=== PATIENT | female | born 1970 | race Caucasian/White ===

== ENCOUNTER 2016-08-21 16:32 | Emergency (ER) | payer OTHER ==
[2016-08-21 16:55] VITALS: BP 178/90; PULSE 95; RESP 18; TEMP 97.9
--- NOTE | 2016-08-21 18:00 | ED ---
General Adult HPI - General Chief complaint: Fall Stated complaint: Fall 2 wks ago, back pain Time Seen by Provider: 08/21/16 17:46 Source: patient, RN notes reviewed Mode of arrival: ambulatory - History of Present Illness Initial comments: this is a 46-year-old female who presents with lower back pain 2 weeks. Patient states she was sitting on a table and the table broke and one of the legs hit her in the tailbone area. Patient states it hurts to have a bowel movement but she is able to. Patient denies any change of bowel or bladder function such as incontinence of bowel or bladder or urinary retention. Patient denies any hematuria or hematochezia. Patient denies any loss of sensation to the saddle area. Patient denies any numbness/weakness/tingling to bilateral lower extremities. Patient is able to walk without difficulty. Patient states she has some mild shooting pain on the right side leg when she bends over. Patient did not hit her head or lose consciousness. Patient complains of some mild right-sided neck pain that started about a week and half ago. Patient denies any injury causing this neck pain. Patient states it hurts worse to move her head to the right. Patient denies any recent fever, chills, shortness breath, chest pain, abdominal pain, nausea/vomiting/diarrhea, hematuria, headache, or visual changes, or any other complaints. Patient is not on any anticoagulants. - Related Data Home Medications Medication Instructions Recorded Confirmed Multivitamins, Thera [Multivitamin] 1 tab PO DAILY 05/11/15 08/21/16 Ergocalciferol (Vitamin D2) 50,000 unit PO GUERRA 04/05/16 08/21/16 [Drisdol] buPROPion SR [Wellbutrin SR] 150 mg PO BID 04/05/16 08/21/16 Fenofibrate 160 mg PO DAILY 08/21/16 08/21/16 Hydrochlorothiazide 25 mg PO DAILY 08/21/16 08/21/16 Lisinopril [Prinivil] 5 mg PO DAILY 08/21/16 08/21/16 Propranolol [Inderal] 40 mg PO TID 08/21/16 08/21/16 Topiramate [Trokendi Xr] 50 mg PO DAILY 08/21/16 08/21/16 Previous Rx's Medication Instructions Recorded traMADol HCl [Ultram] 50 mg PO Q6H PRN #20 tab 12/06/15 Allergies Allergy/AdvReac Type Severity Reaction Status Date / Time Iodinated Contrast Media - Allergy Severe Rash/Hives Verified 08/21/16 17:24 Oral and [Iodinated Contrast Media - IV Dye] Penicillins Allergy Severe swelling,hi Verified 08/21/16 17:24 ves Sulfa (Sulfonamide Allergy Severe swelling,hi Verified 08/21/16 17:24 Antibiotics) ves adhesive Allergy Swelling Verified 08/21/16 17:24 ibuprofen [From Motrin] AdvReac Unknown Verified 08/21/16 17:24 Review of Systems ROS Statement: Those systems with pertinent positive or pertinent negative responses have been documented in the HPI. ROS Other: All systems not noted in ROS Statement are negative. Past Medical History Past Medical History: Hypertension, Neurologic Disorder, Sleep Apnea/CPAP/BIPAP Additional Past Medical History / Comment(s): morbid obesity, back pain, Hepatitis A, MIGRIANES, GALLBLADDER DISORDER, USES CPAP, BULGING DISCS IN BACK History of Any Multi-Drug Resistant Organisms: None Reported Past Surgical History: Breast Surgery, Section, Hernia Repair, Hysterectomy, Tubal Ligation, Uterine Ablation Additional Past Surgical History / Comment(s): EGD, 3 C sections, breast reduction, cyst removed from left hand, D & C, Bilateral groin hernia repair, LAPAROSCOPY Past Anesthesia/Blood Transfusion Reactions: No Reported Reaction Additional Past Anesthesia/Blood Transfusion Reaction / Comment(s): CLAUSTERPHOBIA Past Psychological History: Depression Additional Psychological History / Comment(s): PT STATED FEEL WELL MAINTANIED BY MEDS- HAS NO THOUGHTS OF HARMING SELF, NO HOPELESSNESS. 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 LIVES AT HOME WITH SPOUSE AND 2 KIDS. IS INDEPENDANT Smoking Status: Never smoker Past Alcohol Use History: None Reported Past Drug Use History: None Reported - Past Family History Mother Family Medical History: Coronary Artery Disease (CAD), Diabetes Mellitus, Renal Disease Additional Family Medical History / Comment(s): [employer] Father Family Medical History: Cancer, Diabetes Mellitus, Myocardial Infarction ([place]) Sister(s) Family Medical History: Cancer General Exam - General Exam Comments Initial Comments: General: The patient is awake and alert, in no distress, and does not appear acutely ill. Neck: Patient has tenderness in the right side paraspinal muscles of the cervical spine. The neck is supple, there is no JVD. Cardiovascular: There is a regular rate and rhythm. No murmur, rub or gallop is appreciated. Respiratory: Lungs are clear to auscultation, respirations are non-labored, breath sounds are equal. No wheezes, stridor, rales, or rhonchi. Musculoskeletal: Patient has tenderness to thoracic and lumbar spines. Patient has tenderness to the right side cervical paraspinal muscles. Patient has increased pain with rotating her head to the right but strength is 5/5 with head rotation. Full range of motion, strength 5/5 in Sensation intact. Radial pulses 2+ bilaterally. Neurological: A&O x 3. CN II-XII intact, There are no obvious motor or sensory deficits. Coordination appears grossly intact. Speech is normal. Skin: Skin is warm and dry and no rashes or lesions are noted. Psychiatric: Normal mood and affect. Course Vital Signs 08/21/16 16:52 Temperature 97.9 F Pulse Rate 95 Respiratory 18 Rate Blood Pressure 178/90 O2 Sat by Pulse 99 Oximetry Medical Decision Making - Medical Decision Making This is a 46-year-old female who presents with lower back pain 2 weeks from a fall. On physical exam patient is neurologically intact. Patient has tenderness to thoracic and lumbar spines. Patient has tenderness to the right side cervical paraspinal muscles. Patient has increased pain with rotating her head to the right but strength is 5/5 with head rotation. Full range of motion , strength 5/5 in Sensation intact. Radial pulses 2+ bilaterally. X-rays of the thoracic, lumbar and sacrum/coccyx areas were done and reviewed showing: X-ray thoracic spine: Multilevel hypertrophic spurring. No fracture seen. X-ray sacrum coccyx: Normal sacrum and coccyx exam. X-ray lumbar spine: Degenerative spurring. No fracture. No significant disc space narrowing. Report read by Dr. Broderick. Discussed results with patient. Discussed that she most likely bruised her tailbone. I discussed stool softeners. I discussed that patient should continue taking [id number] Tylenol and patient states she has tramadol at home that she uses. Discussed that patient' s neck pain is mostly caused by muscle spasm. I discussed warm heating pads to the neck. Patient states she has a follow-up appointment with her primary care physician on Sunday I discussed that she should keep this appointment or follow- up sooner if she is having any further problems. I discussed return parameters. Discussed that patient should return to the [facility] for any worsening symptoms or for any further concerns. At this time patient was receptive to this plan patient will be discharged home. Disposition Clinical Impression: Coccygeal contusion, Neck muscle spasm Disposition: HOME SELF-CARE Condition: Good Instructions: Spasmodic Torticollis (ED), Coccyx Injury (ED) Additional Instructions: Please continue Tylenol and tramadol that she had at home for pain. Please use heating pads to the area. No softeners if needed. Please continue your follow- up appointment with your primary care physician or return to the [facility] for any worsening symptoms or for any further concerns. Referrals: Brian Medina DO [Primary Care Provider] - 1-2 days Time of Disposition: 18:56
--- NOTE | 2016-08-21 18:27 | XR ---
EXAMINATION TYPE: XR sacrum coccyx DATE OF EXAM: 08/21/2016 6:19 PM COMPARISON: NONE HISTORY: Back pain TECHNIQUE: 3 views FINDINGS: Segments of normal alignment. I see no fracture. Sacroiliac joints appear normal. IMPRESSION: Normal sacrum and coccyx exam.
--- NOTE | 2016-08-21 18:28 | XR ---
EXAMINATION TYPE: XR lumbar spine 2 or 3V DATE OF EXAM: 08/21/2016 6:19 PM COMPARISON: NONE HISTORY: Low back pain TECHNIQUE: 3 views FINDINGS: Lumbar vertebra have normal alignment. Posterior elements are intact. There is no evidence of a fracture. There is anterior spurring at L3-4 L4-5. Sacroiliac joints are normal. IMPRESSION: Degenerative spurring. No fracture. No significant disc space narrowing.
--- NOTE | 2016-08-21 18:29 | XR ---
EXAMINATION TYPE: XR thoracic spine complete DATE OF EXAM: 08/21/2016 6:19 PM COMPARISON: NONE HISTORY: Back pain TECHNIQUE: 3 views FINDINGS: The thoracic vertebra have normal alignment. Disc spaces are fairly normal. There is hypert rophic spurring of the endplates throughout the mid and lower thoracic spine. There is no paraspinal mass. Posterior elements are intact. IMPRESSION: Multilevel hypertrophic spurring. No fracture seen.
== END 2016-08-21 18:59 | disposition home or self-care (01) ==
LOC: EC 16:32
DX: S30.0XXA Contusion of lower back and pelvis, initial encounter (principal); G24.3 Spasmodic torticollis; M62.838 Other muscle spasm; E66.01 Morbid (severe) obesity due to excess calories; I10 Essential (primary) hypertension; F32.9 Major depressive disorder, single episode, unspecified; Z79.899 Other long term (current) drug therapy; Z91.041 Radiographic dye allergy status; Z88.0 Allergy status to penicillin; Z88.2 Allergy status to sulfonamides; Z88.6 Allergy status to analgesic agent; Z91.09 Other allergy status, other than to drugs and biological substances; W08.XXXA Fall from other furniture, initial encounter; Y92.009 Unspecified place in unspecified non-institutional (private) residence as the place of occurrence of the external cause
CPT/HCPCS: 72072; 72100; 72220; 99283

== ENCOUNTER 2016-09-16 11:27 | Emergency (ER) | payer OTHER ==
[2016-09-16] MEDS ORDERED: ONDANSETRON 4 MG/2 ML VIAL IVP STA (12:15)
[2016-09-16] MEDS ORDERED: SODIUM CHLORIDE 0.9% 500 ML IV STA (12:15)
--- NOTE | 2016-09-16 12:19 | ED ---
Abdominal Pain HPI - General Chief Complaint: Abdominal Pain Stated Complaint: pain all over Time Seen by Provider: 09/16/16 12:04 Source: patient Mode of arrival: ambulatory Limitations: no limitations - History of Present Illness Initial Comments: 46-year-old female complains of abdominal pain. She states that she began 1 month ago with chest pain some neck pain has had some increased migraines. Intermittent nausea hurts about 10 minutes after she eats. She's had multiple surgery but no upper abdominal surgery still has her gallbladder. She states is sometimes hurts with a deep breath. Sharp and then becomes dull last most the day every day. No history of diabetes asthma seizures or stroke. Is treated for hypertension and she states her blood pressures have been running high. - Related Data Home Medications Medication Instructions Recorded Confirmed Multivitamins, Thera [Multivitamin] 1 tab PO DAILY 05/11/15 08/21/16 Ergocalciferol (Vitamin D2) 50,000 unit PO GUERRA 04/05/16 08/21/16 [Drisdol] buPROPion SR [Wellbutrin SR] 150 mg PO BID 04/05/16 08/21/16 Fenofibrate 160 mg PO DAILY 08/21/16 08/21/16 Hydrochlorothiazide 25 mg PO DAILY 08/21/16 08/21/16 Lisinopril [Prinivil] 5 mg PO DAILY 08/21/16 08/21/16 Propranolol [Inderal] 40 mg PO TID 08/21/16 08/21/16 Topiramate [Trokendi Xr] 50 mg PO DAILY 08/21/16 08/21/16 Previous Rx's Medication Instructions Recorded traMADol HCl [Ultram] 50 mg PO Q6H PRN #20 tab 12/06/15 Famotidine 40 mg PO DAILY #30 tab 09/16/16 Allergies Allergy/AdvReac Type Severity Reaction Status Date / Time Iodinated Contrast Media - Allergy Severe Rash/Hives Verified 09/16/16 11:49 Oral and [Iodinated Contrast Media - IV Dye] Penicillins Allergy Severe swelling,hi Verified 09/16/16 11:49 ves Sulfa (Sulfonamide Allergy Severe swelling,hi Verified 09/16/16 11:49 Antibiotics) ves adhesive Allergy Swelling Verified 09/16/16 11:49 ibuprofen [From Motrin] AdvReac Unknown Verified 03/11/17 11:49 Review of Systems ROS Statement: Those systems with pertinent positive or pertinent negative responses have been documented in the HPI. ROS Other: All systems not noted in ROS Statement are negative. Constitutional: Denies: fever Eyes: Denies: eye pain, eye discharge ENT: Denies: ear pain, throat pain Respiratory: Denies: cough Cardiovascular: Reports: chest pain Endocrine: Denies: fatigue Gastrointestinal: Reports: nausea, diarrhea (Occasional related to her milk intolerance). Denies: vomiting Genitourinary: Denies: urgency, dysuria, frequency Musculoskeletal: Denies: back pain Skin: Denies: rash Psychiatric: Denies: anxiety, depression Hematological/Lymphatic: Denies: easy bleeding, easy bruising Past Medical History Past Medical History: Hypertension, Neurologic Disorder, Sleep Apnea/CPAP/BIPAP Additional Past Medical History / Comment(s): morbid obesity, back pain, Hepatitis A, MIGRIANES, GALLBLADDER DISORDER, USES CPAP, BULGING DISCS IN BACK History of Any Multi-Drug Resistant Organisms: None Reported Past Surgical History: Breast Surgery, Section, Hernia Repair, Hysterectomy, Tubal Ligation, Uterine Ablation Additional Past Surgical History / Comment(s): EGD, 3 C sections, breast reduction, cyst removed from left hand, D & C, Bilateral groin hernia repair, LAPAROSCOPY Past Anesthesia/Blood Transfusion Reactions: No Reported Reaction Additional Past Anesthesia/Blood Transfusion Reaction / Comment(s): CLAUSTERPHOBIA Past Psychological History: Depression Additional Psychological History / Comment(s): PT STATED FEEL WELL MAINTANIED BY MEDS- HAS NO THOUGHTS OF HARMING SELF, NO HOPELESSNESS. 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 LIVES AT HOME WITH SPOUSE AND 2 KIDS. IS INDEPENDANT Smoking Status: Never smoker Past Alcohol Use History: None Reported Past Drug Use History: None Reported - Past Family History Mother Family Medical History: Coronary Artery Disease (CAD), Diabetes Mellitus, Renal Disease Additional Family Medical History / Comment(s): [employer] Father Family Medical History: Cancer, Diabetes Mellitus, Myocardial Infarction ([place]) Sister(s) Family Medical History: Cancer General Exam Limitations: no limitations General appearance: alert, in no apparent distress Head exam: Present: atraumatic Eye exam: Present: PERRL, EOMI ENT exam: Present: normal oropharynx, mucous membranes dry, mucous membranes moist, TM's normal bilaterally Neck exam: Present: normal inspection Respiratory exam: Present: normal lung sounds bilaterally Cardiovascular Exam: Present: regular rate, normal rhythm, normal heart sounds GI/Abdominal exam: Present: soft, tenderness (Tenderness epigastric and right upper quadrant with no rebound or guarding). Absent: guarding, rebound Extremities exam: Present: normal inspection Back exam: Present: normal inspection Neurological exam: Present: alert, CN II-XII intact Psychiatric exam: Present: normal affect, normal mood Skin exam: Present: warm, dry Course Vital Signs 09/16/16 11:47 Temperature 97.0 F L Pulse Rate 72 Respiratory 20 Rate Blood Pressure 127/60 O2 Sat by Pulse 98 Oximetry Medical Decision Making - Medical Decision Making Lab work is normal ultrasound the gallbladder normal EKG is normal as well as chest x-ray chest x-ray probably secondary to peptic ulcer disease gastritis or GERD, recommended speak to her doctor about a gastroscopy - Lab Data Result diagrams: 09/16/16 13:23 09/16/16 13:23 Lab Results 09/16/16 09/16/16 09/16/16 Range/Units 13:23 13:23 13:23 WBC 8.7 (3.8-10.6) k/uL RBC 4.46 (3.80-5.40) m/uL Hgb 13.9 (11.4-16.0) gm/dL Hct 41.2 (34.0-46.0) % MCV 92.3 (80.0-100.0) fL MCH 31.2 (25.0-35.0) pg MCHC 33.9 (31.0-37.0) g/dL RDW 12.8 (11.5-15.5) % Plt Count 354 (150-450) k/uL Neutrophils % 49 % Lymphocytes % 39 % Monocytes % 4 % Eosinophils % 3 % Basophils % 1 % Neutrophils # 4.3 (1.3-7.7) k/uL Lymphocytes # 3.4 (1.0-4.8) k/uL Monocytes # 0.3 (0-1.0) k/uL Eosinophils # 0.3 (0-0.7) k/uL Basophils # 0.1 (0-0.2) k/uL Sodium 143 (137-145) mmol/L Potassium 4.2 (3.5-5.1) mmol/L Chloride 107 (98-107) mmol/L Carbon Dioxide 23 (22-30) mmol/L Anion Gap 13 mmol/L BUN 22 H (7-17) mg/dL Creatinine 1.12 H (0.52-1.04) mg/dL Est GFR (MDRD) Af Amer >60 (>60 ml/min/1.73 sqM) Est GFR (MDRD) Non-Af 52 (>60 ml/min/1.73 sqM) Glucose 122 H (74-99) mg/dL Calcium 9.8 (8.4-10.2) mg/dL Total Bilirubin 0.8 (0.2-1.3) mg/dL AST 22 (14-36) U/L ALT 34 (9-52) U/L Alkaline Phosphatase 75 (38-126) U/L Total Creatine Kinase 50 (30-135) U/L CK-MB (CK-2) <0.2 (0.0-2.4) ng/mL CK-MB (CK-2) Rel Index Troponin I <0.012 (0.000-0.034) ng/mL Total Protein 7.5 (6.3-8.2) g/dL Albumin 4.1 (3.5-5.0) g/dL Amylase 34 (30-110) U/L Lipase 56 (23-300) U/L Urine Color Urine Appearance (Clear) Urine pH (5.0-8.0) Ur Specific Cameron (1.001-1.035) Urine Protein (Negative) Urine Glucose (UA) (Negative) Urine Ketones (Negative) Urine Blood (Negative) Urine Nitrate (Negative) Urine Bilirubin (Negative) Urine Urobilinogen (<2.0) mg/dL Ur Leukocyte Esterase (Negative) 09/16/16 Range/Units 13:23 WBC (3.8-10.6) k/uL RBC (3.80-5.40) m/uL Hgb (11.4-16.0) gm/dL Hct (34.0-46.0) % MCV (80.0-100.0) fL MCH (25.0-35.0) pg MCHC (31.0-37.0) g/dL RDW (11.5-15.5) % Plt Count (150-450) k/uL Neutrophils % % Lymphocytes % % Monocytes % % Eosinophils % % Basophils % % Neutrophils # (1.3-7.7) k/uL Lymphocytes # (1.0-4.8) k/uL Monocytes # (0-1.0) k/uL Eosinophils # (0-0.7) k/uL Basophils # (0-0.2) k/uL Sodium (137-145) mmol/L Potassium (3.5-5.1) mmol/L Chloride (98-107) mmol/L Carbon Dioxide (22-30) mmol/L Anion Gap mmol/L BUN (7-17) mg/dL Creatinine (0.52-1.04) mg/dL Est GFR (MDRD) Af Amer (>60 ml/min/1.73 sqM) Est GFR (MDRD) Non-Af (>60 ml/min/1.73 sqM) Glucose (74-99) mg/dL Calcium (8.4-10.2) mg/dL Total Bilirubin (0.2-1.3) mg/dL AST (14-36) U/L ALT (9-52) U/L Alkaline Phosphatase (38-126) U/L Total Creatine Kinase (30-135) U/L CK-MB (CK-2) (0.0-2.4) ng/mL CK-MB (CK-2) Rel Index Troponin I (0.000-0.034) ng/mL Total Protein (6.3-8.2) g/dL Albumin (3.5-5.0) g/dL Amylase (30-110) U/L Lipase (23-300) U/L Urine Color Yellow Urine Appearance Clear (Clear) Urine pH 7.5 (5.0-8.0) Ur Specific Cameron 1.015 (1.001-1.035) Urine Protein Negative (Negative) Urine Glucose (UA) Negative (Negative) Urine Ketones Negative (Negative) Urine Blood Negative (Negative) Urine Nitrate Negative (Negative) Urine Bilirubin Negative (Negative) Urine Urobilinogen <2.0 (<2.0) mg/dL Ur Leukocyte Esterase Negative (Negative) - EKG Data -: EKG Interpreted by Me 09/16/16 14:08 ECG 09/16/2016 1338 ventricular rate 64 bpm, TN interval 150 ms, QRS duration 94 ms, QT interval 418 ms normal sinus rhythm rightward axis borderline ECG Disposition Clinical Impression: GERD (gastroesophageal reflux disease) Disposition: HOME SELF-CARE Condition: Good Instructions: Gastritis (ED), Gastroesophageal Reflux Disease (ED) Prescriptions: Famotidine 40 mg PO DAILY #30 tab Time of Disposition: 15:25
[2016-09-16 13:37] LABS: Appearance,Urine Clear (Clear); Bilirubin,Urine Negative (Negative); Glucose,Urine (UA) Negative (Negative); Ketones,Urine Negative (Negative); Leukocyte Esterase,Urine Negative (Negative); Nitrite,Urine Negative (Negative); PH, Urine 7.5 (5.0-8.0); Protein,Urine Negative (Negative); Specific Gravity,Urine 1.015 (1.001-1.035); UA Billing (MACRO vs. MICRO) CHEM; Urobilinogen,Urine <2.0 mg/dL (<2.0)
[2016-09-16 13:40] LABS: Basophils # (A) 0.1 k/uL (0-0.2); Basophils % (A) 1 %; CH 32.6; CHCM 35.5; Eosinophils # (A) 0.3 k/uL (0-0.7); Eosinophils % (A) 3 %; HCT 41.2 % (34.0-46.0); HDW 2.94; HGB 13.9 gm/dL (11.4-16.0); Luc # (Auto) 0.34; Luc % (Auto) 4; Lymphocytes # (A) 3.4 k/uL (1.0-4.8); Lymphocytes % (A) 39 %; MCH 31.2 pg (25.0-35.0); MCHC 33.9 g/dL (31.0-37.0); MCV 92.3 fL (80.0-100.0); Mean Platelet Volume 6.6; Monocytes # (A) 0.3 k/uL (0-1.0); Monocytes % (A) 4 %; Neutrophils # (A) 4.3 k/uL (1.3-7.7); Neutrophils % (A) 49 %; RBC 4.46 m/uL (3.80-5.40); RDW 12.8 % (11.5-15.5); WBC 8.7 k/uL (3.8-10.6); WBC (Perox) 8.53
[2016-09-16 13:52] LABS: ALT 34 U/L (9-52); AST 22 U/L (14-36); Alkaline Phosphatase 75 U/L (38-126); Amylase 34 U/L (30-110); Anion Gap 13 mmol/L; Blood Urea Nitrogen 22 mg/dL (7-17); Calcium 9.8 mg/dL (8.4-10.2); Carbon Dioxide 23 mmol/L (22-30); Chloride 107 mmol/L (98-107); Glucose 122 mg/dL (74-99); Non-African American GFR(MDRD) 52 (>60 ml/min/1.73 sqM); Potassium 4.2 mmol/L (3.5-5.1); Sodium 143 mmol/L (137-145); Total Bilirubin 0.8 mg/dL (0.2-1.3); Total Protein 7.5 g/dL (6.3-8.2)
[2016-09-16 13:57] LABS: Creatine Kinase 50 U/L (30-135)
--- NOTE | 2016-09-16 14:01 | XR ---
EXAMINATION TYPE: XR chest 2V DATE OF EXAM: 09/16/2016 1:55 PM COMPARISON: 04/07/2016 HISTORY: Abdominal pain TECHNIQUE: Frontal and lateral views of the chest are obtained. FINDINGS: Heart and mediastinum are normal. Lungs are clear. Diaphragm is normal. Bony thorax is int act. IMPRESSION: Normal chest. No change.
[2016-09-16 14:09] LABS: Creatine Kinase MB <0.2 ng/mL (0.0-2.4); Troponin I <0.012 ng/mL (0.000-0.034)
--- NOTE | 2016-09-16 14:49 | US ---
EXAMINATION TYPE: US abdomen limited DATE OF EXAM: 09/16/2016 2:32 PM COMPARISON: US and CT in PACS CLINICAL HISTORY: Right upper quadrant. 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 IMPRESSION:
[2016-09-16] MEDS ORDERED: FAMOTIDINE 20 MG/2 ML VIAL IV STA (14:50)
[2016-09-16] MEDS ORDERED: HYDROmorphone 1 MG/ML 1 ML SYRINGE IVP STA (14:50)
[2016-09-16 15:52] VITALS: BP 136/63; PULSE 78; RESP 18; TEMP 98.1
== END 2016-09-16 15:52 | disposition home or self-care (01) ==
LOC: EC 11:27
DX: K21.9 Gastro-esophageal reflux disease without esophagitis (principal); I10 Essential (primary) hypertension; G43.909 Migraine, unspecified, not intractable, without status migrainosus; G47.30 Sleep apnea, unspecified; Z99.89 Dependence on other enabling machines and devices; E66.01 Morbid (severe) obesity due to excess calories; F32.9 Major depressive disorder, single episode, unspecified; Z79.899 Other long term (current) drug therapy; Z91.041 Radiographic dye allergy status; Z88.0 Allergy status to penicillin; Z88.2 Allergy status to sulfonamides
CPT/HCPCS: 36415; 93005; 80053; 82150; 82550; 82553; 83690; 84484; 85025; 81003; 71020; 76705; 99284; 96374; 96375 ×2; 96361 ×2; J2405; J1170

== ENCOUNTER 2016-11-28 16:53 | Emergency (ER) | payer OTHER ==
[2016-11-28] MEDS ORDERED: traMADol 50 MG TAB PO STA (17:53)
--- NOTE | 2016-11-28 18:29 | ED ---
General Adult HPI - General Chief complaint: Extremity Injury, Upper Stated complaint: Arm Pain Time Seen by Provider: 11/28/16 17:40 Source: patient, RN notes reviewed Mode of arrival: ambulatory Limitations: no limitations - History of Present Illness Initial comments: Patient is a 46-year-old female presents to the emergency room for evaluation of right forearm pain and lump. Patient states she had her blood drawn about a month ago. Patient states that she noticed a lump forming at the injection site afterwards. Patient states she's continued to still have the lump. Patient states she has been having increasing pain over the past few days. Patient denies following up with primary care provider. Patient denies numbness or tingling in her hand. Patient states she thought it should be evaluated. Patient states the pain is worse when she tries to move her wrist or elbow. Patient denies running her arm into anything or falling on her arm recently. Patient denies history of blood clots. Patient denies any redness or heat at the lump. Patient denies fevers or chills. - Related Data Home Medications Medication Instructions Recorded Confirmed Multivitamins, Thera [Multivitamin 1 tab PO DAILY 05/11/15 08/21/16 (formulary)] Ergocalciferol (Vitamin D2) 50,000 unit PO GUERRA 04/05/16 08/21/16 [Drisdol] buPROPion SR [Wellbutrin SR] 150 mg PO BID 04/05/16 08/21/16 Fenofibrate 160 mg PO DAILY 08/21/16 08/21/16 Hydrochlorothiazide 25 mg PO DAILY 08/21/16 08/21/16 Lisinopril [Prinivil] 5 mg PO DAILY 08/21/16 08/21/16 Propranolol [Inderal] 40 mg PO TID 08/21/16 08/21/16 Topiramate [Trokendi Xr] 50 mg PO DAILY 08/21/16 08/21/16 Previous Rx's Medication Instructions Recorded traMADol HCl [Ultram] 50 mg PO Q6H PRN #20 tab 12/06/15 Famotidine 40 mg PO DAILY #30 tab 09/16/16 predniSONE 50 mg PO DAILY #4 tab 11/28/16 Allergies Allergy/AdvReac Type Severity Reaction Status Date / Time Iodinated Contrast Media - Allergy Severe Rash/Hives Verified 11/28/16 17:10 Oral and [Iodinated Contrast Media - IV Dye] Penicillins Allergy Severe swelling,hi Verified 11/28/16 17:10 ves Sulfa (Sulfonamide Allergy Severe swelling,hi Verified 11/28/16 17:10 Antibiotics) ves adhesive Allergy Swelling Verified 11/28/16 17:10 ibuprofen [From Motrin] AdvReac Unknown Verified 11/28/16 17:10 Review of Systems ROS Statement: Those systems with pertinent positive or pertinent negative responses have been documented in the HPI. ROS Other: All systems not noted in ROS Statement are negative. Past Medical History Past Medical History: Hypertension, Neurologic Disorder, Sleep Apnea/CPAP/BIPAP Additional Past Medical History / Comment(s): morbid obesity, back pain, Hepatitis A, MIGRIANES, GALLBLADDER DISORDER, USES CPAP, BULGING DISCS IN BACK History of Any Multi-Drug Resistant Organisms: None Reported Past Surgical History: Breast Surgery, Section, Hernia Repair, Hysterectomy, Tubal Ligation, Uterine Ablation Additional Past Surgical History / Comment(s): EGD, 3 C sections, breast reduction, cyst removed from left hand, D & C, Bilateral groin hernia repair, LAPAROSCOPY Past Anesthesia/Blood Transfusion Reactions: No Reported Reaction Additional Past Anesthesia/Blood Transfusion Reaction / Comment(s): CLAUSTERPHOBIA Past Psychological History: Depression Additional Psychological History / Comment(s): PT STATED FEEL WELL MAINTANIED BY MEDS- HAS NO THOUGHTS OF HARMING SELF, NO HOPELESSNESS. PT WORKS A [employer]. LIVES AT HOME WITH SPOUSE AND 2 KIDS. IS INDEPENDANT Smoking Status: Never smoker Past Alcohol Use History: None Reported Past Drug Use History: None Reported - Past Family History Mother Family Medical History: Coronary Artery Disease (CAD), Diabetes Mellitus, Renal Disease Additional Family Medical History / Comment(s): [employer] Father Family Medical History: Cancer, Diabetes Mellitus, Myocardial Infarction ([place]) Sister(s) Family Medical History: Cancer General Exam - General Exam Comments Initial Comments: Sitting in exam room, no acute distress. Limitations: no limitations General appearance: alert, in no apparent distress Head exam: Present: atraumatic, normocephalic, normal inspection Eye exam: Present: normal appearance ENT exam: Present: normal exam Neck exam: Present: normal inspection Respiratory exam: Absent: respiratory distress Right Forearm Wrist exam: Present: full ROM, tenderness (Tenderness and small palpable lump over forearm. No fluctuance noted. No erythema or heat at the site.) Hand Wrist exam: Present: normal inspection Neuro motor exam: Present: wrist extension intact, thumb opposition intact, thumb IP flexion intact, thumb adduction intact, fingers 2-5 abduction intact Vascular: Present: normal capillary refill (Capillary refill less than 2 seconds ), radial pulse (2+), ulnar pulse (2+) Back exam: Present: normal inspection Neurological exam: Present: alert, oriented X3, CN II-XII intact, normal gait Psychiatric exam: Present: normal affect, normal mood Skin exam: Present: warm, dry, intact, normal color. Absent: rash Course Vital Signs 11/28/16 11/28/16 17:08 19:11 Temperature 98.4 F 96.2 F L Pulse Rate 107 H 83 Respiratory 20 18 Rate Blood Pressure 191/98 181/117 O2 Sat by Pulse 98 100 Oximetry Medical Decision Making - Medical Decision Making Patient is a 46-year-old female presents emergency room for evaluation of right forearm pain. Patient states she had her blood drawn at that site of pain about a month ago and has a small lump. Ultrasound ordered. Ultrasound: No evidence of deep venous thrombosis. No solid or cystic mass identified in the area of concern. Patient might have nerve pain from blood draw. Will place patient on prednisone and have her follow-up with her primary care provider. Patient states she understands everything that was discussed with her. Return parameters discussed. Case discussed with Dr. Cardoza - Radiology Data Radiology results: report reviewed, image reviewed Disposition Clinical Impression: Neuropathic pain of forearm Disposition: HOME SELF-CARE Condition: Good Instructions: Arm Pain (ED) Additional Instructions: Take prednisone as directed. Continue taking at home pain medications as needed. Please follow-up with primary care provider for reevaluation. If any new symptom arises or symptoms worsen, return to ER as soon as possible. Prescriptions: predniSONE 50 mg PO DAILY #4 tab Referrals: Brian Medina DO [Primary Care Provider] - 1-2 days Time of Disposition: 19:02
--- NOTE | 2016-11-28 18:55 | US ---
EXAMINATION TYPE: US venous doppler duplex UE RT DATE OF EXAM: 11/28/2016 6:44 PM COMPARISON: NONE CLINICAL HISTORY: Pain and palp lump right arm. SIDE PERFORMED: Right Right Arm: Negative for DVT No abnormality visualized at the area of the patient's palpable lump IMPRESSION: No evidence of deep venous thrombosis. No solid or cystic mass identified in the area of concern.
[2016-11-28] MEDS ORDERED: predniSONE 50 MG TAB PO STA (19:05)
[2016-11-28 19:13] VITALS: BP 181/117; PULSE 83; RESP 18; TEMP 96.2
== END 2016-11-28 19:13 | disposition home or self-care (01) ==
LOC: EC 16:53
DX: M79.631 Pain in right forearm (principal); I10 Essential (primary) hypertension; E66.01 Morbid (severe) obesity due to excess calories; Z68.42 Body mass index [BMI] 45.0-49.9, adult; F32.9 Major depressive disorder, single episode, unspecified; Z79.899 Other long term (current) drug therapy; Z91.041 Radiographic dye allergy status; Z88.0 Allergy status to penicillin; Z88.2 Allergy status to sulfonamides; Z88.8 Allergy status to other drugs, medicaments and biological substances; Z91.048 Other nonmedicinal substance allergy status
CPT/HCPCS: 93971; 99283; J7512

== ENCOUNTER 2016-12-01 09:02 | Day surgery (SDC) | payer OTHER ==
[2016-11-29 12:03] VITALS: BMI 47.1
[~2016-12-01 09:02] MED LIST: LACTATED RINGERS 1,000 ML IV SCH
[2016-12-01] MEDS ORDERED: LIDOCAINE 1% 20 ML VIAL (10MG/ML) FOR IV START SQ ONE (09:39)
[2016-12-01 09:52] VITALS: TEMP 97.4
[2016-12-01] MEDS ORDERED: PROPOFOL 10 MG/ML 20 ML VIAL IV ONE (10:15)
--- NOTE | 2016-12-01 10:28 | P.PCN ---
Date of Procedure: 12/01/16 Preoperative Diagnosis: Postoperative Diagnosis: Procedure(s) Performed: BRIEF HISTORY: Patient is a 46-year-old, pleasant, white female, scheduled for an upper endoscopy as a part of evaluation of atypical chest pain for the last 3 months duration. She was given a trial of Pepcid as well as Prilosec for 2 months with no help. She has symptoms almost on a daily basis. Does have occasional heartburn. Denies any dysphagia or odynophagia. Because of the persistent just she is scheduled for an upper endoscopy to evaluate further.. PROCEDURE PERFORMED: Esophagogastroduodenoscopy with biopsy. PREOPERATIVE DIAGNOSIS: atypical chest pain. IV sedation per anesthesia. PROCEDURE: After informed consent was obtained, the patient was brought into the endoscopy unit. IV sedation was administered by Anesthesia under continuous monitoring. Initially the Olympus GIF-140 video endoscope was inserted into the mouth. Esophagus intubated without any difficulty. It was gradually advanced into the stomach and duodenum and carefully examined. The bulb and the second part of the duodenum appeared normal. The scope at this time was withdrawn to the stomach, adequately insufflated with air, and upon careful examination, mucosa of the antrum, had mild gastritis and biopsies were done from this area. The body, cardia and the fundus appeared normal. The scope was then withdrawn into the esophagus. The GE junction was located at 42 cm from the incisors. Biopsies were done from the distal esophagus. The esophagus appeared normal. There were no erosions or ulcerations seen and the patient tolerated the procedure well. IMPRESSION: 1. Mild antral gastritis. 2. Evidence of esophagitis or esophageal stricture. RECOMMENDATIONS: The findings of this examination were discussed with the patient lesser family. She was advised to follow with the biopsy results. Since she remains symptomatic despite aggressive acid suppressive therapy IV given a trial of Carafate 1 g twice daily and she'll be seen in office in 3-4 weeks.. Implants: Indications for Procedure: Operative Findings: Description of Procedure:
[2016-12-01 10:32] VITALS: RESP 16
[2016-12-01 10:45] VITALS: BP 155/93; PULSE 77
== END 2016-12-01 11:46 | disposition home or self-care (01) ==
LOC: ORWHC2ENDO 09:02
PROVIDERS: ATTEND Internal Medicine Gastroenterology
DX: K29.50 Unspecified chronic gastritis without bleeding (principal); K21.0 Gastro-esophageal reflux disease with esophagitis; I10 Essential (primary) hypertension; E78.5 Hyperlipidemia, unspecified; G43.909 Migraine, unspecified, not intractable, without status migrainosus; F39 Unspecified mood [affective] disorder; Z79.899 Other long term (current) drug therapy; Z88.0 Allergy status to penicillin; Z88.2 Allergy status to sulfonamides; Z88.8 Allergy status to other drugs, medicaments and biological substances; Z91.041 Radiographic dye allergy status
CPT/HCPCS: 88305; 88342; 43239; J2704

== ENCOUNTER 2017-09-11 04:57 | Inpatient (IN) | payer OTHER ==
--- NOTE | 2017-09-11 05:21 | ED ---
Chest Pain HPI - General Chief Complaint: Chest Pain Stated Complaint: CHEST PAIN Time Seen by Provider: 09/11/17 05:19 Source: patient Mode of arrival: wheelchair Limitations: no limitations - History of Present Illness Initial Comments: This patient is a 47-year-old woman who complains of substernal chest pain that radiates to her back. She states it feels like something heavy is on her chest. She states the pain started yesterday in the morning when she brought her son here to have a surgery. She states that however the pain did intensify little after midnight. On arrival she rated it severe, 10 out of 10. She did not note any worsening or relieving factors. She has not had similar pain previously. MD Complaint: chest pain Onset/Timin -: days(s) Onset: other Pain Location: substernal Pain Radiation: back Severity: severe Severity scale (1-10): 10 Quality: heaviness Consistency: constant Improves With: nothing Worsens With: nothing Anginal Symptoms: dyspnea Treatments Prior to Arrival: none - Related Data Home Medications Medication Instructions Recorded Confirmed Acetaminophen Tab [Tylenol Tab] 650 mg PO Q6H PRN 09/11/17 09/11/17 Multivit with Calcium,Iron,Min 1 tab PO DAILY 09/11/17 09/11/17 [Women's Multivitamin] Allergies Allergy/AdvReac Type Severity Reaction Status Date / Time Iodinated Contrast- Oral and Allergy Severe Rash/Hives Verified 09/11/17 06:55 IV Dye [Iodinated Contrast Media - IV Dye] Penicillins Allergy Severe swelling,hi Verified 09/11/17 06:55 ves Sulfa (Sulfonamide Allergy Severe swelling,hi Verified 09/11/17 06:55 Antibiotics) ves adhesive Allergy Swelling Verified 09/11/17 06:55 ibuprofen [From Motrin] AdvReac "PROBLEM Verified 09/11/17 06:55 WITH KIDNEYS" Review of Systems ROS Statement: Those systems with pertinent positive or pertinent negative responses have been documented in the HPI. ROS Other: All systems not noted in ROS Statement are negative. Constitutional: Denies: fever, chills Respiratory: Reports: dyspnea. Denies: cough, hemoptysis Cardiovascular: Reports: chest pain. Denies: palpitations, orthopnea, edema, syncope Gastrointestinal: Denies: abdominal pain, nausea, vomiting Genitourinary: Denies: dysuria, hematuria Musculoskeletal: Denies: back pain Skin: Denies: rash Neurological: Denies: headache, weakness, numbness EKG Findings - EKG Results: EKG: interpreted by ERMD, sinus rhythm (Rate 104 bpm) EKG shows: tachycardia - Blocks, Whitney, Hypertrophy, ST Abn: AV and intraventricular conduction: intraventricular conduction delay (There is an RS pattern in V1 however no notched are in V6. This finding is new versus the comparison EKG from September 2016) Past Medical History Past Medical History: Hypertension, Neurologic Disorder, Sleep Apnea/CPAP/BIPAP Additional Past Medical History / Comment(s): morbid obesity, back pain, Hepatitis A, MIGRIANES, GALLBLADDER DISORDER, USES CPAP, BULGING DISCS IN BACK History of Any Multi-Drug Resistant Organisms: None Reported Past Surgical History: Breast Surgery, Section, Hernia Repair, Hysterectomy, Tubal Ligation, Uterine Ablation Additional Past Surgical History / Comment(s): EGD, 3 C sections, breast reduction, cyst removed from left hand, D & C, Bilateral groin hernia repair, LAPAROSCOPY Past Anesthesia/Blood Transfusion Reactions: No Reported Reaction Additional Past Anesthesia/Blood Transfusion Reaction / Comment(s): CLAUSTERPHOBIA Past Psychological History: Depression Smoking Status: Never smoker Past Alcohol Use History: None Reported Past Drug Use History: None Reported - Past Family History Mother Family Medical History: Coronary Artery Disease (CAD), Diabetes Mellitus, Renal Disease Additional Family Medical History / Comment(s): [employer] Father Family Medical History: Cancer, Diabetes Mellitus, Myocardial Infarction ([place]) Sister(s) Family Medical History: Cancer General Exam Limitations: no limitations General appearance: alert, obese Head exam: Present: atraumatic, normocephalic Eye exam: Present: normal appearance. Absent: scleral icterus, conjunctival injection Neck exam: Present: normal inspection, full ROM Respiratory exam: Present: normal lung sounds bilaterally. Absent: respiratory distress, wheezes, rales, rhonchi, stridor Cardiovascular Exam: Present: regular rate, normal rhythm, normal heart sounds. Absent: systolic murmur, diastolic murmur, rubs, gallop GI/Abdominal exam: Present: soft. Absent: distended, tenderness, guarding, rebound, mass, pulsatile mass, hernia Extremities exam: Present: normal inspection, normal capillary refill. Absent: pedal edema, calf tenderness Back exam: Present: normal inspection Neurological exam: Present: alert Skin exam: Present: warm, dry, intact, normal color. Absent: rash Course Vital Signs 09/11/17 09/11/17 09/11/17 05:00 05:43 05:48 Temperature 97.3 F L Pulse Rate 102 H 90 89 Respiratory 18 1 L 16 Rate Blood Pressure 190/112 164/86 145/79 O2 Sat by Pulse 97 94 L 94 L Oximetry 09/11/17 09/11/17 09/11/17 05:53 05:57 06:40 Temperature Pulse Rate 95 89 80 Respiratory 16 16 16 Rate Blood Pressure 139/75 151/77 159/98 O2 Sat by Pulse 95 95 95 Oximetry Chest Pain MDM - MDM Patient does continue to have just the most minimal pain following medications ( 07/18). Given the patient does have new intraventricular conduction delay, her case discussed with the ethylbenzene converter helper, and given that she continues to have pain they will take her for cath this a.m., the Sanitation Tank Washer was activated. Disposition Clinical Impression: Chest pain, Intraventricular conduction defect Disposition: ADMITTED IP TO THIS HOSP Condition: Serious
[2017-09-11] MEDS ORDERED: NITROGLYCERIN SL TABS 0.4 MG TAB SUBLINGUAL STA (05:42)
[2017-09-11] MEDS ORDERED: ASPIRIN 81 MG PO STA (05:42)
[2017-09-11] MEDS ORDERED: HEPARIN SODIUM,PORCINE 5,000 UNIT/ML 1 ML VIAL IV PRN (05:43)
[2017-09-11] MEDS ORDERED: HEPARIN SODIUM,PORCINE 5,000 UNIT/ML 1 ML VIAL IV ONE (05:43)
[2017-09-11] MEDS ORDERED: MORPHINE SULFATE 4 MG/ML SYRINGE IV STA (05:44)
[2017-09-11] MEDS ORDERED: METOPROLOL TARTRATE 5 MG/5 ML VIAL IVP STA (05:45)
[2017-09-11] MEDS ORDERED: HEPARIN SOD,PORK IN 0.45% NACL 25,000 UNIT in 0.45% NACL 1 500ML.BAG IV SCH (05:45)
[2017-09-11 05:47] LABS: ALT 28 U/L (9-52); AST 30 U/L (14-36); Albumin 4.2 g/dL (3.5-5.0); Alkaline Phosphatase 96 U/L (38-126); Amylase 35 U/L (30-110); Anion Gap 10 mmol/L; Blood Urea Nitrogen 14 mg/dL (7-17); Calcium 9.6 mg/dL (8.4-10.2); Carbon Dioxide 25 mmol/L (22-30); Chloride 107 mmol/L (98-107); Glucose 126 mg/dL (74-99); Lipase 69 U/L (23-300); Sodium 142 mmol/L (137-145); Total Protein 7.5 g/dL (6.3-8.2)
--- NOTE | 2017-09-11 05:48 | XR ---
EXAM: XR Chest, 1 View CLINICAL HISTORY: ITS.REASON XR Reason: chest pain TECHNIQUE: Frontal view of the chest. COMPARISON: Chest x-ray dated 09/16/2016. FINDINGS: Lungs: Unremarkable. The lungs are clear. Pleural space: Unremarkable. No pneumothorax. Heart: Mild cardiomegaly. Mediastinum: Unremarkable. Bones/joints: Unremarkable. IMPRESSION: No acute findings.
[2017-09-11 05:49] LABS: Potassium 4.7 mmol/L (3.5-5.1)
[2017-09-11] MEDS: NITROGLYCERIN SL TABS 0.4 MG TAB SUBLINGUAL PRN ×2 (05:49→05:53)
[2017-09-11 06:02] LABS: Creatine Kinase 47 U/L (30-135)
[2017-09-11 06:15] LABS: Creatine Kinase MB 0.4 ng/mL (0.0-2.4); Troponin I <0.012 ng/mL (0.000-0.034)
[2017-09-11 06:31] LABS: Basophils # (A) 0.1 k/uL (0-0.2); Basophils % (A) 1 %; Eosinophils # (A) 0.3 k/uL (0-0.7); Eosinophils % (A) 4 %; HGB 12.8 gm/dL (11.4-16.0); Lymphocytes # (A) 3.1 k/uL (1.0-4.8); Lymphocytes % (A) 39 %; MCH 31.7 pg (25.0-35.0); MCHC 35.6 g/dL (31.0-37.0); MCV 89.1 fL (80.0-100.0); Monocytes # (A) 0.3 k/uL (0-1.0); Monocytes % (A) 4 %; Neutrophils % (A) 51 %; Platelet Count 318 k/uL (150-450); RBC 4.04 m/uL (3.80-5.40); RDW 13.2 % (11.5-15.5); WBC 7.9 k/uL (3.8-10.6)
[2017-09-11] MEDS ORDERED: NITROGLYCERIN SL TABS 0.4 MG TAB SUBLINGUAL PRN (06:43)
[2017-09-11 06:45] LABS: D-Dimer 0.9 mg/L FEU (<0.60); INR 1.2 (<1.2); Prothrombin Time 11.4 sec (9.0-12.0)
[2017-09-11 06:51] LABS: Partial Thromboplastin Time 63.9 sec (22.0-30.0)
[2017-09-11] MEDS ORDERED: LIDOCAINE 2% INJ 20 MG/ML (20 ML MDV) ONE ×3 (07:03→07:26)
[2017-09-11] MEDS ORDERED: LIDOCAINE 2% INJ 20 MG/ML SQ ONE (07:08)
[2017-09-11] MEDS ORDERED: MIDAZOLAM 2 MG/2 ML VIAL ONE (07:10)
[2017-09-11] MEDS ORDERED: diphenhydrAMINE 50 MG/ML 1 ML VIAL ONE (07:11)
[2017-09-11] MEDS: MIDAZOLAM 2 MG/2 ML VIAL IV ONE ×2 (07:11→07:16)
[2017-09-11] MEDS ORDERED: methylPREDNISolone SOD SUCCI 125 MG/2 ML VIAL ONE (07:11)
[2017-09-11] MEDS ORDERED: methylPREDNISolone SOD SUCCI 125 MG/2 ML VIAL IV ONE (07:12)
[2017-09-11] MEDS ORDERED: diphenhydrAMINE 50 MG/ML 1 ML VIAL IVP ONE (07:12)
[2017-09-11] MEDS ORDERED: IV FLUID CONTINUATION 500 ML IV ONE (07:12)
[2017-09-11] MEDS ORDERED: HEPARIN SODIUM 1,000 UN/ML (10ML VL) ONE (07:26)
[2017-09-11] MEDS ORDERED: VERAPAMIL 2.5 MG/ML 2 ML AMP ONE (07:26)
[2017-09-11] MEDS: VERAPAMIL SYRINGE (5 MG/10 ML) INTRAARTER ONE ×2 (07:37→07:49)
[2017-09-11] MEDS ORDERED: NITROGLYCERIN SL TABS 0.4 MG TAB SUBLINGUAL ONE (07:46)
[2017-09-11] MEDS ORDERED: IOHEXOL 350 MG/ML 125ML BOTTLE INJ ONE (07:49)
[2017-09-11] MEDS ORDERED: RX INFO: IV CONTRAST WAS GIVEN 1 EACH MISC MISCELLANE PRN ×2 (07:59→16:33)
[2017-09-11] MEDS ORDERED: SODIUM CHLORIDE 0.9% 1,000 ML IV SCH (08:00)
[2017-09-11] MEDS: CARVEDILOL 6.25 MG TAB PO SCH ×2 (08:23→16:57)
[2017-09-11] MEDS: LISINOPRIL 5 MG TAB PO SCH ×2 (08:23→21:17)
--- NOTE | 2017-09-11 08:51 | CONS ---
CONSULTATION CHIEF COMPLAINT: Chest pain. A 47-year-old lady with history of hypertension, presented to our emergency room complaining of chest pressure. She describes it as a 10/10 chest pain that started about 2 hours prior to arrival. The pain radiated to her back and left arm. EKG showed a new onset left bundle branch block. Even after we slowed down her heart rate with beta rubia, she continued to have chest pain and a left bundle branch block. Due to which she was advised to undergo emergent cardiac catheterization. She had been explained of risks, benefits and alternatives, understood and accepted. PAST MEDICAL HISTORY: Significant for hypertension. MEDICATIONS: Are as charted. FAMILY HISTORY: Negative for premature coronary artery disease. SOCIAL HISTORY: Negative for smoking, EtOH abuse, or drug abuse. REVIEW OF SYSTEMS: HEENT is unremarkable. CARDIAC: As described above. RESPIRATORY: Negative. GI: Negative. GENITOURINARY: Negative. ALLERGY: Negative. SKIN: Negative. MUSCULOSKELETAL: Negative. ENDOCRINE: Negative. CONSTITUTIONAL: Negative. ONCOLOGICAL: Negative. Rest of the system review is not relevant. PHYSICAL EXAM: Patient is comfortable at rest. Vital signs are stable. Chest exam reveals good air entry bilaterally. Heart exam reveals first and second heart sounds. No gallop. Abdomen is soft. Exam of extremities did not reveal any edema. Peripheral pulses are felt. ASSESSMENT: Acute coronary syndrome, possible acute myocardial infarction. PLAN: Patient will undergo emergent cardiac catheterization. At the time of my evaluation, patient is chest pain-free. Will decide on further course of action based on the cath findings. MMODL / IJN: [id number] /
--- NOTE | 2017-09-11 09:06 | CC ---
CARDIAC CATHETERIZATION REPORT Mrs. Arshad is a 47-year-old female with known history of hypertension, history of obesity, who presented to the emergency room with symptoms of persistent chest discomfort and a left bundle branch block of unknown duration. She was evaluated with Dr. Tejeda and recommendation made regarding cardiac catheterization. PROCEDURE: Patient was brought to the [facility] in a fasting semi-sedated state after receiving Versed and Benadryl and achieving moderate conscious sedated state. Attempt by Dr. Tejeda to cannulate the right and the left femoral artery were unsuccessful. At that time, he asked me to proceed to perform cardiac catheterization using the radial approach. Using Xylocaine anesthesia and Seldinger technique, a 6-Finnish sheath was introduced in the right radial artery. Selective right and left coronary angiography performed using 5-Finnish 3.5 bend right and left Adriana catheter, multiple views of the coronary artery including hemiaxial views were obtained. Following that 5-Finnish tight pigtail catheter with introduced into the left ventricular and 30 degree SOLIS view of the left ventricle was obtained. Following that, the catheter and sheaths were removed. Hemostasis was obtained with deployment of a TR band. There was no immediate complication. Patient is returned to her room in stable condition. Of note, patient received 3000 units of intravenous heparin as well as intra-arterial verapamil. FINDINGS: 1. LEFT MAIN: This is a large-sized vessel, bifurcating into left circumflex, left anterior descending artery, left main coronary artery without any obstructive coronary artery disease. 2. LEFT ANTERIOR DESCENDING ARTERY: This is a large-sized vessel reaching toward the apex with a wraparound apex segment giving rise to two diagonal branches. The first one is large in caliber. The left anterior descending artery as well as branches have no evidence of obstructive coronary disease. 3. LEFT CIRCUMFLEX: This is a nondominant vessel giving rise to two obtuse marginal branches. The first one is very proximal. The left circumflex as well as branches have no evidence of obstructive disease. 4. RIGHT CORONARY ARTERY: This is a large dominant vessel, bifurcating PDA and posterolateral branches. The right coronary artery as well as its branches have no evidence of obstructive coronary artery disease. 5. LEFT VENTRICULOGRAM: Left ventricular was performed in 30-degree SOLIS view and revealed global hypokinesis with an ejection fraction of 35% to 40% with mitral regurgitation. 6. HEMODYNAMICS: There was no gradient across the aortic valve. The left ventricle end-diastolic pressure nunes 30 mmHg/. CONCLUSION: 1. Normal coronary arteries. 2. Moderate severe nonischemic cardiomyopathy. RECOMMENDATION: Patient will be continued on aggressive treatment for her cardiomyopathy. Those findings and recommendation were discussed with the patient and her family who are in full understanding and agreement. DURATION OF THE PROCEDURE: 19 minutes. MMKENYA / MARYAMN: [id number] /
--- NOTE | 2017-09-11 09:09 | LTR ---
DATE OF SERVICE 09/11/2016 RE: Pavithra Jazmine. Dear Dr. Tuttle; I had the pleasure to perform cardiac catheterization on Mrs. Arshad at [facility] on September 11 and a full copy of the procedure note will be forwarded to you. In brief, she was found to have no evidence of obstructive coronary artery disease with moderate to severe global hypokinesis consistent with nonischemic cardiomyopathy. At this time, I would recommend to continue aggressive medical treatment and depending on the progress of her left ventricular systolic function, further recommendation will be made. Thank you again for allowing me to participate in this patient's care. Please feel free to call for any questions. Sincerely yours, MD YVON Najera / ARABELLA: [id number] /
[2017-09-11] MEDS ORDERED: ACETAMINOPHEN TAB 325 MG TAB ONE (09:48)
[2017-09-11] MEDS: FUROSEMIDE 20 MG TAB PO SCH ×2 (10:10→21:16)
--- NOTE | 2017-09-11 11:48 | ECHOF ---
Referral Reason:chest pain, CM MEASUREMENTS -------- HEIGHT: 160.0 cm WEIGHT: 114.3 kg BP: 171/96 RVIDd: 2.8 cm (< 3.3) IVSd: 1.2 cm (0.6 - 1.1) LVIDd: 5.6 cm (3.9 - 5.3) LVPWd: 1.2 cm (0.6 - 1.1) IVSs: 1.5 cm LVIDs: 4.7 cm LVPWs: 1.3 cm LA Diam: 3.0 cm (2.7 - 3.8) Ao Diam: 2.0 cm (2.0 - 3.7) LA Diam: 3.4 cm (2.7 - 3.8) EPSS: 1.2 cm MV E Blaine: 0.70 m/s MV DecT: 136 ms MV A Blaine: 0.61 m/s MV E/A Ratio: 1.13 MV EF SLOPE: 72.75 mm/s (70 - 150) MV EXCURSION: 0.81 cm (> 18.000) FINDINGS -------- Sinus rhythm. Morbid Obesity The left ventricular size is normal. There is mild concentric left ventricular hypertrophy. Overa ll left ventricular systolic function is moderately impaired with, an EF between 35 - 40 %.This is a suboptimal studyand difficult to assess for any focal wall motion abnormalities. The right ventricle is normal in size. The left atrial size is normal. The right atrial size is normal. 1.5mg of Definity was utilized for enhancement of images The aortic valve was not well visualized. Mild mitral regurgitation is present. Mild tricuspid regurgitation present. There is no evidence of pulmonary hypertension. The right v entricular systolic pressure, as measured by Doppler, is {RVSP}. The pulmonic valve was not well visualized. There is no pericardial effusion. CONCLUSIONS -------- 1. Sinus rhythm. 2. Morbid Obesity 3. The left ventricular size is normal. 4. There is mild concentric left ventricular hypertrophy. 5. Overall left ventricular systolic function is moderately impaired with, an EF between 35 - 40 %. 6. 1.5mg of Definity was utilized for enhancement of images 7. The aortic valve was not well visualized. 8. Mild mitral regurgitation is present. 9. Mild tricuspid regurgitation present. 10. There is no evidence of pulmonary hypertension. 11. The right ventricular systolic pressure, as measured by Doppler, is {RVSP}. 12. The pulmonic valve was not well visualized. 13. There is no pericardial effusion. ONLINE ACTIVIST: Katie Stewart RDCS
[2017-09-11 12:03] LABS: Creatine Kinase 46 U/L (30-135)
[2017-09-11 12:17] LABS: Creatine Kinase MB 0.4 ng/mL (0.0-2.4); Troponin I <0.012 ng/mL (0.000-0.034)
[2017-09-11] MEDS ORDERED: ACETAMINOPHEN TAB 325 MG TAB PO PRN (14:43)
[2017-09-11 15:17] VITALS: BMI 44.5
--- NOTE | 2017-09-11 15:30 | NM ---
EXAMINATION TYPE: NM pul vent and perfuse DATE OF EXAM: 09/11/2017 COMPARISON: Prior chest x-ray 09/11/2017 HISTORY: Chest pain TECHNIQUE: Utilizing inhalation of 68.9 mCi Tc 99m DTPA aerosol and intravenous injection of 4.69 mC i of Tc 99m MAA, ventilation and perfusion images are acquired post injection in multiple projections . FINDINGS: Normal radiotracer distribution is noted in the lungs. There is no evidence of mismatched defects. IMPRESSION: Normal ventilation/perfusion scan
[2017-09-11] MEDS ORDERED: KETOROLAC 30 MG/ML 1 ML VIAL IVP STA (16:35)
[2017-09-11] MEDS: MULTIVITAMINS, THERA 1 EACH TAB PO SCH (16:47)
--- NOTE | 2017-09-11 17:26 | P.HPIM ---
History of Present Illness H&P Date: 09/11/17 Chief Complaint: Chest pain Patient is a 47-year-old female with a known history of hypertension, obstructive sleep apnea and morbid obesity came to ER with complaints of substernal chest pain started around midnight yesterday and patient stayed at home for about 2 hours without relief of symptoms and came to ER. Chest pain is mainly substernal radiating to the back and also left arm. Patient felt like heaviness and somebody sitting on her chest. On arrival she rated it severe, 10 out of 10. She did not note any worsening or relieving factors. EKG showed normal sinus rhythm and new left bundle branch block. Patient was taken to cardiac catheterization and was found have normal coronaries and ischemic cardiomyopathy. No history of [place] in the past. Patient was found to have elevated d-dimer and CT chest could not be done due to contrast exposure this morning. VQ scan showed normal perfusion. CT chest for tomorrow as ordered to rule out dissection.. Chest x-ray showed no acute cardio pulmonary process Troponin negative. BNP 1690 D-dimer 0.85 Review of Systems Constitutional: Patient denies any fever or chills . No generalized weakness or weight loss. Abdomen: Patient denied nausea vomiting and diarrhea and abdominal pain. Cardiovascular: Agent does have chest pain. No short of breath no palpitations. Respiratory: patient denied any cough is from production. No shortness of breath Neurologic: Patient denied any numbness or tingling headache. Musculoskeletal: Patient denies any complaints of joint swelling or deformity. Skin: Negative Psychiatric: Negative Endocrine: No heat or cold intolerance. No recent weight gain. Genitourinary: No dysuria or hematuria. All other 14 point ROS negative except the above Past Medical History Past Medical History: Hypertension, Neurologic Disorder, Sleep Apnea/CPAP/BIPAP Additional Past Medical History / Comment(s): morbid obesity, back pain, Hepatitis A, MIGRIANES, GALLBLADDER DISORDER, USES CPAP, BULGING DISCS IN BACK History of Any Multi-Drug Resistant Organisms: None Reported Past Surgical History: Breast Surgery, Section, Hernia Repair, Hysterectomy, Tubal Ligation, Uterine Ablation Additional Past Surgical History / Comment(s): EGD, 3 C sections, breast reduction, cyst removed from left hand, D & C, Bilateral groin hernia repair, LAPAROSCOPY Past Anesthesia/Blood Transfusion Reactions: No Reported Reaction Additional Past Anesthesia/Blood Transfusion Reaction / Comment(s): CLAUSTERPHOBIA Past Psychological History: Depression Smoking Status: Never smoker Past Alcohol Use History: None Reported Past Drug Use History: None Reported - Past Family History Mother Family Medical History: Coronary Artery Disease (CAD), Diabetes Mellitus, Renal Disease Additional Family Medical History / Comment(s): [employer] Father Family Medical History: Cancer, Diabetes Mellitus, Myocardial Infarction ([place]) Sister(s) Family Medical History: Cancer Medications and Allergies Home Medications Medication Instructions Recorded Confirmed Type Acetaminophen Tab [Tylenol Tab] 650 mg PO Q6H PRN 09/11/17 09/11/17 History Multivit with Calcium,Iron,Min 1 tab PO DAILY 09/11/17 09/11/17 History [Women's Multivitamin] Allergies Allergy/AdvReac Type Severity Reaction Status Date / Time Iodinated Contrast- Oral and Allergy Severe Rash/Hives Verified 09/11/17 06:55 IV Dye [Iodinated Contrast Media - IV Dye] Penicillins Allergy Severe swelling,hi Verified 09/11/17 06:55 ves Sulfa (Sulfonamide Allergy Severe swelling,hi Verified 09/11/17 06:55 Antibiotics) ves adhesive Allergy Swelling Verified 09/11/17 06:55 ibuprofen [From Motrin] AdvReac "PROBLEM Verified 09/11/17 06:55 WITH KIDNEYS" Physical Exam Vitals: Vital Signs Temp Pulse Pulse Resp BP BP Pulse Ox 09/11/17 09:55 76 18 151/83 09/11/17 09:24 86 18 158/87 96 09/11/17 08:53 90 16 160/87 96 09/11/17 08:43 92 16 165/96 96 09/11/17 08:25 95 16 171/96 97 09/11/17 08:10 93 16 172/98 94 L 09/11/17 06:40 80 16 159/98 95 09/11/17 05:57 89 16 151/77 95 09/11/17 05:53 95 16 139/75 95 09/11/17 05:48 89 16 145/79 94 L 09/11/17 05:43 90 1 L 164/86 94 L 09/11/17 05:00 97.3 F L 102 H 18 190/112 97 Intake and Output 09/10/17 09/11/17 09/11/17 22:59 06:59 14:59 Other: # Voids 1 Weight 114.305 kg PHYSICAL EXAMINATION: Patient is lying in the bed comfortably, no acute distress, awake alert and oriented. Morbidly obese. HEENT: Normocephalic. Neck is supple. Pupils reactive. Nostrils clear. Oral cavity is moist. Ears reveal no drainage. Neck reveals no JVD, carotid bruits, or thyromegaly. CHEST EXAMINATION: Trachea is central. Symmetrical expansion. Lung ku clear to auscultation and percussion. CARDIAC: Normal S1, S2 with no gallops. No murmurs ABDOMEN: Soft. Bowel sounds normal. No organomegaly. No abdominal bruits. Extremities: reveal no edema. No clubbing or cyanosis Neurologically awake, alert, oriented x3 with well-coordinated movements. No focal deficits noted Skin: No rash or skin lesions. Psychiatric: Coperative. Nonsuicidal Musculoskeletal: No joint swelling or deformity. Normal range of motion. Results CBC & Chem 7: 09/11/17 06:21 09/11/17 05:19 Labs: Abnormal Lab Results - Last 24 Hours (Table) 09/11/17 09/11/17 09/11/17 Range/Units 05:19 06:21 06:21 INR 1.2 H (<1.2) APTT 63.9 H (22.0-30.0) sec D-Dimer 0.90 H 0.85 H (<0.60) mg/L FEU Glucose 126 H (74-99) mg/dL Thrombosis Risk Factor Assmnt - DVT/VTE Prophylaxis DVT/VTE Prophylaxis: Pharmacologic Prophylaxis ordered Assessment and Plan Assessment: Chest pain/angina. Ruled out acute urinary syndrome. Cardiac catheterization showed normal coronaries. VQ scan showed normal perfusion. CT chest ordered to rule out dissection. New diagnosis of non- ischemic cardiomyopathy Abnormal EKG with left bundle branch block Elevated d-dimer. VQ scan negative Hypertension Morbid obesity BMI 44.5 Obstructive sleep apnea DVT prophylaxis Plan: Patient be continued on aspirin. Lipid profile was ordered. Started on metoprolol and lisinopril. Continue with telemetry monitoring. Pain management for chest pain. Further recommendations based on the clinical course. Discussed with the patient and family in detail at bedside Time with Patient: Greater than 30
[2017-09-11 18:12] LABS: Creatine Kinase MB 0.5 ng/mL (0.0-2.4); Troponin I 0.024 ng/mL (0.000-0.034)
[2017-09-11] MEDS: FAMOTIDINE 20 MG TAB PO SCH (20:05)
[2017-09-11] MEDS: HEPARIN SODIUM,PORCINE 5,000 UNIT/ML 1 ML VIAL SQ SCH (21:16)
[2017-09-12 06:36] LABS: Calcium 9.3 mg/dL (8.4-10.2); Potassium 4.3 mmol/L (3.5-5.1)
[2017-09-12] MEDS: LISINOPRIL 5 MG TAB PO SCH ×2 (07:47→20:40)
[2017-09-12] MEDS: CARVEDILOL 6.25 MG TAB PO SCH ×2 (07:47→17:27)
[2017-09-12] MEDS: FUROSEMIDE 20 MG TAB PO SCH (07:47)
[2017-09-12] MEDS: MULTIVITAMINS, THERA 1 EACH TAB PO SCH (07:47)
[2017-09-12] MEDS: FAMOTIDINE 20 MG TAB PO SCH ×2 (07:48→20:40)
[2017-09-12] MEDS: HEPARIN SODIUM,PORCINE 5,000 UNIT/ML 1 ML VIAL SQ SCH ×3 (07:48→20:40)
[2017-09-12] MEDS ORDERED: ALPRAZolam 0.25 MG TAB PO STA (07:53)
[2017-09-12] MEDS ORDERED: methylPREDNISolone SOD SUCCI 125 MG/2 ML VIAL IV STA (08:52)
[2017-09-12] MEDS ORDERED: diphenhydrAMINE 50 MG/ML 1 ML VIAL IVP STA (08:52)
[2017-09-12] MEDS ORDERED: ASPIRIN 325 MG TAB PO SCH (09:00)
--- NOTE | 2017-09-12 10:41 | CT ---
EXAMINATION TYPE: CT angio thoracic/abd aorta DATE OF EXAM: 09/12/2017 COMPARISON: VQ scan 09/11/2017, CT abdomen and pelvis 12/06/2015, and chest x-ray 09/11/2017 HISTORY: 47-year-old female Acute Coronary Syndrome, rule out PE or dissection, pain. TECHNIQUE: Contiguous axial scanning of the chest, abdomen, and pelvis performed with IV Contrast, pa tient injected with 125 mL of Omnipaque 350. Initial noncontrast scanning through the aortic arch. Ad ditional initial scanning through the chest optimized for pulmonary arterial opacification. Subsequen t scanning optimized for aortic opacification. Coronal/sagittal MIP reconstructions performed. 3-D re constructions generated on a dedicated independent workstation. The patient was premedicated due to iodinated contrast allergy (hives and rash). CT DLP: 2379 mGycm Automated exposure control for dose reduction was used. FINDINGS: Chest: Heart is borderline enlarged without pericardial effusion. Initial noncontrast images through the aorta show no evidence for acute intramural hematoma. There ar e motion artifacts along the ascending aorta without evidence for dissection. Conventional arch vesse l branching anatomy and normal caliber to the thoracic aorta. Respiratory motion artifacts limit assessment for pulmonary embolus. The subsegmental branches are no t well evaluated. No large central, lobar, or definite segmental pulmonary embolus. No thoracic lymphadenopathy by CT size criteria. There are small bilateral pleural effusions with some mild patchy left basilar atelectasis. ABDOMEN: There is prominent reflux of contrast into the hepatic veins which should be correlated clinically fo r elevated right heart pressures. Liver is enlarged measuring 22.1 cm craniocaudal. Adrenal glands, gallbladder, kidneys, and pancreas show no gross abnormality. Small 1.2 cm hypodense lesion posterior spleen was present in 2016 suggestive of a cyst. The celiac axis, SMA, scott renal arteries, and JUVENTINO are patent. No evidence for abdominal aortic aneurysm. Iliac arteries are patent. No dilated small bowel, free fluid, or free air. Mild stool burden. No pericolonic inflammatory ivory e. PELVIS: Bladder partially urine distended. Uterus surgically absent. Neither ovary is clearly seen and could also be surgically absent. No abnormal fluid collection the pelvis or pelvic lymphadenopathy. BONES: Degenerative changes at the hips and SI joints. Additional degenerative changes throughout the spine. IMPRESSION: 1. SOME RESPIRATORY MOTION ARTIFACTS. NO EVIDENCE FOR PULMONARY EMBOLUS TO THE SEGMENTAL LEVEL. 2. NO EVIDENCE FOR ACUTE AORTIC INTRAMURAL HEMATOMA, AORTIC ANEURYSM, OR AORTIC DISSECTION. 3. SMALL PLEURAL EFFUSIONS. ALSO, PROMINENT REFLUX OF CONTRAST INTO THE HEPATIC VEINS. CORRELATE FOR MILD OR EARLY CARDIAC DECOMPENSATION. 4. HEPATOMEGALY (22.1 CM).
--- NOTE | 2017-09-12 11:14 | P.PN ---
Progress Note - Text Impression Nonischemic cardio myopathy LV systolic dysfunction ejection fraction 35-40% Underlying left bundle branch block pattern Normal coronary arteries No evidence for thoracic aneurysm or pulmonary in his him Hepatomegaly noted Suggest Maximize medications for heart failure and cardiomyopathy Evaluate for hepatomegaly No need for aspirin Add spironolactone and statins for management of nonischemic cardio myopathy and reduction in risk of sudden cardiac The see full dictation by nurse practitioner
--- NOTE | 2017-09-12 12:04 | P.PN ---
Subjective Progress Note Date: 09/12/17 Principal diagnosis: Chest discomfort This is a 47-year-old female with history of hypertension who presented to the hospital with symptoms of chest pressure. Her EKG showed and no new onset of a left bundle-branch block. Cardiac catheterization revealed normal coronary arteries with moderate severe nonischemic cardiomyopathy. Echocardiogram with Doppler study was performed which revealed an ejection fraction of 35-40%. D- dimer 0.85. CAT scan of the chest and aorta was performed which revealed some respiratory motion artifacts, no evidence for pulmonary embolism, no evidence for acute aortic intramural hematoma, aortic aneurysm, or aortic dissection. Small pleural effusions noted, hepatomegaly. Blood pressure 140/80 heart rate in the 80s. 96% on room air. Sodium 144, potassium 4.3, BUN 21, creatinine 0.9. We will change Lasix to 40 mg by mouth daily, add Aldactone to the medication regime, check TSH level. Objective - Vital Signs Vital signs: Vital Signs Temp 97 F L 09/12/17 07:47 Pulse 82 09/12/17 07:47 Resp 18 09/12/17 07:47 BP 141/87 09/12/17 07:47 Pulse Ox 96 09/12/17 07:47 Intake & Output 09/11/17 09/12/17 09/12/17 18:59 06:59 18:59 Intake Total 240 240 Output Total 750 1650 Balance -510 -1650 240 Weight 114 kg 118.3 kg Intake: Oral 240 240 Output: Urine 750 1650 Other: # Voids 1 2 - Exam PHYSICAL EXAMINATION: HEENT: Head is atraumatic, normocephalic. Pupils equal, round. Neck is supple. There is no elevated jugular venous pressure. HEART EXAMINATION: Heart S1, S2 normal. No murmur or gallop heard. CHEST EXAMINATION: Lungs are clear to auscultation and precussion. No chest wall tenderness is noted on palpation or with deep breathing. ABDOMEN: Soft, nontender. Bowel sounds are heard. No organomegaly noted. EXTREMITIES: 2+ peripheral pulses with no evidence of peripheral edema and no calf tenderness noted. Right groin soft, no hematoma, right radial site clean and dry, good distal pulse. NEUROLOGIC patient is awake, alert and oriented -3. . - Labs CBC & Chem 7: 09/11/17 06:21 09/12/17 05:55 Labs: Abnormal Lab Results - Last 24 Hours (Table) 09/12/17 Range/Units 05:55 Chloride 109 H (98-107) mmol/L BUN 21 H (7-17) mg/dL Glucose 125 H (74-99) mg/dL Triglycerides 334 H (<150) mg/dL HDL Cholesterol 28 L (40-60) mg/dL Assessment and Plan Plan: Assessment and plan #1 nonischemic cardiomyopathy #2 chest discomfort, status post cardiac catheterization which did not reveal any obstructive coronary artery disease #3 morbid obesity #4 hypertension Number 5 obstructive sleep apnea #6 CT of the chest negative for pulmonary embolism, no aortic dissection Plan We will change the patient's Lasix to 40 mg daily, add Aldactone to the medication regime, we will also check a TSH level. Increase activity as tolerated. DNP note has been reviewed, I agree with a documented findings and plan of care. Patient was seen and examined.
[2017-09-12] MEDS: traMADol 50 MG TAB PO PRN (12:07)
[2017-09-12] MEDS: PRAVASTATIN SODIUM 20 MG TAB PO SCH (12:07)
[2017-09-12 21:49] VITALS: RESP 16
[2017-09-13] MEDS: traMADol 50 MG TAB PO PRN (05:54)
[2017-09-13] MEDS: CARVEDILOL 6.25 MG TAB PO SCH (05:54)
[2017-09-13 05:59] VITALS: PULSE 92
[2017-09-13 06:51] LABS: Basophils % (A) 0 %; Eosinophils % (A) 0 %; HCT 35.3 % (34.0-46.0); HGB 12.2 gm/dL (11.4-16.0); Lymphocytes % (A) 29 %; MCH 31.4 pg (25.0-35.0); MCHC 34.5 g/dL (31.0-37.0); MCV 91.1 fL (80.0-100.0); Monocytes # (A) 0.4 k/uL (0-1.0); Monocytes % (A) 4 %; Neutrophils # (A) 6.9 k/uL (1.3-7.7); Neutrophils % (A) 67 %; Platelet Count 306 k/uL (150-450); RBC 3.88 m/uL (3.80-5.40); RDW 13.5 % (11.5-15.5); WBC 10.4 k/uL (3.8-10.6)
[2017-09-13 07:15] LABS: Calcium 9.3 mg/dL (8.4-10.2); Potassium 4.5 mmol/L (3.5-5.1)
[2017-09-13] MEDS: LISINOPRIL 5 MG TAB PO SCH (08:45)
[2017-09-13] MEDS: FAMOTIDINE 20 MG TAB PO SCH (08:45)
[2017-09-13] MEDS: PRAVASTATIN SODIUM 20 MG TAB PO SCH (08:45)
[2017-09-13] MEDS: HEPARIN SODIUM,PORCINE 5,000 UNIT/ML 1 ML VIAL SQ SCH (08:46)
[2017-09-13] MEDS: MULTIVITAMINS, THERA 1 EACH TAB PO SCH (08:46)
[2017-09-13 08:52] VITALS: TEMP 97.7
[2017-09-13] MEDS ORDERED: SPIRONOLACTONE 25 MG TAB PO SCH (09:00)
[2017-09-13] MEDS ORDERED: FUROSEMIDE 40 MG TAB PO SCH (09:00)
--- NOTE | 2017-09-13 10:47 | P.PN ---
Subjective Patient continues to have chest discomfort. Coronary arteries are normal. She was noted to have LV dysfunction with ejection fraction 35-40%. There was no evidence for pulmonary embolism or aortic aneurysm On examination she is afebrile 97.7F, respirations normal, blood pressure 127/ 78 mmHg Heart sounds are normal no murmurs or gallops Breath sounds are clear no rhonchi no crackles abdomen is soft Impression Nonischemic cardiomyopathy Normal coronary arteries Left bundle branch block pattern on twelve-lead ECG Left radical ejection fraction 35-40% Suggest continue carvedilol 6.25 g twice daily, Lasix 40 mg by mouth daily lisinopril 5 g twice daily and Pravachol as well as spironolactone From a cardiac standpoint patient may go home and follow-up with her primary cardiac catheterization technologist Dr. Hernandez Objective - Vital Signs Vital signs: Vital Signs Temp 97.7 F 09/13/17 08:48 Pulse 92 09/13/17 08:48 Resp 16 09/13/17 08:48 BP 127/78 09/13/17 08:48 Pulse Ox 94 L 09/13/17 08:48 Intake & Output 09/12/17 09/13/17 09/13/17 18:59 06:59 18:59 Intake Total 720 20 180 Balance 720 20 180 Weight 118.2 kg Intake: IV 20 0.9 20 Oral 720 180 Other: # Voids 2 1 - Labs CBC & Chem 7: 09/13/17 06:15 09/13/17 06:15 Labs: Abnormal Lab Results - Last 24 Hours (Table) 09/13/17 Range/Units 06:15 Sodium 146 H (137-145) mmol/L Chloride 108 H (98-107) mmol/L BUN 24 H (7-17) mg/dL Glucose 101 H (74-99) mg/dL
[2017-09-13 12:18] VITALS: BP 149/80
== END 2017-09-13 16:14 | disposition home or self-care (01) | DRG 287 ==
LOC: EC 04:57 → 6SEL 06:33
PROVIDERS: ADMIT Hospitalist; ATTEND Hospitalist
PROC: B2111ZZ Fluoroscopy of Multiple Coronary Arteries using Low Osmolar Contrast (ICD-10-PCS; 2017-09-11)
PROC: 4A023N7 Measurement of Cardiac Sampling and Pressure, Left Heart, Percutaneous Approach (ICD-10-PCS; principal; 2017-09-11 06:55)
DX: I25.5 Ischemic cardiomyopathy (principal); I11.0 Hypertensive heart disease with heart failure; E66.01 Morbid (severe) obesity due to excess calories; I50.9 Heart failure, unspecified; R16.0 Hepatomegaly, not elsewhere classified; Z68.42 Body mass index [BMI] 45.0-49.9, adult; I24.9 Acute ischemic heart disease, unspecified; G47.33 Obstructive sleep apnea (adult) (pediatric); I44.7 Left bundle-branch block, unspecified; I34.0 Nonrheumatic mitral (valve) insufficiency; R79.1 Abnormal coagulation profile; Z87.19 Personal history of other diseases of the digestive system; Z90.710 Acquired absence of both cervix and uterus; Z98.51 Tubal ligation status; Z83.3 Family history of diabetes mellitus; Z82.49 Family history of ischemic heart disease and other diseases of the circulatory system; Z88.0 Allergy status to penicillin; Z88.2 Allergy status to sulfonamides; Z88.8 Allergy status to other drugs, medicaments and biological substances; Z91.041 Radiographic dye allergy status; Z86.59 Personal history of other mental and behavioral disorders; Z79.899 Other long term (current) drug therapy
CPT/HCPCS: 36415; 71045; 71275; 75635; 78582; 80048; 80053; 80061; 82150; 82550; 82553; 83690; 83735; 83880; 84443; 84484; 85025; 85379; 85610; 85730; 93005; 93306; 93458; 96365; 96375; 96376; 99285

== ENCOUNTER → 2019-02-18 | Outpatient (CLI) | payer OTHER ==
[2019-02-18 12:29] VITALS: BP 153/93; PULSE 81; RESP 16; TEMP 98.2; BMI 46.8
--- NOTE | 2019-02-18 13:26 | P.HPBAR ---
Bariatric H&P - History & Physicial H&P Date: 02/18/19 History & Physicial: Visit/CC: Initial Visit w/Dr. Tobias Patient initial contact: Initial weight: 118.297 kg Initial weight in pounds: 260.80 Height: 5 ft 3 in Initial BMI: 46.2 Last weight: Current weight: 120.004 kg Current weight in pounds: 264.56 Current BMI: 46.8 [place] body weight (based on NIH guidelines): 52.163 kg Excess body weight loss: The patient is a 48 year-old F who presents for Bariatric Assessment. The patie nt is a new bariatric evaluation. She was previously seen Dr. Craig and was being worked up for sleeve gastrectomy 2-3 years ago. She states that she lost her insurance and Dr. Craig left town. She is now becoming interested again in surgical weight loss. She is not interested in gastric bypass. She remains interested in sleeve gastrectomy. She was at a seminar that I performed within the last few months. Patient suffers from hypertension, sleep apnea, hypercholesterolemia, low vitamin D. Denies history of DVT or dysphagia. BMI 46.8. Review of Systems The patient denies any acute changes in vision or hearing, no dysphagia or odynophagia, no chest pain or shortness of breath, no dysuria or hematuria, no headache, no runny nose, no rectal bleeding or melena, no unexplained weight loss Past Medical History Past Medical History: Hypertension, Neurologic Disorder, Sleep Apnea/CPAP/BIPAP Additional Past Medical History / Comment(s): morbid obesity, back pain, Hepatitis A, MIGRIANES, GALLBLADDER DISORDER, USES CPAP, BULGING DISCS IN BACK History of Any Multi-Drug Resistant Organisms: None Reported Past Surgical History: Breast Surgery, Section, Hernia Repair, Hysterectomy, Tubal Ligation, Uterine Ablation Additional Past Surgical History / Comment(s): EGD, 3 C sections, breast reduction, cyst removed from left hand, D & C, Bilateral groin hernia repair, LAPAROSCOPY Past Anesthesia/Blood Transfusion Reactions: No Reported Reaction Additional Past Anesthesia/Blood Transfusion Reaction / Comm: CLAUSTERPHOBIA Past Psychological History: Depression Additional Psychological History / Comment(s): PT STATED FEEL WELL MAINTANIED BY MEDS- HAS NO THOUGHTS OF HARMING SELF, NO HOPELESSNESS. 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 LIVES AT HOME WITH SPOUSE AND 2 KIDS. IS INDEPENDANT Smoking Status: Never smoker Past Alcohol Use History: None Reported Past Drug Use History: None Reported - Past Family History Mother Family Medical History: Coronary Artery Disease (CAD), Diabetes Mellitus, Renal Disease Additional Family Medical History / Comment(s): [employer] Father Family Medical History: Cancer, Diabetes Mellitus, Myocardial Infarction ([place]) Sister(s) Family Medical History: Cancer Surgical - Exam Vital Signs Temp Pulse Resp BP 98.2 F 81 16 153/93 02/18/19 12:26 02/18/19 12:26 02/18/19 12:26 02/18/19 12:26 Physical exam: General: Well-developed, well-nourished HEENT: Normocephalic, sclerae nonicteric Abdomen: Nontender, nondistended Extremities: No edema Neuro: Alert and oriented Bariatric Assessment & Plan (1) Morbid obesity with BMI of 45.0-49.9, adult Narrative/Plan: 48-year-old female with morbid obesity and associated coronary disease. Patient interested in sleeve gastrectomy. Surgical and nonsurgical options reviewed in detail. Will begin 6 month supervised weight loss. We'll plan preoperative EGD. Check baseline labs at this time. Patient will follow up with us again in the bariatric clinic prior to surgical scheduling. Status: Acute Bariatric Checklist Checklist: Plan: Checklist: EGD: 1. Hiatal hernia: 2. H. Pylori: HgbA1c: Vitamin D: Smoking: Never smoker Primary care physician referral: Dr. Medina Psychiatry clearance: Cardiology clearance: Sleep study: Diet journal: VTE risk score: VTE risk level: Rehab needs at discharge:
== END | disposition home or self-care (01) ==
LOC: BARWHC3 12:12
PROVIDERS: ATTEND Surgery
DX: E66.01 Morbid (severe) obesity due to excess calories (principal); I25.10 Atherosclerotic heart disease of native coronary artery without angina pectoris; Z68.42 Body mass index [BMI] 45.0-49.9, adult
CPT/HCPCS: 99211

== ENCOUNTER 2019-04-15 05:30 | Emergency (ER) | payer OTHER ==
[2019-04-15 05:42] VITALS: BP 141/82; PULSE 75; RESP 20; TEMP 97.9
--- NOTE | 2019-04-15 06:29 | XR ---
EXAMINATION TYPE: XR foot complete LT DATE OF EXAM: 04/15/2019 COMPARISON: NONE HISTORY: Pain and swelling TECHNIQUE: 3 views FINDINGS: There are plantar and Achilles calcaneal spurs. Metatarsals are intact. I see no fracture n or dislocation. Joint spaces are fairly normal. There are no erosions. IMPRESSION: Moderate calcaneal spurring. No fracture seen. Mild osteoarthritis at the first MP joint. No sign of inflammatory arthritis.
--- NOTE | 2019-04-15 06:34 | ED ---
General Adult HPI - General Chief complaint: Skin/Abscess/Foreign Body Stated complaint: Lft Foot Pain Time Seen by Provider: 04/15/19 06:05 Source: patient, RN notes reviewed Limitations: no limitations - History of Present Illness Initial comments: 48-year-old female presents for left heel pain times one week. Patient states it hurts on the back of her left heel. Denies any injuries. States she feels a lump in this area. States she has not seen primary care or anyone else for this. She has been taking Tylenol and keeping it elevated.Patient has no other complaints at this time including shortness of breath, chest pain, abdominal pain, nausea or vomiting, headache, or visual changes. - Related Data Home Medications Medication Instructions Recorded Confirmed No Known Home Medications 02/19/19 02/19/19 Allergies Allergy/AdvReac Type Severity Reaction Status Date / Time Iodinated Contrast Media Allergy Severe Rash/Hives Verified 04/15/19 05:42 [Iodinated Contrast Media - IV Dye] Penicillins Allergy Severe swelling,hi Verified 04/15/19 05:42 ves Sulfa (Sulfonamide Allergy Severe swelling,hi Verified 04/15/19 05:42 Antibiotics) ves adhesive Allergy Swelling Verified 04/15/19 05:42 ibuprofen [From Motrin] AdvReac "PROBLEM Verified 04/15/19 05:42 WITH KIDNEYS" Review of Systems ROS Statement: Those systems with pertinent positive or pertinent negative responses have been documented in the HPI. ROS Other: All systems not noted in ROS Statement are negative. Past Medical History Past Medical History: Hypertension, Neurologic Disorder, Sleep Apnea/CPAP/BIPAP Additional Past Medical History / Comment(s): morbid obesity, back pain, Hepatitis A, MIGRIANES, GALLBLADDER DISORDER, USES CPAP, BULGING DISCS IN BACK History of Any Multi-Drug Resistant Organisms: None Reported Past Surgical History: Breast Surgery, Section, Hernia Repair, Hysterectomy, Tubal Ligation, Uterine Ablation Additional Past Surgical History / Comment(s): EGD, 3 C sections, breast reduction, cyst removed from left hand, D & C, Bilateral groin hernia repair, LAPAROSCOPY Past Anesthesia/Blood Transfusion Reactions: No Reported Reaction Additional Past Anesthesia/Blood Transfusion Reaction / Comment(s): CLAUSTERPHOBIA Past Psychological History: Depression Smoking Status: Never smoker Past Alcohol Use History: None Reported Past Drug Use History: None Reported - Past Family History Mother Family Medical History: Coronary Artery Disease (CAD), Diabetes Mellitus, Renal Disease Additional Family Medical History / Comment(s): [employer] Father Family Medical History: Cancer, Diabetes Mellitus, Myocardial Infarction ([place]) Sister(s) Family Medical History: Cancer General Exam Limitations: no limitations General appearance: alert, in no apparent distress Head exam: Present: atraumatic, normocephalic, normal inspection Eye exam: Present: normal appearance ENT exam: Present: normal exam, mucous membranes moist Neck exam: Present: normal inspection. Absent: tenderness, meningismus, lymphadenopathy Respiratory exam: Present: normal lung sounds bilaterally. Absent: respiratory distress, wheezes, rales, rhonchi, stridor Cardiovascular Exam: Present: regular rate, normal rhythm, normal heart sounds. Absent: systolic murmur, diastolic murmur, rubs, gallop, clicks Extremities exam: Present: full ROM (Full range of motion of the left lower extremity.), tenderness (Tenderness noted to the posterior aspect of the left heel), normal capillary refill (Capillary refill less than, DP pulse 2+ in the left lower extremity.), other (Patient has indurated area noted in the posterior left heel with tenderness. However no erythema or edema.). Absent: pedal edema, joint swelling Course Vital Signs 04/15/19 05:40 Temperature 97.9 F Pulse Rate 75 Respiratory 20 Rate Blood Pressure 141/82 O2 Sat by Pulse 98 Oximetry Medical Decision Making - Medical Decision Making HPI and physical exam as documented. X-ray of the left foot shows moderate calcaneal spurring without fracture seen. This is consistent with patient's physical exam and history. She will follow up with primary care and continue to take Tylenol for this. She'll return if she has any worsening symptoms. Disposition Clinical Impression: Calcaneal spur of left foot Disposition: HOME SELF-CARE Condition: Good Instructions (If sedation given, give patient instructions): Calcaneal Fracture (ED) Additional Instructions: Please take Tylenol for pain. Please follow-up with primary care in one to 2 days. Return to the emergency department if you have any worsening symptoms. Is patient prescribed a controlled substance at d/c from ED?: No Referrals: Apoorva Tuttle MD [Primary Care Provider] - 1-2 days Time of Disposition: 06:34
== END 2019-04-15 06:49 | disposition home or self-care (01) ==
LOC: EC 05:30
DX: M77.32 Calcaneal spur, left foot (principal); E66.01 Morbid (severe) obesity due to excess calories; G47.30 Sleep apnea, unspecified; Z91.041 Radiographic dye allergy status; Z88.0 Allergy status to penicillin; Z88.2 Allergy status to sulfonamides; Z88.6 Allergy status to analgesic agent; Z91.048 Other nonmedicinal substance allergy status; Z68.42 Body mass index [BMI] 45.0-49.9, adult; Z99.89 Dependence on other enabling machines and devices
CPT/HCPCS: 99283

== ENCOUNTER 2019-09-08 17:39 | Emergency (ER) | payer OTHER ==
[2019-09-08] MEDS ORDERED: ACETAMINOPHEN TAB 325 MG TAB PO STA ×2 (18:41→20:55)
[2019-09-08] MEDS ORDERED: IBUPROFEN 600 MG TAB PO STA (18:41)
[2019-09-08] MEDS ORDERED: ONDANSETRON ODT 4 MG TAB PO STA (18:43)
[2019-09-08] MEDS ORDERED: SODIUM CHLORIDE 0.9% 1,000 ML IV ONE (18:51)
[2019-09-08] MEDS ORDERED: IBUPROFEN 400 MG TAB PO STA (19:13)
--- NOTE | 2019-09-08 19:36 | XR ---
EXAMINATION TYPE: XR chest 2V DATE OF EXAM: 09/08/2019 COMPARISON: 09/11/2017 HISTORY: Cough and fever TECHNIQUE: 2 views FINDINGS: Heart and mediastinum are normal. Lungs are clear. Diaphragm is normal. Bony thorax appears intact. Pulmonary vascularity is normal. IMPRESSION: Normal chest. No adverse change.
[2019-09-08 19:37] LABS: Basophils # (A) 0.1 k/uL (0-0.2); Basophils % (A) 1 %; Eosinophils # (A) 0.1 k/uL (0-0.7); Eosinophils % (A) 2 %; HCT 37.3 % (34.0-46.0); HGB 12.8 gm/dL (11.4-16.0); Lymphocytes % (A) 13 %; MCH 31.5 pg (25.0-35.0); MCHC 34.4 g/dL (31.0-37.0); MCV 91.7 fL (80.0-100.0); Monocytes # (A) 0.3 k/uL (0-1.0); Monocytes % (A) 3 %; Neutrophils # (A) 6.4 k/uL (1.3-7.7); Neutrophils % (A) 81 %; Platelet Count 241 k/uL (150-450); RBC 4.07 m/uL (3.80-5.40); RDW 12.4 % (11.5-15.5); WBC 7.9 k/uL (3.8-10.6)
[2019-09-08 19:44] LABS: Albumin 4.4 g/dL (3.5-5.0); Calcium 9.2 mg/dL (8.4-10.2); Potassium 4.1 mmol/L (3.5-5.1); Total Bilirubin 0.9 mg/dL (0.2-1.3); Total Protein 7.8 g/dL (6.3-8.2)
[2019-09-08 20:14] LABS: Amorphous Sediment,Urine Rare /hpf; Appearance,Urine Cloudy (Clear); Bacteria,Urine Rare /hpf; Bilirubin,Urine Negative (Negative); Blood,Urine Negative (Negative); Color,Urine Yellow; Glucose,Urine (UA) Negative (Negative); Hyaline Casts,Urine 1 /lpf (0-2); Ketones,Urine Negative (Negative); Leukocyte Esterase,Urine Negative (Negative); Mucus,Urine Rare /hpf; Nitrite,Urine Negative (Negative); PH, Urine 5.5 (5.0-8.0); Protein,Urine Trace (Negative); RBC,Urine 1 /hpf (0-5); Specific Gravity,Urine 1.025 (1.001-1.035); Squamous Epithelial Cell,Urine 4 /hpf (0-4); Urobilinogen,Urine <2.0 mg/dL (<2.0); WBC,Urine 1 /hpf (0-5)
[2019-09-08 20:19] VITALS: RESP 16
[2019-09-08 21:54] VITALS: BP 123/89; PULSE 108; TEMP 99
--- NOTE | 2019-09-08 22:09 | ED ---
General Adult HPI - General Chief complaint: Fever Stated complaint: fever/cough/sob Time Seen by Provider: 09/08/19 18:35 Source: patient, RN notes reviewed, old records reviewed Mode of arrival: wheelchair Limitations: no limitations - History of Present Illness Initial comments: 49-year-old female patient been seen for chief complaint of cough fever last 48 hours. Patient also reports nausea and vomiting. Reports waxing and waning headaches. Denies a chance being . Denies any other complaints. Denies any chest pain or shortness of breath. Systemic: Pt denies fatigue, rash. Pt denies weakness, night sweats, weight loss. Neuro: Pt denies headache, visual disturbances, syncope or pre-syncope. HEENT: Pt denies ocular discharge or irritation, otalgia, rhinorrhea, pharyngitis or notable lymphadenopathy. Cardiopulmonary: Pt denies chest pain, SOB, heart palpitations, dyspnea on exertion. Abdominal/GI: Pt denies abdominal pain, n/v/d. : Pt denies dysuria, burning w/ urination, frequency/urgency. Denies new onset urinary or bowel incontinence. MSK: Pt denies myalgia, loss of strength or function in extremities. Neuro: Pt denies new onset weakness, paresthesias. - Related Data Home Medications Medication Instructions Recorded Confirmed No Known Home Medications 02/19/19 02/19/19 Allergies Allergy/AdvReac Type Severity Reaction Status Date / Time Iodinated Contrast Media Allergy Severe Rash/Hives Verified 09/08/19 17:55 [Iodinated Contrast Media - IV Dye] Penicillins Allergy Severe swelling,hi Verified 09/08/19 17:55 ves Sulfa (Sulfonamide Allergy Severe swelling,hi Verified 09/08/19 17:55 Antibiotics) ves adhesive Allergy Swelling Verified 09/08/19 17:55 ibuprofen [From Motrin] AdvReac "PROBLEM Verified 09/08/19 17:55 WITH KIDNEYS" Review of Systems ROS Statement: Those systems with pertinent positive or pertinent negative responses have been documented in the HPI. ROS Other: All systems not noted in ROS Statement are negative. Past Medical History Past Medical History: Hypertension, Neurologic Disorder, Sleep Apnea/CPAP/BIPAP Additional Past Medical History / Comment(s): morbid obesity, back pain, Hepatitis A, MIGRIANES, GALLBLADDER DISORDER, USES CPAP, BULGING DISCS IN BACK History of Any Multi-Drug Resistant Organisms: None Reported Past Surgical History: Breast Surgery, Section, Hernia Repair, Hysterectomy, Orthopedic Surgery, Tubal Ligation, Uterine Ablation Additional Past Surgical History / Comment(s): EGD, 3 C sections, breast reduction, cyst removed from left hand, D & C, Bilateral groin hernia repair, LAPAROSCOPY Past Anesthesia/Blood Transfusion Reactions: No Reported Reaction Additional Past Anesthesia/Blood Transfusion Reaction / Comment(s): CLAUSTERPHOBIA Past Psychological History: Depression Smoking Status: Never smoker Past Alcohol Use History: None Reported Past Drug Use History: None Reported - Past Family History Mother Family Medical History: Coronary Artery Disease (CAD), Diabetes Mellitus, Renal Disease Additional Family Medical History / Comment(s): [employer] Father Family Medical History: Cancer, Diabetes Mellitus, Myocardial Infarction ([place]) Sister(s) Family Medical History: Cancer General Exam - General Exam Comments Initial Comments: Constitutional: NAD, AOX3, Pt has pleasant affect. HEENT: NC/AT, trachea midline, neck supple, no lymphadenopathy. Posterior pharynx non erythematous, without exudates. External ears appear normal, without discharge. Mucous membranes moist. Eyes PERRLA, EOM intact. There is no scleral icterus. No pallor noted. Cardiopulmonary: RRR, no murmurs, rubs or gallops, no JVD noted. Lungs CTAB in anterior and posterior ku. No peripheral edema. Abdominal exam: Abdomen soft and non-distended. Abdomen non-tender to palpation in all 4 quadrants. Bowel sounds active in LLQ. No hepatosplenomegaly. No ecchymosis Neuro: CN II-XII intact. No nuchal rigidity. No raccon eyes, no anaya sign, no hemotympanum. No cervical spinal tenderness. MSK: No posterior calf tenderness bilaterally, homans sign negative bilaterally. Posterior tibialis and radial pulse +2 bilaterally. Sensation intact in upper an d lower extremities. Full active ROM in upper and lower extremities, 5/5 stregnth. Limitations: no limitations Course Vital Signs 09/08/19 09/08/19 09/08/19 17:52 18:51 20:14 Temperature 102.9 F H 102.7 F H Pulse Rate 122 H 121 H Respiratory 20 18 16 Rate Blood Pressure 166/112 O2 Sat by Pulse 97 93 L Oximetry 09/08/19 09/08/19 20:49 21:53 Temperature 99.7 F H 99 F Pulse Rate 116 H 108 H Respiratory 16 Rate Blood Pressure 123/89 O2 Sat by Pulse 93 L Oximetry Medical Decision Making - Medical Decision Making 49-year-old female patient been seen for chief complaint of cough fever last 48 hours. Patient also reports nausea and vomiting. Reports waxing and waning headaches. Denies a chance being . Denies any other complaints. Denies any chest pain or shortness of breath. Patient also has a fever tachycardia. Patient is referred for detail manager. Physical exam is acute pathology. Laboratory investigations are obtained are non-impressive. Influenza is negative. Chest x-ray didn't display acute pathology. Patient feeling much improved. Declines any intracranial investigations. Will be discharged for follow-up with primary care provider will return to ER if condition worsens. Case discussed with Dr. Davidson. - Lab Data Result diagrams: 09/08/19 19:25 09/08/19 19:25 Lab Results 09/08/19 09/08/19 09/08/19 Range/Units 18:00 19:25 19:25 WBC 7.9 (3.8-10.6) k/uL RBC 4.07 (3.80-5.40) m/uL Hgb 12.8 (11.4-16.0) gm/dL Hct 37.3 (34.0-46.0) % MCV 91.7 (80.0-100.0) fL MCH 31.5 (25.0-35.0) pg MCHC 34.4 (31.0-37.0) g/dL RDW 12.4 (11.5-15.5) % Plt Count 241 (150-450) k/uL Neutrophils % 81 % Lymphocytes % 13 % Monocytes % 3 % Eosinophils % 2 % Basophils % 1 % Neutrophils # 6.4 (1.3-7.7) k/uL Lymphocytes # 1.0 (1.0-4.8) k/uL Monocytes # 0.3 (0-1.0) k/uL Eosinophils # 0.1 (0-0.7) k/uL Basophils # 0.1 (0-0.2) k/uL Sodium 137 (137-145) mmol/L Potassium 4.1 (3.5-5.1) mmol/L Chloride 104 (98-107) mmol/L Carbon Dioxide 24 (22-30) mmol/L Anion Gap 9 mmol/L BUN 13 (7-17) mg/dL Creatinine 0.95 (0.52-1.04) mg/dL Est GFR (CKD-EPI)AfAm 82 (>60 ml/min/1.73 sqM) Est GFR (CKD-EPI)NonAf 71 (>60 ml/min/1.73 sqM) Glucose 127 H (74-99) mg/dL Calcium 9.2 (8.4-10.2) mg/dL Total Bilirubin 0.9 (0.2-1.3) mg/dL AST 25 (14-36) U/L ALT 20 (4-34) U/L Alkaline Phosphatase 113 (38-126) U/L Total Protein 7.8 (6.3-8.2) g/dL Albumin 4.4 (3.5-5.0) g/dL Urine Color Urine Appearance (Clear) Urine pH (5.0-8.0) Ur Specific [place] (1.001-1.035) Urine Protein (Negative) Urine Glucose (UA) (Negative) Urine Ketones (Negative) Urine Blood (Negative) Urine Nitrite (Negative) Urine Bilirubin (Negative) Urine Urobilinogen (<2.0) mg/dL Ur Leukocyte Esterase (Negative) Urine RBC (0-5) /hpf Urine WBC (0-5) /hpf Ur Squamous Epith Cells (0-4) /hpf Amorphous Sediment (None) /hpf Urine Bacteria (None) /hpf Hyaline Casts (0-2) /lpf Urine Mucus (None) /hpf Influenza Type A RNA Not Detected (Not Detectd) Influenza Type B (PCR) Not Detected (Not Detectd) 09/08/19 Range/Units 19:58 WBC (3.8-10.6) k/uL RBC (3.80-5.40) m/uL Hgb (11.4-16.0) gm/dL Hct (34.0-46.0) % MCV (80.0-100.0) fL MCH (25.0-35.0) pg MCHC (31.0-37.0) g/dL RDW (11.5-15.5) % Plt Count (150-450) k/uL Neutrophils % % Lymphocytes % % Monocytes % % Eosinophils % % Basophils % % Neutrophils # (1.3-7.7) k/uL Lymphocytes # (1.0-4.8) k/uL Monocytes # (0-1.0) k/uL Eosinophils # (0-0.7) k/uL Basophils # (0-0.2) k/uL Sodium (137-145) mmol/L Potassium (3.5-5.1) mmol/L Chloride (98-107) mmol/L Carbon Dioxide (22-30) mmol/L Anion Gap mmol/L BUN (7-17) mg/dL Creatinine (0.52-1.04) mg/dL Est GFR (CKD-EPI)AfAm (>60 ml/min/1.73 sqM) Est GFR (CKD-EPI)NonAf (>60 ml/min/1.73 sqM) Glucose (74-99) mg/dL Calcium (8.4-10.2) mg/dL Total Bilirubin (0.2-1.3) mg/dL AST (14-36) U/L ALT (4-34) U/L Alkaline Phosphatase (38-126) U/L Total Protein (6.3-8.2) g/dL Albumin (3.5-5.0) g/dL Urine Color Yellow Urine Appearance Cloudy H (Clear) Urine pH 5.5 (5.0-8.0) Ur Specific [place] 1.025 (1.001-1.035) Urine Protein Trace H (Negative) Urine Glucose (UA) Negative (Negative) Urine Ketones Negative (Negative) Urine Blood Negative (Negative) Urine Nitrite Negative (Negative) Urine Bilirubin Negative (Negative) Urine Urobilinogen <2.0 (<2.0) mg/dL Ur Leukocyte Esterase Negative (Negative) Urine RBC 1 (0-5) /hpf Urine WBC 1 (0-5) /hpf Ur Squamous Epith Cells 4 (0-4) /hpf Amorphous Sediment Rare H (None) /hpf Urine Bacteria Rare H (None) /hpf Hyaline Casts 1 (0-2) /lpf Urine Mucus Rare H (None) /hpf Influenza Type A RNA (Not Detectd) Influenza Type B (PCR) (Not Detectd) Disposition Clinical Impression: Fever, Cough, Nausea and vomiting Disposition: HOME SELF-CARE Condition: Stable Instructions (If sedation given, give patient instructions): Fever in Adults (ED) Additional Instructions: Follow-up with primary care provider. Continue to drink lots of fluids. Use Tylenol or Motrin as needed for fever. Return to ER if condition worsens. Is patient prescribed a controlled substance at d/c from ED?: No Referrals: Apoorva Tuttle MD [Primary Care Provider] - 1-2 days
== END 2019-09-08 22:34 | disposition home or self-care (01) ==
LOC: EC 17:39
DX: R50.9 Fever, unspecified (principal); R05 Cough; R11.2 Nausea with vomiting, unspecified; R00.0 Tachycardia, unspecified; R51 Headache; G47.30 Sleep apnea, unspecified; Z88.0 Allergy status to penicillin; Z88.2 Allergy status to sulfonamides; Z88.6 Allergy status to analgesic agent; Z91.041 Radiographic dye allergy status; Z91.048 Other nonmedicinal substance allergy status; Z86.69 Personal history of other diseases of the nervous system and sense organs; Z99.89 Dependence on other enabling machines and devices; Z82.49 Family history of ischemic heart disease and other diseases of the circulatory system
CPT/HCPCS: 36415; 71046; 80053; 81001; 85025; 87502; 96360; 96361; 99284

== ENCOUNTER 2019-12-20 07:40 | Inpatient (IN) | payer OTHER ==
[2019-12-20] MEDS ORDERED: IPRATROPIUM 0.5 MG/2.5 ML NEBU INHALATION STA (08:09)
[2019-12-20] MEDS ORDERED: methylPREDNISolone SOD SUCCI 125 MG/2 ML VIAL IV STA (08:09)
[2019-12-20] MEDS ORDERED: ALBUTEROL NEBULIZED 2.5 MG/3 ML INHALATION STA (08:09)
[2019-12-20] MEDS ORDERED: SODIUM CHLORIDE 0.9% 500 ML 500 ML IV STA (08:09)
--- NOTE | 2019-12-20 08:15 | ED ---
Chest Pain HPI - General Chief Complaint: Chest Pain Stated Complaint: Chest pain, Cough Time Seen by Provider: 12/20/19 07:47 Source: patient, RN notes reviewed, old records reviewed Mode of arrival: ambulatory Limitations: no limitations - History of Present Illness Initial Comments: 49-year-old female with hypertension, hypercholesterolemia, nonischemic cardiomyopathy and asthma presenting with cough, left-sided chest pain. Pain is worse with cough and deep inspiration. She has been dealing with a respiratory infection for the past 3 months. She was seen in the emergency department in September, and has been seen by her primary care physician on several occasions since then. She was recently prescribed Levaquin several days ago and this has not improved her symptoms. She reports a nonproductive cough. No fever. No abdominal pain nausea vomiting. No lower extremity pain or swelling. No history of DVT or PE. - Related Data Home Medications Medication Instructions Recorded Confirmed No Known Home Medications 02/19/19 09/08/19 Allergies Allergy/AdvReac Type Severity Reaction Status Date / Time Iodinated Contrast Media Allergy Severe Rash/Hives Verified 09/08/19 22:09 [Iodinated Contrast Media - IV Dye] Penicillins Allergy Severe swelling,hi Verified 09/08/19 22:09 ves Sulfa (Sulfonamide Allergy Severe swelling,hi Verified 09/08/19 22:09 Antibiotics) ves adhesive Allergy Swelling Verified 09/08/19 22:09 ibuprofen [From Motrin] AdvReac "PROBLEM Verified 09/08/19 22:09 WITH KIDNEYS" Review of Systems ROS Statement: Those systems with pertinent positive or pertinent negative responses have been documented in the HPI. ROS Other: All systems not noted in ROS Statement are negative. EKG Findings - EKG Comments: EKG Findings:: EKG: Sinus tachycardia, right axis, nonspecific intraventricular block, no ST segment elevation, rate of 110, WV interval 138, QRS duration is widened at 140, QTC 508, similar compared to previous EKG. Past Medical History Past Medical History: Hypertension, Liver Disease, Neurologic Disorder, Sleep Apnea/CPAP/BIPAP Additional Past Medical History / Comment(s): back pain, Chronic Hepatitis , MIGRIANES, USES CPAP, BULGING DISCS IN BACK History of Any Multi-Drug Resistant Organisms: None Reported Past Surgical History: Breast Surgery, Section, Heart Catheterization, Hernia Repair, Hysterectomy, Orthopedic Surgery, Tubal Ligation, Uterine Ablation Additional Past Surgical History / Comment(s): EGD, 3 C sections, breast reduction, cyst removed from left hand, D & C, Bilateral groin hernia repair, LAPAROSCOPY Past Anesthesia/Blood Transfusion Reactions: No Reported Reaction Additional Past Anesthesia/Blood Transfusion Reaction / Comment(s): CLAUSTERPHOBIA Past Psychological History: Depression Smoking Status: Never smoker Past Alcohol Use History: None Reported Past Drug Use History: None Reported - Past Family History Mother Family Medical History: Coronary Artery Disease (CAD), Diabetes Mellitus, Renal Disease Additional Family Medical History / Comment(s): [employer] Father Family Medical History: Cancer, Diabetes Mellitus, Myocardial Infarction ([place]) Sister(s) Family Medical History: Cancer General Exam Limitations: no limitations General appearance: alert, in no apparent distress Head exam: Present: atraumatic, normocephalic Eye exam: Present: normal appearance, PERRL ENT exam: Present: normal exam Neck exam: Present: normal inspection. Absent: tenderness, meningismus Respiratory exam: Present: other (Good air entry, bronchospastic cough). Absent: respiratory distress, wheezes Cardiovascular Exam: Present: normal rhythm, tachycardia GI/Abdominal exam: Present: soft. Absent: distended, tenderness, guarding, rebound Extremities exam: Present: normal inspection, normal capillary refill. Absent: pedal edema Neurological exam: Present: alert, oriented X3, CN II-XII intact. Absent: motor sensory deficit Psychiatric exam: Present: normal affect, normal mood Skin exam: Present: warm, dry, intact. Absent: cyanosis, diaphoretic Course Vital Signs 12/20/19 12/20/19 12/20/19 07:41 08:00 08:27 Temperature 98.4 F Pulse Rate 105 H 101 H 108 H Respiratory 18 15 Rate Blood Pressure 151/99 149/98 O2 Sat by Pulse 97 100 Oximetry 12/20/19 12/20/19 12/20/19 08:30 08:44 08:45 Temperature Pulse Rate 112 H 107 H Respiratory 16 16 Rate Blood Pressure 161/102 O2 Sat by Pulse 100 Oximetry Chest Pain MDM - MDM 49-year-old female with history of cardiomyopathy, hypertension, hypercholesterolemia presenting with chest pain, cough, previous diagnosis of pneumonia. Patient has good air entry with bronchospastic cough. History of asthma. EKG sinus, unchanged from prior. She has normal white blood cell count, stable hemoglobin, she has an elevated d-dimer, elevated BNP. Chest x- ray shows cardiomegaly, bilateral pleural effusions, opacity in the left lung base. Patient has CT while in the emergency department which shows bilateral opacities, moderate pericardial effusion, pleural effusions. Her call the test is pending. She receives IV antibiotics, IV steroids, diuretics in the emergency department. She will be admitted with cardiology on consult as well as pulmonology. Echo will be obtained to evaluate effusion seen on CT. Case is discussed with Dr. Giles who will admit. Critical Care Time Critical Care Time: Yes Total Critical Care Time: 35 Disposition Clinical Impression: Chest pain, CHF (congestive heart failure), Atypical pneumonia, Pericardial effusion Disposition: ADMITTED IP TO THIS [facility] Condition: Stable Is patient prescribed a controlled substance at d/c from ED?: No Referrals: Apoorva Tuttle MD [Primary Care Provider] - 1-2 days Decision to Admit Reason: Admit from EC Decision Date: 12/20/19 Decision Time: 10:40
[2019-12-20 08:29] LABS: Basophils # (A) 0.1 k/uL (0-0.2); Basophils % (A) 1 %; Eosinophils # (A) 0.3 k/uL (0-0.7); Eosinophils % (A) 4 %; HCT 37.8 % (34.0-46.0); HGB 12.8 gm/dL (11.4-16.0); Lymphocytes # (A) 2.6 k/uL (1.0-4.8); Lymphocytes % (A) 35 %; MCH 33.2 pg (25.0-35.0); MCHC 33.8 g/dL (31.0-37.0); MCV 98.1 fL (80.0-100.0); Macrocytosis Slight; Mean Platelet Volume 7.3; Monocytes # (A) 0.2 k/uL (0-1.0); Monocytes % (A) 3 %; Neutrophils # (A) 4.3 k/uL (1.3-7.7); Neutrophils % (A) 56 %; Platelet Count 294 k/uL (150-450); RBC 3.85 m/uL (3.80-5.40); RDW 15.4 % (11.5-15.5); WBC 7.6 k/uL (3.8-10.6)
[2019-12-20 08:45] LABS: Calcium 8.9 mg/dL (8.4-10.2); Magnesium 1.8 mg/dL (1.6-2.3); Potassium 4.1 mmol/L (3.5-5.1); Total Bilirubin 1.3 mg/dL (0.2-1.3); Total Protein 7.1 g/dL (6.3-8.2)
[2019-12-20 09:06] LABS: INR 1.1 (<1.2); Partial Thromboplastin Time 22.2 sec (22.0-30.0); Prothrombin Time 11.2 sec (9.0-12.0)
[2019-12-20 09:08] LABS: D-Dimer 1.54 mg/L FEU (<0.60)
--- NOTE | 2019-12-20 09:17 | XR ---
EXAMINATION TYPE: XR chest 2V DATE OF EXAM: 12/20/2019 HISTORY: difficulty breathing. REFERENCE: Previous study dated 09/08/2019. FINDINGS: The heart is enlarged. There is worsening left basilar airspace disease. There is blunting of both CP angles and I could not could not exclude small effusions. IMPRESSION: 1. CARDIOMEGALY. 2. WORSENING LEFT BASILAR AIRSPACE DISEASE. 3. I COULD NOT EXCLUDE SMALL, BILATERAL EFFUSIONS.
[2019-12-20] MEDS ORDERED: FAMOTIDINE 20 MG/2 ML VIAL IV STA (09:20)
[2019-12-20] MEDS ORDERED: diphenhydrAMINE 50 MG/ML 1 ML VIAL IVP STA (09:20)
--- NOTE | 2019-12-20 10:19 | CT ---
EXAMINATION TYPE: CT angio chest DATE OF EXAM: 12/20/2019 9:59 AM COMPARISON: Previous study dated 09/12/2017. HISTORY: cough, chest pain, elevated d dimer CT DLP: 625.3 mGycm Automated exposure control for dose reduction was used. CONTRAST: CTA scan of the thorax is performed with IV Contrast, patient injected with 100 mL of Isovue 370, pul monary embolism protocol. . FINDINGS: There is diffuse is slightly patchy groundglass opacity throughout both lungs. This may be due to alveolitis, pneumonitis or atypical pneumonia such as UIP or even Covid 19. No definite parenc hymal nodules are seen. No definite axillary, mediastinal or hilar adenopathy is seen. There is a small right-sided pleural e ffusion and a smaller left effusion. The heart is enlarged. There is a 2 cm pericardial effusion. There is no evidence of pulmonary embolus. The aorta is normal in caliber. There is hypertrophic spondylosis within the spine. IMPRESSION: 1. THIS EXAMINATION IS NEGATIVE FOR PULMONARY EMBOLUS. 2. DIFFUSE GROUNDGLASS OPACITY THROUGHOUT BOTH LUNGS WHICH IS SLIGHTLY PATCHY IN NATURE. A DIFFERENTI AL DIAGNOSIS GIVEN ABOVE. 3. MODERATE-SIZED PERICARDIAL EFFUSION. 4. CARDIOMEGALY. 5. SMALL RIGHT-SIDED EFFUSION AND A SMALLER LEFT-SIDED EFFUSION. 6. DEGENERATIVE CHANGES WITHIN THE SPINE.
[2019-12-20] MEDS ORDERED: LEVOFLOXACIN 500MG-D5W PMX 500 MG in DEXTROSE/WATER 1 100ML.BAG IVPB STA (10:22)
[2019-12-20] MEDS ORDERED: FUROSEMIDE 10 MG/ML 4 ML VIAL IV STA (10:22)
[2019-12-20] MEDS ORDERED: IPRATROPIUM-ALBUTEROL 3 ML NEB INHALATION PRN (10:29)
[2019-12-20] MEDS: IPRATROPIUM-ALBUTEROL 3 ML NEB INHALATION SCH ×3 (11:09→21:34)
[2019-12-20] MEDS ORDERED: MORPHINE SULFATE 4 MG/ML SYRINGE IVP STA (11:14)
[2019-12-20] MEDS ORDERED: methylPREDNISolone SOD SUCCI 125 MG/2 ML VIAL IV SCH (12:00)
--- NOTE | 2019-12-20 12:20 | P.CNPUL ---
History of Present Illness Consult date: 12/20/19 Reason for consult: dyspnea, cough, chest pain Chief complaint: Chest pain and cough and shortness of breath History of present illness: This is a 49-year-old female with history of nonischemic cardiomyopathy, LV dysfunction with ejection fraction of 35-40% based on previous echocardiogram in 2018. Patient underwent cardiac catheterization back then, and she had normal coronary findings. Patient had no further follow up with any acquisition marketing coordinator. And she has been following up with her primary care physician Dr. Tuttel. Patient is also known to have history of hypertension, hypercholesterolemia, patient presented to the ER yesterday with mostly symptoms of cough, left-sided chest pain, pleuritic pain was described upon coughing. Chest x-ray questioned congestive heart failure and underlying pneumonia. CT of the chest showed diffuse groundglass opacities bilaterally were in the differential diagnoses clearly included as expected covid 19, congestive heart failure, and atypical pneumonia. Patient had no history to suggest any exposure to any patients with rotavirus infection. And she had no travel history. Her CT of the chest also showed 2 cm pericardial effusion and bilateral pleural effusions. Since admission the patient received Lasix. Considering the findings, I was asked to see the patient on consultation. Patient describes the cough as productive with whitish phlegm, she denies any fever, no chills, no hemoptysis. Her CBC showed no evidence of leukocytosis. Her d-dimer was elevated but she had negative CT angiogram of the chest. BNP level was elevated at 4870. Troponin was also a bit elevated at 0.031. Review of Systems Constitutional: Denies any fever chills weight loss. HEENT: Negative. Cardiac: As noted in HPI. Pulmonary: As noted in HPI. GI: Denies any nausea vomiting abdominal pain melena or hematemesis. Genitourinary: Denies any dysuria frequency urgency or hematuria. Neurologic: Denies any headache blurred vision or dizziness. Psychiatric: Denies any symptoms of depression or anxiety. Skin: Denies any rashes. Endocrine: Denies any heat or cold intolerance. Musculoskeletal: Denies any weakness or deformities. Lymphatics: Denies any lymphadenopathy. Hematologic: Denies any clotting bleeding or bruising. Past Medical History Past Medical History: Hypertension, Liver Disease, Neurologic Disorder, Sleep Apnea/CPAP/BIPAP Additional Past Medical History / Comment(s): back pain, Chronic Hepatitis , MIGRIANES, USES CPAP, BULGING DISCS IN BACK History of Any Multi-Drug Resistant Organisms: None Reported Past Surgical History: Breast Surgery, Section, Heart Catheterization, Hernia Repair, Hysterectomy, Orthopedic Surgery, Tubal Ligation, Uterine Ablation Additional Past Surgical History / Comment(s): EGD, 3 C sections, breast reduction, cyst removed from left hand, D & C, Bilateral groin hernia repair, LAPAROSCOPY Past Anesthesia/Blood Transfusion Reactions: No Reported Reaction Additional Past Anesthesia/Blood Transfusion Reaction / Comment(s): CLAUSTERPHOBIA Past Psychological History: Depression Smoking Status: Never smoker Past Alcohol Use History: None Reported Past Drug Use History: None Reported - Past Family History Mother Family Medical History: Coronary Artery Disease (CAD), Diabetes Mellitus, Renal Disease Additional Family Medical History / Comment(s): [employer] Father Family Medical History: Cancer, Diabetes Mellitus, Myocardial Infarction ([place]) Sister(s) Family Medical History: Cancer Medications and Allergies Home Medications Medication Instructions Recorded Confirmed Type No Known Home Medications 02/19/19 09/08/19 History Allergies Allergy/AdvReac Type Severity Reaction Status Date / Time Iodinated Contrast Media Allergy Severe Rash/Hives Verified 09/08/19 22:09 [Iodinated Contrast Media - IV Dye] Penicillins Allergy Severe swelling,hi Verified 09/08/19 22:09 ves Sulfa (Sulfonamide Allergy Severe swelling,hi Verified 09/08/19 22:09 Antibiotics) ves adhesive Allergy Swelling Verified 09/08/19 22:09 ibuprofen [From Motrin] AdvReac "PROBLEM Verified 09/08/19 22:09 WITH KIDNEYS" Physical Exam Vitals: Vital Signs Temp Pulse Resp BP Pulse Ox 12/20/19 11:19 109 H 12/20/19 11:10 111 H 12/20/19 11:00 122 H 16 165/113 97 12/20/19 08:45 107 H 12/20/19 08:44 16 12/20/19 08:30 112 H 16 161/102 100 12/20/19 08:27 108 H 12/20/19 08:00 101 H 15 149/98 100 12/20/19 07:41 98.4 F 105 H 18 151/99 97 Intake and Output 12/19/19 12/20/19 12/20/19 22:59 06:59 14:59 Other: Weight 114.759 kg Physical Exam: Revealed 49-year-old female, obese, in no distress. On 2 L nasal cannula. Head: Atraumatic, normocephalic. HEENT:[Neck is supple.] [No neck masses.] [No thyromegaly.] [No JVD.] Mallampati class III. Moist mucous membranes. PERRLA, EOMI, no icterus. Chest: [Symmetrical chest expansion, crackles at the bases, no rhonchi and no wheezes..] Cardiac Exam: Distant S1 and S2, no S3 gallop, no murmur. Abdomen: [Obese, Soft, nontender, no megaly, no rebound, no guarding, normal bowel sounds.] Extremities: [No clubbing, trace of bipedal edema, no cyanosis.] Neurological Exam: [No focal neurologic deficit.] Alert and oriented 3. No focal deficit. Psychiatric: Normal mood, affect and normal mental status examination. Skin: No rashes. Lymphatics: No cervical lymphadenopathy. Results - Laboratory Findings CBC and BMP: 12/20/19 08:04 12/20/19 08:04 PT/INR, D-dimer PT 11.2 sec (9.0-12.0) 12/20/19 08:04 INR 1.1 (<1.2) 12/20/19 08:04 D-Dimer 1.54 mg/L FEU (<0.60) H 12/20/19 08:04 Abnormal lab findings: Abnormal Labs 12/20/19 12/20/19 08:04 08:04 D-Dimer 1.54 H Chloride 111 H Glucose 111 H - Diagnostic Findings Chest x-ray: image reviewed (As noted in HPI.) Assessment and Plan Assessment: Impression: Acute systolic congestive heart failure. Diffuse interstitial edema, doubt pneumonia, however the possibility of covid 19 pneumonitis is not entirely ruled out. History of LV dysfunction based on previous echocardiogram. Pericardial effusion, needs to be further evaluated by echocardiogram. History of hypertension. History of obstructive sleep apnea syndrome, on CPAP at home. History of migraine cephalgia. And chronic back pain. Recommendation: Patient will be given diuretics in the form of Lasix 40 mg IV push every 8 hours and have repeat chest x-ray in a.m. Continue oxygen and titrate accordingly. Empiric antibiotics for the next 24 hours until chest x-ray is reevaluated after a good course of diuretics. Pro calcitonin level. Repeat echocardiogram. And consider cardiac consultation since the patient has pericardial effusion. Clinically there is no evidence of temporal not. Resume home meds. covid 19 PCR is pending. In the meantime continue droplet isolation. We'll continue to follow. Time with Patient: Greater than 30
--- NOTE | 2019-12-20 14:16 | CONS ---
CONSULTATION ATTENDING: Dr. Tuttle. HISTORY OF PRESENT ILLNESS: Mrs. Arshad is a 49-year-old female who presented to the emergency room with symptoms of progressive dyspnea. The patient was admitted to the hospital in September of 2017 with symptoms of congestive heart failure. T that time,was found to have cardiomyopathy and no evidence of obstructive coronary disease by cardiac catheterization. The patient has not followed by Dr. Tejeda and has not been taking any medication. She claims that no medication were given to her. She has a history of hypertension, but she is taking no medication. She has been complaining of progressive dyspnea over the last few weeks, much worse now with peripheral edema. She has some chest discomfort when she coughs or she walks. She has been having a cough since September. She denies any syncope, but she has some palpitation. She is a non smoker. She denies any clear PND. Her coronary risk factors are remarkable for the history of hypertension. She is nonsmoker, nondiabetic. Her only medications include Ventolin and Breo Ellipta. REVIEW OF SYSTEMS: Respiratory system is positive for the symptoms of dyspnea. She has a history of asthma. GI system: No recent GI bleeding. No peptic ulcer disease. system: No dysuria or hematuria. PHYSICAL EXAMINATION: A 49-year-old female, obese, alert, oriented, in no apparent distress. Blood pressure 158/104 with a heart rate in the 100s. HEAD: Normocephalic. EYES sclerae anicteric. NECK: Good upstroke. No bruit. No jugular venous distention. LUNGS with rales at the bases. HEART: Regular rate and rhythm S1, S2. No S3. No rub. ABDOMEN: Soft, obese, nontender. Positive bowel sounds. No organomegaly. EXTREMITIES +1 edema to 2 bilaterally. LAB DATA: Revealed an NT proBNP of 4870. Troponin 0.031. BUN and creatinine 11 and 0.93. Hemoglobin of 12.8. Chest x-ray revealed evidence of congestion and pleural effusion. EKG revealed sinus mechanism, rate of 110 with left bundle branch block that was noted in the past. Chest CT angiogram revealed no evidence of pulmonary embolism with diffuse ground-glass opacity in both lungs with moderately size pericardial effusion and evidence of cardiomegaly. IMPRESSION: 1. Symptoms of congestive heart failure in patient with known history of nonischemic cardiomyopathy, not on treatment. 2. Left bundle branch block, chronic. 3. Abnormal chest x-ray. 4. Pericardial effusion with no evidence of tamponade. 5. History of obstructive sleep apnea. 6. History of hypertension, not treated. RECOMMENDATIONS: I will agree with discontinuing the diuretics. I will add to her regimen a beta rubia, ESTRELLA inhibitor and Aldactone. I will review the results of her echocardiogram. The patient renal function will be followed closely. Down the road, she will need to be evaluated for an ICD Bi V implantation. Depending on her progress, further recommendations will be made. Thank you for this consult. We will follow with you. MMODL / IJN: [id number] /
[2019-12-20] MEDS: CARVEDILOL 6.25 MG TAB PO SCH (17:15)
[2019-12-20] MEDS: LISINOPRIL 5 MG TAB PO SCH ×2 (17:15→20:45)
[2019-12-20] MEDS: methylPREDNISolone SOD SUCCI 40 MG/ML 1 ML VIAL IV SCH ×2 (17:16→23:42)
[2019-12-20] MEDS: FUROSEMIDE 10 MG/ML 4 ML VIAL IV SCH ×2 (17:16→23:42)
[2019-12-20] MEDS: SPIRONOLACTONE 25 MG TAB PO SCH (17:18)
--- NOTE | 2019-12-20 18:26 | ECHOF ---
Referral Reason:Dyspnea, effusion MEASUREMENTS -------- HEIGHT: 160.0 cm WEIGHT: 114.8 kg BP: 165/113 IVSd: 1.3 cm (0.6 - 1.1) LVIDd: 4.9 cm (3.9 - 5.3) LVPWd: 1.1 cm (0.6 - 1.1) IVSs: 1.4 cm LVIDs: 4.4 cm LVPWs: 1.3 cm Ao Diam: 2.8 cm (2.0 - 3.7) AV Cusp: 1.5 cm (1.5 - 2.6) FINDINGS -------- Sinus rhythm. This was a technically difficult study with suboptimal views. Morbid Obesity The left ventricular size is normal. Left ventricular wall thickness is normal. There is severe g lobal hypokinesis of LV . Overall left ventricular systolic function is severely impaired with, an EF between 20 - 25 %. The RV was not well visualized. The left atrial size is normal. The right atrium was not well visualized. 5.0mg of Lumason was utilized for enhancement of images The aortic valve was not well visualized. There is no evidence of aortic regurgitation. There is no evidence of aortic stenosis. The mitral valve was not well visualized. No mitral regurgitation. The tricuspid valve was not well visualized. Unable to estimate RVSP due to inadequate TR jet spect ral doppler profile. The pulmonic valve was not well visualized. There is no pulmonic regurgitation present. The aortic root, ascending aorta and aortic arch are normal. IVC Not well visulized. There is a moderate pericardial effusion located near the left ventricle. CONCLUSIONS -------- 1. This was a technically difficult study with suboptimal views. 2. Morbid Obesity 3. There is severe global hypokinesis of LV . 4. Overall left ventricular systolic function is severely impaired with, an EF between 20 - 25 %. 5. The RV was not well visualized. 6. The left atrial size is normal. 7. 5.0mg of Lumason was utilized for enhancement of images 8. The aortic valve was not well visualized. 9. The mitral valve was not well visualized. 10. No mitral regurgitation. 11. The tricuspid valve was not well visualized. 12. There is a moderate pericardial effusion located near the left ventricle. MOPHEAD SEWER: Zoya Sorto [facility]
[2019-12-20] MEDS ORDERED: FUROSEMIDE 10 MG/ML 4 ML VIAL IV SCH (21:00)
--- NOTE | 2019-12-21 01:04 | P.HPIM ---
History of Present Illness H&P Date: 12/20/19 Chief Complaint: CATALINO Patient is a 49-year-old female with a known history of hypertension, nonischemic cardiomyopathy with ejection fraction 35 to 40%, hypertension, hyperlipidemia and obstructive sleep apnea on CPAP at home, chronic back pain and migraine headaches as well as depression came to ER with the complaints of cough and shortness of breath. Patient was also having chest pain mainly left- sided pleuritic and worsens with coughing. Denied any complaints of fever or chills. No sputum production. Patient states she has been having cough for the past 1 month but got worse during the last 1 to 2 days. Denies any complaints of nausea vomiting or abdominal pain or diarrhea. No recent illnesses otherwise. denied leg swelling. Chest x-ray showed cardiomegaly. Worsening left basilar airspace disease. Could not exclude small bilateral effusions. Patient does not have any fever or leukocytosis. D-dimer performed evaluated at 1.54. Patient had CT angiogram of the chest was done which showed negative for pulmonary embolism. Diffuse groundglass opacity throughout both lungs which is slightly patchy in nature. May be due to alveolitis, pneumonitis or atypical pneumonia such as UIP or even COVID-19. Moderate-sized pericardial effusion. Cardiomegaly. Small right-sided effusion and a small left-sided effusion. Degenerative changes in the spine. Laboratory data showed WBC 7.6, hemoglobin 12.8, platelets 294 Absolute lymphocyte count 2.6 D-dimer 1.54 Chloride 111 Sodium 142 BUN 11 and creatinine 0.93 Troponin 0 0.031, proBNP 4870 Procalcitonin not elevated 0.07 Review of Systems Constitutional: Patient denies any fever or chills . No generalized weakness or weight loss. Abdomen: Patient denied nausea vomiting and diarrhea and abdominal pain. Cardiovascular: Patient denies any chest pain or short of breath no palpitations. Respiratory: patient does have cough and shortness of breath Neurologic: Patient denied any numbness or tingling headache. Musculoskeletal: Patient denies any complaints of joint swelling or deformity. Skin: Negative Psychiatric: Negative Endocrine: No heat or cold intolerance. No recent weight gain. Genitourinary: No dysuria or hematuria. All other 14 point ROS negative except the above Past Medical History Past Medical History: Hypertension, Liver Disease, Neurologic Disorder, Sleep Ap irais/CPAP/BIPAP Additional Past Medical History / Comment(s): back pain, Chronic Hepatitis , MIGRIANES, USES CPAP, BULGING DISCS IN BACK History of Any Multi-Drug Resistant Organisms: None Reported Past Surgical History: Breast Surgery, Section, Heart Catheterization, Hernia Repair, Hysterectomy, Orthopedic Surgery, Tubal Ligation, Uterine Ablation Additional Past Surgical History / Comment(s): EGD, 3 C sections, breast reduction, cyst removed from left hand, D & C, Bilateral groin hernia repair, LAPAROSCOPY Past Anesthesia/Blood Transfusion Reactions: No Reported Reaction Additional Past Anesthesia/Blood Transfusion Reaction / Comment(s): CLAUSTERPHOBIA Past Psychological History: Depression Smoking Status: Never smoker Past Alcohol Use History: None Reported Past Drug Use History: None Reported - Past Family History Mother Family Medical History: Coronary Artery Disease (CAD), Diabetes Mellitus, Renal Disease Additional Family Medical History / Comment(s): [employer] Father Family Medical History: Cancer, Diabetes Mellitus, Myocardial Infarction ([place]) Sister(s) Family Medical History: Cancer Medications and Allergies Home Medications Medication Instructions Recorded Confirmed Type Albuterol Sulfate [Ventolin HFA] 2 puff PO Q6H PRN 12/20/19 12/20/19 History Fluticasone/Vilanterol [Breo 1 puff PO DAILY 12/20/19 12/20/19 History Ellipta 100-25 Mcg Inhaler] Levofloxacin [Levaquin] 500 mg PO DAILY 12/20/19 12/20/19 History Allergies Allergy/AdvReac Type Severity Reaction Status Date / Time Iodinated Contrast Media Allergy Severe Rash/Hives Verified 12/20/19 13:20 [Iodinated Contrast Media - IV Dye] Penicillins Allergy Severe swelling,hi Verified 12/20/19 13:20 ves Sulfa (Sulfonamide Allergy Severe swelling,hi Verified 12/20/19 13:20 Antibiotics) ves adhesive Allergy Swelling Verified 12/20/19 13:20 ibuprofen [From Motrin] AdvReac "PROBLEM Verified 12/20/19 13:20 WITH KIDNEYS" Physical Exam Vitals: Vital Signs Temp Pulse Pulse Resp BP BP Pulse Ox 12/20/19 12:27 88 L 12/20/19 12:15 98.6 F 120 H 20 158/104 93 L 12/20/19 11:19 109 H 12/20/19 11:10 111 H 12/20/19 11:00 122 H 16 165/113 97 12/20/19 08:45 107 H 12/20/19 08:44 16 12/20/19 08:30 112 H 16 161/102 100 12/20/19 08:27 108 H 12/20/19 08:00 101 H 15 149/98 100 12/20/19 07:41 98.4 F 105 H 18 151/99 97 Intake and Output 12/19/19 12/20/19 12/20/19 22:59 06:59 14:59 Intake Total 100 Output Total 400 Balance -300 Intake: Intake, IV Titration 100 Amount Levofloxacin 500Mg-D5w 100 Pmx 500 mg In Dextrose/ Water 1 100ml.bag @ 100 mls/hr IVPB Q24H [facility] Rx#: [id number] Output: Urine 400 Other: # Voids 1 Weight 114.759 kg PHYSICAL EXAMINATION: Patient is lying in the bed comfortably, no acute distress, awake alert and oriented.. HEENT: Normocephalic. Neck is supple. Pupils reactive. Nostrils clear. Oral cavity is moist. Ears reveal no drainage. Neck reveals no JVD, carotid bruits, or thyromegaly. CHEST EXAMINATION: Trachea is central. Symmetrical expansion. bibasilar crack les, no wheezing, Lung ku clear to auscultation and percussion. CARDIAC: Normal S1, S2 with no gallops. No murmurs ABDOMEN: Soft. Bowel sounds normal. No organomegaly. No abdominal bruits. Extremities: trace edema. No clubbing or cyanosis Neurologically awake, alert, oriented x3 with well-coordinated movements. No focal deficits noted Skin: No rash or skin lesions. Psychiatric: Coperative. Nonsuicidal Musculoskeletal: No joint swelling or deformity. Normal range of motion. Results CBC & Chem 7: 12/20/19 08:04 12/20/19 08:04 Labs: Abnormal Lab Results - Last 24 Hours (Table) 12/20/19 12/20/19 Range/Units 08:04 08:04 D-Dimer 1.54 H (<0.60) mg/L FEU Chloride 111 H (98-107) mmol/L Glucose 111 H (74-99) mg/dL Thrombosis Risk Factor Assmnt - DVT/VTE Prophylaxis DVT/VTE Prophylaxis: Pharmacologic Prophylaxis ordered - Choose All That Apply Any of the Below Risk Factors Present?: Yes Each Factor Represents 1 point: Age 41-60 years, Obesity (BMI >25), Swollen legs (current) Other Risk Factors: No Other congenital or acquired thrombophilia - If yes, enter type in comment: No Thrombosis Risk Factor Assessment Total Risk Factor Score: 3 Thrombosis Risk Factor Assessment Level: Moderate Risk Assessment and Plan Assessment: Shortness of breath and cough secondary to acute on chronic CHF with systolic dysfunction. previous Echo showed LVEF 35-40% bilateral small pleural effusions Interstitial edema with possible interstitial pneumonitis vs atypical pneumonia. Moderate pericardial effusion as per CTA chest. Obstructive sleep apnea on CPAP at home Migraine headaches Chronic back pain Depression DVT prophylaxis with heparin subcu Plan: Patient will be continued on Lasix 40 mg every 8 hourly. Patient is being continued duo nebs and IV steroids and antibiotics in the form of Levaquin. Continue with aspirin, Coreg and statins. Pulmonary and cardiology is on board. Further recommendations based on clinical course. Prognosis guarded. Time with Patient: Greater than 30
[2019-12-21] MEDS: CARVEDILOL 6.25 MG TAB PO SCH (06:42)
--- NOTE | 2019-12-21 06:52 | XR ---
EXAMINATION TYPE: XR chest 1V portable DATE OF EXAM: 12/21/2019 HISTORY: chf/pneumonia. REFERENCE: Previous study dated 12/20/2019. FINDINGS: The heart remains enlarged. There is improved aeration of both lungs. There is blunting of both CP angles. IMPRESSION: IMPROVED AERATION OF BOTH LUNGS.
[2019-12-21 06:58] LABS: Basophils % (A) 0 %; Eosinophils % (A) 0 %; HCT 36.8 % (34.0-46.0); HGB 11.7 gm/dL (11.4-16.0); Lymphocytes % (A) 15 %; MCH 31.7 pg (25.0-35.0); MCHC 31.9 g/dL (31.0-37.0); MCV 99.3 fL (80.0-100.0); Macrocytosis Slight; Mean Platelet Volume 7.5; Monocytes # (A) 0.1 k/uL (0-1.0); Monocytes % (A) 2 %; Neutrophils # (A) 5.5 k/uL (1.3-7.7); Neutrophils % (A) 83 %; Platelet Count 268 k/uL (150-450); RDW 15.3 % (11.5-15.5); WBC 6.6 k/uL (3.8-10.6)
[2019-12-21 07:20] LABS: African American GFR (CKD) >90 (>60 ml/min/1.73 sqM); Anion Gap 8 mmol/L; Blood Urea Nitrogen 16 mg/dL (7-17); Calcium 9.2 mg/dL (8.4-10.2); Carbon Dioxide 28 mmol/L (22-30); Chloride 105 mmol/L (98-107); Glucose 162 mg/dL (74-99); Non-African American GFR(CKD) 81 (>60 ml/min/1.73 sqM); Potassium 4.3 mmol/L (3.5-5.1); Sodium 141 mmol/L (137-145)
[2019-12-21] MEDS: IPRATROPIUM-ALBUTEROL 3 ML NEB INHALATION SCH (07:52)
[2019-12-21] MEDS: LISINOPRIL 5 MG TAB PO SCH ×2 (08:59→20:19)
[2019-12-21] MEDS: ASPIRIN 81 MG PO SCH (08:59)
[2019-12-21] MEDS: FAMOTIDINE 20 MG TAB PO SCH ×2 (09:00→20:18)
[2019-12-21] MEDS: SPIRONOLACTONE 25 MG TAB PO SCH (09:00)
[2019-12-21] MEDS: methylPREDNISolone SOD SUCCI 40 MG/ML 1 ML VIAL IV SCH (09:00)
[2019-12-21] MEDS: FUROSEMIDE 10 MG/ML 4 ML VIAL IV SCH ×2 (09:01→20:20)
[2019-12-21] MEDS: HEPARIN SODIUM,PORCINE 5,000 UNIT/ML 1 ML VIAL SQ SCH ×3 (09:04→23:58)
[2019-12-21] MEDS ORDERED: LEVOFLOXACIN 500MG-D5W PMX 500 MG in DEXTROSE/WATER 1 100ML.BAG IVPB SCH (12:00)
--- NOTE | 2019-12-21 12:48 | P.PN ---
Subjective Progress Note Date: 12/21/19 Principal diagnosis: Acute systolic congestive heart failure This is a 49-year-old female with history of nonischemic cardiomyopathy, LV dysfunction with ejection fraction of 35-40% based on previous echocardiogram in 2018. Patient underwent cardiac catheterization back then, and she had normal coronary findings. Patient had no further follow up with any ux designer. And she has been following up with her primary care physician Dr. Tuttle. Patient is also known to have history of hypertension, hypercholesterolemia, patient presented to the ER yesterday with mostly symptoms of cough, left-sided chest pain, pleuritic pain was described upon coughing. Chest x-ray questioned congestive heart failure and underlying pneumonia. CT of the chest showed diffuse groundglass opacities bilaterally were in the differential diagnoses clearly included as expected covid 19, congestive heart failure, and atypical pneumonia. Patient had no history to suggest any exposure to any patients with rotavirus infection. And she had no travel history. Her CT of the chest also showed 2 cm pericardial effusion and bilateral pleural effusions. Since admission the patient received Lasix. Considering the findings, I was asked to see the patient on consultation. Patient describes the cough as productive with whitish phlegm, she denies any fever, no chills, no hemoptysis. Her CBC showed no evidence of leukocytosis. Her d-dimer was elevated but she had negative CT angiogram of the chest. BNP level was elevated at 4870. Troponin was also a bit elevated at 0.031. The patient is seen today 12/21/2019 in follow-up on the selective care unit. She is awake and alert in no acute distress. Breathing quite a bit better today compared to yesterday. She's up ambulating in her room without any acute distress. She is maintaining good O2 saturations in the mid 90s on room air. She's afebrile. Hemodynamically stable. White count 6.6. Hemoglobin 11.7. Sodium 141. Potassium 4.3. Bicarb 28. Creatinine 0.85. Covid 19 screening still pending. Chest x-ray shows improved aeration bilaterally. Echocardiogram reveals severely impaired left ventricular systolic function with ejection fraction 20-25%. She's currently on Lasix 40 mg every 8 hours. Aldactone. Bronchodilators. Heparin for DVT prophylaxis. Objective - Vital Signs Vital signs: Vital Signs Temp 97.9 F 12/21/19 11:53 Pulse 76 12/21/19 11:53 Resp 18 12/21/19 11:53 BP 136/78 12/21/19 11:53 Pulse Ox 96 12/21/19 11:53 Intake & Output 12/20/19 12/21/19 12/21/19 18:59 06:59 18:59 Intake Total 700 Output Total 1500 2600 300 Balance -800 -2600 -300 Weight 114.759 kg 117.5 kg 114.4 kg Intake: Intake, IV Titration 100 Amount Levofloxacin 500Mg-D5w 100 Pmx 500 mg In Dextrose/ Water 1 100ml.bag @ 100 mls/hr IVPB Q24H [facility] Rx#: [id number] Oral 600 Output: Urine 1500 2600 300 Other: Voiding Method Toilet Toilet # Voids 4 1 - Exam GENERAL EXAM: Alert, active, obese 49-year-old female patient, on room air comfortable in no apparent distress. HEAD: Normocephalic. EYES: Normal reaction of pupils, equal size. NOSE: Clear with pink turbinates. THROAT: No erythema or exudates. NECK: No masses, no JVD. CHEST: No chest wall deformity. LUNGS: Equal air entry with crackles in the bilateral posterior bases CVS: S1 and S2 normal with no audible murmur, regular rhythm. ABDOMEN: No hepatosplenomegaly, normal bowel sounds, no guarding or rigidity. SPINE: No scoliosis or deformity SKIN: No rashes CENTRAL NERVOUS SYSTEM: No focal deficits, tone is normal in all 4 extremities. EXTREMITIES: There is trace peripheral edema. No clubbing, no cyanosis. Peripheral pulses are intact. - Labs CBC & Chem 7: 12/21/19 06:14 12/21/19 06:14 Labs: Abnormal Lab Results - Last 24 Hours (Table) 12/21/19 12/21/19 Range/Units 06:14 06:14 RBC 3.70 L (3.80-5.40) m/uL Glucose 162 H (74-99) mg/dL Assessment and Plan Assessment: Acute exacerbation of chronic systolic congestive heart failure, ejection fraction 20-25%. Diffuse interstitial edema, doubt pneumonia, however the possibility of covid 19 pneumonitis is not entirely ruled out, results pending. X-ray showing improvement post diuresis. History of LV dysfunction based on previous echocardiogram with ejection fraction 35-40% in 2018, with worsening this admission at 20-25%. Pericardial effusion, needs to be further evaluated by echocardiogram. History of hypertension. History of obstructive sleep apnea syndrome, on CPAP at home. History of migraine cephalgia. And chronic back pain. Plan The patient was seen and evaluated by Dr. George Chest x-ray, echocardiogram and labs reviewed Discontinue bronchodilators Decrease Lasix to 40 mg IV every 12 hours Cardiology considering BiV ICD Repeat chest x-ray in a.m. We'll continue to follow I, the cosigning physician, performed a history & physical examination of the patient. Lungs sounds with crackles in the bilateral posterior bases. Maintaining good O2 saturations in the 90s on room air. I discussed the assessment and plan of care with my nurse practitioner, Kaylyn Tavarez. I attest to the above note as dictated by her.
--- NOTE | 2019-12-21 13:09 | PN ---
PROGRESS NOTE Mrs. Arshad is a 49-year-old female with known history of severe nonischemic cardiomyopathy who presented with symptoms of worsening congestive heart failure, has not been taking any medication. She is feeling better today. She had a run of nonsustained ventricular tachycardia earlier, asymptomatic. She denies any dizziness or palpitation. She denies any nausea. She had an echocardiogram that showed a severely impaired systolic function with global hypokinesis. She continues to be on aspirin once a day, Coreg 6.25 mg twice a day, furosemide 40 mg IV q.12 hours, Zestril 5 mg twice a day, spironolactone 25 mg daily. PHYSICAL EXAMINATION: Blood pressure 129/60 with a heart rate in the 90s. LUNGS: With few crackles at the bases. HEART: Regular rate and rhythm S1, S2. No S3 with systolic murmur. No diastolic murmur. ABDOMEN: Soft, nontender, obese. EXTREMITIES: Trace edema. LAB DATA: Hemoglobin. Potassium 4.3, BUN and creatinine 16 and 0.85, hemoglobin of 11.7. IMPRESSION: 1. Severe nonischemic cardiomyopathy with symptoms of congestive heart failure. 2. History of hypertension. 3. Episode of nonsustained ventricular tachycardia, asymptomatic. RECOMMENDATION: I will increase the dose of her beta rubia. We will continue on the present dose of diuresis. Follow her renal function. Increase her level of activity. I discussed with the patient these findings. Patient most likely will require an ICD Bi V implantation down the road. MMODL / IJN: [id number] /
[2019-12-21] MEDS: CARVEDILOL 12.5 MG TAB PO SCH (16:54)
[2019-12-21] MEDS: ATORVASTATIN 20 MG TAB PO SCH (20:19)
--- NOTE | 2019-12-22 00:12 | P.PN ---
Subjective Progress Note Date: 12/21/19 Principal diagnosis: Acute on chronic CHF with systolic dysfunction Nonischemic cardiomyopathy Patient is a 49-year-old female with a known history of hypertension, nonischemic cardiomyopathy with ejection fraction 35 to 40%, hypertension, hyperlipidemia and obstructive sleep apnea on CPAP at home, chronic back pain and migraine headaches as well as depression came to ER with the complaints of cough and shortness of breath. Patient was also having chest pain mainly left-sided pleuritic and worsens with coughing. Denied any complaints of fever or chills. No sputum production. Patient states she has been having cough for the past 1 month but got worse during the last 1 to 2 days. Denies any complaints of nausea vomiting or abdominal pain or diarrhea. No recent illnesses otherwise. denied leg swelling. Chest x-ray showed cardiomegaly. Worsening left basilar airspace disease. Could not exclude small bilateral effusions. Patient does not have any fever or leukocytosis. D-dimer performed evaluated at 1.54. Patient had CT angiogram of the chest was done which showed negative for pulmonary embolism. Diffuse groundglass opacity throughout both lungs which is slightly patchy in nature. May be due to alveolitis, pneumonitis or atypical pneumonia such as UIP or even COVID-19. Moderate-sized pericardial effusion. Cardiomegaly. Small right-sided effusion and a small left-sided effusion. Degenerative changes in the spine. Laboratory data showed WBC 7.6, hemoglobin 12.8, platelets 294 Absolute lymphocyte count 2.6 D-dimer 1.54 Chloride 111 Sodium 142 BUN 11 and creatinine 0.93 Troponin 0 0.031, proBNP 4870 Procalcitonin not elevated 0.07 12/21/2019 Patient is currently sitting on the side of bed. Breathing status is much improved. Denied any complaints of chest pain. No complaints of nausea vomiting or abdominal pain or diarrhea. Patient is diuresing well with IV Lasix. 2D echocardiogram showed ejection fraction 20 to 25%. Aldactone was added by cardiology. Otherwise renal function is stable. Chest x-ray showed improved aeration of both lungs. Current medications reviewed. Objective - Vital Signs Vital signs: Vital Signs Temp 97.9 F 12/21/19 15:48 Pulse 83 12/21/19 15:48 Resp 18 12/21/19 15:48 BP 120/67 12/21/19 15:48 Pulse Ox 95 12/21/19 15:48 Intake & Output 12/21/19 12/21/19 12/22/19 06:59 18:59 06:59 Intake Total 300 Output Total 2600 300 500 Balance -2600 -300 -200 Weight 117.5 kg 114.4 kg Intake: Oral 300 Output: Urine 2600 300 500 Other: Voiding Method Toilet # Voids 2 - Exam PHYSICAL EXAMINATION: Patient is lying in the bed comfortably, no acute distress, awake alert and oriented.. HEENT: Normocephalic. Neck is supple. Pupils reactive. Nostrils clear. Oral cavity is moist. Ears reveal no drainage. Neck reveals no JVD, carotid bruits, or thyromegaly. CHEST EXAMINATION: Trachea is central. Symmetrical expansion. minimal bibasilar crackles, no wheezing, Lung ku clear to auscultation and percussion. CARDIAC: Normal S1, S2 with no gallops. No murmurs ABDOMEN: Soft. Bowel sounds normal. No organomegaly. No abdominal bruits. Extremities: trace edema. No clubbing or cyanosis Neurologically awake, alert, oriented x3 with well-coordinated movements. No focal deficits noted Skin: No rash or skin lesions. Psychiatric: Coperative. Nonsuicidal Musculoskeletal: No joint swelling or deformity. Normal range of motion. - Labs CBC & Chem 7: 12/21/19 06:14 12/21/19 06:14 Labs: Abnormal Lab Results - Last 24 Hours (Table) 12/21/19 12/21/19 Range/Units 06:14 06:14 RBC 3.70 L (3.80-5.40) m/uL Glucose 162 H (74-99) mg/dL Microbiology - Last 24 Hours (Table) 12/20/19 11:20 Blood Culture - Preliminary Blood No Growth after 24 hours Assessment and Plan Assessment: Shortness of breath and cough secondary to acute on chronic CHF with systolic dysfunction. previous Echo showed LVEF 35-40%. Repeat echocardiogram showed ejection fraction 25% bilateral small pleural effusions Interstitial edema with possible interstitial pneumonitis vs atypical pneumonia. Reactive Bronchospasm Moderate pericardial effusion as per CTA chest. Obstructive sleep apnea on CPAP at home Migraine headaches Chronic back pain Depression DVT prophylaxis with heparin subcu Plan: Patient will be continued on Lasix 40 mg every 8 hourly. added Spironolactone. Patient is being continued duo nebs and IV steroids and antibiotics in the form of Levaquin. Continue with aspirin, Coreg and statins. Pulmonary and cardiology is on board. Further recommendations based on clinical course. Prognosis guarded. Time with Patient: Greater than 30
[2019-12-22] MEDS: ACETAMINOPHEN TAB 325 MG TAB PO PRN ×4 (00:15→22:08)
[2019-12-22] MEDS: CARVEDILOL 12.5 MG TAB PO SCH ×2 (06:33→18:24)
[2019-12-22 07:41] LABS: African American GFR (CKD) >90 (>60 ml/min/1.73 sqM); Anion Gap 7 mmol/L; Blood Urea Nitrogen 23 mg/dL (7-17); Calcium 9.5 mg/dL (8.4-10.2); Carbon Dioxide 29 mmol/L (22-30); Chloride 104 mmol/L (98-107); Glucose 115 mg/dL (74-99); Non-African American GFR(CKD) 80 (>60 ml/min/1.73 sqM); Potassium 4.6 mmol/L (3.5-5.1); Sodium 140 mmol/L (137-145)
--- NOTE | 2019-12-22 07:43 | XR ---
EXAMINATION TYPE: XR chest 1V portable DATE OF EXAM: 12/22/2019 CLINICAL HISTORY: Difficulty breathing and CHF progress study. TECHNIQUE: Single AP portable upright view of the chest is obtained. COMPARISON: Chest x-ray from one day earlier. CTA chest 2 days earlier. FINDINGS: Stable cardiomegaly with some central vascular congestion. No new focal airspace opacity o r pneumothorax seen bilaterally. Osseous structures are intact. IMPRESSION: Cardiomegaly with central vascular congestion. No new focal infiltrate. Correlate for CHF exacerbation. No significant change from 1 day earlier.
[2019-12-22] MEDS: LOSARTAN 50 MG TAB PO SCH (09:12)
[2019-12-22] MEDS: SPIRONOLACTONE 25 MG TAB PO SCH (09:12)
[2019-12-22] MEDS: ASPIRIN 81 MG PO SCH (09:12)
[2019-12-22] MEDS: FUROSEMIDE 10 MG/ML 4 ML VIAL IV SCH ×2 (09:13→22:08)
[2019-12-22] MEDS: FAMOTIDINE 20 MG TAB PO SCH ×2 (09:13→22:08)
[2019-12-22] MEDS: HEPARIN SODIUM,PORCINE 5,000 UNIT/ML 1 ML VIAL SQ SCH ×2 (09:26→18:18)
--- NOTE | 2019-12-22 10:47 | P.PN ---
Subjective Progress Note Date: 12/22/19 Principal diagnosis: Acute systolic congestive heart failure This is a 49-year-old female with history of nonischemic cardiomyopathy, LV dysfunction with ejection fraction of 35-40% based on previous echocardiogram in 2018. Patient underwent cardiac catheterization back then, and she had normal coronary findings. 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 And she has been following up with her primary care physician Dr. Tuttle. Patient is also known to have history of hypertension, hypercholesterolemia, patient presented to the ER yesterday with mostly symptoms of cough, left-sided chest pain, pleuritic pain was described upon coughing. Chest x-ray questioned congestive heart failure and underlying pneumonia. CT of the chest showed diffuse groundglass opacities bilaterally were in the differential diagnoses clearly included as expected covid 19, congestive heart failure, and atypical pneumonia. Patient had no history to suggest any exposure to any patients with rotavirus infection. And she had no travel history. Her CT of the chest also showed 2 cm pericardial effusion and bilateral pleural effusions. Since admission the patient received Lasix. Considering the findings, I was asked to see the patient on consultation. Patient describes the cough as productive with whitish phlegm, she denies any fever, no chills, no hemoptysis. Her CBC showed no evidence of leukocytosis. Her d-dimer was elevated but she had negative CT angiogram of the chest. BNP level was elevated at 4870. Troponin was also a bit elevated at 0.031. The patient is seen today 12/21/2019 in follow-up on the selective care unit. She is awake and alert in no acute distress. Breathing quite a bit better today compared to yesterday. She's up ambulating in her room without any acute distress. She is maintaining good O2 saturations in the mid 90s on room air. She's afebrile. Hemodynamically stable. White count 6.6. Hemoglobin 11.7. Sodium 141. Potassium 4.3. Bicarb 28. Creatinine 0.85. Covid 19 screening still pending. Chest x-ray shows improved aeration bilaterally. Echocardiogram reveals severely impaired left ventricular systolic function with ejection fraction 20-25%. She's currently on Lasix 40 mg every 8 hours. Aldactone. Bronchodilators. Heparin for DVT prophylaxis. On 12/22/2019 patient seen in follow-up on selective care unit, she sits up in bed, in no acute distress, she states she did have an episode of midsternal chest discomfort this morning, and cardiology is following and is aware. Currently in no acute distress, denies any breathing difficulty, vital signs have been stable, patient is on room air, with pulse ox of 94-97%, today's chest x-ray shows central vascular congestion, no new focal infiltrates. She is in - 2.5 L over the last 24 hours. Remains on IV Lasix at 40 mg every 12 hours. She is on Cozaar and Aldactone, beta blockers in the form of Coreg, and aspirin and Lipitor. Cardiology is following. Echocardiogram showed EF between 20 and 25%. There is moderate pericardial effusion located near the left ventricle, no evidence of valve dysfunction. Today's labs have been reviewed showing elect rolytes within normal limits, BUN of 23 and creatinine of 0.86 Objective - Vital Signs Vital signs: Vital Signs Temp 97.7 F 12/22/19 04:42 Pulse 88 12/22/19 04:42 Resp 18 12/22/19 04:42 BP 112/89 12/22/19 04:42 Pulse Ox 94 L 12/22/19 04:42 Intake & Output 12/21/19 12/22/19 12/22/19 18:59 06:59 18:59 Intake Total 300 Output Total 300 2500 Balance -300 -2200 Weight 114.4 kg 114.1 kg Intake: Oral 300 Output: Urine 300 2500 Other: Voiding Method Toilet Toilet # Voids 2 3 - Exam GENERAL EXAM: Alert, very pleasant, 49-year-old white female, on room air pulse ox of 94% comfortable in no apparent distress. HEAD: Normocephalic/atraumatic. EYES: Normal reaction of pupils, equal size. Conjunctiva pink, sclera white. NOSE: Clear with pink turbinates. THROAT: No erythema or exudates. NECK: No masses, no JVD, no thyroid enlargement, no adenopathy. CHEST: No chest wall deformity. Symmetrical expansion. LUNGS: Equal air entry with no crackles, wheeze, rhonchi or dullness. CVS: Regular rate and rhythm, normal S1 and S2, no gallops, no murmurs, no rubs ABDOMEN: Soft, nontender. No hepatosplenomegaly, normal bowel sounds, no guarding or rigidity. EXTREMITIES: No clubbing, no edema, no cyanosis, 2+ pulses and upper and lower extremities. MUSCULOSKELETAL: Muscle strength and tone normal. SPINE: No scoliosis or deformity SKIN: No rashes CENTRAL NERVOUS SYSTEM: Alert and oriented -3. No focal deficits, tone is n ormal in all 4 extremities. PSYCHIATRIC: Alert and oriented -3. Appropriate affect. Intact judgment and insight. - Labs CBC & Chem 7: 12/21/19 06:14 12/22/19 06:33 Labs: Abnormal Lab Results - Last 24 Hours (Table) 12/22/19 Range/Units 06:33 BUN 23 H (7-17) mg/dL Glucose 115 H (74-99) mg/dL Microbiology - Last 24 Hours (Table) 12/20/19 11:20 Blood Culture - Preliminary Blood No Growth after 24 hours Assessment and Plan Plan: Assessment: Acute exacerbation of chronic systolic congestive heart failure, ejection fraction 20-25%. Diffuse interstitial edema, doubt pneumonia, however the possibility of covid 19 pneumonitis is not entirely ruled out, results pending. X-ray showing improvement post diuresis. History of LV dysfunction based on previous echocardiogram with ejection fraction 35-40% in 2018, with worsening this admission at 20-25%. Pericardial effusion, needs to be further evaluated by echocardiogram. History of hypertension. History of obstructive sleep apnea syndrome, on CPAP at home. History of migraine cephalgia. And chronic back pain. Plan: Today's chest x-ray still shows central vascular congestion, continue with IV Lasix, patient is in negative fluid balance, she is on room air, breathing comfortably, no acute distress. Echocardiogram results have been noted. Patient has questions regarding her diet, fluid intake and salt intake, we'll consult registered dietitian for education, patient also states that she has been trying to lose weight however she is unable to tolerate exercise, will consult cardiac rehab. We'll continue to follow closely continue with accurate intake and output, monitor electrolytes and renal profile I performed a history & physical examination of the patient and discussed their management with my nurse practitioner, Shira Duckworth. I reviewed the nurse practitioner's note and agree with the documented findings and plan of care. Lung sounds are positive for clear breath sounds. The findings and the impression was discussed with the patient. I attest to the documentation by the nurse practitioner. Time with Patient: Less than 30
--- NOTE | 2019-12-22 11:41 | PN ---
PROGRESS NOTE Mrs. Arshad is a 49-year-old female with known history of severe nonischemic cardiomyopathy who presented with symptoms of congestive heart failure. She is feeling better today, breathing-nunes. Her breathing is much better. She is able to ambulate. She has a cough. She is complaining of epigastric discomfort. She denies any dizziness, palpitation, she denies any nausea. She continues to be at this time on aspirin once a day, Lipitor 20 mg daily, Coreg 12.5 mg twice a day, Lasix 40 mg IV q.12 hours, Zestril 5 mg twice a day and Aldactone 5 mg daily. PHYSICAL EXAMINATION: Blood pressure 112/80 with a heart rate in the 80s. LUNGS: Clear. HEART: Regular rate and rhythm, S1, S2. No S3 with no rub. ABDOMEN: Soft, with epigastric tenderness. EXTREMITIES: No edema. LAB DATA: Revealed BUN and creatinine 23 and 0.86, potassium 4.6. Her I and O, she is -2500 mL. She is down 3 pounds. IMPRESSION: 1. Severe nonischemic cardiomyopathy with symptoms of congestive heart failure, improving. 2. Epigastric discomfort, atypical for ischemic heart disease. 3. Obesity. RECOMMENDATION: I will switch her Zestril to losartan because of the cough. Continue intravenous diuretic for another 24 hours. Follow her renal function. If she is stable, I am hoping she should be able to be discharged home in the next 24 to 48 hours. MMODL / MARYAMN: [id number] /
[2019-12-22 14:57] VITALS: BMI 44.5
[2019-12-22] MEDS: ATORVASTATIN 20 MG TAB PO SCH (22:08)
--- NOTE | 2019-12-23 00:40 | P.PN ---
Subjective Progress Note Date: 12/22/19 Principal diagnosis: Acute on chronic CHF with systolic dysfunction Nonischemic cardiomyopathy Patient is a 49-year-old female with a known history of hypertension, nonischemic cardiomyopathy with ejection fraction 35 to 40%, hypertension, hyperlipidemia and obstructive sleep apnea on CPAP at home, chronic back pain and migraine headaches as well as depression came to ER with the complaints of cough and shortness of breath. Patient was also having chest pain mainly left-sided pleuritic and worsens with coughing. Denied any complaints of fever or chills. No sputum production. Patient states she has been having cough for the past 1 month but got worse during the last 1 to 2 days. Denies any complaints of nausea vomiting or abdominal pain or diarrhea. No recent illnesses otherwise. denied leg swelling. Chest x-ray showed cardiomegaly. Worsening left basilar airspace disease. Could not exclude small bilateral effusions. Patient does not have any fever or leukocytosis. D-dimer performed evaluated at 1.54. Patient had CT angiogram of the chest was done which showed negative for pulmonary embolism. Diffuse groundglass opacity throughout both lungs which is slightly patchy in nature. May be due to alveolitis, pneumonitis or atypical pneumonia such as UIP or even COVID-19. Moderate-sized pericardial effusion. Cardiomegaly. Small right-sided effusion and a small left-sided effusion. Degenerative changes in the spine. Laboratory data showed WBC 7.6, hemoglobin 12.8, platelets 294 Absolute lymphocyte count 2.6 D-dimer 1.54 Chloride 111 Sodium 142 BUN 11 and creatinine 0.93 Troponin 0 0.031, proBNP 4870 Procalcitonin not elevated 0.07 12/21/2019 Patient is currently sitting on the side of bed. Breathing status is much improved. Denied any complaints of chest pain. No complaints of nausea vomiting or abdominal pain or diarrhea. Patient is diuresing well with IV Lasix. 2D echocardiogram showed ejection fraction 20 to 25%. Aldactone was added by cardiology. Otherwise renal function is stable. Chest x-ray showed improved aeration of both lungs. 12/22/2019 Patient is currently sitting on the side of the bed comfortably. Breathing status is improving. Still having midsternal chest discomfort but improving as per patient. Denied any complaints of worsening shortness of breath. Patient has been afebrile. No cough or sputum production. Currently saturating well on room air. Chest x-ray showed central vascular congestion. No new focal infiltrates. Patient is being continued on IV Lasix 40 mg every 12. Renal function is stable. BUN 23 and creatinine 0.86. No nausea vomiting or abdominal pain or diarrhea. Current medications reviewed. Objective - Vital Signs Vital signs: Vital Signs Temp 98 F 12/22/19 08:00 Pulse 82 12/22/19 16:00 Resp 18 12/22/19 16:00 BP 120/85 12/22/19 16:00 Pulse Ox 96 12/22/19 16:00 Intake & Output 12/22/19 12/22/19 12/23/19 06:59 18:59 06:59 Intake Total 300 698 Output Total 2500 1400 Balance -2200 -702 Weight 114.1 kg 114.1 kg Intake: Oral 300 698 Output: Urine 2500 1400 Other: Voiding Method Toilet Toilet # Voids 3 - Exam PHYSICAL EXAMINATION: Patient is lying in the bed comfortably, no acute distress, awake alert and oriented.. HEENT: Normocephalic. Neck is supple. Pupils reactive. Nostrils clear. Oral cavity is moist. Ears reveal no drainage. Neck reveals no JVD, carotid bruits, or thyromegaly. CHEST EXAMINATION: Trachea is central. Symmetrical expansion. minimal bibasilar crackles, no wheezing, Lung ku clear to auscultation and percussion. CARDIAC: Normal S1, S2 with no gallops. No murmurs ABDOMEN: Soft. Bowel sounds normal. No organomegaly. No abdominal bruits. Extremities: trace edema. No clubbing or cyanosis Neurologically awake, alert, oriented x3 with well-coordinated movements. No focal deficits noted Skin: No rash or skin lesions. Psychiatric: Coperative. Nonsuicidal Musculoskeletal: No joint swelling or deformity. Normal range of motion. - Labs CBC & Chem 7: 12/21/19 06:14 12/22/19 06:33 Labs: Abnormal Lab Results - Last 24 Hours (Table) 12/22/19 Range/Units 06:33 BUN 23 H (7-17) mg/dL Glucose 115 H (74-99) mg/dL Microbiology - Last 24 Hours (Table) 12/20/19 11:20 Blood Culture - Preliminary Blood No Growth after 48 hours Assessment and Plan Assessment: Shortness of breath and cough secondary to acute on chronic CHF with systolic dysfunction. previous Echo showed LVEF 35-40%. Repeat echocardiogram showed ejection fraction 25% bilateral small pleural effusions Interstitial edema with possible interstitial pneumonitis vs atypical pneumonia. Intermittent chest pains Reactive Bronchospasm Moderate pericardial effusion as per CTA chest. Obstructive sleep apnea on CPAP at home Migraine headaches Chronic back pain Depression DVT prophylaxis with heparin subcu Plan: Patient will be continued on Lasix 40 mg every 8 hourly. added Spironolactone. Patient is being was on IV steroids and antibiotics in the form of Levaquin. Procalcitonin not elevated. Antibiotics have been discontinued. Continue with aspirin, Coreg and statins. Pulmonary and cardiology is on board. Further recommendations based on clinical course. Prognosis guarded. Time with Patient: Greater than 30
[2019-12-23] MEDS: HEPARIN SODIUM,PORCINE 5,000 UNIT/ML 1 ML VIAL SQ SCH ×4 (01:52→23:10)
[2019-12-23] MEDS: CARVEDILOL 12.5 MG TAB PO SCH ×2 (06:40→19:01)
[2019-12-23 07:04] LABS: Calcium 8.9 mg/dL (8.4-10.2); Potassium 4.3 mmol/L (3.5-5.1)
[2019-12-23] MEDS: FUROSEMIDE 10 MG/ML 4 ML VIAL IV SCH (09:00)
[2019-12-23] MEDS: SPIRONOLACTONE 25 MG TAB PO SCH (09:39)
[2019-12-23] MEDS: ASPIRIN 81 MG PO SCH (09:39)
[2019-12-23] MEDS: LOSARTAN 50 MG TAB PO SCH (09:39)
[2019-12-23] MEDS: FAMOTIDINE 20 MG TAB PO SCH ×2 (09:39→20:16)
[2019-12-23] MEDS: ACETAMINOPHEN TAB 325 MG TAB PO PRN ×2 (09:48→17:18)
--- NOTE | 2019-12-23 11:43 | P.PN ---
Subjective Progress Note Date: 12/23/19 Principal diagnosis: Acute systolic congestive heart failure This is a 49-year-old female with history of nonischemic cardiomyopathy, LV dysfunction with ejection fraction of 35-40% based on previous echocardiogram in 2018. Patient underwent cardiac catheterization back then, and she had normal coronary findings. Patient had no further follow up with any national business director. And she has been following up with her primary care physician Dr. Tuttle. Patient is also known to have history of hypertension, hypercholesterolemia, patient presented to the ER yesterday with mostly symptoms of cough, left-sided chest pain, pleuritic pain was described upon coughing. Chest x-ray questioned congestive heart failure and underlying pneumonia. CT of the chest showed diffuse groundglass opacities bilaterally were in the differential diagnoses clearly included as expected covid 19, congestive heart failure, and atypical pneumonia. Patient had no history to suggest any exposure to any patients with rotavirus infection. And she had no travel history. Her CT of the chest also showed 2 cm pericardial effusion and bilateral pleural effusions. Since admission the patient received Lasix. Considering the findings, I was asked to see the patient on consultation. Patient describes the cough as productive with whitish phlegm, she denies any fever, no chills, no hemoptysis. Her CBC showed no evidence of leukocytosis. Her d-dimer was elevated but she had negative CT angiogram of the chest. BNP level was elevated at 4870. Troponin was also a bit elevated at 0.031. The patient is seen today 12/21/2019 in follow-up on the selective care unit. She is awake and alert in no acute distress. Breathing quite a bit better today compared to yesterday. She's up ambulating in her room without any acute distress. She is maintaining good O2 saturations in the mid 90s on room air. She's afebrile. Hemodynamically stable. White count 6.6. Hemoglobin 11.7. Sodium 141. Potassium 4.3. Bicarb 28. Creatinine 0.85. Covid 19 screening still pending. Chest x-ray shows improved aeration bilaterally. Echocardiogram reveals severely impaired left ventricular systolic function with ejection fraction 20-25%. She's currently on Lasix 40 mg every 8 hours. Aldactone. Bronchodilators. Heparin for DVT prophylaxis. On 12/22/2019 patient seen in follow-up on selective care unit, she sits up in bed, in no acute distress, she states she did have an episode of midsternal chest discomfort this morning, and cardiology is following and is aware. Currently in no acute distress, denies any breathing difficulty, vital signs have been stable, patient is on room air, with pulse ox of 94-97%, today's chest x-ray shows central vascular congestion, no new focal infiltrates. She is in - 2.5 L over the last 24 hours. Remains on IV Lasix at 40 mg every 12 hours. She is on Cozaar and Aldactone, beta blockers in the form of Coreg, and aspirin and Lipitor. Cardiology is following. Echocardiogram showed EF between 20 and 25%. There is moderate pericardial effusion located near the left ventricle, no evidence of valve dysfunction. Today's labs have been reviewed showing elect rolytes within normal limits, BUN of 23 and creatinine of 0.86 On 12/23/2019 patient seen in follow-up on selective care unit, she is awake and alert, in no acute distress, she is sitting up in the chair, calm and comfortable, denies any shortness of breath, room air pulse ox is 92-98%, hemodynamically stable, she still complains of chest pain at times, could be epigastric discomfort, cardiology is following, no diaphoresis, no nausea. Vital signs are stable. She has been diuresed, her Lasix has been transitioned to oral Lasix at 20 mg twice daily. She is maintaining negative fluid balance, she is -3.4 L over the last 24 hours, mild left pedal edema, overall stable, dietary and cardiac rehab were consulted regarding education on heart failure diet and exercise. Patient received written materials, she was given a scale Objective - Vital Signs Vital signs: Vital Signs Temp 98.0 F 12/23/19 08:00 Pulse 82 12/23/19 08:00 Resp 18 12/23/19 08:00 BP 114/74 12/23/19 08:00 Pulse Ox 92 L 12/23/19 08:00 Intake & Output 12/22/19 12/23/19 12/23/19 18:59 06:59 18:59 Intake Total 698 Output Total 1400 2700 Balance -702 -2700 Weight 114.1 kg 117.5 kg Intake: Oral 698 Output: Urine 1400 2700 Other: Voiding Method Toilet Toilet # Voids 3 - Exam GENERAL EXAM: Alert, very pleasant, 49-year-old white female, on room air pulse ox of 94% comfortable in no apparent distress. HEAD: Normocephalic/atraumatic. EYES: Normal reaction of pupils, equal size. Conjunctiva pink, sclera white. NOSE: Clear with pink turbinates. THROAT: No erythema or exudates. NECK: No masses, no JVD, no thyroid enlargement, no adenopathy. CHEST: No chest wall deformity. Symmetrical expansion. LUNGS: Equal air entry with no crackles, wheeze, rhonchi or dullness. CVS: Regular rate and rhythm, normal S1 and S2, no gallops, no murmurs, no rubs ABDOMEN: Soft, nontender. No hepatosplenomegaly, normal bowel sounds, no guarding or rigidity. EXTREMITIES: No clubbing, no edema, no cyanosis, 2+ pulses and upper and lower extremities. MUSCULOSKELETAL: Muscle strength and tone normal. SPINE: No scoliosis or deformity SKIN: No rashes CENTRAL NERVOUS SYSTEM: Alert and oriented -3. No focal deficits, tone is normal in all 4 extremities. PSYCHIATRIC: Alert and oriented -3. Appropriate affect. Intact judgment and insight. - Labs CBC & Chem 7: 12/21/19 06:14 12/23/19 06:03 Labs: Abnormal Lab Results - Last 24 Hours (Table) 12/23/19 Range/Units 06:03 Carbon Dioxide 35 H (22-30) mmol/L BUN 28 H (7-17) mg/dL Microbiology - Last 24 Hours (Table) 12/20/19 11:20 Blood Culture - Preliminary Blood No Growth after 48 hours Assessment and Plan Plan: Assessment: Acute exacerbation of chronic systolic congestive heart failure, ejection fraction 20-25%. Diffuse interstitial edema, doubt pneumonia, however the possibility of covid 19 pneumonitis is not entirely ruled out, results pending. X-ray showing improvement post diuresis. History of LV dysfunction based on previous echocardiogram with ejection fraction 35-40% in 2018, with worsening this admission at 20-25%. Pericardial effusion, needs to be further evaluated by echocardiogram. History of hypertension. History of obstructive sleep apnea syndrome, on CPAP at home. History of migraine cephalgia. And chronic back pain. Plan: Patient is maintaining negative fluid balance, she has been diuresed, she is transitioned to oral diuretics, cardiology is following, vital signs are stable, patient is on room air, she has received education from registered dietitian regarding cardiac diet, she was given a scale to take home. Cardiac rehab has been consulted. No acute events overnight. No fever or chills, no nausea vomiting or diarrhea. From pulmonary perspective patient is stable for disch arge home once cleared by cardiology I performed a history & physical examination of the patient and discussed their management with my nurse practitioner, Shira Duckworth. I reviewed the nurse practitioner's note and agree with the documented findings and plan of care. Lung sounds are positive for clear breath sounds. The findings and the impression was discussed with the patient. I attest to the documentation by the nurse practitioner. Time with Patient: Less than 30
--- NOTE | 2019-12-23 11:55 | PN ---
PROGRESS NOTE Mrs. Arshad is a 49-year-old female with history of severe nonischemic cardiomyopathy who presented with symptoms of progressive dyspnea. She is complaining of respirophasic chest discomfort, but her breathing stable, she is denying any dizziness or palpitation. She denies any nausea. She has been ambulating without much difficulty. She continues to be at this time on aspirin once a day, Lipitor 20 mg daily, Coreg 12- 1/2 cm twice a day, Lasix 40 mg IV q.12 hours, losartan 50 mg daily, spironolactone 25 mg daily. PHYSICAL EXAMINATION: Blood pressure 135/80 with a heart rate in the 80s. LUNGS: Clear. HEART: Regular rate and rhythm, S1, S2. No S3 with musculoskeletal discomfort in the chest, producible by palpation. ABDOMEN: Soft, obese, nontender. EXTREMITIES: No edema. LAB DATA: Revealed BUN and creatinine 28 and 1.03, potassium 4.3. IMPRESSION: 1. Congestive heart failure with severe nonischemic cardiomyopathy. 2. Musculoskeletal chest discomfort, noncardiac. 3. Obesity. RECOMMENDATION: I will switch her to oral diuretic, increase her activity if she remains stable. I would expect she should be able to be discharged home tomorrow. She will be need to be evaluated as an outpatient. I have discussed with her the importance of close followup with Dr. Tejeda. Of note, the patient in the past has not been compliant with her medication and follow up and she will be evaluated for possible ICD Bi V pacing. Those findings were discussed with the patient at length. YVON / ARABELLA: [id number] /
[2019-12-23] MEDS: FUROSEMIDE 20 MG TAB PO SCH (20:16)
[2019-12-23] MEDS: ATORVASTATIN 20 MG TAB PO SCH (20:16)
[2019-12-24] MEDS: ACETAMINOPHEN TAB 325 MG TAB PO PRN ×2 (04:27→13:03)
[2019-12-24] MEDS: CARVEDILOL 12.5 MG TAB PO SCH (06:38)
[2019-12-24 07:13] LABS: African American GFR (CKD) >90 (>60 ml/min/1.73 sqM); Anion Gap 6 mmol/L; Blood Urea Nitrogen 25 mg/dL (7-17); Calcium 8.7 mg/dL (8.4-10.2); Carbon Dioxide 32 mmol/L (22-30); Chloride 101 mmol/L (98-107); Glucose 110 mg/dL (74-99); Non-African American GFR(CKD) 79 (>60 ml/min/1.73 sqM); Potassium 4.5 mmol/L (3.5-5.1); Sodium 139 mmol/L (137-145)
[2019-12-24] MEDS: FAMOTIDINE 20 MG TAB PO SCH (09:56)
[2019-12-24] MEDS: ASPIRIN 81 MG PO SCH (09:56)
[2019-12-24] MEDS: SPIRONOLACTONE 25 MG TAB PO SCH (09:56)
[2019-12-24] MEDS: FUROSEMIDE 20 MG TAB PO SCH (09:56)
[2019-12-24] MEDS: LOSARTAN 50 MG TAB PO SCH (09:56)
[2019-12-24] MEDS: HEPARIN SODIUM,PORCINE 5,000 UNIT/ML 1 ML VIAL SQ SCH ×2 (10:00→16:12)
--- NOTE | 2019-12-24 10:22 | PN ---
PROGRESS NOTE Mrs. Arshad is a 49-year-old female with severe nonischemic cardiomyopathy who presented with worsening dyspnea. Her breathing is better. She continues to have chest discomfort respirophasic in pattern. She denies any chest pain. No dizziness. No palpitation. She denies any nausea. She has been ambulating and feeling better overall. She continues to be at this time on aspirin 81 mg daily, Lipitor 20 mg daily, Coreg 25 mg twice a day, Lasix 20 mg twice a day, losartan 50 mg daily and Aldactone 25 mg daily. PHYSICAL EXAMINATION: Blood pressure 129/80 with a heart rate in the 80s. LUNGS: Clear. HEART: Regular rate and rhythm, S1, S2. No S3. No rub. ABDOMEN: Soft, obese, nontender. EXTREMITIES: Trace edema. LAB DATA: Revealed BUN and creatinine 25 and 0.87, potassium 4.5. IMPRESSION: 1. Congestive heart failure with severe nonischemic cardiomyopathy. 2. Respiratory phasic chest pain and musculoskeletal in etiology, not cardiac. 3. Obesity. RECOMMENDATION: From the cardiac standpoint, the patient should be able to be discharged home today and follow up with Dr. Tejeda. I have discussed with her at length the importance of compliance and followup. Patient in the past has not been compliant with her medication and followup. If she continues to have severe impaired systolic function without improvement after the treatment, then she will be candidate for ICD implantation. YVON / ARABELLA: [id number] /
--- NOTE | 2019-12-24 10:35 | P.PN ---
Subjective Progress Note Date: 12/24/19 Principal diagnosis: Acute systolic congestive heart failure This is a 49-year-old female with history of nonischemic cardiomyopathy, LV dysfunction with ejection fraction of 35-40% based on previous echocardiogram in 2018. Patient underwent cardiac catheterization back then, and she had normal coronary findings. Patient had no further follow up with any ice cream machine operator. And she has been following up with her primary care physician Dr. Tuttle. Patient is also known to have history of hypertension, hypercholesterolemia, patient presented to the ER yesterday with mostly symptoms of cough, left-sided chest pain, pleuritic pain was described upon coughing. Chest x-ray questioned congestive heart failure and underlying pneumonia. CT of the chest showed diffuse groundglass opacities bilaterally were in the differential diagnoses clearly included as expected covid 19, congestive heart failure, and atypical pneumonia. Patient had no history to suggest any exposure to any patients with rotavirus infection. And she had no travel history. Her CT of the chest also showed 2 cm pericardial effusion and bilateral pleural effusions. Since admission the patient received Lasix. Considering the findings, I was asked to see the patient on consultation. Patient describes the cough as productive with whitish phlegm, she denies any fever, no chills, no hemoptysis. Her CBC showed no evidence of leukocytosis. Her d-dimer was elevated but she had negative CT angiogram of the chest. BNP level was elevated at 4870. Troponin was also a bit elevated at 0.031. The patient is seen today 12/21/2019 in follow-up on the selective care unit. She is awake and alert in no acute distress. Breathing quite a bit better today compared to yesterday. She's up ambulating in her room without any acute distress. She is maintaining good O2 saturations in the mid 90s on room air. She's afebrile. Hemodynamically stable. White count 6.6. Hemoglobin 11.7. Sodium 141. Potassium 4.3. Bicarb 28. Creatinine 0.85. Covid 19 screening still pending. Chest x-ray shows improved aeration bilaterally. Echocardiogram reveals severely impaired left ventricular systolic function with ejection fraction 20-25%. She's currently on Lasix 40 mg every 8 hours. Aldactone. Bronchodilators. Heparin for DVT prophylaxis. On 12/22/2019 patient seen in follow-up on selective care unit, she sits up in bed, in no acute distress, she states she did have an episode of midsternal chest discomfort this morning, and cardiology is following and is aware. Currently in no acute distress, denies any breathing difficulty, vital signs have been stable, patient is on room air, with pulse ox of 94-97%, today's chest x-ray shows central vascular congestion, no new focal infiltrates. She is in - 2.5 L over the last 24 hours. Remains on IV Lasix at 40 mg every 12 hours. She is on Cozaar and Aldactone, beta blockers in the form of Coreg, and aspirin and Lipitor. Cardiology is following. Echocardiogram showed EF between 20 and 25%. There is moderate pericardial effusion located near the left ventricle, no evidence of valve dysfunction. Today's labs have been reviewed showing elect rolytes within normal limits, BUN of 23 and creatinine of 0.86 On 12/23/2019 patient seen in follow-up on selective care unit, she is awake and alert, in no acute distress, she is sitting up in the chair, calm and comfortable, denies any shortness of breath, room air pulse ox is 92-98%, hemodynamically stable, she still complains of chest pain at times, could be epigastric discomfort, cardiology is following, no diaphoresis, no nausea. Vital signs are stable. She has been diuresed, her Lasix has been transitioned to oral Lasix at 20 mg twice daily. She is maintaining negative fluid balance, she is -3.4 L over the last 24 hours, mild left pedal edema, overall stable, dietary and cardiac rehab were consulted regarding education on heart failure diet and exercise. Patient received written materials, she was given a scale On 12/24/2019 patient seen in follow-up on selective care unit. She is calm and comfortable, seems to be in no acute distress, denies any loss of breath, lung sounds are clear to auscultation, no crackles, no wheezing, no cough or congestion, room air pulse ox is 96%, hemodynamically patient is stable, she still complains of some chest discomfort, cardiology is aware. No palpitations, no diaphoresis, no nausea, patient remains on maintenance dose of Lasix twice daily at 20 mg. She is maintaining negative fluid balance, her weight is down by 3.9 kilos. Lower extremity edema is improving. Possible discharge home today with outpatient follow-up with her ice cream machine operator, and patient will likely be evaluated for possible ICD BI-V pacemaker placement Objective - Vital Signs Vital signs: Vital Signs Temp 98.3 F 12/24/19 04:00 Pulse 82 12/24/19 04:00 Resp 20 12/24/19 04:00 BP 129/83 12/24/19 04:00 Pulse Ox 96 12/24/19 04:00 Intake & Output 12/23/19 12/24/19 12/24/19 18:59 06:59 18:59 Intake Total 720 180 Output Total 1500 Balance 720 -1500 180 Weight 114.4 kg Intake: Oral 720 180 Output: Urine 1500 Other: Voiding Method Toilet # Voids 0 # Bowel Movements 0 - Exam GENERAL EXAM: Alert, very pleasant, 49-year-old white female, on room air pulse ox of 96% comfortable in no apparent distress. HEAD: Normocephalic/atraumatic. EYES: Normal reaction of pupils, equal size. Conjunctiva pink, sclera white. NOSE: Clear with pink turbinates. THROAT: No erythema or exudates. NECK: No masses, no JVD, no thyroid enlargement, no adenopathy. CHEST: No chest wall deformity. Symmetrical expansion. LUNGS: Equal air entry with no crackles, wheeze, rhonchi or dullness. CVS: Regular rate and rhythm, normal S1 and S2, no gallops, no murmurs, no rubs ABDOMEN: Soft, nontender. No hepatosplenomegaly, normal bowel sounds, no guarding or rigidity. EXTREMITIES: No clubbing, no edema, no cyanosis, 2+ pulses and upper and lower extremities. MUSCULOSKELETAL: Muscle strength and tone normal. SPINE: No scoliosis or deformity SKIN: No rashes CENTRAL NERVOUS SYSTEM: Alert and oriented -3. No focal deficits, tone is normal in all 4 extremities. PSYCHIATRIC: Alert and oriented -3. Appropriate affect. Intact judgment and insight. - Labs CBC & Chem 7: 12/21/19 06:14 12/24/19 06:24 Labs: Abnormal Lab Results - Last 24 Hours (Table) 12/24/19 Range/Units 06:24 Carbon Dioxide 32 H (22-30) mmol/L BUN 25 H (7-17) mg/dL Glucose 110 H (74-99) mg/dL Microbiology - Last 24 Hours (Table) 12/20/19 11:20 Blood Culture - Preliminary Blood No Growth after 72 hours Assessment and Plan Plan: Assessment: Acute exacerbation of chronic systolic congestive heart failure, ejection fraction 20-25%. Diffuse interstitial edema, doubt pneumonia, however the possibility of covid 19 pneumonitis is not entirely ruled out, results pending. X-ray showing improvement post diuresis. History of LV dysfunction based on previous echocardiogram with ejection fraction 35-40% in 2018, with worsening this admission at 20-25%. Pericardial effusion, needs to be further evaluated by echocardiogram. History of hypertension. History of obstructive sleep apnea syndrome, on CPAP at home. History of migraine cephalgia. And chronic back pain. Plan: Patient remains stable from pulmonary perspective, no complaints of dyspnea, vital signs are stable, she is on room air, she is maintaining negative fluid balance, her lower extremity edema has improved, she continues on maintenance dose of oral Lasix, she is being managed medically by cardiology for severe nonischemic cardiomyopathy. She has received education on diet. Pulmonary service will sign off and follow on as-needed basis. I performed a history & physical examination of the patient and discussed their management with my nurse practitioner, Shira Duckworth. I reviewed the nurse practitioner's note and agree with the documented findings and plan of care. Lung sounds are positive for clear breath sounds. The findings and the impression was discussed with the patient. I attest to the documentation by the nurse practitioner. Time with Patient: Less than 30
[2019-12-24 11:53] VITALS: RESP 18; TEMP 98.5
[2019-12-24 15:05] VITALS: BP 129/71; PULSE 74
--- NOTE | 2019-12-25 13:44 | CDI ---
Documentation Clarification Form Date: 12/25/2019 01:38:32 PM From: Nasreen Ivy RN, CCDS Admit Date: 12/20/2019 10:29:00 AM Patient Name: Jazmine Arshad Visit Number: [id number] Discharge Date: 12/24/2019 04:06:00 PM ATTENTION: The Clinical Documentation Specialists (CDI) and [facility] Coding Staff appreciate your assistance in clarifying documentation. Please respond to the clarification below the line at the bottom and electronically sign. The CDI & [facility] Coding staff will review the response and follow-up if needed. Please note: Queries are made part of the Legal Health Record. If you have any questions, please contact the author of this message via ITS. Dr. Joseluis Giles Covid must be ruled out or ruled in at time of D/C. Please review and provide further specificity. Patient history/risk factors: Pt presented to with Chest pain and Cough Hx PHONG, chronic hepatitis Clinical Indicators 12/19 Pulmonary consult -12/22 Pulmonary Progress Note: "Diffuse interstitial edema, doubt pneumonia, however the possibility of Covid 19 pneumonitis is not entirely ruled out, results pending. X-ray showing improvement post diuresis." 12/19 H&P-12/21 Attending Progress note: "May be due to alveolitis, pneumonitis or atypical pneumonia such as UIP or even COVID-19." 12/21 CXR:"Cardiomegaly with central vascular congestion. No new focal infiltrate. Correlate for CHF exacerbation. No significant change from 1 day earlier." 12/21 CORONAVIRUS PCR: negative Admission Labs: WNL 12/19 0741 Admission Vital Signs: Temp 98.4, HR 105, RR 18, B/P 151/99, spo2 97% ra Treatment: Levaquin 500 mg IVPB Q 24 hrs IV Solumedrol tapering dose 12/19 500 cc 0.9% NS IVF Bolus In order to capture the severity of condition, please clarify if the above treatment/clinical indicators signify: COVID-19 ruled out COVID-19 False negative testing as clinically evidenced by (please specify) COVID-19 confirmed Other, please specify (Last Form Revision: September 2019) COVID-19 ruled out MTDD
== END 2019-12-24 16:06 | disposition home or self-care (01) | DRG 292 ==
LOC: EC 07:40 → 3SCARD 10:29
PROVIDERS: ADMIT Internal Medicine; ATTEND Internal Medicine
DX: I50.23 Acute on chronic systolic (congestive) heart failure (principal); I47.2 Ventricular tachycardia; I31.3 Pericardial effusion (noninflammatory); I42.8 Other cardiomyopathies; Z68.41 Body mass index [BMI] 40.0-44.9, adult; Z20.828 Contact with and (suspected) exposure to other viral communicable diseases; I11.0 Hypertensive heart disease with heart failure; K73.9 Chronic hepatitis, unspecified; J45.909 Unspecified asthma, uncomplicated; E66.9 Obesity, unspecified; G43.909 Migraine, unspecified, not intractable, without status migrainosus; G47.33 Obstructive sleep apnea (adult) (pediatric); F32.9 Major depressive disorder, single episode, unspecified; G89.29 Other chronic pain; E78.5 Hyperlipidemia, unspecified; M54.9 Dorsalgia, unspecified; I44.7 Left bundle-branch block, unspecified; R07.89 Other chest pain; Z91.048 Other nonmedicinal substance allergy status; Z71.3 Dietary counseling and surveillance; Z79.899 Other long term (current) drug therapy; Z90.710 Acquired absence of both cervix and uterus; Z98.890 Other specified postprocedural states; Z91.041 Radiographic dye allergy status; Z88.0 Allergy status to penicillin; Z88.2 Allergy status to sulfonamides; Z83.3 Family history of diabetes mellitus; Z82.49 Family history of ischemic heart disease and other diseases of the circulatory system; Z84.1 Family history of disorders of kidney and ureter; Z80.9 Family history of malignant neoplasm, unspecified
CPT/HCPCS: 36415; 71045; 71046; 71275; 80048; 80053; 83605; 83735; 83880; 84145; 84484; 85025; 85379; 85610; 85730; 87040; 93005; 93306; 94640; 96365; 96375; 99291

== ENCOUNTER 2020-05-01 18:19 | Inpatient (IN) | payer OTHER ==
[2020-05-01] MEDS ORDERED: HYDROmorphone 0.5 MG/0.5 ML SYRINGE IVP STA ×2 (18:42→20:40)
[2020-05-01] MEDS ORDERED: SODIUM CHLORIDE 0.9% 1,000 ML IV STA (18:42)
[2020-05-01] MEDS ORDERED: ONDANSETRON 4 MG/2 ML VIAL IVP STA (18:42)
[2020-05-01] MEDS ORDERED: ACETAMINOPHEN TAB 500 MG TAB PO STA (18:49)
[2020-05-01] MEDS ORDERED: diphenhydrAMINE 50 MG/ML 1 ML VIAL IVP STA (19:23)
[2020-05-01] MEDS ORDERED: METOCLOPRAMIDE 5 MG/ML 2 ML VIAL IVP STA (19:23)
[2020-05-01 19:33] LABS: Appearance,Urine Clear (Clear); Bacteria,Urine Rare /hpf; Bilirubin,Urine Negative (Negative); Blood,Urine Negative (Negative); Color,Urine Yellow; Glucose,Urine (UA) Negative (Negative); Hyaline Casts,Urine 1 /lpf (0-2); Ketones,Urine Negative (Negative); Leukocyte Esterase,Urine Trace (Negative); Mucus,Urine Rare /hpf; Nitrite,Urine Negative (Negative); Protein,Urine Negative (Negative); RBC,Urine 1 /hpf (0-5); Specific Gravity,Urine 1.021 (1.001-1.035); Squamous Epithelial Cell,Urine 5 /hpf (0-4); Urobilinogen,Urine <2.0 mg/dL (<2.0); WBC,Urine 2 /hpf (0-5)
--- NOTE | 2020-05-01 19:39 | ED ---
General Adult HPI - General Chief complaint: Abdominal Pain Stated complaint: Abd Pain Time Seen by Provider: 05/01/20 18:26 Source: patient, RN notes reviewed Mode of arrival: ambulatory Limitations: no limitations - History of Present Illness Initial comments: 49-year-old female with a past medical history of hypertension, chronic hepatitis, , back pain, migraines presents to the emergency room for a chief complaint of right upper quadrant pain. Patient states she has had this pain for about 2 weeks. States that it has been constant however she does admit eating makes the pain significantly worse. Patient has not noticed a fever however was noted to have a temperature of 100.4 on arrival. She denies any lower abdominal pain. Patient denies any history of abdominal surgeries. Patient does admit to nausea vomiting on and off. Denies diarrhea. States bowel movements have been normal.Patient has no other complaints at this time including shortness of breath, chest pain, headache, or visual changes. - Related Data Home Medications Medication Instructions Recorded Confirmed Fluticasone/Vilanterol [Breo 1 puff INHALATION RT-DAILY PRN 12/20/19 05/01/20 Ellipta 100-25 Mcg Inhaler] Acetaminophen/Diphenhydramine 1 tab PO HS 05/01/20 05/01/20 [Tylenol PM 500-25mg] HYDROcodone/APAP 10-325MG [[place] 0.5 tab PO BID 05/01/20 05/01/20 10-325] Levofloxacin [Levaquin] 500 mg PO DAILY 05/01/20 05/01/20 Montelukast [Singulair] 10 mg PO DAILY 05/01/20 05/01/20 Ondansetron Odt [Zofran ODT] 4 mg PO BID PRN 05/01/20 05/01/20 Topiramate [Topamax] 25 mg PO BID 05/01/20 05/01/20 carvediloL [Coreg*] 25 mg PO AC-BID 05/01/20 05/01/20 Previous Rx's Medication Instructions Recorded Atorvastatin [Lipitor] 20 mg PO HS #90 tab 12/24/19 Furosemide [Lasix] 20 mg PO BID #180 tab 12/24/19 Losartan [Cozaar] 50 mg PO DAILY #90 tab 12/24/19 Spironolactone [Aldactone] 25 mg PO DAILY #90 tab 12/24/19 Allergies Allergy/AdvReac Type Severity Reaction Status Date / Time Iodinated Contrast Media Allergy Severe Rash/Hives Verified 05/01/20 20:38 [Iodinated Contrast Media - IV Dye] Penicillins Allergy Severe swelling,hi Verified 05/01/20 20:38 ves Sulfa (Sulfonamide Allergy Severe swelling,hi Verified 05/01/20 20:38 Antibiotics) ves adhesive Allergy Swelling Verified 05/01/20 20:38 ibuprofen [From Motrin] AdvReac "PROBLEM Verified 05/01/20 20:38 WITH KIDNEYS" Review of Systems ROS Statement: Those systems with pertinent positive or pertinent negative responses have been documented in the HPI. ROS Other: All systems not noted in ROS Statement are negative. Past Medical History Past Medical History: Hypertension, Liver Disease, Neurologic Disorder, Sleep Ap irais/CPAP/BIPAP Additional Past Medical History / Comment(s): back pain, Chronic Hepatitis , MIGRIANES, USES CPAP, BULGING DISCS IN BACK History of Any Multi-Drug Resistant Organisms: None Reported Past Surgical History: Breast Surgery, Section, Heart Catheterization, Hernia Repair, Hysterectomy, Orthopedic Surgery, Tubal Ligation, Uterine Ablation Additional Past Surgical History / Comment(s): EGD, 3 C sections, breast reduction, cyst removed from left hand, D & C, Bilateral groin hernia repair, LAPAROSCOPY Past Anesthesia/Blood Transfusion Reactions: No Reported Reaction Additional Past Anesthesia/Blood Transfusion Reaction / Comment(s): CLAUSTERPHOBIA Past Psychological History: Depression Smoking Status: Never smoker Past Alcohol Use History: None Reported Past Drug Use History: None Reported - Past Family History Mother Family Medical History: Coronary Artery Disease (CAD), Diabetes Mellitus, Renal Disease Additional Family Medical History / Comment(s): [employer] Father Family Medical History: Cancer, Diabetes Mellitus, Myocardial Infarction ([place]) Sister(s) Family Medical History: Cancer General Exam Limitations: no limitations General appearance: alert, in no apparent distress Head exam: Present: atraumatic, normocephalic, normal inspection Eye exam: Present: normal appearance, PERRL, EOMI. Absent: scleral icterus, conjunctival injection, periorbital swelling ENT exam: Present: normal exam, mucous membranes moist Neck exam: Present: normal inspection, full ROM. Absent: tenderness, meningismus, lymphadenopathy Respiratory exam: Present: normal lung sounds bilaterally. Absent: respiratory distress, wheezes, rales, rhonchi, stridor Cardiovascular Exam: Present: regular rate, normal rhythm, normal heart sounds. Absent: systolic murmur, diastolic murmur, rubs, gallop, clicks GI/Abdominal exam: Present: soft, tenderness (RUQ tenderness without guarding or rebound, pos silverman sign. no lower abdominal tenderness), normal bowel sounds. Absent: distended, guarding, rebound, rigid Back exam: Absent: CVA tenderness (R), CVA tenderness (L) Neurological exam: Present: alert Course Vital Signs 05/01/20 05/01/20 05/01/20 18:20 18:40 20:00 Temperature 100.4 F H 99.2 F Pulse Rate 111 H 97 Respiratory 20 15 Rate Blood Pressure 170/75 152/96 O2 Sat by Pulse 98 98 Oximetry Medical Decision Making - Medical Decision Making Vitals on presentation do show of fever of 100.4 with reflexive tachycardia of 111. However on repeat this was normal at 99.2. CBC is unremarkable. CMP does show mild hypokalemia of 3.1 treated orally. Patient does have mild acute on chronic renal injury. Lipase elevated at 512 ultrasound very limited given patient's body habitus and overlying bowel gas however no gallstones or dilated ducts seen. CBD 0.[address] abdomen and pelvis was obtained which was normal. Patient reevaluated after several doses of pain medication and continues to have pain. Given fever upon arrival with elevated lipase and associated a I patient will be admitted for fluids. Surgery will be consulted. Patient reports she does not currently have a surgeon. - Lab Data Result diagrams: 05/01/20 19:10 05/01/20 19:10 Lab Results 05/01/20 05/01/20 05/01/20 Range/Units 19:10 19:10 19:10 WBC 9.3 (3.8-10.6) k/uL RBC 4.45 (3.80-5.40) m/uL Hgb 14.5 (11.4-16.0) gm/dL Hct 41.9 (34.0-46.0) % MCV 94.0 (80.0-100.0) fL MCH 32.5 (25.0-35.0) pg MCHC 34.5 (31.0-37.0) g/dL RDW 12.4 (11.5-15.5) % Plt Count 328 (150-450) k/uL Neutrophils % 55 % Lymphocytes % 34 % Monocytes % 5 % Eosinophils % 2 % Basophils % 2 % Neutrophils # 5.1 (1.3-7.7) k/uL Lymphocytes # 3.2 (1.0-4.8) k/uL Monocytes # 0.5 (0-1.0) k/uL Eosinophils # 0.2 (0-0.7) k/uL Basophils # 0.1 (0-0.2) k/uL Sodium 139 (137-145) mmol/L Potassium 3.1 L (3.5-5.1) mmol/L Chloride 98 (98-107) mmol/L Carbon Dioxide 30 (22-30) mmol/L Anion Gap 11 mmol/L BUN 36 H (7-17) mg/dL Creatinine 1.76 H (0.52-1.04) mg/dL Est GFR (CKD-EPI)AfAm 39 (>60 ml/min/1.73 sqM) Est GFR (CKD-EPI)NonAf 34 (>60 ml/min/1.73 sqM) Glucose 167 H (74-99) mg/dL Plasma Lactic Acid [place] 1.7 (0.7-2.0) mmol/L Calcium 9.6 (8.4-10.2) mg/dL Total Bilirubin 0.5 (0.2-1.3) mg/dL AST 25 (14-36) U/L ALT 20 (4-34) U/L Alkaline Phosphatase 122 (38-126) U/L Total Protein 8.4 H (6.3-8.2) g/dL Albumin 4.7 (3.5-5.0) g/dL Amylase 71 (30-110) U/L Lipase 512 H (23-300) U/L Urine Color Urine Appearance (Clear) Urine pH (5.0-8.0) Ur Specific [place] (1.001-1.035) Urine Protein (Negative) Urine Glucose (UA) (Negative) Urine Ketones (Negative) Urine Blood (Negative) Urine Nitrite (Negative) Urine Bilirubin (Negative) Urine Urobilinogen (<2.0) mg/dL Ur Leukocyte Esterase (Negative) Urine RBC (0-5) /hpf Urine WBC (0-5) /hpf Ur Squamous Epith Cells (0-4) /hpf Urine Bacteria (None) /hpf Hyaline Casts (0-2) /lpf Urine Mucus (None) /hpf 05/01/20 Range/Units 19:15 WBC (3.8-10.6) k/uL RBC (3.80-5.40) m/uL Hgb (11.4-16.0) gm/dL Hct (34.0-46.0) % MCV (80.0-100.0) fL MCH (25.0-35.0) pg MCHC (31.0-37.0) g/dL RDW (11.5-15.5) % Plt Count (150-450) k/uL Neutrophils % % Lymphocytes % % Monocytes % % Eosinophils % % Basophils % % Neutrophils # (1.3-7.7) k/uL Lymphocytes # (1.0-4.8) k/uL Monocytes # (0-1.0) k/uL Eosinophils # (0-0.7) k/uL Basophils # (0-0.2) k/uL Sodium (137-145) mmol/L Potassium (3.5-5.1) mmol/L Chloride (98-107) mmol/L Carbon Dioxide (22-30) mmol/L Anion Gap mmol/L BUN (7-17) mg/dL Creatinine (0.52-1.04) mg/dL Est GFR (CKD-EPI)AfAm (>60 ml/min/1.73 sqM) Est GFR (CKD-EPI)NonAf (>60 ml/min/1.73 sqM) Glucose (74-99) mg/dL Plasma Lactic Acid [place] (0.7-2.0) mmol/L Calcium (8.4-10.2) mg/dL Total Bilirubin (0.2-1.3) mg/dL AST (14-36) U/L ALT (4-34) U/L Alkaline Phosphatase (38-126) U/L Total Protein (6.3-8.2) g/dL Albumin (3.5-5.0) g/dL Amylase (30-110) U/L Lipase (23-300) U/L Urine Color Yellow Urine Appearance Clear (Clear) Urine pH 6.0 (5.0-8.0) Ur Specific [place] 1.021 (1.001-1.035) Urine Protein Negative (Negative) Urine Glucose (UA) Negative (Negative) Urine Ketones Negative (Negative) Urine Blood Negative (Negative) Urine Nitrite Negative (Negative) Urine Bilirubin Negative (Negative) Urine Urobilinogen <2.0 (<2.0) mg/dL Ur Leukocyte Esterase Trace H (Negative) Urine RBC 1 (0-5) /hpf Urine WBC 2 (0-5) /hpf Ur Squamous Epith Cells 5 H (0-4) /hpf Urine Bacteria Rare H (None) /hpf Hyaline Casts 1 (0-2) /lpf Urine Mucus Rare H (None) /hpf Disposition Clinical Impression: Abdominal pain, Elevated lipase, Fever, MITA (acute kidney injury) Disposition: ADMITTED IP TO THIS HOSP Is patient prescribed a controlled substance at d/c from ED?: No Referrals: Apoorva Tuttle MD [Primary Care Provider] - 1-2 days Time of Disposition: 21:54
[2020-05-01 19:41] LABS: Albumin 4.7 g/dL (3.5-5.0); Calcium 9.6 mg/dL (8.4-10.2); Potassium 3.1 mmol/L (3.5-5.1); Total Bilirubin 0.5 mg/dL (0.2-1.3); Total Protein 8.4 g/dL (6.3-8.2)
[2020-05-01 19:58] LABS: Basophils # (A) 0.1 k/uL (0-0.2); Basophils % (A) 2 %; Eosinophils # (A) 0.2 k/uL (0-0.7); Eosinophils % (A) 2 %; HCT 41.9 % (34.0-46.0); HGB 14.5 gm/dL (11.4-16.0); Lymphocytes # (A) 3.2 k/uL (1.0-4.8); Lymphocytes % (A) 34 %; MCH 32.5 pg (25.0-35.0); MCHC 34.5 g/dL (31.0-37.0); Mean Platelet Volume 6.7; Monocytes # (A) 0.5 k/uL (0-1.0); Monocytes % (A) 5 %; Neutrophils # (A) 5.1 k/uL (1.3-7.7); Neutrophils % (A) 55 %; Platelet Count 328 k/uL (150-450); RBC 4.45 m/uL (3.80-5.40); RDW 12.4 % (11.5-15.5); WBC 9.3 k/uL (3.8-10.6)
--- NOTE | 2020-05-01 20:11 | US ---
EXAMINATION TYPE: US abdomen limited DATE OF EXAM: 05/01/2020 COMPARISON: NONE CLINICAL HISTORY: ruq. Abd pain. Extremely limited and difficult exam due to patient body habitus and overlying bowel gas. Elevated lipase EXAM MEASUREMENTS: Liver Length: 15.4 cm Gallbladder Wall: 0.2 cm CBD: 0.4 cm Right Kidney: 9.1 x 3.9 x 4.4 cm Pancreas: Visualized portions appear hyperechoic Liver: Coarse, heterogeneous. Limited visualization due to overlying bowel gas Gallbladder: No stones visualized Evidence for sonographic Valdez's sign: No CBD: wnl as visualized Right Kidney: No hydronephrosis or masses seen IMPRESSION: No gallstones or dilated ducts.
--- NOTE | 2020-05-01 21:26 | CT ---
EXAMINATION TYPE: CT abdomen pelvis wo con DATE OF EXAM: 05/01/2020 COMPARISON: 12/06/2015 HISTORY: Abdominal pain x2 weeks. CT DLP: 1608.1 mGycm Automated exposure control for dose reduction was used. Lung bases are clear. There is no pleural effusion. Heart size is normal. There is no pericardial eff usion. Liver spleen stomach pancreas gallbladder appear normal. Bile ducts are not dilated. There is no adre nal mass. Kidneys have normal size and contour. There is no evidence of renal mass. There is no sign of a renal calculus. There is no hydronephrosis. There is no retroperitoneal adenopathy. Ureters are not dilated. Bladder distends smoothly. There is no inguinal hernia. There is no free fluid in the pe lvis. Appendix is lateral and appears normal along side the liver and gallbladder. There is no evidence of pelvic mass. There is no mesenteric edema. There is no ascites or free air. T here is no bowel obstruction. There is multilevel spondylotic changes in the lumbar spine. There is n o compression fracture. Bony pelvis is intact. Hip joints are intact. There is acetabular bilateral s purring. IMPRESSION: Negative CT scan abdomen and pelvis. Normal appendix.
[2020-05-01] MEDS ORDERED: POTASSIUM CHLORIDE ER 20 MEQ TAB.ER PO STA (21:46)
[2020-05-01] MEDS ORDERED: NALOXONE 0.4 MG/ML 1 ML VIAL IV PRN (21:50)
[2020-05-01] MEDS ORDERED: diphenhydrAMINE 50 MG/ML 1 ML VIAL IVP PRN (21:52)
[2020-05-01] MEDS ORDERED: METOCLOPRAMIDE 5 MG/ML 2 ML VIAL IVP PRN (21:52)
[2020-05-01] MEDS: SODIUM CHLORIDE 0.9% 1,000 ML IV SCH (22:42)
[2020-05-01] MEDS ORDERED: ACETAMINOPHEN TAB 325 MG TAB PO PRN (23:41)
[2020-05-01] MEDS ORDERED: ONDANSETRON 4 MG/2 ML VIAL IVP PRN (23:41)
[2020-05-01] MEDS: ATORVASTATIN 20 MG TAB PO SCH (23:53)
[2020-05-01] MEDS: TOPIRAMATE 25 MG TAB PO SCH (23:53)
[2020-05-01] MEDS: carvediloL 12.5 MG TAB PO SCH (23:53)
[2020-05-02] MEDS: HYDROmorphone 0.5 MG/0.5 ML SYRINGE IVP PRN ×3 (05:24→14:04)
[2020-05-02 07:32] LABS: Basophils # (A) 0.1 k/uL (0-0.2); Basophils % (A) 1 %; Eosinophils # (A) 0.2 k/uL (0-0.7); Eosinophils % (A) 4 %; HCT 35.1 % (34.0-46.0); HGB 11.9 gm/dL (11.4-16.0); Lymphocytes # (A) 2.4 k/uL (1.0-4.8); Lymphocytes % (A) 43 %; MCH 32.7 pg (25.0-35.0); MCHC 34.1 g/dL (31.0-37.0); MCV 95.9 fL (80.0-100.0); Mean Platelet Volume 6.8; Monocytes # (A) 0.4 k/uL (0-1.0); Monocytes % (A) 7 %; Neutrophils # (A) 2.4 k/uL (1.3-7.7); Neutrophils % (A) 43 %; Platelet Count 248 k/uL (150-450); RBC 3.66 m/uL (3.80-5.40); RDW 12.4 % (11.5-15.5); WBC 5.6 k/uL (3.8-10.6)
[2020-05-02 07:51] LABS: Calcium 8.9 mg/dL (8.4-10.2); Potassium 3.5 mmol/L (3.5-5.1)
[2020-05-02] MEDS: TOPIRAMATE 25 MG TAB PO SCH ×2 (08:26→21:17)
[2020-05-02] MEDS: carvediloL 12.5 MG TAB PO SCH ×2 (08:26→16:44)
[2020-05-02] MEDS: SODIUM CHLORIDE 0.9% 1,000 ML IV SCH ×2 (08:29→16:46)
--- NOTE | 2020-05-02 12:14 | P.GSCN ---
History of Present Illness Consult date: 05/02/20 History of present illness: CHIEF COMPLAINT: Abdominal pain HISTORY OF PRESENT ILLNESS: The patient is a 49 year old female presents with severe right upper qaudrant abdominal pain including intractable nausea and vomiting ongoing for 2+ weeks but worse in the last 2 days. She reports having similar episodes in the last 3+ years. She has been trying to lose weight. She lost 10 pounds and regained her weight in the last 3 to 6 months. She reports persistent right shoulder and right upper back pain as well. She has a strong family history of gallbladder disease in both her parents, sister, brother. Her last attempted meal was chicken makenzie that made her nauseous with her abdominal pain. She reports previous work-up of her gallbladder 3 years ago and recalls that is was fine then. General surgery is consulted for her abdominal pain. PAST MEDICAL HISTORY: See list and reviewed PAST SURGICAL HISTORY: See list and reviewed MEDICATIONS: See list and reviewed ALLERGIES: See list and reviewed SOCIAL HISTORY: See list and reviewed FAMILY HISTORY: See list and reviewed REVIEW OF ORGAN SYSTEMS: CONSTITUTIONAL: No fevers or chills. She is over 100+ pounds overweight. EYES: Denies any trouble with vision. No glasses. HEENT: No difficulties with hearing. No nosebleeds. No difficulty swallowing. RESPIRATORY: Has sleep apnea. CARDIOVASCULAR: Denies any chest pain, palpitations, or recent heart attacks. Has hypertension. Past heart catheterization. Has congestive heart failure. GASTROINTESTINAL: History of diverticulitis. Has fatty liver disease. Has hepatitis. GENITOURINARY: Denies any blood in urine or increased urinary frequency. History of uterine ablation. NEUROLOGICAL: Denies any numbness or tingling along the distal extremities. Has migraines. MUSCULOSKELETAL: Has back pain, stiffness or joint arthritis. SKIN: No current skin cancer. No rash. PSYCHIATRIC: Denies suicidal thoughts. Has claustrophobia. Has ADD ADHD including depression. Has anxiety. ENDOCRINE: Denies current thyroid disorders. Denies any blood sugar glucose intolerance. HEME/LYMPHATIC: Denies any lumps and bumps around the neck. No recent deep venous thrombosis. History of anemia. ALLERGY/IMMUNOLOGY: No immunoglobulin therapy. No immune deficiencies. BREAST: Denies current breast lumps, pain or nipple discharge. PHYSICAL EXAM: VITALS: Reviewed CONSTITUTIONAL: Well developed and in no acute distress. EYES: Conjuctivae without sclera icterus. Pupils are equally round and reactive to light. Extraocular movements grossly intact. HEAD, EARS, NOSE, THROAT: Moist buccal mucosa. Head is atraumatic, normocephalic. Hears conversational speech. No nasal drainage. NECK: Supple. No JV distention. No thyroidomegaly. RESPIRATORY: Non-labored respirations and equal bilateral excursions. No gross wheezes. CARDIOVASCULAR: Regular rate and rhythm. Extremities without moderate edema. Palpable 2+ radial pulses. ABDOMEN: Soft. Protuberant. LYMPH: No neck lymphadenopathy. MUSCULOSKELETAL: Nail and fingers with good capillary refill. No clubbing cyanosis. SKIN: Warm and well perfused with good skin turgor. NEUROLOGIC: Cranial nerves II through XII grossly intact. Sensation upper and extremities intact. No focal or lateralizing signs. PSYCH: Appropriate affect. Alert and oriented to person, place and time. Displays appropriate insight. CLINCAL LABS: Reviewed. WBC on admission normal 9.3 now 5.6. Hemoglobin down 14.5-11.9. Creatinine elevated 1.71 on admission IMAGING: Independently reviewed of the CT of the abdomen and pelvis without free air or inflammatory changes within the colon. Umbilical fat-containing hernia identified 1 cm. No evidence of colitis. Ultrasound of gallbladder independently reviewed without findings of large gallstones. RADIOLOGY: Report reviewed. CT of the abdomen and pelvis with unremarkable appendix. Ultrasound report of the gallbladder demonstrates the large gallstones. RECORDS: previous old records reviewed from 2013 2015 for a previous bariatric workup. REPORT: ECHO report from Aug 2019 with EF less than 30% ASSESSMENT: 1. Right upper quadrant abdominal pain 2. Clinical cholecystitis 3. Morbid obesity due to excess calories, BMI 48.2 4. Congestive heart failure with ischemic cardiomyopathy PLAN: 1. Her clinical presentation is consistent with cholecystitis. Robotic cholecystectomy described. 2. She has pre-existing cardiomyopathy with past ECHO showing ejection fraction less than 30% for which she is high risk for surgical complications including in the presence of her morbid obesity. 3. Will need cardiac risk assessment with pre-operative cardiac work-up prior to surgery. Thank you for this kind consultation. 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 History of Any Multi-Drug Resistant Organisms: None Reported Past Surgical History: Breast Surgery, Section, Heart Catheterization, Hernia Repair, Hysterectomy, Orthopedic Surgery, Tubal Ligation, Uterine Ablation Additional Past Surgical History / Comment(s): EGD, 3 C sections, breast r eduction, cyst removed from left hand, D & C, Bilateral groin hernia repair, LAPAROSCOPY Past Anesthesia/Blood Transfusion Reactions: No Reported Reaction Additional Past Anesthesia/Blood Transfusion Reaction / Comm: CLAUSTERPHOBIA Past Psychological History: ADD/ADHD, Anxiety, Depression Additional Psychological History / Comment(s): CLAUSTERPHOBIA Smoking Status: Never smoker Past Alcohol Use History: None Reported Past Drug Use History: None Reported - Past Family History Mother Family Medical History: Coronary Artery Disease (CAD), Diabetes Mellitus, Renal Disease Additional Family Medical History / Comment(s): QU[employer] Father Family Medical History: Cancer, Diabetes Mellitus, Myocardial Infarction ([place]) Sister(s) Family Medical History: Cancer Medications and Allergies Home Medications Medication Instructions Recorded Confirmed Type Fluticasone/Vilanterol [Breo 1 puff INHALATION RT-DAILY PRN 12/20/19 05/01/20 H istory Ellipta 100-25 Mcg Inhaler] Atorvastatin [Lipitor] 20 mg PO HS #90 tab 12/24/19 05/01/20 Rx Furosemide [Lasix] 20 mg PO BID #180 tab 12/24/19 05/01/20 Rx Losartan [Cozaar] 50 mg PO DAILY #90 tab 12/24/19 05/01/20 Rx Spironolactone [Aldactone] 25 mg PO DAILY #90 tab 12/24/19 05/01/20 Rx Acetaminophen/Diphenhydramine 1 tab PO HS 05/01/20 05/01/20 History [Tylenol PM 500-25mg] HYDROcodone/APAP 10-325MG [[place] 0.5 tab PO BID 05/01/20 05/01/20 History 10-325] Levofloxacin [Levaquin] 500 mg PO DAILY 05/01/20 05/01/20 History Montelukast [Singulair] 10 mg PO DAILY 05/01/20 05/01/20 History Ondansetron Odt [Zofran ODT] 4 mg PO BID PRN 05/01/20 05/01/20 History Topiramate [Topamax] 25 mg PO BID 05/01/20 05/01/20 History carvediloL [Coreg*] 25 mg PO AC-BID 05/01/20 05/01/20 History Aspirin 81 mg PO DAILY 05/02/20 05/02/20 History Allergies Allergy/AdvReac Type Severity Reaction Status Date / Time Iodinated Contrast Media Allergy Severe Rash/Hives Verified 05/01/20 20:38 [Iodinated Contrast Media - IV Dye] Penicillins Allergy Severe swelling,hi Verified 05/01/20 20:38 ves Sulfa (Sulfonamide Allergy Severe swelling,hi Verified 05/01/20 20:38 Antibiotics) ves adhesive Allergy Swelling Verified 05/01/20 20:38 ibuprofen [From Motrin] AdvReac "PROBLEM Verified 05/01/20 20:38 WITH KIDNEYS" Surgical - Exam Vital Signs Temp Pulse Resp BP Pulse Ox 100.4 F H 111 H 20 170/75 98 05/01/20 18:20 05/01/20 18:20 05/01/20 18:20 05/01/20 18:20 05/01/20 18:20 Results - Labs 05/02/20 07:17 05/02/20 07:17 Abnormal Lab Results - Last 24 Hours (Table) 05/01/20 05/01/20 05/02/20 Range/Units 19:10 19:15 07:17 RBC (3.80-5.40) m/uL Potassium 3.1 L (3.5-5.1) mmol/L Carbon Dioxide 33 H (22-30) mmol/L BUN 36 H 34 H (7-17) mg/dL Creatinine 1.76 H 1.41 H (0.52-1.04) mg/dL Glucose 167 H 127 H (74-99) mg/dL Total Protein 8.4 H (6.3-8.2) g/dL Lipase 512 H (23-300) U/L Ur Leukocyte Esterase Trace H (Negative) Ur Squamous Epith Cells 5 H (0-4) /hpf Urine Bacteria Rare H (None) /hpf Urine Mucus Rare H (None) /hpf 05/02/20 Range/Units 07:17 RBC 3.66 L (3.80-5.40) m/uL Potassium (3.5-5.1) mmol/L Carbon Dioxide (22-30) mmol/L BUN (7-17) mg/dL Creatinine (0.52-1.04) mg/dL Glucose (74-99) mg/dL Total Protein (6.3-8.2) g/dL Lipase (23-300) U/L Ur Leukocyte Esterase (Negative) Ur Squamous Epith Cells (0-4) /hpf Urine Bacteria (None) /hpf Urine Mucus (None) /hpf Diabetes panel 05/01/20 05/02/20 Range/Units 19:10 07:17 Sodium 139 140 (137-145) mmol/L Potassium 3.1 L 3.5 (3.5-5.1) mmol/L Chloride 98 103 (98-107) mmol/L Carbon Dioxide 30 33 H (22-30) mmol/L BUN 36 H 34 H (7-17) mg/dL Creatinine 1.76 H 1.41 H (0.52-1.04) mg/dL Glucose 167 H 127 H (74-99) mg/dL Calcium 9.6 8.9 (8.4-10.2) mg/dL AST 25 (14-36) U/L ALT 20 (4-34) U/L Alkaline Phosphatase 122 (38-126) U/L Total Protein 8.4 H (6.3-8.2) g/dL Albumin 4.7 (3.5-5.0) g/dL Calcium panel 05/01/20 05/02/20 Range/Units 19:10 07:17 Calcium 9.6 8.9 (8.4-10.2) mg/dL Albumin 4.7 (3.5-5.0) g/dL Pituitary panel 05/01/20 05/02/20 Range/Units 19:10 07:17 Sodium 139 140 (137-145) mmol/L Potassium 3.1 L 3.5 (3.5-5.1) mmol/L Chloride 98 103 (98-107) mmol/L Carbon Dioxide 30 33 H (22-30) mmol/L BUN 36 H 34 H (7-17) mg/dL Creatinine 1.76 H 1.41 H (0.52-1.04) mg/dL Glucose 167 H 127 H (74-99) mg/dL Calcium 9.6 8.9 (8.4-10.2) mg/dL Adrenal panel 05/01/20 05/02/20 Range/Units 19:10 07:17 Sodium 139 140 (137-145) mmol/L Potassium 3.1 L 3.5 (3.5-5.1) mmol/L Chloride 98 103 (98-107) mmol/L Carbon Dioxide 30 33 H (22-30) mmol/L BUN 36 H 34 H (7-17) mg/dL Creatinine 1.76 H 1.41 H (0.52-1.04) mg/dL Glucose 167 H 127 H (74-99) mg/dL Calcium 9.6 8.9 (8.4-10.2) mg/dL Total Bilirubin 0.5 (0.2-1.3) mg/dL AST 25 (14-36) U/L ALT 20 (4-34) U/L Alkaline Phosphatase 122 (38-126) U/L Total Protein 8.4 H (6.3-8.2) g/dL Albumin 4.7 (3.5-5.0) g/dL Assessment and Plan (1) Right upper quadrant abdominal pain Current Visit: Yes Status: Acute Code(s): R10.11 - RIGHT UPPER QUADRANT PAIN SNOMED Code(s): 816413756 (2) Cholecystitis Current Visit: Yes Status: Acute Code(s): K81.9 - CHOLECYSTITIS, UNSPECIFIED SNOMED Code(s): 54605535 (3) Ischemic cardiomyopathy Current Visit: Yes Status: Acute Code(s): I25.5 - ISCHEMIC CARDIOMYOPATHY SNOMED Code(s): 968562664 (4) Family history of gallbladder disease Current Visit: Yes Status: Acute Code(s): Z83.79 - FAMILY HISTORY OF OTHER DISEASES OF THE DIGESTIVE SYSTEM SNOMED Code(s): 550799194 (5) CHF (congestive heart failure) Current Visit: No Status: Acute Code(s): I50.9 - HEART FAILURE, UNSPECIFIED SNOMED Code(s): 46553064 (6) Hypertension Current Visit: No Status: Acute Code(s): I10 - ESSENTIAL (PRIMARY) HYPERTENSION SNOMED Code(s): 59133909 (7) Morbid obesity with BMI of 45.0-49.9, adult Current Visit: No Status: Acute Code(s): E66.01 - MORBID (SEVERE) OBESITY DUE TO EXCESS CALORIES; Z68.42 - BODY MASS INDEX [BMI] 45.0-49.9, ADULT SNOMED Code(s): 111920659 (8) Sleep apnea Current Visit: No Status: Acute Code(s): G47.30 - SLEEP APNEA, UNSPECIFIED SNOMED Code(s): 50520030
[2020-05-02] MEDS ORDERED: ALPRAZolam 0.25 MG TAB PO PRN (14:01)
[2020-05-02] MEDS ORDERED: TEMAZEPAM 15 MG CAP PO PRN (14:01)
[2020-05-02] MEDS: LOSARTAN 50 MG TAB PO SCH (14:04)
[2020-05-02] MEDS: HEPARIN SODIUM,PORCINE 5,000 UNIT/ML 1 ML VIAL SQ SCH ×2 (14:07→21:17)
--- NOTE | 2020-05-02 14:47 | HP ---
HISTORY AND PHYSICAL DATE OF SERVICE: 05/02/2020 CHIEF COMPLAINT: Abdominal pain. HISTORY OF PRESENT ILLNESS: This 49-year-old woman with a past medical history of multiple medical problems including hypertension, history of liver disease, sleep apnea, history of migraines, history of breast surgery, history of cardiac catheterization, being followed by Dr. Tuttle in the outpatient setting. The patient is complaining of abdominal pain which is seated in the right upper quadrant. The pain was present off and on for the last 2 weeks but it has become more pronounced and constant. The patient also had some fever and the patient came to [facility] and was admitted for further evaluation and treatment. The patient has some point tenderness in the right upper quadrant. The CT scan of the abdomen and pelvis showed no abnormal findings. Abdominal ultrasound was also reported as showing no gallstones or dilated ducts. The white count is normal at this time. The creatinine is elevated up to 1.41. There is no history of fever, rigors, chills. No headache, loss of consciousness, seizures at this time. PAST MEDICAL HISTORY: History hypertension, liver disease, neurologic disorder, sleep apnea, back pain, migraine, breast surgery. MEDICATIONS PRIOR TO ADMISSION: Home medications, aspirin, Coreg, Topamax, Aldactone, Singulair, Cozaar, Levaquin, [place], Lasix, Breo Ellipta, Lipitor, Tylenol, Zofran. ALLERGIES: IODINATED CONTRAST, PENICILLIN, SULFA, MOTRIN. FAMILY HISTORY: History of CAD, diabetes, renal disease, and bypass in the family. SOCIAL HISTORY: No history of smoking. No history of alcohol intake. REVIEW OF SYSTEMS: ENT: No diminished vision or hearing. CARDIOVASCULAR: No angina or palpitations. RESPIRATORY: No cough or hemoptysis. GI: As mentioned earlier. : No dysuria. NERVOUS SYSTEM: No numbness or weakness. ALLERGY/IMMUNOLOGY: No asthma or hayfever. MUSCULOSKELETAL: As mentioned earlier. HEMATOLOGY/ONCOLOGY: No history of anemia. ENDOCRINE: No history of diabetes or hypothyroidism. CONSTITUTIONAL: As mentioned earlier. DERMATOLOGY: Negative. RHEUMATOLOGY: Negative. PSYCHIATRY: As mentioned earlier. PHYSICAL EXAMINATION: GENERAL: Patient is alert and oriented times three. VITAL SIGNS: Pulse 84, blood pressure 143/72, respirations 14, temperature 98, pulse ox 100% on room air. HEENT: Conjunctivae normal. Oral mucosa is moist. NECK: No jugular venous distention. No carotid bruits. No lymph node enlargement. RESPIRATORY: Breath sounds diminished at the bases. No rhonchi, no crackles. HEART: S1 and S2, muffled. No S3 or S3. ABDOMEN: Soft, obese. Diffuse tenderness in the right upper quadrant present. There is some point tenderness also present. No guarding, rigidity or masses palpable. EXTREMITIES: No edema, no swelling. NERVOUS: Higher functions as mentioned earlier. Moves all four limbs. No focal motor or sensory deficits. LYMPHATICS: No lymph nodes in the neck or axillae. SKIN: No rashes. JOINTS: No active deforming arthropathy. LABS: WBC 5.6, hemoglobin 11.2, sodium 140, potassium 3.5, creatinine 1.41. ASSESSMENT: 1. Right upper quadrant abdominal pain, rule out acute cholecystitis. 2. Renal failure, possibly acute renal failure with acute tubular necrosis. 3. Hypokalemia. 4. History of hypertension. 5. History of liver disease. 6. History of sleep apnea. 7. History of back pain. 8. History of chronic hepatitis. 9. History of migraine. 10.History of degenerative joint disease. 11.History of breast surgery. 12.History of cardiac catheterization. 13.History of claustrophobia. 14.History of attention deficit hyperactivity disorder. 15.History of anxiety, depression, claustrophobia. 16.Obesity with body mass index 48.2. 17.FULL CODE. RECOMMENDATIONS AND DISCUSSION: In this 49-year-old woman who presented with multiple complex medical issues, will monitor the patient closely. Continue the current medications, continue symptomatic treatment. Otherwise, obtain a surgical evaluation. The CT scan and ultrasound did not show any gallbladder findings but clinically the patient had some signs suggestive of acute cholecystitis with McBurney point tenderness. We will continue to monitor. DVT prophylaxis. Proton pump inhibitors. Symptomatic treatment. The patient might also need endoscopy down the line. Otherwise prognosis guarded because of multiple medical problems. Further recommendations to follow. Will hold Aldactone and we will continue to monitor and as well as Lasix. Continue to monitor. Further recommendations to follow. MMODL / IJN: [id number] /
--- NOTE | 2020-05-02 16:08 | CONS ---
CONSULTATION This is a 49-year-old morbidly obese lady with a history of nonischemic cardiomyopathy and EKG which is abnormal as of December with IVCD. She came into the hospital with complaints of right upper quadrant pain, was evaluated by Dr. Padilla. Advised a cholecystectomy and I was asked to see her from a preop evaluation. I have reviewed the chart and noted that this patient has a diagnosis of nonischemic cardiomyopathy with unremarkable coronaries on a cardiac cath from 2018. Last echo from December revealed ejection fraction of about 30% or so. Apparently, she is being considered for what seems to be an elective surgery. The white count is not elevated. She has a right upper quadrant pain, but there is no evidence of any gallstones or dilatation of the bile ducts. However, if surgery is indicated and absolutely necessary, she can have it done with the understanding the risk is higher given her multiple comorbid conditions including morbid obesity, decreased ejection fraction and abnormal EKG. There is no absolute contraindication but the risk is high and I would recommend cautious fluid administration and optimal BP control perioperatively and resumption of medications promptly thereafter. She should have DVT prophylaxis as well. PAST MEDICAL HISTORY: Medical history is remarkable for hypertension, nonischemic cardiomyopathy, sleep apnea. Apparently she does use a BiPAP or CPAP. She has chronic hepatitis, migraine headaches. Back discomfort. She is status post hysterectomy, orthopedic surgery and uterine ablation. MEDICATIONS: At home include Singulair 10 mg daily, carvedilol 25 mg b.i.d., atorvastatin 20 mg daily, Lasix 20 mg b.i.d., Cozaar 50 mg daily, Aldactone 25 mg daily. ALLERGIES: ALLERGIC TO IODINE DYE, PENICILLIN, SULFA AND IBUPROFEN. PHYSICAL EXAMINATION: On examination, blood pressure is 118/70, pulse rate is about 78 per minute and regular. HEENT unremarkable. Fundus was not examined by me. Neck is supple. No JVD. I cannot appreciate it. Neck is short and thick. Heart exam reveals S1, S2 heard normally. Heart sounds are distantly. No significant murmur. Lungs are clear. Abdomen is distended. Right upper quadrant tenderness is noted. Bowel sounds are diminished. Lower extremities reveal diminished pulses. Central nervous system is normal. EKG is still pending. Last EKG from December revealed a sinus mechanism with IVCD type picture. IMPRESSION: 1. Right upper quadrant pain being considered for elective gallbladder surgery. Patient has a normal white count. No gallstones and no dilatation of bile duct. 2. Nonischemic cardiomyopathy. 3. Abnormal EKG with IVCD. 4. Obesity. 5. History of sleep apnea syndrome. RECOMMENDATION: This patient is a moderate to high risk given her multiple comorbid conditions including nonischemic cardiomyopathy, ejection fraction of less than 35% based on echo from December, morbid obesity, sleep apnea syndrome and abnormal EKG. I would recommend cautious fluid administration and optimal BP control perioperatively. I am recommending DVT prophylaxis as well. Surgery should be performed only if it is absolutely necessary. Risk remains high, but there is no absolute contraindication. I am looking for a repeat EKG. Repeat EKG was just performed and revealed normal sinus rhythm. The QRS appears to be less than 100 milliseconds. There is a precordial ST and T-wave abnormality of a nonspecific type. I will also recommend that we do an echocardiogram tomorrow morning and reassess the LV function. In view of the fact EKG has normalized, I am curious to see if the nonischemic cardiomyopathy has improved or not. This will be performed first thing tomorrow. Thank you very much for the consult. MMODL / IJN: [id number] /
[2020-05-02] MEDS: PANTOPRAZOLE 40 MG TABLET PO SCH (16:44)
[2020-05-02] MEDS: HYDROcodone/APAP 10-325MG 1 EACH TAB PO SCH ×2 (20:57→23:31)
[2020-05-02] MEDS: ACETAMINOPHEN TAB 500 MG TAB PO SCH (20:57)
[2020-05-02] MEDS ORDERED: NON FORMULARY DRUG (Acetaminophen/Diphenhydramine [Tylenol Pm 500-25mg] 1 EACH Tablet) PO SCH (21:00)
[2020-05-02] MEDS: ATORVASTATIN 20 MG TAB PO SCH (21:17)
[2020-05-02] MEDS: diphenhydrAMINE 25 MG CAP PO SCH (21:17)
[2020-05-02] MEDS: SYMBICORT 80-4.5 MCG INHALER INHALATION SCH (21:46)
[2020-05-03] MEDS: SODIUM CHLORIDE 0.9% 1,000 ML IV SCH ×2 (06:50→20:34)
[2020-05-03] MEDS: SYMBICORT 80-4.5 MCG INHALER INHALATION SCH ×2 (07:40→18:38)
--- NOTE | 2020-05-03 07:40 | P.PN ---
Subjective This is a pleasant 49 years old female with multiple medical problems including hypertension, liver disease, sleep apnea, migraine, history of breast surgery, history of cardiac catheterization. She is patient of Dr. Guidry. Patient presents because of right upper quadrant abdominal pain, surgery team evaluated the patient and recommended to about cholecystectomy for high clinical suspicion for cholecystitis although the workup was unremarkable. This morning she still have significant pain associated at 70/10 in severity. [employer] has been consulted for preop evaluation and he recommended echocardiogram and EKG. Her creatinine was elevated upon admission but improving down to 1.4, she is on normal saline at 100 mL/h, we will order that to 50 mL per hour and review of her cardiomyopathy with ejection fraction of 30-35% Objective - Vital Signs Vital signs: Vital Signs Temp 97.8 F 05/03/20 03:52 Pulse 84 05/03/20 03:52 Resp 17 05/03/20 03:52 BP 116/66 05/03/20 03:52 Pulse Ox 99 05/03/20 03:52 Intake & Output 05/02/20 05/03/20 05/03/20 18:59 06:59 18:59 Other: Voiding Method Toilet # Voids 1 1 - Exam -GENERAL: The patient is alert and oriented x3, not in any acute distress. Obe se HEENT: Pupils are round and equally reacting to light. EOMI. No scleral icterus. No conjunctival pallor. Normocephalic, atraumatic. No pharyngeal erythema. No thyromegaly. CARDIOVASCULAR: S1 and S2 present. No murmurs, rubs, or gallops. PULMONARY: Chest is clear to auscultation, no wheezing or crackles. -ABDOMEN: Soft, RUQ ced tenderness, no rebound tenderness, nondistended, normoactive bowel sounds. No palpable organomegaly. MUSCULOSKELETAL: No joint swelling or deformity. EXTREMITIES: No cyanosis, clubbing, or pedal edema. NEUROLOGICAL: Gross neurological examination did not reveal any focal deficits. SKIN: No rashes. no petechiae. - Labs CBC & Chem 7: 05/02/20 07:17 05/02/20 07:17 Labs: Abnormal Lab Results - Last 24 Hours (Table) 05/02/20 05/02/20 Range/Units 07:17 07:17 ESR 26 H (0-20) mm/hr Carbon Dioxide 33 H (22-30) mmol/L BUN 34 H (7-17) mg/dL Creatinine 1.41 H (0.52-1.04) mg/dL Glucose 127 H (74-99) mg/dL Microbiology - Last 24 Hours (Table) 05/01/20 19:10 Blood Culture - Preliminary Blood No Growth after 24 hours Assessment and Plan Assessment: -RUQ tenderness suspicious for acute cholecystitis with surgery on the case planning for robotic cholecystectomy. Cardiology for preop evaluation and recommended echocardiogram and EKG. -Acute kidney injury, improvement with IV fluids, decrease the rate of normal saline to 50 mL per hour on follow-up creatinine hypertension history of liver disease chronic hepatitis migraine degeneratvie joint disease DVT prophylaxis: Subcutaneous heparin GI prophylaxis Protonix Prognosis is guarded Switch the patient on patient as she will need more than 2 nights of length of stay
[2020-05-03] MEDS: HYDROcodone/APAP 10-325MG 1 EACH TAB PO SCH ×2 (07:54→20:33)
[2020-05-03] MEDS: HEPARIN SODIUM,PORCINE 5,000 UNIT/ML 1 ML VIAL SQ SCH ×3 (07:54→20:51)
[2020-05-03] MEDS: PANTOPRAZOLE 40 MG TABLET PO SCH ×2 (07:55→16:44)
[2020-05-03] MEDS: MONTELUKAST 10 MG TAB PO SCH (07:55)
[2020-05-03] MEDS: TOPIRAMATE 25 MG TAB PO SCH ×2 (07:55→20:48)
[2020-05-03] MEDS: carvediloL 12.5 MG TAB PO SCH ×2 (07:55→16:44)
[2020-05-03] MEDS: LOSARTAN 50 MG TAB PO SCH (07:55)
[2020-05-03 08:08] LABS: Basophils # (A) 0.1 k/uL (0-0.2); Basophils % (A) 1 %; Eosinophils # (A) 0.3 k/uL (0-0.7); Eosinophils % (A) 5 %; HCT 33.9 % (34.0-46.0); HGB 11.3 gm/dL (11.4-16.0); Lymphocytes # (A) 2.5 k/uL (1.0-4.8); Lymphocytes % (A) 43 %; MCH 31.8 pg (25.0-35.0); MCHC 33.2 g/dL (31.0-37.0); MCV 95.7 fL (80.0-100.0); Mean Platelet Volume 6.7; Monocytes # (A) 0.3 k/uL (0-1.0); Monocytes % (A) 5 %; Neutrophils # (A) 2.6 k/uL (1.3-7.7); Neutrophils % (A) 44 %; Platelet Count 247 k/uL (150-450); RBC 3.54 m/uL (3.80-5.40); RDW 12.8 % (11.5-15.5); WBC 5.8 k/uL (3.8-10.6)
[2020-05-03 08:26] LABS: Albumin 3.3 g/dL (3.5-5.0); Calcium 8.8 mg/dL (8.4-10.2); Potassium 3.5 mmol/L (3.5-5.1); Total Bilirubin 0.8 mg/dL (0.2-1.3)
--- NOTE | 2020-05-03 10:45 | ECHOF ---
Referral Reason:Pericardial effusion, congestive heart failure MEASUREMENTS -------- HEIGHT: 160.0 cm WEIGHT: 123.4 kg BP: 116/66 RVIDd: 2.8 cm (< 3.3) IVSd: 1.4 cm (0.6 - 1.1) LVIDd: 5.4 cm (3.9 - 5.3) LVPWd: 1.3 cm (0.6 - 1.1) IVSs: 1.6 cm LVIDs: 3.5 cm LVPWs: 1.7 cm LA Diam: 3.4 cm (2.7 - 3.8) Ao Diam: 2.9 cm (2.0 - 3.7) AV Cusp: 2.0 cm (1.5 - 2.6) MV EXCURSION: 12.495 mm (> 18.000) MV EF SLOPE: 42 mm/s (70 - 150) EPSS: 1.2 cm MV E Blaine: 0.82 m/s MV DecT: 219 ms MV A Blaine: 0.88 m/s MV E/A Ratio: 0.94 RAP: 5.00 mmHg RVSP: 25.57 mmHg FINDINGS -------- Sinus rhythm. This was a technically difficult study with suboptimal views. The left ventricle is mildly dilated. There is moderate concentric left ventricular hypertrophy. Overall left ventricular systolic function is normal with, an EF between 55 - 60 %. The right ventricle is normal in size. Normal LA size by volume 22+/-6 ml/m2. The right atrium is normal in size. 3 ml of Lumason was utilized for enhancement of images. The aortic valve was not well visualized. Mild mitral regurgitation is present. Mild tricuspid regurgitation present. Right ventricular systolic pressure is normal at < 35 mmHg. Trace/mild (physiologic) pulmonic regurgitation. The aortic root size is normal. IVC Not well visulized. There is no pericardial effusion. CONCLUSIONS -------- 1. This was a technically difficult study with suboptimal views. 2. The left ventricle is mildly dilated. 3. There is moderate concentric left ventricular hypertrophy. 4. Overall left ventricular systolic function is normal with, an EF between 55 - 60 %. 5. 3 ml of Lumason was utilized for enhancement of images. 6. Mild mitral regurgitation is present. 7. Mild tricuspid regurgitation present. 8. Trace/mild (physiologic) pulmonic regurgitation. 9. There is no pericardial effusion. UTILIZATION REVIEWER: Liberty Renee RDCS
--- NOTE | 2020-05-03 10:48 | P.PN ---
Subjective Progress Note Date: 05/03/20 CHIEF COMPLAINT: Cardiac clearance HISTORY OF PRESENT ILLNESS: Patient examined this morning at the bedside. She denies chest pain or pressure. Denies shortness of breath. She is scheduled for cholecystectomy today with Dr. Padilla. PHYSICAL EXAM: VITAL SIGNS: Reviewed. GENERAL: Well-developed in no acute distress. NECK: Supple. No JVD or thyromegaly LUNGS: Respirations even and unlabored. Lungs essentially clear to auscultation bilaterally. HEART: Regular rate and rhythm. S1 and S2 heard. EXTREMITIES: Normal range of motion. No clubbing or cyanosis. Peripheral pulses intact. No lower extremity edema ASSESSMENT: Right upper quadrant abdominal pain, scheduled for cholecystectomy Nonischemic cardiomyopathy, previous EF 35% Obesity History of sleep apnea History of abnormal EKG with IVCD in December History of cardiac cath with unremarkable coronaries, 2017 PLAN: Dr. Tracey reviewed echocardiogram this morning Patient has no absolute contraindications to undergo surgical intervention from a cardiac standpoint Recommend optimal blood pressure control and cautious fluid administration perioperatively Nurse practitioner note has been reviewed by physician. Signing provider agrees with the documented findings, assessment, and plan of care. Objective - Vital Signs Vital signs: Vital Signs Temp 98.5 F 05/03/20 07:52 Pulse 84 05/03/20 07:52 Resp 17 05/03/20 07:52 BP 111/63 05/03/20 07:52 Pulse Ox 96 05/03/20 07:52 Intake & Output 05/02/20 05/03/20 05/03/20 18:59 06:59 18:59 Other: Voiding Method Toilet Toilet # Voids 1 1 1 - Labs CBC & Chem 7: 05/03/20 07:17 05/03/20 07:17 Labs: Abnormal Lab Results - Last 24 Hours (Table) 05/02/20 05/03/20 05/03/20 Range/Units 07:17 07:17 07:17 RBC 3.54 L (3.80-5.40) m/uL Hgb 11.3 L (11.4-16.0) gm/dL Hct 33.9 L (34.0-46.0) % ESR 26 H (0-20) mm/hr Chloride 108 H (98-107) mmol/L BUN 23 H (7-17) mg/dL Creatinine 1.13 H (0.52-1.04) mg/dL Glucose 106 H (74-99) mg/dL Total Protein 6.0 L (6.3-8.2) g/dL Albumin 3.3 L (3.5-5.0) g/dL Microbiology - Last 24 Hours (Table) 05/01/20 19:10 Blood Culture - Preliminary Blood No Growth after 24 hours
--- NOTE | 2020-05-03 10:52 | P.PN ---
Subjective Progress Note Date: 05/03/20 CHIEF COMPLAINT: Cholecystitis HISTORY OF PRESENT ILLNESS: The patient is a 49 year old female presents with severe right upper quadrant pain at least 7 out of 10-10 out of 10. Clinical history including terminal history consistent with gallbladder disorder. Patient presents with clinical cholecystitis. Patient is pre-existing history of cardiomyopathy for which cardiology consultation was obtained. Patient still reports significant right upper quadrant abdominal pain. She has completed her echo from this morning. REVIEW OF ORGAN SYSTEMS: CONSTITUTIONAL: No fevers or chills. She is over 100+ pounds overweight. RESPIRATORY: Has sleep apnea. Denies dyspnea CARDIOVASCULAR: Denies any current chest pain, palpitations. Has hypertension. Past heart catheterization. Has congestive heart failure. GASTROINTESTINAL: Has fatty liver disease. Lipase on admission was elevated. PHYSICAL EXAM: VITALS: Reviewed CONSTITUTIONAL: Well developed and in no acute distress. EYES: Conjuctivae without sclera icterus. Pupils are equally round and reactive to light. Extraocular movements grossly intact. HEAD, EARS, NOSE, THROAT: Moist buccal mucosa. Head is atraumatic, normocephalic. Hears conversational speech. No nasal drainage. RESPIRATORY: Non-labored respirations and equal bilateral excursions. No gross wheezes. CARDIOVASCULAR: Regular rate and rhythm. Extremities without moderate edema. Palpable 2+ radial pulses. ABDOMEN: Soft. Protuberant. MUSCULOSKELETAL: Nail and fingers with good capillary refill. No clubbing cyanosis. SKIN: Warm and well perfused with good skin turgor. NEUROLOGIC: Cranial nerves II through XII grossly intact. Sensation upper and extremities intact. No focal or lateralizing signs. PSYCH: Appropriate affect. Alert and oriented to person, place and time. Displays appropriate insight. CLINCAL LABS: Reviewed. WBC 5.8. Hemoglobin down 14.5-11.9, now 11.3. Creatinine elevated 1.71 on admission now 1.13 ECHO: Report pending ASSESSMENT: 1. Right upper quadrant abdominal pain 2. Clinical cholecystitis 3. Morbid obesity due to excess calories, BMI 48.2 4. Congestive heart failure with ischemic cardiomyopathy PLAN: 1. Upon discussion with cardiology team, patient is now cleared to proceed with surgery. She presents with elevated risks due to ischemic cardiomyopathy including morbid obesity and sleep apnea. 2. Will proceed with robotic cholecystectomy. 3. Postoperative monitoring advised Objective - Vital Signs Vital signs: Vital Signs Temp 98.5 F 05/03/20 07:52 Pulse 84 05/03/20 07:52 Resp 17 05/03/20 07:52 BP 111/63 05/03/20 07:52 Pulse Ox 96 05/03/20 07:52 Intake & Output 05/02/20 05/03/20 05/03/20 18:59 06:59 18:59 Other: Voiding Method Toilet Toilet # Voids 1 1 1 - Labs CBC & Chem 7: 05/03/20 07:17 05/03/20 07:17 Labs: Abnormal Lab Results - Last 24 Hours (Table) 05/02/20 05/03/20 05/03/20 Range/Units 07:17 07:17 07:17 RBC 3.54 L (3.80-5.40) m/uL Hgb 11.3 L (11.4-16.0) gm/dL Hct 33.9 L (34.0-46.0) % ESR 26 H (0-20) mm/hr Chloride 108 H (98-107) mmol/L BUN 23 H (7-17) mg/dL Creatinine 1.13 H (0.52-1.04) mg/dL Glucose 106 H (74-99) mg/dL Total Protein 6.0 L (6.3-8.2) g/dL Albumin 3.3 L (3.5-5.0) g/dL Microbiology - Last 24 Hours (Table) 05/01/20 19:10 Blood Culture - Preliminary Blood No Growth after 24 hours Assessment and Plan (1) Right upper quadrant abdominal pain Current Visit: Yes Status: Acute Code(s): R10.11 - RIGHT UPPER QUADRANT PAIN SNOMED Code(s): 518286468 (2) Cholecystitis Current Visit: Yes Status: Acute Code(s): K81.9 - CHOLECYSTITIS, UNSPECIFIED SNOMED Code(s): 67668694 (3) Ischemic cardiomyopathy Current Visit: Yes Status: Acute Code(s): I25.5 - ISCHEMIC CARDIOMYOPATHY SNOMED Code(s): 609563089 (4) Family history of gallbladder disease Current Visit: Yes Status: Acute Code(s): Z83.79 - FAMILY HISTORY OF OTHER DISEASES OF THE DIGESTIVE SYSTEM SNOMED Code(s): 312988164 (5) CHF (congestive heart failure) Current Visit: No Status: Acute Code(s): I50.9 - HEART FAILURE, UNSPECIFIED SNOMED Code(s): 40020251 (6) Hypertension Current Visit: No Status: Acute Code(s): I10 - ESSENTIAL (PRIMARY) HYPERTENSION SNOMED Code(s): 94720001 (7) Morbid obesity with BMI of 45.0-49.9, adult Current Visit: No Status: Acute Code(s): E66.01 - MORBID (SEVERE) OBESITY DUE TO EXCESS CALORIES; Z68.42 - BODY MASS INDEX [BMI] 45.0-49.9, ADULT SNOMED Code(s): 048178916 (8) Sleep apnea Current Visit: No Status: Acute Code(s): G47.30 - SLEEP APNEA, UNSPECIFIED SNOMED Code(s): 57068884
[2020-05-03] MEDS ORDERED: DEXAMETHASONE SOD PHOSPHATE 10 MG/ML 1 ML VIAL IV STA (10:54)
[2020-05-03] MEDS ORDERED: diphenhydrAMINE 50 MG/ML 1 ML VIAL IVP STA (10:54)
[2020-05-03] MEDS ORDERED: CLINDAMYCIN 900 MG in DEXTROSE 5% IN WATER 50 ML IVPB STA ×2 (10:55)
[2020-05-03] MEDS ORDERED: INDOCYANINE GREEN 25 MG VIAL IV STA (10:58)
[2020-05-03] MEDS ORDERED: IV FLUID CONTINUATION 1,000 ML IV ONE (11:08)
[2020-05-03] MEDS ORDERED: LIDOCAINE 1%-EPI 1:100,000 20 ML VIAL SQ ONE (11:21)
[2020-05-03] MEDS ORDERED: fentaNYL (PF) 50 MCG/ML 2 ML AMP ONE (11:23)
[2020-05-03] MEDS ORDERED: ETOMIDATE 2 MG/ML 10 ML VIAL ONE (11:23)
[2020-05-03] MEDS ORDERED: SUCCINYLCHOLINE CHLORIDE 100 MG/5 ML SYR IV ONE (11:23)
[2020-05-03] MEDS ORDERED: INDOCYANINE GREEN 25 MG VIAL IV ONE (11:23)
[2020-05-03] MEDS ORDERED: MIDAZOLAM 2 MG/2 ML VIAL ONE (11:23)
[2020-05-03] MEDS ORDERED: ePHEDrine SULFATE/0.9% NACL/PF 50 MG/5 ML SYRINGE IV ONE (11:23)
[2020-05-03] MEDS ORDERED: ROCURONIUM 10 MG/ML (10 ML VIAL) IV ONE (11:23)
[2020-05-03] MEDS ORDERED: LACTATED RINGERS 1,000 ML IV ONE (11:38)
--- NOTE | 2020-05-03 13:06 | P.OP ---
Date of Procedure: 05/03/20 Description of Procedure: SURGEON: VENU GUTIERREZ MD PREOPERATIVE DIAGNOSES: 1. Right upper quadrant abdominal pain with localized peritonitis 2. Chronic cholecystitis 3. Fatty liver disease with hepatomegaly 4. Morbid obesity due to excess calories, BMI 48.2 5. Obstructive sleep apnea 6. Congestive heart failure with ischemic cardiomyopathy 7. Family history gallbladder disease 8. Chronic pain syndrome 9. Chronic obstructive pulmonary disease POSTOPERATIVE DIAGNOSES: 1. Right upper quadrant abdominal pain with localized peritonitis 2. Chronic cholecystitis 3. Fatty liver disease with severe hepatomegaly 4. Morbid obesity due to excess calories, BMI 48.2 5. Obstructive sleep apnea 6. Congestive heart failure with ischemic cardiomyopathy 7. Family history gallbladder disease 8. Chronic pain syndrome 9. Chronic obstructive pulmonary disease OPERATION: Robotic-assisted da Hector Xi laparoscopic cholecystectomy, multiport with FIREFLY ESTIMATED BLOOD LOSS: 5 mL. SPECIMENS REMOVED: Gallbladder. COMPLICATIONS: None. OPERATIVE FINDINGS: 1. Scarring along gallbladder infundibulum including cystic structures consistent with cholecystitis, chronic 2. Severe hepatomegaly with fatty liver disease adding complexity to the case INDICATIONS: The patient is a 49-year-old female who presents with right upper quadrant peritonitis and clinical cholecystitis. Robotic assisted laparoscopic approach was described. Benefits and risks of the procedure including but not limited to bleeding, infection, injury to the biliary tree was described. Informed consent was obtained. DESCRIPTION OF PROCEDURE: Patient was brought to the operating room, placed in supine position. After general induction, the abdomen had been prepped and draped in standard sterile fashion. The robotic da Hector XI system was primed. After a timeout protocol was performed, the patient had been prepped and draped in standard sterile fashion. The patient was injected with indocyanine green. A 5 mm 0 degrees laparoscopic trocar entry was performed along the left upper qu adrant. The abdomen insufflated to 15 mmHg pressure which was tolerated well. Diagnostic laparoscopy demonstrated no injury to bowel viscera or mesentery. The liver surface was unremarkable. Next, two 8 mm robotic ports were placed along the right upper abdomen. The camera 8-mm port was maintained along the epigastrium. Another 8 mm port was placed along the left upper abdominal wall after exchanging the 5 mm port. Please note that the ports were placed at least 10 to 15 cm away from the target anatomy of the gallbladder. The robot was docked along the left lateral abdomen. The patient was repositioned in reverse Trendelenburg position. Using a grasper for arm 3, a grasper for arm 4, including hook cautery for arm 1, the robotic system was docked and primed as described. Instruments were interchanged by the corporate law assistant including hook cautery, Bovie cautery and clip appliers. I had sat at the console. The gallbladder was scarred with peritoneal adhesions. Additionally, severe hepatomegaly disease and fatty liver disease added complexity to the case. A dome down technique from the gallbladder fundus to the infundibulum was performed to release the gallbladder from the hepatic fossa. Lysis of adhesions was performed to free the gallbladder from the surrounding tissues. Next attention was brought to the infundibulum and cystic structures. The infundibulum and cystic duct were dissected free from surrounding tissues. The cystic duct was isolated. FIREFLY was used to identify the cystic artery and cystic structures. A critical view of safety was obtained. Large PLASTIC clips were used throughout the entire case. Using a clip lithographic artist, 2 clips were placed at the junction of the infundibulum and cystic duct. The cystic duct was divided between clips. Next, the cystic artery was similarly clipped and cauterized. A total of 5 clips for use. Electro-Bovie cautery was used to remove the gallbladder from the hepatic fossa. Hemostasis was checked and found to be adequate. The robot was undocked. I re-scrubbed into the case. Using a 10 mm Endo Catch bag via the left upper quadrant incision, the specimen was removed from the abdominal cavity. All pneumoperitoneum instruments were evacuated from the abdominal cavity. The incisions were reapproximated using 4-0 Monocryl in an interrupted subcuticular fashion. Fascial defects were less than 8 mm in size. Please note along the trocar sites, local anesthetic was placed as a field block prior to insertion of all instruments. No gallbladder decompression occurred within the abdomen. Liquid glue was applied to the skin. At the end of the procedure needle, sponge, and instrument count had been verified correct by the ophthalmic surgical assistant. The patient was transferred to postanesthesia care unit in stable condition.
[2020-05-03] MEDS: ACETAMINOPHEN IV (For NPO) 1,000 MG in EMPTY BAG 1 BAG IVPB ONE ×2 (13:10→13:25)
[2020-05-03] MEDS: HYDROmorphone 0.5 MG/0.5 ML SYRINGE IVP PRN (16:45)
[2020-05-03] MEDS: diphenhydrAMINE 25 MG CAP PO SCH (20:33)
[2020-05-03] MEDS: ACETAMINOPHEN TAB 500 MG TAB PO SCH (20:33)
[2020-05-03] MEDS: ATORVASTATIN 20 MG TAB PO SCH (20:33)
[2020-05-04] MEDS: SYMBICORT 80-4.5 MCG INHALER INHALATION SCH (07:36)
[2020-05-04] MEDS: HYDROcodone/APAP 10-325MG 1 EACH TAB PO SCH (08:19)
[2020-05-04] MEDS: LOSARTAN 50 MG TAB PO SCH (08:20)
[2020-05-04] MEDS: PANTOPRAZOLE 40 MG TABLET PO SCH (08:20)
[2020-05-04] MEDS: HEPARIN SODIUM,PORCINE 5,000 UNIT/ML 1 ML VIAL SQ SCH (08:20)
[2020-05-04] MEDS: MONTELUKAST 10 MG TAB PO SCH (08:20)
[2020-05-04] MEDS: carvediloL 12.5 MG TAB PO SCH (08:20)
[2020-05-04] MEDS: TOPIRAMATE 25 MG TAB PO SCH (08:21)
[2020-05-04] MEDS ORDERED: PANTOPRAZOLE 40 MG/10 ML VIAL IV SCH (09:00)
[2020-05-04 09:13] LABS: African American GFR (CKD) 76.6 (60.0-200.0); Albumin 3.7 g/dL (3.80-4.90); Albumin/Globulin Ratio 1.68 (1.60-3.17); Anion Gap 8.4 mmol/L (4.00-12.00); Calcium 8.8 mg/dL (8.7-10.3); Carbon Dioxide 19.6 mmol/L (21.6-31.8); Globulin 2.2 g/dL (1.6-3.3); Magnesium 2.2 mg/dL (1.5-2.4); Non-African American GFR(CKD) 66.1 (60.0-200.0); Phosphorus 2.7 mg/dL (2.4-5.1); Total Bilirubin 0.4 mg/dL (0.3-1.2); Total Protein 5.9 g/dL (6.2-8.2)
--- NOTE | 2020-05-04 09:14 | P.PN ---
<Abbey Tam - Last Filed: 05/04/20 09:09> Subjective Progress Note Date: 05/04/20 CHIEF COMPLAINT: Chronic cholecystitis HISTORY OF PRESENT ILLNESS: Patient is status post Robotic-assisted da Hector Xi laparoscopic cholecystectomy. She does report some abdominal pain but it is controlled. Her nausea has completely resolved. She is tolerating diet. She's been up and ambulating. She is afebrile. WBC 5.8 PHYSICAL EXAM: VITAL SIGNS: Reviewed GENERAL: Well-developed in no acute distress. HEENT: No sclera icterus. Extraocular movements grossly intact. Moist buccal mucosa. Head is atraumatic, normocephalic. Hears conversational speech. No nasal drainage. NECK: Supple without lymphadenopathy. CHEST: Non-labored respirations and equal bilateral excursions. CARDIOVASCULAR: Palpable 2+ radial pulses. ABDOMEN: Soft. Nondistended. MUSCULOSKELETAL: No clubbing or cyanosis. NEUROLOGIC: No focal or lateralizing signs. Cranial nerves II through XII grossly intact. PSYCH: Appropriate affect. Alert and oriented to person, place and time. SKIN: Well perfused. Good skin turgor. ASSESSMENT: 1. Right upper quadrant abdominal pain with localized peritonitis Status post Robotic-assisted da Hector Xi laparoscopic cholecystectomy 2. Chronic cholecystitis 3. Fatty liver disease with severe hepatomegaly 4. Morbid obesity due to excess calories, BMI 48.2 5. Obstructive sleep apnea 6. Congestive heart failure with ischemic cardiomyopathy 7. Family history gallbladder disease 8. Chronic pain syndrome 9. Chronic obstructive pulmonary disease PLAN: -Recommend low fat and low carbohydrate diet for discharge -Patient to follow-up with Dr[facility] Padilla [facility] On 05[facility]2020 -Patient can be discharged home from surgical standpoint Physician Hospice Liaison note has been reviewed by physician. Signing provider agrees with the documented findings, assessment, and plan of care. Objective - Vital Signs Vital signs: Vital Signs Temp 98.2 F 05/04/20 08:46 Pulse 87 05/04/20 08:46 Resp 21 05/04/20 08:46 BP 110/71 05/04/20 08:46 Pulse Ox 97 05/04/20 05:27 Intake & Output 05/03/20 05/04/20 05/04/20 18:59 06:59 18:59 Intake Total 1406 1920 Output Total 505 Balance 901 1920 Weight 123.377 kg Intake: IV 1406 Intake, IV Titration 600 Amount Sodium Chloride 0.9% 1, 600 000 ml @ 50 mls/hr IV . Q20H MICHELLE Rx#:[id number] Oral 1320 Output: Urine 500 Estimated Blood Loss 5 Other: Voiding Method Toilet Toilet Toilet # Voids 2 1 - Labs CBC & Chem 7: 05/03/20 07:17 05/03/20 07:17 Labs: Microbiology - Last 24 Hours (Table) 05/01/20 19:10 Blood Culture - Preliminary Blood No Growth after 48 hours <Krystal Padilla N - Last Filed: 05/04/20 11:08> Subjective Patient seen and evaluated with above. She reports resolution of her intractable nausea and vomiting. Her initial right upper quadrant abdominal pain is now resolved. She notes appropriate incisional pain. She is tolerating diet. Patient wishes to review options for weight loss. She is also seeking bariatric program. Patient advised to follow-up with the bariatric center to address postoperative follow-up including weight loss. Objective - Vital Signs Vital signs: Vital Signs Temp 98.2 F 05/04/20 08:46 Pulse 87 05/04/20 08:46 Resp 21 05/04/20 08:46 BP 110/71 05/04/20 08:46 Pulse Ox 97 05/04/20 05:27 Intake & Output 05/03/20 05/04/20 05/04/20 18:59 06:59 18:59 Intake Total 1406 1920 Output Total 505 Balance 901 1920 Weight 123.377 kg Intake: IV 1406 Intake, IV Titration 600 Amount Sodium Chloride 0.9% 1, 600 000 ml @ 50 mls/hr IV . Q20H MICHELLE Rx#:[id number] Oral 1320 Output: Urine 500 Estimated Blood Loss 5 Other: Voiding Method Toilet Toilet Toilet # Voids 2 1 - Labs CBC & Chem 7: 05/03/20 07:17 05/04/20 04:47 Labs: Abnormal Lab Results - Last 24 Hours (Table) 05/04/20 Range/Units 04:47 Chloride 111 H (96-109) mmol/L Carbon Dioxide 19.6 L (21.6-31.8) mmol/L Glucose 186 H (70-110) mg/dL Total Protein 5.9 L (6.2-8.2) g/dL Albumin 3.70 L (3.80-4.90) g/dL Microbiology - Last 24 Hours (Table) 05/01/20 19:10 Blood Culture - Preliminary Blood No Growth after 48 hours Assessment and Plan (1) Right upper quadrant abdominal pain Current Visit: Yes Status: Acute Code(s): R10.11 - RIGHT UPPER QUADRANT PAIN SNOMED Code(s): 859545866 (2) Cholecystitis Current Visit: Yes Status: Acute Code(s): K81.9 - CHOLECYSTITIS, UNSPECIFIED SNOMED Code(s): 52853095 (3) Ischemic cardiomyopathy Current Visit: Yes Status: Acute Code(s): I25.5 - ISCHEMIC CARDIOMYOPATHY SNOMED Code(s): 259125955 (4) Family history of gallbladder disease Current Visit: Yes Status: Acute Code(s): Z83.79 - FAMILY HISTORY OF OTHER DISEASES OF THE DIGESTIVE SYSTEM SNOMED Code(s): 534918288 (5) CHF (congestive heart failure) Current Visit: No Status: Acute Code(s): I50.9 - HEART FAILURE, UNSPECIFIED SNOMED Code(s): 43206072 (6) Hypertension Current Visit: No Status: Acute Code(s): I10 - ESSENTIAL (PRIMARY) HYPERTENSION SNOMED Code(s): 63992497 (7) Morbid obesity with BMI of 45.0-49.9, adult Current Visit: No Status: Acute Code(s): E66.01 - MORBID (SEVERE) OBESITY DUE TO EXCESS CALORIES; Z68.42 - BODY MASS INDEX [BMI] 45.0-49.9, ADULT SNOMED Code(s): 308105659 (8) Sleep apnea Current Visit: No Status: Acute Code(s): G47.30 - SLEEP APNEA, UNSPECIFIED SNOMED Code(s): 40629821
[2020-05-04 11:37] VITALS: BP 117/71; PULSE 85; RESP 17; TEMP 97.8
--- NOTE | 2020-05-04 12:17 | P.PN ---
Subjective Progress Note Date: 05/04/20 CHIEF COMPLAINT: Cardiac clearance HISTORY OF PRESENT ILLNESS: Patient is status post cholecystectomy with Dr. Padilla. Postop day #1. Patient examined this morning at the bedside. She denies chest pain or pressure. Denies shortness of breath. Vital signs stable. PHYSICAL EXAM: VITAL SIGNS: Reviewed. GENERAL: Well-developed in no acute distress. NECK: Supple. No JVD or thyromegaly LUNGS: Respirations even and unlabored. Lungs essentially clear to auscultation bilaterally. HEART: Regular rate and rhythm. S1 and S2 heard. EXTREMITIES: Normal range of motion. No clubbing or cyanosis. Peripheral pulses intact. No lower extremity edema ASSESSMENT: Right upper quadrant abdominal pain Cholecystitis, status post cholecystectomy Nonischemic cardiomyopathy, previous EF 35%, repeat echo shows EF 55-60% Obesity History of sleep apnea History of abnormal EKG with IVCD in December History of cardiac cath with unremarkable coronaries, 2018 PLAN: Patient is stable for discharge from a cardiac perspective. She is to follow up outpatient with Dr. Tejeda Nurse practitioner note has been reviewed by physician. Signing provider agrees with the documented findings, assessment, and plan of care. Objective - Vital Signs Vital signs: Vital Signs Temp 98.2 F 05/04/20 08:46 Pulse 87 05/04/20 10:40 Resp 21 05/04/20 10:40 BP 110/71 05/04/20 08:46 Pulse Ox 97 05/04/20 05:27 Intake & Output 05/03/20 05/04/20 05/04/20 18:59 06:59 18:59 Intake Total 1406 1920 Output Total 505 Balance 901 1920 Weight 123.377 kg Intake: IV 1406 Intake, IV Titration 600 Amount Sodium Chloride 0.9% 1, 600 000 ml @ 50 mls/hr IV . Q20H MICHELLE Rx#:[id number] Oral 1320 Output: Urine 500 Estimated Blood Loss 5 Other: Voiding Method Toilet Toilet Toilet # Voids 2 1 - Labs CBC & Chem 7: 05/03/20 07:17 05/04/20 04:47 Labs: Abnormal Lab Results - Last 24 Hours (Table) 05/04/20 Range/Units 04:47 Chloride 111 H (96-109) mmol/L Carbon Dioxide 19.6 L (21.6-31.8) mmol/L Glucose 186 H (70-110) mg/dL Total Protein 5.9 L (6.2-8.2) g/dL Albumin 3.70 L (3.80-4.90) g/dL Microbiology - Last 24 Hours (Table) 05/01/20 19:10 Blood Culture - Preliminary Blood No Growth after 48 hours
[2020-05-04] MEDS: HYDROmorphone 0.5 MG/0.5 ML SYRINGE IVP PRN (13:02)
--- NOTE | 2020-05-04 22:28 | P.DS ---
Providers Date of admission: 05/01/20 21:37 Attending physician: Clarisa Gomez Consults: 05/01/20 21:51 Consult Physician Routine Consulting Provider: Krystal Padilla Consult Reason/Comments: intractable abdominal pain Do you want consulting provider notified?: Yes Primary care [facility] Course: Diagnoses -RUQ tenderness , acute cholecystitis status post robotic laparoscopic cholecystectomy on 05/03. -Nonischemic cardiomyopathy, previous EF 35%. Rate echocardiogram on 05/03 showing ejection fraction 55-60% with moderate LVH -Acute kidney injury, improved with IV fluids hypertension history of liver disease chronic hepatitis migraine degeneratvie joint disease Morbid obesity with BMI of 48.2 History of present illness This is a pleasant 49 years old female with multiple medical problems including hypertension, liver disease, sleep apnea, migraine, history of breast surgery, history of cardiac catheterization. She is patient of Dr. Tuttle. Patient presents because of right upper quadrant abdominal pain, surgery team evaluated the patient and patient underwent robotic laparoscopic cholecystectomy on 05/03. Today is postoperative day #1. Today feels much better as she describes she still have some expected RUQ pain and tenderness. She is tolerating diet well and has regular bowel movements. Preoperative cardiology evaluation was obtained, repeat echocardiogram showing an improved ejection fraction up to 55-60% with moderate LVH. There is any chest pain or dyspnea or coughing. No breathing difficulty. No other new complaints Diet is advanced and tolerated well by the patient remained patient appreciates him go home today Patient was cleared for discharge by surgery and cartilage team Problems and management plan were discussed with the patient and he verbalized understanding and acceptance Patient was found stable and can be discharged home however he needs follow-up as an outpatient. Patient was instructed to follow up with PCP Dr. Tuttle within one week and patient agrees. Also patient was instructed to follow up with Dr. Blair in 1-2 weeks and she. Patient agrees with the appointments made for her With Dr. Tuttle on 05/07, with Dr. Cummins at bariatric center on 05/[address] Tejeda on 05/11 Gen: patient is a AAOx3, no distress. Morbid obesity CVS: S1-S2, RRR, no murmur Lungs: B/L CTA, no wheezing -Abdomen: soft, no distention, no tenderness, positive bowel sounds. Small surgical wounds from her laparoscopic cholecystectomy look dry and healing Extremity: no leg edema or induration Time spent more than 35 minutes Plan - Discharge Summary New Discharge Prescriptions: New Pantoprazole [Protonix] 40 mg PO AC-BID #21 tablet. Ondansetron HCl [Zofran] 4 mg PO Q8H PRN 2 Days #6 tab PRN Reason: Nausea And Vomiting Continue Fluticasone/Vilanterol [Breo Ellipta 100-25 Mcg Inhaler] 1 puff INHALATION RT-DAILY PRN PRN Reason: Shortness Of Breath Losartan [Cozaar] 50 mg PO DAILY #90 tab Furosemide [Lasix] 20 mg PO BID #180 tab Atorvastatin [Lipitor] 20 mg PO HS #90 tab carvediloL [Coreg*] 25 mg PO AC-BID Ondansetron Odt [Zofran ODT] 4 mg PO BID PRN PRN Reason: Nausea And Vomiting Montelukast [Singulair] 10 mg PO DAILY HYDROcodone/APAP 10-325MG [Showell 10-325] 0.5 tab PO BID Topiramate [Topamax] 25 mg PO BID Aspirin 81 mg PO DAILY Discontinued Spironolactone [Aldactone] 25 mg PO DAILY #90 tab Levofloxacin [Levaquin] 500 mg PO DAILY Acetaminophen/Diphenhydramine [Tylenol PM 500-25mg] 1 tab PO HS Discharge Medication List Fluticasone/Vilanterol [Breo Ellipta 100-25 Mcg Inhaler] 1 puff INHALATION RT- DAILY PRN 12/20/19 [History] Atorvastatin [Lipitor] 20 mg PO HS #90 tab 12/24/19 [Rx] Furosemide [Lasix] 20 mg PO BID #180 tab 12/24/19 [Rx] Losartan [Cozaar] 50 mg PO DAILY #90 tab 12/24/19 [Rx] HYDROcodone/APAP 10-325MG [Showell 10-325] 0.5 tab PO BID 05/01/20 [History] Montelukast [Singulair] 10 mg PO DAILY 05/01/20 [History] Ondansetron Odt [Zofran ODT] 4 mg PO BID PRN 05/01/20 [History] Topiramate [Topamax] 25 mg PO BID 05/01/20 [History] carvediloL [Coreg*] 25 mg PO AC-BID 05/01/20 [History] Aspirin 81 mg PO DAILY 05/02/20 [History] Ondansetron HCl [Zofran] 4 mg PO Q8H PRN 2 Days #6 tab 05/04/20 [Rx] Pantoprazole [Protonix] 40 mg PO AC-BID #21 tablet. 05/04/20 [Rx] Follow up Appointment(s)/Referral(s): Apoorva Tuttle MD [Primary Care Provider] - 05/07/20 10:00 am Bariat[facility] [place], [place] [NON-STAFF] - 05/12/20 (follow-up with Dr. Padilla at [facility] On 05/12/2020 Please call when discharged to set up a time for this day) Barrie Tejeda MD [STAFF PHYSICIAN] - 05/11/20 3:30 pm Patient Instructions/Handouts: Acute Abdominal Pain (DC), Laparoscopic Cholecystectomy (DC) Activity/Diet/Wound Care/Special Instructions: No lifting over 4 pounds in 4 weeks until Jun 01. May shower. No bath tub soaks for two weeks until May 18 Avoid steak, tough meats and seeds such as raspberry seeds. Use ice along incisions for the today to prevent swelling. Diet low fat, low carbohydrate diet activity is restricted till you see your doctor may return to work on Thursday 05/10 , and preferably after your talk to your primary care doctor Discharge/Stand Alone Forms: Work/School Release / Restrict Discharge Disposition: HOME SELF-CARE
--- NOTE | 2020-05-06 13:14 | CDI ---
Documentation Clarification Form Date: 05/06/20 From: Mey Arroyo CCS Phone: If you have a question about this query, please contact Anna Peña, Medical Claims Manager at [phone] between 8am and 5pm. Admit Date: 05/01/20 Discharge Date:05/04/20 Patient Name: Jazmine Arshad Visit Number: [id number] ATTENTION: The Clinical Documentation Specialists (CDI) and [facility] Coding Staff appreciate your assistance in clarifying documentation. Please respond to the clarification below the line at the bottom and electronically sign. The CDI & [facility] Coding staff will review the response and follow-up if needed. Please note: Queries are made part of the Legal Health Record. If you have any questions, please contact the author of this message via ITS. Dear Dr. Kramer, CHF is documented in the Consult, PNs. History/Risk Factors: HTN, Obesity BMI 48, COPD, Hepatitis Clinical Indicators: CHF VS/Pulse OX: BP 170/75, NC 111, RR 20, O2 Sat 98 BNP: None Echocardiogram Results: The left ventricle is mildly dilated.There is moderate concentric left ventricular hypertrophy.Overall left ventricular systolic function is normal with, an EF between 55 - 60 %. Treatment: Coreg 25 mg PO AC-BID, Cozaar 50 mg PO Daily, Lasix 20 mg PO BID home dose In your professional opinion, can you please clarify the acuity and type of CHF if known? Systolic Heart Failure: Acute Chronic Acute on Chronic Diastolic Heart Failure: Acute Chronic Acute on Chronic Systolic & Diastolic Heart Failure: Acute Chronic Acute on Chronic Heart Failure Unable to Determine Other, please specify Unable to Determine MTDD
--- NOTE | 2020-05-06 13:21 | CDI ---
Documentation Clarification Form Date: 05/06/20 From: Mey Arroyo CCS Phone: If you have a question about this query, please contact Anna Peña, Pin Or Clip Fastener at [phone] between 8am and 5pm. Admit Date: 05/01/20 Discharge Date:05/04/20 Patient Name: Jazmine Arshad Visit Number: [id number] ATTENTION: The Clinical Documentation Specialists (CDI) and [facility] Coding Staff appreciate your assistance in clarifying documentation. Please respond to the clarification below the line at the bottom and electronically sign. The CDI & [facility] Coding staff will review the response and follow-up if needed. Please note: Queries are made part of the Legal Health Record. If you have any questions, please contact the author of this message via ITS. Dear Dr. Kramer, Acute on chronic renal failure is documented in the ED notes. History/Risk Factors: HTN, CHF, PHONG, Hepatitis, Obesity BMI 48 Clinical Indicators: Acute on chronic renal injury Current BUN: 36, 34, 23 CR: 1.76, 1.41, 1.13 GFR: 34,44, 57 Treatment: Monitor labs In order to capture the severity of condition, please clarify the stage of the CKD, if known: CKD Stage 1 (GFR > 90) CKD Stage 2 (GFR 60-89) CKD Stage 3A Moderate (GFR 45-59) CKD Stage 3B Moderate (GFR 30-44) CKD Stage 4 (GFR 15-29) CKD Stage 5 (GFR <15) ESRD Other, please specify Unable to determine please refer to my note , there efficient diagnosis for his kidney disease MTDD
== END 2020-05-04 15:55 | disposition home or self-care (01) | DRG 417 ==
LOC: EC 18:19 → OBSVTOIN 21:37 → 1SOBS 21:37 → 6NMEDSUR 05-03 15:50
PROVIDERS: ADMIT Hospitalist; ATTEND Hospitalist
PROC: 8E0W4CZ Robotic Assisted Procedure of Trunk Region, Percutaneous Endoscopic Approach (ICD-10-PCS; 2020-05-03)
PROC: 0FT44ZZ Resection of Gallbladder, Percutaneous Endoscopic Approach (ICD-10-PCS; principal; 2020-05-03 07:30)
DX: K81.0 Acute cholecystitis (principal); K65.8 Other peritonitis; N17.9 Acute kidney failure, unspecified; I13.0 Hypertensive heart and chronic kidney disease with heart failure and stage 1 through stage 4 chronic kidney disease, or unspecified chronic kidney disease; I42.8 Other cardiomyopathies; Z68.42 Body mass index [BMI] 45.0-49.9, adult; K76.0 Fatty (change of) liver, not elsewhere classified; I50.9 Heart failure, unspecified; K73.9 Chronic hepatitis, unspecified; E66.01 Morbid (severe) obesity due to excess calories; J44.9 Chronic obstructive pulmonary disease, unspecified; G47.33 Obstructive sleep apnea (adult) (pediatric); G89.4 Chronic pain syndrome; G43.909 Migraine, unspecified, not intractable, without status migrainosus; M51.26 Other intervertebral disc displacement, lumbar region; F32.9 Major depressive disorder, single episode, unspecified; E87.6 Hypokalemia; N18.9 Chronic kidney disease, unspecified; M19.90 Unspecified osteoarthritis, unspecified site; F40.240 Claustrophobia; F90.9 Attention-deficit hyperactivity disorder, unspecified type; F41.9 Anxiety disorder, unspecified; I45.9 Conduction disorder, unspecified; Z79.82 Long term (current) use of aspirin; Z79.899 Other long term (current) drug therapy; Z91.048 Other nonmedicinal substance allergy status; Z90.710 Acquired absence of both cervix and uterus; Z98.890 Other specified postprocedural states; Z88.6 Allergy status to analgesic agent; Z91.041 Radiographic dye allergy status; Z88.0 Allergy status to penicillin; Z88.2 Allergy status to sulfonamides; Z82.49 Family history of ischemic heart disease and other diseases of the circulatory system; Z83.79 Family history of other diseases of the digestive system; Z83.3 Family history of diabetes mellitus; Z80.9 Family history of malignant neoplasm, unspecified
CPT/HCPCS: 36415; 74176; 76705; 80048; 80053; 81001; 82150; 83605; 83690; 83735; 84100; 85025; 85652; 86140; 87040; 88304; 93306; 96361; 96374; 96375; 96376; 99285

== ENCOUNTER → 2020-05-12 | Outpatient (CLI) | payer OTHER ==
[2020-05-12 16:28] VITALS: BP 161/77; PULSE 117; TEMP 98.3; BMI 46.7
--- NOTE | 2020-05-12 16:30 | P.HPBAR ---
Bariatric H&P - History & Physicial H&P Date: 05/12/20 History & Physicial: Visit/CC: Patient initial contact: Initial weight: 118.297 kg Initial weight in pounds: Height: 5 ft 3 in Initial BMI: Last weight: Current weight: 119.658 kg Current weight in pounds: Current BMI: [place] body weight (based on NIH guidelines): Excess body weight loss: The patient is a 49 year-old F who presents for Bariatric Assessment. DATE OF SERVICE: 05/12/2020 REASON FOR CONSULTATION: Initial bariatric evaluation. HISTORY OF PRESENT ILLNESS: Jazmine Arshad is a 49-year-old female who comes with lifelong morbid obesity. She is looking into weight loss surgery. She is looking into the sleeve gastrectomy. She comes in with multiple medical problems including hypertensive heart disease with heart failure, obstructive sleep apnea including osteoarthritis. She has tried caloric restriction with minimal weight loss. She has family history of morbid obesity. She presents today in consultation for weight loss. At height of 5 feet 3 inches, her ideal body weight is 140 pounds. She comes in 263 pounds. Her body mass index is 46.7. She is 123 pounds overweight. PAST MEDICAL HISTORY: 1. Morbid obesity due to excess calories 2. Body mass index of 46.7, initial 3. Chronic obstructive pulmonary disease 4. Hypertensive heart disease 5. Congestive heart failure 6. Gastroesophaegeal reflux disease 7. Hyperlipidemia 8. Obstructive sleep apnea 9. Hepatitis 10. Migraines 11. Anxiety disorder 12. Depressive disorder 13. ADD/ADHD PAST SURGICAL HISTORY: 1. Breast surgery 2. section 3. Heart catheterization 4. Hysterectomy 5. Uterine ablation 6. Tubal ligation 7. Breast reduction 8. Inguinal hernia repair HOME MEDICATIONS: Home Medications Medication Instructions Recorded Confirmed Fluticasone/Vilanterol [Breo 1 puff INHALATION RT-DAILY PRN 12/20/19 06/23/20 Ellipta 100-25 Mcg Inhaler] Montelukast [Singulair] 10 mg PO DAILY 05/01/20 06/23/20 Topiramate [Topamax] 25 mg PO BID 05/01/20 06/23/20 carvediloL [Coreg*] 25 mg PO AC-BID 05/01/20 06/23/20 Aspirin 81 mg PO DAILY 05/02/20 06/23/20 Ergocalciferol [Vitamin D2] 50,000 unit PO Q7D 06/23/20 06/23/20 Previous Rx's Medication Instructions Recorded Atorvastatin [Lipitor] 20 mg PO HS #90 tab 12/24/19 Furosemide [Lasix] 20 mg PO BID #180 tab 12/24/19 Losartan [Cozaar] 50 mg PO DAILY #90 tab 12/24/19 Pantoprazole [Protonix] 40 mg PO AC-BID #21 tablet. 05/04/20 Omeprazole [PriLOSEC] 40 mg PO DAILY #14 cap 06/23/20 ALLERGIES: Allergies Allergy/AdvReac Type Severity Reaction Status Date / Time Iodinated Contrast Media Allergy Severe Rash/Hives Verified 06/23/20 15:13 [Iodinated Contrast Media - IV Dye] Penicillins Allergy Severe swelling,hi Verified 06/23/20 15:13 ves Sulfa (Sulfonamide Allergy Severe swelling,hi Verified 06/23/20 15:13 Antibiotics) ves adhesive Allergy Swelling Verified 06/23/20 15:13 ibuprofen [From Motrin] AdvReac "PROBLEM Verified 06/23/20 15:13 WITH KIDNEYS" SOCIAL HISTORY: No past tobacco use. FAMILY HISTORY: No family history of ulcerative colitis disease or Crohn's disease. Family history of morbid obesity. No lupus in the family. No reports of stomach or esophageal cancer. REVIEW OF ORGAN SYSTEMS: CONSTITUTIONAL: At height of 5 feet 3 inches, her ideal body weight is 140 pounds. She comes in 263 pounds. Her body mass index is 46.7. She is 123 pounds overweight. HEENT: Denies any active troubles with vision or hearing. ENDOCRINE: Denies diabetes. No hypothyroidism. CARDIOVASCULAR: Past reports of palpitations or heart attacks or chest pain. Has congestive heart failure. RESPIRATORY: Has daytime somnolence. Has COPD. Has sleep apnea. GASTROINTESTINAL: Denies any bright red blood per rectum. No diarrhea. No constipation. MUSCULOSKELETAL: Has lower back pain and joint pain. Has osteoarthritis of the knees. NEURO: No headaches. No seizure disorders. PSYCH: Has depression. No suicidal ideation. Has anxiety. RHEUMATOLOGIC: No lupus. No rheumatoid arthritis. HEMATOLOGIC: Denies any abnormal bleeding or bruising. No personal history of DVTs. SKIN: No rash. No skin cancer. PHYSICAL EXAM: VITAL SIGNS: Height 5 foot 3 inches, weight 263 pounds. BMI 46.7 Vital Signs Temp 98.3 F 05/12/20 16:02 Pulse 117 H 05/12/20 16:02 Resp BP 161/77 05/12/20 16:02 Pulse Ox GENERAL: Well-developed in no acute distress. HEENT: No scleral icterus. Extraocular movements grossly intact. Hears conversational speech. No nasal drainage. NECK: Supple without lymphadenopathy. CHEST: Nonlabored respirations with equal bilateral excursions. CARDIOVASCULAR: Tachycardia. Distal 2+ pulses. ABDOMEN: Obese, soft, nontender, nondistended. MUSCULOSKELETAL: No clubbing, cyanosis. NEURO: No focal or lateralizing signs. Cranial nerves 2 through 12 grossly within normal limits. PSYCH: Appropriate affect. Alert and oriented to person, place and time. SKIN: Good skin turgor. Well perfused. ASSESSMENT: 1. Morbid obesity due to excess calories 2. Body mass index of 46.7, initial 3. Chronic obstructive pulmonary disease 4. Hypertensive heart disease 5. Congestive heart failure 6. Gastroesophaegeal reflux disease 7. Hyperlipidemia 8. Obstructive sleep apnea 9. Hepatitis 10. Migraines 11. Anxiety disorder 12. Depressive disorder 13. ADD/ADHD PLAN: 1. Surgical options including a band, gastric bypass, sleeve gastrectomy were described in detail. Alternatives such as gastric balloon including duodenal switch were described. She is looking into the sleeve gastrectomy. 2. The [place] bariatric surgical collaborative data and outcomes calculator were described with surgical options. 3. Recommend a bariatric metabolic panel to evaluate for micro- including macronutrient deficiencies. 4. For history of daytime somnolence, recommend evaluation and treatment for sleep apnea. 5. Dietary surveillance and counseling was reviewed. Increased protein intake over 65 grams daily advised. 6. Will need cardiac risk assessment. 7. Recommend medical risk assessment. 8. Psych assessment per insurance guidelines. 9. Recommend upper endoscopy. 10. Recommend 12-lead EKG. 11. She is elevated risk for any complications due to pre-existing congestive heart failure. Thank you for this consultation. 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 History of Any Multi-Drug Resistant Organisms: None Reported Past Surgical History: Breast Surgery, Section, Heart Catheterization, Hernia Repair, Hysterectomy, Orthopedic Surgery, Tubal Ligation, Uterine Ablation Additional Past Surgical History / Comment(s): EGD, 3 C sections, breast reduction, cyst removed from left hand, D & C, Bilateral groin hernia repair, LAPAROSCOPY Past Anesthesia/Blood Transfusion Reactions: No Reported Reaction Additional Past Anesthesia/Blood Transfusion Reaction / Comm: CLAUSTERPHOBIA Past Psychological History: ADD/ADHD, Anxiety, Depression Additional Psychological History / Comment(s): CLAUSTERPHOBIA Smoking Status: Never smoker Past Alcohol Use History: None Reported Past Drug Use History: None Reported - Past Family History Mother Family Medical History: Coronary Artery Disease (CAD), Diabetes Mellitus, Renal Disease Additional Family Medical History / Comment(s): [employer] Father Family Medical History: Cancer, Diabetes Mellitus, Myocardial Infarction ([place]) Sister(s) Family Medical History: Cancer Bariatric Checklist Checklist: Plan: Checklist: EGD: 1. Hiatal hernia: 2. H. Pylori: HgbA1c: Vitamin D: Smoking: Never smoker Primary care physician referral: Dr. Medina Psychiatry clearance: Cardiology clearance: Sleep study: Diet journal: VTE risk score: VTE risk level: Rehab needs at discharge:
== END | disposition home or self-care (01) ==
LOC: BARWHC3 15:09
PROVIDERS: ATTEND Surgery Plastic and Reconstructive Surgery
DX: E66.01 Morbid (severe) obesity due to excess calories (principal); J44.9 Chronic obstructive pulmonary disease, unspecified; I11.0 Hypertensive heart disease with heart failure; I50.9 Heart failure, unspecified; K21.9 Gastro-esophageal reflux disease without esophagitis; E78.5 Hyperlipidemia, unspecified; G47.33 Obstructive sleep apnea (adult) (pediatric); F41.9 Anxiety disorder, unspecified; F32.9 Major depressive disorder, single episode, unspecified; K75.9 Inflammatory liver disease, unspecified; F90.9 Attention-deficit hyperactivity disorder, unspecified type; Z68.42 Body mass index [BMI] 45.0-49.9, adult; Z90.710 Acquired absence of both cervix and uterus; Z98.890 Other specified postprocedural states; Z79.82 Long term (current) use of aspirin; Z79.891 Long term (current) use of opiate analgesic; Z79.899 Other long term (current) drug therapy; Z88.0 Allergy status to penicillin; Z88.2 Allergy status to sulfonamides; Z91.041 Radiographic dye allergy status; Z88.5 Allergy status to narcotic agent
CPT/HCPCS: 99211

== ENCOUNTER → 2020-05-24 | Outpatient (CLI) | payer OTHER ==
[2020-05-24 10:45] LABS: HCT 36.3 % (34.0-46.0); HGB 12.7 gm/dL (11.4-16.0); MCH 32.9 pg (25.0-35.0); MCV 93.8 fL (80.0-100.0); Mean Platelet Volume 6.5; Platelet Count 286 k/uL (150-450); RBC 3.87 m/uL (3.80-5.40); RDW 12.3 % (11.5-15.5); WBC 6.7 k/uL (3.8-10.6)
[2020-05-24 15:35] LABS: % Iron Saturation 27.74 (12.00-45.00); African American GFR (CKD) 55.8 (60.0-200.0); Albumin 4.6 g/dL (3.80-4.90); Anion Gap 8.6 mmol/L (4.00-12.00); BUN/Creat Ratio 26.92 Ratio (12.00-20.00); Calcium 9.9 mg/dL (8.7-10.3); Carbon Dioxide 28.4 mmol/L (21.6-31.8); Chol/HDL Ratio 4.27; Globulin 2.3 g/dL (1.6-3.3); LDL Cholesterol,Calculated 41.8 mg/dL (0.0-131.0); Magnesium 2.3 mg/dL (1.5-2.4); Non-African American GFR(CKD) 48.1 (60.0-200.0); Phosphorus 3.7 mg/dL (2.4-5.1); Potassium 4.2 mmol/L (3.5-5.5); Total Bilirubin 0.5 mg/dL (0.3-1.2); Total Protein 6.9 g/dL (6.2-8.2); VLDL Calculation 66.2 mg/dL (5.00-40.00)
[2020-05-24 15:44] LABS: Ferritin 218.5 ng/mL (10.0-291.0)
[2020-05-24 16:00] LABS: Folate, Serum 19.4 ng/mL
[2020-05-24 17:12] LABS: Hemoglobin A1C 5.8 % (4.0-6.0)
[2020-05-24 18:41] LABS: INR 0.97 (0.90-1.11); Prothrombin Time 10.5 sec (9.9-11.9)
[2020-05-25 13:01] LABS: Zinc, Serum 69 ug/dL (60-130)
[2020-05-26 06:46] LABS: Vitamin A 83 ug/dL (38-106)
== END | disposition home or self-care (01) ==
LOC: LABWHC1 08:58
PROVIDERS: ATTEND Surgery Plastic and Reconstructive Surgery
DX: D50.8 Other iron deficiency anemias (principal); E55.9 Vitamin D deficiency, unspecified; E66.01 Morbid (severe) obesity due to excess calories; E89.1 Postprocedural hypoinsulinemia; K74.1 Hepatic sclerosis; K90.89 Other intestinal malabsorption; K50.90 Crohn's disease, unspecified, without complications; N19 Unspecified kidney failure
CPT/HCPCS: 36415; 80053; 80061; 82306; 82525; 82607; 82728; 82746; 83036; 83540; 83550; 83735; 83970; 84100; 84134; 84255; 84425; 84443; 84590; 84630; 85027; 85610; 85730

== ENCOUNTER 2020-06-10 08:34 | Day surgery (SDC) | payer OTHER ==
[2020-06-04 15:59] VITALS: BMI 46.2
--- NOTE | 2020-06-10 06:32 | P.GSHP ---
History of Present Illness H&P Date: 06/10/20 CHIEF COMPLAINT: GERD HISTORY OF PRESENT ILLNESS: The patient is a 49-year-old female who presents reports gastroesophageal reflux disease. Upper endoscopy was offered for further evaluation and management. PAST MEDICAL HISTORY: Please see list. PAST SURGICAL HISTORY: Please see list. MEDICATIONS: Please see list. ALLERGIES: Please see list. SOCIAL HISTORY: No illicit drug use FAMILY HISTORY: No reports of Crohn disease or ulcerative colitis. REVIEW OF ORGAN SYSTEMS: CONSTITUTIONAL: No reports of fevers or chills. GI: Denies any blood in stools or constipation. PHYSICAL EXAM: VITAL SIGNS: Stable GENERAL: Well-developed and pleasant in no acute distress. HEENT: No scleral icterus. Extraocular movements grossly intact. Moist buccal mucosa. NECK: Supple without lymphadenopathy. CHEST: Unlabored respirations. Equal bilateral excursions. CARDIOVASCULAR: Regular rate and rhythm. Distal 2+ pulses. ABDOMEN: Soft, nondistended. MUSCULOSKELETAL: No clubbing, cyanosis, or edema. ASSESSMENT: 1. Gastroesophageal reflux disease PLAN: 1. Recommend proceeding with an upper endoscopy Past Medical History Past Medical History: GERD/Reflux, Hypertension, Liver Disease, Neurologic Disorder, Sleep Apnea/CPAP/BIPAP Additional Past Medical History / Comment(s): back pain, Chronic Hepatitis , MIGRAINES, CPAP - has not been using for some time, BULGING DISCS IN BACK, had mono as a young child turning into chronic hepatitis, neuro disorder in terms of "blackouts" last episode 2008. History of Any Multi-Drug Resistant Organisms: None Reported Past Surgical History: Breast Surgery, Section, Heart Catheterization, Hernia Repair, Hysterectomy, Orthopedic Surgery, Tubal Ligation, Uterine Ablation Additional Past Surgical History / Comment(s): EGD, 3 C sections, breast reduction, cyst removed from left hand, D & C, Bilateral groin hernia repair, LAPAROSCOPY Past Anesthesia/Blood Transfusion Reactions: No Reported Reaction Additional Past Anesthesia/Blood Transfusion Reaction / Comment(s): CLAUSTROPHOBIA Smoking Status: Never smoker - Past Family History Mother Family Medical History: Coronary Artery Disease (CAD), Diabetes Mellitus, Renal Disease Additional Family Medical History / Comment(s): [employer] Father Family Medical History: Cancer, Diabetes Mellitus, Myocardial Infarction ([place]) Sister(s) Family Medical History: Cancer Medications and Allergies Home Medications Medication Instructions Recorded Confirmed Type Fluticasone/Vilanterol [Breo 1 puff INHALATION RT-DAILY PRN 12/20/19 06/04/20 History Ellipta 100-25 Mcg Inhaler] Atorvastatin [Lipitor] 20 mg PO HS #90 tab 12/24/19 06/04/20 Rx Furosemide [Lasix] 20 mg PO BID #180 tab 12/24/19 06/04/20 Rx Losartan [Cozaar] 50 mg PO DAILY #90 tab 12/24/19 06/04/20 Rx Montelukast [Singulair] 10 mg PO DAILY 05/01/20 06/04/20 History Topiramate [Topamax] 25 mg PO BID 05/01/20 06/04/20 History carvediloL [Coreg*] 25 mg PO AC-BID 05/01/20 06/04/20 History Aspirin 81 mg PO DAILY 05/02/20 06/04/20 History Pantoprazole [Protonix] 40 mg PO AC-BID #21 tablet. 05/04/20 06/04/20 Rx Allergies Allergy/AdvReac Type Severity Reaction Status Date / Time Iodinated Contrast Media Allergy Severe Rash/Hives Verified 06/04/20 15:43 [Iodinated Contrast Media - IV Dye] Penicillins Allergy Severe swelling,hi Verified 06/04/20 15:43 ves Sulfa (Sulfonamide Allergy Severe swelling,hi Verified 06/04/20 15:43 Antibiotics) ves adhesive Allergy Swelling Verified 06/04/20 15:43 ibuprofen [From Motrin] AdvReac "PROBLEM Verified 06/04/20 15:43 WITH KIDNEYS"
[2020-06-10 08:54] VITALS: TEMP 97.6
[2020-06-10] MEDS ORDERED: PROPOFOL 10 MG/ML 20 ML VIAL IV ONE (09:15)
[2020-06-10] MEDS ORDERED: ONDANSETRON 4 MG/2 ML VIAL ONE (09:15)
[2020-06-10] MEDS ORDERED: LIDOCAINE 1% INJ 10MG/ML (20 ML MDV) ONE (09:15)
[2020-06-10] MEDS ORDERED: IV FLUID CONTINUATION 800 ML IV ONE (09:32)
--- NOTE | 2020-06-10 09:32 | P.PCN ---
Date of Procedure: 06/10/20 Description of Procedure: PREOPERATIVE DIAGNOSIS: Gastroesophageal reflux disease. Morbid obesity. POSTOPERATIVE DIAGNOSIS: Morbid obesity. Gastritis. Gastroesophageal reflux disease. OPERATION: Esophagogastroduodenoscopy with biopsies along antrum. SURGEON: Krystal Padilla MD ANESTHESIA: MAC. INDICATIONS: The patient is a 49-year-old female who presents with a history of reflux disease. Benefits and risks of the procedure were described. Informed consent was obtained. DESCRIPTION: The patient was brought into the endoscopy suite and laid in the left lateral decubitus position. An Olympus gastroscope was passed along the posterior oropharynx down to the distal esophagus where the squamocolumnar junction was encountered at 40 cm from the incisors. The stomach was entered and no bile reflux was found. Additional findings are listed below. Biopsies with cold forceps were obtained of the antrum. The first through third portion of the duodenum was examined and unremarkable. Retroflexion of the scope confirmed Hill grade 2 lower esophageal valve. The squamocolumnar junction demonstrated LA grade A erosive esophagitis. The stomach was desufflated. The patient tolerated the procedure well. FINDINGS: Squamocolumnar junction 40 cm from the incisors. Diaphragmatic hiatus at 40 cm. Hill grade 4 lower esophageal valve. LA grade A erosive esophagitis. No active duodenitis. Chronic gastritis with recent bleed RECOMMENDATIONS: Upper endoscopy as needed. Plan - Discharge Summary Discharge Rx Participant: No New Discharge Prescriptions: Continue Fluticasone/Vilanterol [Breo Ellipta 100-25 Mcg Inhaler] 1 puff INHALATION RT-DAILY PRN PRN Reason: Shortness Of Breath Losartan [Cozaar] 50 mg PO DAILY #90 tab Furosemide [Lasix] 20 mg PO BID #180 tab Atorvastatin [Lipitor] 20 mg PO HS #90 tab carvediloL [Coreg*] 25 mg PO AC-BID Montelukast [Singulair] 10 mg PO DAILY Topiramate [Topamax] 25 mg PO BID Aspirin 81 mg PO DAILY Pantoprazole [Protonix] 40 mg PO AC-BID #21 tablet.dr Discharge Medication List Fluticasone/Vilanterol [Breo Ellipta 100-25 Mcg Inhaler] 1 puff INHALATION RT- DAILY PRN 12/20/19 [History] Atorvastatin [Lipitor] 20 mg PO HS #90 tab 06/17/20 [Rx] Furosemide [Lasix] 20 mg PO BID #180 tab 12/24/19 [Rx] Losartan [Cozaar] 50 mg PO DAILY #90 tab 12/24/19 [Rx] Montelukast [Singulair] 10 mg PO DAILY 05/01/20 [History] Topiramate [Topamax] 25 mg PO BID 05/01/20 [History] carvediloL [Coreg*] 25 mg PO AC-BID 05/01/20 [History] Aspirin 81 mg PO DAILY 05/02/20 [History] Pantoprazole [Protonix] 40 mg PO AC-BID #21 tablet. 05/04/20 [Rx] [facility]ment[facility] [place] [facility] [place] [facility] Patient Instructions/Handouts: *[facility] - (Anesthesia) Endoscopy Discharge Instructions Discharge Disposition: HOME SELF-CARE
[2020-06-10 09:52] VITALS: BP 108/52; PULSE 101; RESP 18
== END 2020-06-10 10:32 | disposition home or self-care (01) ==
LOC: ORWHC2ENDO 08:34
PROVIDERS: ATTEND Surgery Plastic and Reconstructive Surgery
DX: K21.01 Gastro-esophageal reflux disease with esophagitis, with bleeding (principal); K29.51 Unspecified chronic gastritis with bleeding; E66.01 Morbid (severe) obesity due to excess calories; K73.9 Chronic hepatitis, unspecified; G43.909 Migraine, unspecified, not intractable, without status migrainosus; G47.30 Sleep apnea, unspecified; M51.9 Unspecified thoracic, thoracolumbar and lumbosacral intervertebral disc disorder; F40.240 Claustrophobia; I11.0 Hypertensive heart disease with heart failure; I50.9 Heart failure, unspecified; E78.5 Hyperlipidemia, unspecified; J45.909 Unspecified asthma, uncomplicated; Z68.42 Body mass index [BMI] 45.0-49.9, adult; Z86.19 Personal history of other infectious and parasitic diseases; Z86.69 Personal history of other diseases of the nervous system and sense organs; Z98.890 Other specified postprocedural states; Z87.19 Personal history of other diseases of the digestive system; Z90.710 Acquired absence of both cervix and uterus; Z98.51 Tubal ligation status; Z87.2 Personal history of diseases of the skin and subcutaneous tissue; Z79.51 Long term (current) use of inhaled steroids; Z79.899 Other long term (current) drug therapy; Z79.82 Long term (current) use of aspirin; Z91.041 Radiographic dye allergy status; Z88.0 Allergy status to penicillin; Z88.2 Allergy status to sulfonamides; Z91.09 Other allergy status, other than to drugs and biological substances; Z88.6 Allergy status to analgesic agent; Z97.2 Presence of dental prosthetic device (complete) (partial); Z82.49 Family history of ischemic heart disease and other diseases of the circulatory system; Z83.3 Family history of diabetes mellitus; Z84.1 Family history of disorders of kidney and ureter; Z80.9 Family history of malignant neoplasm, unspecified
CPT/HCPCS: 88305; 43239; J2405; J2001; J2704

== ENCOUNTER → 2020-06-23 | Outpatient (CLI) | payer OTHER ==
[2020-06-23 13:30] VITALS: BP 119/73; PULSE 91; RESP 18; TEMP 98.1; BMI 46.7
--- NOTE | 2020-06-23 13:54 | P.PN ---
Subjective Progress Note Date: 06/23/20 DATE OF SERVICE: 06/23/2020 CHIEF COMPLAINT: Morbid obesity HISTORY OF PRESENT ILLNESS: Jazmine Arshad is a 49-year-old female who comes with lifelong morbid obesity. She is looking into the sleeve gastrectomy. She comes in with multiple medical problems including hypertensive heart disease with heart failure, obstructive sleep apnea including osteoarthritis. She is on vitamin D. She is not on protonix. She is under medical supervised weight loss. She reports taking multiple diets all without improvement. At height of 5 feet 3 inches, her ideal body weight is 140 pounds. She comes in 264 pounds from 263 pounds. She has gained 1 pound in 1 month. Her body mass index is 46.8. She is 124 pounds overweight. PAST MEDICAL HISTORY: 1. Morbid obesity due to excess calories 2. Body mass index of 46.7, initial 3. Chronic obstructive pulmonary disease 4. Hypertensive heart disease 5. Congestive heart failure 6. Gastroesophaegeal reflux disease 7. Hyperlipidemia 8. Obstructive sleep apnea 9. Hepatitis 10. Migraines 11. Anxiety disorder 12. Depressive disorder 13. ADD/ADHD PAST SURGICAL HISTORY: 1. Breast surgery 2. section 3. Heart catheterization 4. Hysterectomy 5. Uterine ablation 6. Tubal ligation 7. Breast reduction 8. Inguinal hernia repair HOME MEDICATIONS: Home Medications Medication Instructions Recorded Confirmed Fluticasone/Vilanterol [Breo 1 puff INHALATION RT-DAILY PRN 12/20/19 06/23/20 Ellipta 100-25 Mcg Inhaler] Montelukast [Singulair] 10 mg PO DAILY 05/01/20 06/23/20 Topiramate [Topamax] 25 mg PO BID 05/01/20 06/23/20 carvediloL [Coreg*] 25 mg PO AC-BID 05/01/20 06/23/20 Aspirin 81 mg PO DAILY 05/02/20 06/23/20 Ergocalciferol [Vitamin D2] 50,000 unit PO Q7D 06/23/20 06/23/20 Previous Rx's Medication Instructions Recorded Atorvastatin [Lipitor] 20 mg PO HS #90 tab 12/24/19 Furosemide [Lasix] 20 mg PO BID #180 tab 12/24/19 Losartan [Cozaar] 50 mg PO DAILY #90 tab 12/24/19 Pantoprazole [Protonix] 40 mg PO AC-BID #21 tablet. 05/04/20 Omeprazole [PriLOSEC] 40 mg PO DAILY #14 cap 06/23/20 ALLERGIES: Allergies Allergy/AdvReac Type Severity Reaction Status Date / Time Iodinated Contrast Media Allergy Severe Rash/Hives Verified 06/23/20 15:13 [Iodinated Contrast Media - IV Dye] Penicillins Allergy Severe swelling,hi Verified 06/23/20 15:13 ves Sulfa (Sulfonamide Allergy Severe swelling,hi Verified 06/23/20 15:13 Antibiotics) ves adhesive Allergy Swelling Verified 06/23/20 15:13 ibuprofen [From Motrin] AdvReac "PROBLEM Verified 06/23/20 15:13 WITH KIDNEYS" SOCIAL HISTORY: No past tobacco use. FAMILY HISTORY: No family history of ulcerative colitis disease or Crohn's disease. Family history of morbid obesity. No lupus in the family. No reports of stomach or esophageal cancer. REVIEW OF ORGAN SYSTEMS: CONSTITUTIONAL: At height of 5 feet 3 inches, her ideal body weight is 140 pounds. She comes in 263 pounds. Her body mass index is 46.7. She is 123 pounds overweight. HEENT: Denies any active troubles with vision or hearing. ENDOCRINE: Denies diabetes. No hypothyroidism. CARDIOVASCULAR: Past reports of palpitations or heart attacks or chest pain. Has congestive heart failure. RESPIRATORY: Has daytime somnolence. Has COPD. Has sleep apnea. GASTROINTESTINAL: Denies any bright red blood per rectum. No diarrhea. No constipation. MUSCULOSKELETAL: Has lower back pain and joint pain. Has osteoarthritis of the knees. NEURO: No headaches. No seizure disorders. PSYCH: Has depression. No suicidal ideation. Has anxiety. RHEUMATOLOGIC: No lupus. No rheumatoid arthritis. HEMATOLOGIC: Denies any abnormal bleeding or bruising. No personal history of DVTs. SKIN: No rash. No skin cancer. PHYSICAL EXAM: VITAL SIGNS: Height 5 foot 3 inches, weight 264 pounds. BMI 46.8 Vital Signs Temp 98.1 F 06/23/20 13:23 Pulse 91 06/23/20 13:23 Resp 18 06/23/20 13:23 BP 119/73 06/23/20 13:23 Pulse Ox GENERAL: Well-developed in no acute distress. HEENT: No scleral icterus. Extraocular movements grossly intact. Hears conversational speech. No nasal drainage. NECK: Supple without lymphadenopathy. CHEST: Nonlabored respirations with equal bilateral excursions. CARDIOVASCULAR: Regular rate, regular rhythm. Distal 2+ pulses. ABDOMEN: Obese, soft, nontender, nondistended. MUSCULOSKELETAL: No clubbing, cyanosis. NEURO: No focal or lateralizing signs. Cranial nerves 2 through 12 grossly within normal limits. PSYCH: Appropriate affect. Alert and oriented to person, place and time. SKIN: Good skin turgor. Well perfused. LABS: Creatinine elevated 1.3, triglycerides elevated 331, Vitamin D low EGD FINDINGS: Squamocolumnar junction 40 cm from the incisors. Diaphragmatic hiatus at 40 cm. Hill grade 4 lower esophageal valve. LA grade A erosive esophagitis. No active duodenitis. Chronic gastritis with recent bleed Final Pathologic Diagnosis GASTRIC ANTRUM, BIOPSY: Mild chronic gastritis. Helicobacter pylori organisms are not identified on routine H+E sections. ASSESSMENT: 1. Morbid obesity due to excess calories 2. Body mass index of 46.7, initial to 46.8 3. Chronic obstructive pulmonary disease 4. Hypertensive heart disease 5. Congestive heart failure 6. Gastroesophaegeal reflux disease 7. Hyperlipidemia 8. Obstructive sleep apnea 9. Hepatitis 10. Migraines 11. Anxiety disorder 12. Depressive disorder 13. ADD/ADHD 14. Vitamin D deficiency 15. Chronic gastritis PLAN: 1. Recommend Protonix for gastritis and gastroesophageal reflux disease. 2. Recommend food and exercise journal with meet with dietitian. Objective - Vital Signs Vital signs: Vital Signs Temp 98.1 F 06/23/20 13:23 Pulse 91 06/23/20 13:23 Resp 18 06/23/20 13:23 BP 119/73 06/23/20 13:23 Pulse Ox Intake & Output 06/22/20 06/23/20 06/23/20 18:59 06:59 18:59 Weight 119.794 kg
== END | disposition home or self-care (01) ==
LOC: BARWHC3 13:07
PROVIDERS: ATTEND Surgery Plastic and Reconstructive Surgery
DX: E66.01 Morbid (severe) obesity due to excess calories (principal); J44.9 Chronic obstructive pulmonary disease, unspecified; I11.0 Hypertensive heart disease with heart failure; K21.9 Gastro-esophageal reflux disease without esophagitis; E78.5 Hyperlipidemia, unspecified; G47.33 Obstructive sleep apnea (adult) (pediatric); G43.909 Migraine, unspecified, not intractable, without status migrainosus; F41.9 Anxiety disorder, unspecified; F90.9 Attention-deficit hyperactivity disorder, unspecified type; F32.9 Major depressive disorder, single episode, unspecified; K75.9 Inflammatory liver disease, unspecified; I50.9 Heart failure, unspecified; E55.9 Vitamin D deficiency, unspecified; K29.50 Unspecified chronic gastritis without bleeding; Z68.42 Body mass index [BMI] 45.0-49.9, adult; Z88.6 Allergy status to analgesic agent; Z88.2 Allergy status to sulfonamides; Z88.0 Allergy status to penicillin; Z91.048 Other nonmedicinal substance allergy status; Z79.899 Other long term (current) drug therapy; Z79.82 Long term (current) use of aspirin; Z90.710 Acquired absence of both cervix and uterus; Z98.890 Other specified postprocedural states
CPT/HCPCS: 99211

== ENCOUNTER → 2020-07-15 | Outpatient (CLI) | payer OTHER ==
[2020-07-15 15:42] VITALS: BMI 47.0
== END | disposition home or self-care (01) ==
LOC: BARWHC3 08:26
PROVIDERS: ATTEND Surgery Plastic and Reconstructive Surgery
DX: Z13.89 Encounter for screening for other disorder (principal); Z71.3 Dietary counseling and surveillance
CPT/HCPCS: 97802

== ENCOUNTER → 2020-08-16 | Outpatient (CLI) | payer OTHER ==
[2020-08-16 14:44] VITALS: BMI 46.5
== END | disposition home or self-care (01) ==
LOC: BARWHC3 09:09
PROVIDERS: ATTEND Surgery Plastic and Reconstructive Surgery
DX: Z71.3 Dietary counseling and surveillance (principal); Z68.42 Body mass index [BMI] 45.0-49.9, adult
CPT/HCPCS: 97804

== ENCOUNTER → 2020-09-01 | Outpatient (CLI) | payer OTHER ==
[2020-09-01 16:37] VITALS: BP 113/70; PULSE 57; RESP 16; TEMP 97.8; BMI 47.1
--- NOTE | 2020-09-01 17:28 | P.PN ---
Subjective Progress Note Date: 09/01/20 DATE OF SERVICE: 09/01/2020 CHIEF COMPLAINT: Morbid obesity HISTORY OF PRESENT ILLNESS: Jazmine Arshad is a 49-year-old female who comes with lifelong morbid obesity. She is looking into the sleeve gastrectomy. She has multiple medical co-morbidities including hypertensive heart disease with heart failure, obstructive sleep apnea, COPD and osteoarthritis. She is completing medical supervised weight loss. She presents for surgical weight loss options. She has seen the bandmill operator for cardiac risk assessment. At height of 5 feet 3 inches, her ideal body weight is 140 pounds. She comes in 264 pounds from 263 pounds. She has gained 1 pound in 1 month. Her body mass index is 46.8. She is 124 pounds overweight. PAST MEDICAL HISTORY: 1. Morbid obesity due to excess calories 2. Body mass index of 46.7, initial 3. Chronic obstructive pulmonary disease 4. Hypertensive heart disease 5. Congestive heart failure 6. Gastroesophaegeal reflux disease 7. Hyperlipidemia 8. Obstructive sleep apnea 9. Hepatitis 10. Migraines 11. Anxiety disorder 12. Depressive disorder 13. ADD/ADHD PAST SURGICAL HISTORY: 1. Breast surgery 2. section 3. Heart catheterization 4. Hysterectomy 5. Uterine ablation 6. Tubal ligation 7. Breast reduction 8. Inguinal hernia repair 9. Cholecystectomy HOME MEDICATIONS: Home Medications Medication Instructions Recorded Confirmed Fluticasone/Vilanterol [Breo 1 puff INHALATION RT-DAILY PRN 12/20/19 09/01/20 Ellipta 100-25 Mcg Inhaler] Montelukast [Singulair] 10 mg PO DAILY 05/01/20 09/01/20 Topiramate [Topamax] 50 mg PO BID 05/01/20 09/01/20 carvediloL [Coreg*] 25 mg PO AC-BID 05/01/20 09/01/20 Aspirin 81 mg PO DAILY 05/02/20 09/01/20 Ergocalciferol [Vitamin D2] 50,000 unit PO Q7D 06/23/20 09/01/20 Previous Rx's Medication Instructions Recorded Atorvastatin [Lipitor] 20 mg PO HS #90 tab 12/24/19 Furosemide [Lasix] 20 mg PO BID #180 tab 12/24/19 Losartan [Cozaar] 50 mg PO DAILY #90 tab 12/24/19 Pantoprazole [Protonix] 40 mg PO AC-BID #21 tablet. 05/04/20 Omeprazole [PriLOSEC] 40 mg PO DAILY #14 cap 06/23/20 ALLERGIES: Allergies Allergy/AdvReac Type Severity Reaction Status Date / Time Iodinated Contrast Media Allergy Severe Rash/Hives Verified 09/01/20 16:39 [Iodinated Contrast Media - IV Dye] Penicillins Allergy Severe swelling,hi Verified 09/01/20 16:39 ves Sulfa (Sulfonamide Allergy Severe swelling,hi Verified 09/01/20 16:39 Antibiotics) ves adhesive Allergy Swelling Verified 09/01/20 16:39 ibuprofen [From Motrin] AdvReac "PROBLEM Verified 09/01/20 16:39 WITH KIDNEYS" SOCIAL HISTORY: No past tobacco use. FAMILY HISTORY: No family history of ulcerative colitis disease or Crohn's disease. Family history of morbid obesity. No lupus in the family. No reports of stomach or esophageal cancer. REVIEW OF ORGAN SYSTEMS: CONSTITUTIONAL: At height of 5 feet 3 inches, her ideal body weight is 140 pounds. She comes in 265 pounds. Her body mass index is 47.1. She is 125 pounds overweight. HEENT: Denies any active troubles with vision or hearing. ENDOCRINE: Denies diabetes. No hypothyroidism. CARDIOVASCULAR: Past reports of palpitations or heart attacks or chest pain. Has congestive heart failure. RESPIRATORY: Has daytime somnolence. Has COPD. Has sleep apnea. GASTROINTESTINAL: Denies any bright red blood per rectum. No diarrhea. No constipation. Has gastroesophageal reflux disease. MUSCULOSKELETAL: Has lower back pain and joint pain. Has osteoarthritis of the knees. NEURO: No headaches. Has seizure disorders. PSYCH: Has depression. No suicidal ideation. Has anxiety. RHEUMATOLOGIC: No lupus. No rheumatoid arthritis. HEMATOLOGIC: Denies any abnormal bleeding or bruising. No personal history of DVTs. SKIN: No rash. No skin cancer. PHYSICAL EXAM: VITAL SIGNS: Height 5 foot 3 inches, weight 265 pounds. BMI 47.1 Vital Signs Temp 97.8 F 09/01/20 16:34 Pulse 57 L 09/01/20 16:34 Resp 16 09/01/20 16:34 BP 113/70 09/01/20 16:34 Pulse Ox GENERAL: Well-developed in no acute distress. HEENT: No scleral icterus. Extraocular movements grossly intact. Hears conversational speech. No nasal drainage. NECK: Supple without lymphadenopathy. CHEST: Nonlabored respirations with equal bilateral excursions. CARDIOVASCULAR: Regular rate, regular rhythm. Distal 2+ pulses. ABDOMEN: Obese, soft, nontender, nondistended. MUSCULOSKELETAL: No clubbing, cyanosis. NEURO: No focal or lateralizing signs. Cranial nerves 2 through 12 grossly within normal limits. PSYCH: Appropriate affect. Alert and oriented to person, place and time. SKIN: Good skin turgor. Well perfused. LABS: Urine nicotine confirms more than 2 weeks tobacco abstinence and/or second hand tobacco exposure ASSESSMENT: 1. Morbid obesity due to excess calories 2. Body mass index of 46.7, initial to 46.8 3. Chronic obstructive pulmonary disease 4. Hypertensive heart disease 5. Congestive heart failure 6. Gastroesophaegeal reflux disease 7. Hyperlipidemia 8. Obstructive sleep apnea 9. Hepatitis 10. Migraines 11. Anxiety disorder 12. Depressive disorder 13. ADD/ADHD 14. Vitamin D deficiency 15. Chronic gastritis PLAN: 1. Bariatric options between a sleeve, band and a Astrid-en-Y gastric bypass were reviewed in detail. The patient elected for a sleeve gastrectomy. Robotic assisted approach described. 2. The [place] [facility] Data was also reviewed with benefits and risks as described. 3. An 8 page second-generation bariatric consent form was reviewed in detail including potential of bleeding, infection, leaks, adequate weight loss, nutritional deficiencies which the patient demonstrated understanding of the risks. 4. A 2 week high-protein low caloric 800 kcal diet described to address hepatomegaly. 5. Preoperative labs including complete metabolic panel and CBC with type and screen recommended. 6. DVT prophylaxis per [place] [facility]. 7. Antibiotic prophylaxis. 8. Inpatient hospitalization anticipated for more than 2 nights. 9. All questions and concerns were addressed with the patient. 10. Continue medical supervised weight loss. 11. Recommend upper endoscopy for gastroesophageal reflux disease. 12. She is elevated risk for COPD including sleep apnea and co-morbidities Objective - Vital Signs Vital signs: Vital Signs Temp 97.8 F 09/01/20 16:34 Pulse 57 L 09/01/20 16:34 Resp 16 09/01/20 16:34 BP 113/70 09/01/20 16:34 Pulse Ox Intake & Output 08/31/20 09/01/20 09/01/20 18:59 06:59 18:59 Weight 120.656 kg
== END | disposition home or self-care (01) ==
LOC: BARWHC3 15:40
PROVIDERS: ATTEND Surgery Plastic and Reconstructive Surgery
DX: E66.01 Morbid (severe) obesity due to excess calories (principal); J44.9 Chronic obstructive pulmonary disease, unspecified; I50.9 Heart failure, unspecified; F32.9 Major depressive disorder, single episode, unspecified; G47.33 Obstructive sleep apnea (adult) (pediatric); K21.9 Gastro-esophageal reflux disease without esophagitis; E78.5 Hyperlipidemia, unspecified; E55.9 Vitamin D deficiency, unspecified; G43.909 Migraine, unspecified, not intractable, without status migrainosus; K29.50 Unspecified chronic gastritis without bleeding; K75.9 Inflammatory liver disease, unspecified; Z68.42 Body mass index [BMI] 45.0-49.9, adult; I11.0 Hypertensive heart disease with heart failure; F90.9 Attention-deficit hyperactivity disorder, unspecified type; M19.90 Unspecified osteoarthritis, unspecified site; F41.9 Anxiety disorder, unspecified
CPT/HCPCS: 99211

== ENCOUNTER 2021-03-11 16:14 | Emergency (ER) | payer BC, OTHER ==
[2021-03-11 17:42] VITALS: TEMP 98.1
[2021-03-11 19:12] VITALS: BP 178/95; PULSE 81; RESP 20
[2021-03-11] MEDS ORDERED: KETOROLAC 15 MG/ML 1 ML VIAL IM STA (19:17)
[2021-03-11] MEDS ORDERED: DIAZEPAM 5 MG/ML 2 ML INJ IM ONE (19:17)
[2021-03-11] MEDS ORDERED: MORPHINE SULFATE 4 MG/ML SYRINGE IM STA (19:17)
[2021-03-11 19:18] LABS: Appearance,Urine Clear (Clear); Bilirubin,Urine Negative (Negative); Blood,Urine Negative (Negative); Color,Urine Light Yellow; Glucose,Urine (UA) Negative (Negative); Ketones,Urine Negative (Negative); Leukocyte Esterase,Urine Small (Negative); Nitrite,Urine Negative (Negative); PH, Urine 5.5 (5.0-8.0); Protein,Urine Negative (Negative); Specific Gravity,Urine 1.009 (1.001-1.035); Squamous Epithelial Cell,Urine <1 /hpf (0-4); Urobilinogen,Urine <2.0 mg/dL (<2.0); WBC,Urine 2 /hpf (0-5)
--- NOTE | 2021-03-11 19:20 | ED ---
Back Pain HPI - General Chief Complaint: Back Pain/Injury Stated Complaint: Back Pain Time Seen by Provider: 03/11/21 19:05 Source: patient Limitations: no limitations - History of Present Illness Initial Comments: 50 year-old female patient presents to the emergency department for evaluation of left low back pain. Patient states it started about a week ago. States the pain is sharp and stabbing. States that the pain worsens significantly with change in position and movement. Reports mild pain to the left lower abdomen. Denies any fever or chills. Denies nausea, vomiting, or diarrhea. Denies hematochezia or melena. States she has had some dysuria. Denies any hematuria. Denies any known injury. She denies any saddle anesthesia or loss of bowel or bladder control. Denies any numbness, tingling, or weakness to the legs. Denies any radiating pain down the legs. States she was doing a new job at work today that made symptoms worse. States she has been taking Tylenol and ibuprofen. Patient denies any recent rash, cough, shortness of breath, chest pain, nausea, vomiting, diarrhea, constipation, dizziness, headache, visual changes, or any other complaints. - Related Data Home Medications Medication Instructions Recorded Confirmed Fluticasone/Vilanterol [Breo 1 puff INHALATION RT-DAILY PRN 12/20/19 09/01/20 Ellipta 100-25 Mcg Inhaler] Montelukast [Singulair] 10 mg PO DAILY 05/01/20 09/01/20 Topiramate [Topamax] 50 mg PO BID 05/01/20 09/01/20 carvediloL [Coreg*] 25 mg PO AC-BID 05/01/20 09/01/20 Aspirin 81 mg PO DAILY 05/02/20 09/01/20 Ergocalciferol [Vitamin D2] 50,000 unit PO Q7D 06/23/20 09/01/20 Previous Rx's Medication Instructions Recorded Atorvastatin [Lipitor] 20 mg PO HS #90 tab 12/24/19 Furosemide [Lasix] 20 mg PO BID #180 tab 12/24/19 Losartan [Cozaar] 50 mg PO DAILY #90 tab 12/24/19 Pantoprazole [Protonix] 40 mg PO AC-BID #21 tablet. 05/04/20 Omeprazole [PriLOSEC] 40 mg PO DAILY #14 cap 06/23/20 Acetaminophen-Codeine 300-30mg 1 tab PO Q6H PRN #12 tablet 03/11/21 [Tylenol #3] Cyclobenzaprine [Flexeril] 10 mg PO TID #15 tab 03/11/21 Allergies Allergy/AdvReac Type Severity Reaction Status Date / Time Iodinated Contrast Media Allergy Severe Rash/Hives Verified 03/11/21 17:42 [Iodinated Contrast Media - IV Dye] Penicillins Allergy Severe swelling,hi Verified 03/11/21 17:42 ves Sulfa (Sulfonamide Allergy Severe swelling,hi Verified 03/11/21 17:42 Antibiotics) ves adhesive Allergy Swelling Verified 03/11/21 17:42 ibuprofen [From Motrin] AdvReac "PROBLEM Verified 03/11/21 17:42 WITH KIDNEYS" Review of Systems ROS Statement: Those systems with pertinent positive or pertinent negative responses have been documented in the HPI. ROS Other: All systems not noted in ROS Statement are negative. 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 History of Any Multi-Drug Resistant Organisms: None Reported Past Surgical History: Breast Surgery, Section, Heart Catheterization, Hernia Repair, Hysterectomy, Orthopedic Surgery, Tubal Ligation, Uterine Ablation Additional Past Surgical History / Comment(s): EGD, 3 C sections, breast reduction, cyst removed from left hand, D & C, Bilateral groin hernia repair, LAPAROSCOPY Past Anesthesia/Blood Transfusion Reactions: No Reported Reaction Additional Past Anesthesia/Blood Transfusion Reaction / Comment(s): CLAUSTERPHOBIA Past Psychological History: ADD/ADHD, Anxiety, Depression Smoking Status: Never smoker Past Alcohol Use History: None Reported Past Drug Use History: None Reported - Past Family History Mother Family Medical History: Coronary Artery Disease (CAD), Diabetes Mellitus, Renal Disease Additional Family Medical History / Comment(s): [employer] Father Family Medical History: Cancer, Diabetes Mellitus, Myocardial Infarction ([place]) Sister(s) Family Medical History: Cancer General Exam Limitations: no limitations General appearance: alert, in no apparent distress, other (This is a well- developed, well-nourished adult female patient in no acute distress. Vital signs upon presentation are temperature 98.1F, pulse 87, respirations 16, blood pressure 187/98, pulse ox 98% on room air.) ENT exam: Present: normal exam, normal oropharynx, mucous membranes moist Respiratory exam: Present: normal lung sounds bilaterally. Absent: respiratory distress, wheezes, rales, rhonchi, stridor Cardiovascular Exam: Present: regular rate, normal rhythm, normal heart sounds. Absent: systolic murmur, diastolic murmur, rubs, gallop, clicks GI/Abdominal exam: Present: soft, normal bowel sounds. Absent: distended, tenderness, guarding, rebound, rigid Extremities exam: Present: normal inspection, full ROM, normal capillary refill, other (Skin to the lower extremities is pink, warm, dry. Cap refill less than 3 seconds. Pedal and posttibial pulses 2+.). Absent: tenderness, pedal edema, joint swelling, calf tenderness Back exam: Present: normal inspection. Absent: vertebral tenderness Neurological exam: Present: alert, oriented X3, CN II-XII intact, other (Strength to the lower extremities is 5/5.) Psychiatric exam: Present: normal affect, normal mood Skin exam: Present: warm, dry, intact, normal color. Absent: rash Course Vital Signs 03/11/21 03/11/21 17:40 19:08 Temperature 98.1 F Pulse Rate 87 81 Respiratory 16 20 Rate Blood Pressure 187/98 178/95 O2 Sat by Pulse 98 97 Oximetry Medical Decision Making - Medical Decision Making 58-year-old female patient presents to the emergency department today for evaluation of left low back pain worsening significantly with position changes. States he feels a spasming type pain. She has no radicular symptoms. No concerning symptoms or cauda equina. She is afebrile. Urinalysis shows no sign of infection. Patient symptoms are consistent with mechanical low back pain with possible muscle spasm. She'll be treated with IM doses of Toradol, Valium, morphine. She is given prescription for Tylenol with Codeine and Flexeril. She is instructed to follow up with her primary care physician for recheck in 1-2 days. She is urged discuss referral to orthopedics if her symptoms are not improved. Return parameters were discussed in detail. She verbalizes understanding and agrees with this plan. My attending is Dr. Araiza. - Lab Data Lab Results 03/11/21 Range/Units 19:07 Urine Color Light Yellow Urine Appearance Clear (Clear) Urine pH 5.5 (5.0-8.0) Ur Specific [place] 1.009 (1.001-1.035) Urine Protein Negative (Negative) Urine Glucose (UA) Negative (Negative) Urine Ketones Negative (Negative) Urine Blood Negative (Negative) Urine Nitrite Negative (Negative) Urine Bilirubin Negative (Negative) Urine Urobilinogen <2.0 (<2.0) mg/dL Ur Leukocyte Esterase Small H (Negative) Urine WBC 2 (0-5) /hpf Ur Squamous Epith Cells <1 (0-4) /hpf Disposition Clinical Impression: Low back pain, Muscle spasm Disposition: HOME SELF-CARE Condition: Good Instructions (If sedation given, give patient instructions): Acute Low Back Pain (ED), Muscle Spasm (ED) Additional Instructions: Avoid prolonged sitting or standing. Take medications as directed. Follow up with the primary care physician for recheck in 1-2 days. If symptoms are not improved, discuss referral to orthopedics. Return to the emergency department for any new, worsening, or concerning symptoms. Prescriptions: Cyclobenzaprine [Flexeril] 10 mg PO TID #15 tab Acetaminophen-Codeine 300-30mg [Tylenol #3] 1 tab PO Q6H PRN #12 tablet PRN Reason: Pain Is patient prescribed a controlled substance at d/c from ED?: No Referrals: Apoorva Tuttle MD [Primary Care Provider] - 1-2 days Time of Disposition: 19:20
== END 2021-03-11 19:40 | disposition home or self-care (01) ==
LOC: EC 16:14
DX: M54.5 Low back pain (principal); M62.830 Muscle spasm of back; I10 Essential (primary) hypertension; G43.909 Migraine, unspecified, not intractable, without status migrainosus; Z88.0 Allergy status to penicillin; Z88.2 Allergy status to sulfonamides; Z91.09 Other allergy status, other than to drugs and biological substances; Z91.041 Radiographic dye allergy status; Z88.6 Allergy status to analgesic agent; Z79.899 Other long term (current) drug therapy; Z79.82 Long term (current) use of aspirin
CPT/HCPCS: 81001; 99283; 96372; J2270; J3360; J1885

== ENCOUNTER 2022-05-05 16:52 | Emergency (ER) | payer BC ==
[2022-05-05] MEDS ORDERED: SODIUM CHLORIDE 0.9% 1,000 ML IV STA (20:58)
[2022-05-05] MEDS ORDERED: methylPREDNISolone SOD SUCCI 125 MG/2 ML VIAL IM STA (20:58)
[2022-05-05] MEDS ORDERED: ORPHENADRINE 30 MG/ML 2 ML VIAL IM STA (20:59)
[2022-05-05] MEDS ORDERED: MORPHINE SULFATE 4 MG/ML SYRINGE IVP STA (21:00)
[2022-05-05] MEDS ORDERED: methylPREDNISolone SOD SUCCI 125 MG/2 ML VIAL IV STA (21:24)
[2022-05-05 21:28] LABS: Basophils # (A) 0.1 k/uL (0-0.2); Basophils % (A) 1 %; Eosinophils # (A) 0.3 k/uL (0-0.7); Eosinophils % (A) 4 %; HGB 13.8 gm/dL (11.4-16.0); Lymphocytes # (A) 3.3 k/uL (1.0-4.8); Lymphocytes % (A) 53 %; MCH 33.2 pg (25.0-35.0); MCHC 36.2 g/dL (31.0-37.0); MCV 91.9 fL (80.0-100.0); Mean Platelet Volume 7.2; Monocytes # (A) 0.3 k/uL (0-1.0); Monocytes % (A) 4 %; Neutrophils # (A) 2.3 k/uL (1.3-7.7); Neutrophils % (A) 36 %; Platelet Count 271 k/uL (150-450); RBC 4.14 m/uL (3.80-5.40); RDW 13.1 % (11.5-15.5); WBC 6.3 k/uL (3.8-10.6)
[2022-05-05 21:33] LABS: Appearance,Urine Cloudy (Clear); Bacteria,Urine Rare /hpf; Bilirubin,Urine Negative (Negative); Blood,Urine Negative (Negative); Color,Urine Light Yellow; Glucose,Urine (UA) Negative (Negative); Ketones,Urine Negative (Negative); Leukocyte Esterase,Urine Large (Negative); Mucus,Urine Rare /hpf; Nitrite,Urine Negative (Negative); Protein,Urine Negative (Negative); RBC,Urine 6 /hpf (0-5); Specific Gravity,Urine 1.016 (1.001-1.035); Squamous Epithelial Cell,Urine 14 /hpf (0-4); Urobilinogen,Urine <2.0 mg/dL (<2.0); WBC,Urine 44 /hpf (0-5)
[2022-05-05 21:38] LABS: ALT 32 U/L (4-34); AST 31 U/L (14-36); African American GFR (CKD) >90 (>60 ml/min/1.73 sqM); Albumin 3.9 g/dL (3.5-5.0); Alkaline Phosphatase 116 U/L (38-126); Anion Gap 11 mmol/L; Blood Urea Nitrogen 12 mg/dL (7-17); Calcium 8.8 mg/dL (8.4-10.2); Carbon Dioxide 22 mmol/L (22-30); Chloride 109 mmol/L (98-107); Glucose 97 mg/dL (74-99); Lipase 59 U/L (23-300); Non-African American GFR(CKD) 89 (>60 ml/min/1.73 sqM); Sodium 142 mmol/L (137-145); Total Bilirubin 0.7 mg/dL (0.2-1.3); Total Protein 6.9 g/dL (6.3-8.2)
--- NOTE | 2022-05-05 22:28 | CT ---
EXAMINATION TYPE: CT abdomen pelvis wo con DATE OF EXAM: 05/05/2022 COMPARISON: 05/01/2020 HISTORY: right flank pain CT DLP: 1841.4 mGycm Automated exposure control for dose reduction was used. Images obtained from the diaphragm to the floor the pelvis with no contrast. The lung bases show minimal subsegmental atelectasis in the right lower lobe. Heart size is fairly no rmal. No pericardial effusion. No pleural effusion. Liver spleen and stomach pancreas appear intact. The bile ducts are not dilated. Gallbladder appears absent. There is no adrenal mass. Kidneys show normal size and contour. No hydronephrosis. Ureters are not di lated. No retroperitoneal adenopathy. Bladder distends smoothly. No free fluid in the pelvis. No pelv ic mass. There is a 3 cm fat-containing umbilical hernia. No inguinal hernia. Appendix is adjacent to the liver and appears normal. There is no mesenteric edema. No ascites or paul e air. No sign of a bowel obstruction. The lumbar vertebrae have normal alignment. No compression fra cture. There is posterior calcified disc herniation at L1-L2. There is some narrowing of the spinal c anal. The bony pelvis is intact. The hip joints are intact. There is hypertrophic bilateral acetabula r spurring. IMPRESSION: No evidence of renal stone or obstruction. Normal appendix. No adverse change compared to the old exa m. Nonacute abdomen.
[2022-05-05] MEDS ORDERED: ACET/COD 300 MG/30 MG STARTER PACK 6 TAB BTL PO STA (22:36)
--- NOTE | 2022-05-05 22:38 | ED ---
Back Pain [facility] - General Chief Complaint: Back Pain/Injury Stated Complaint: right side back pain Time Seen by Provider: 05/05/22 20:45 Source: patient Limitations: no limitations - History of Present Illness Initial Comments: Patient is a 51-year-old female who presents to the emergency department with a chief complaint of back pain. Patient states she has had back pain in her lower right back for the past month which waxes and wanes in severity. Patient is radiation to the front of the upper right thigh. She denies injury. Pain worse with movement of the torso. Denies numbness and tingling in the legs, groin, buttock region. Denies leg weakness. Denies loss of bowel or bladder function. Patient states her primary care provider thought pain may be due to urinary tract infection. Patient recently finished Keflex prescription with little change in pain. She denies burning with urination, increased urinary frequency, increased urinary urgency and blood in the urine. Denies history of kidney stones and infection. - Related Data Home Medications Medication Instructions Recorded Confirmed Fluticasone/Vilanterol [Breo 1 puff INHALATION RT-DAILY PRN 12/20/19 09/01/20 Ellipta 100-25 Mcg Inhaler] Montelukast [Singulair] 10 mg PO DAILY 05/01/20 09/01/20 Topiramate [Topamax] 50 mg PO BID 05/01/20 09/01/20 carvediloL [Coreg*] 25 mg PO AC-BID 05/01/20 09/01/20 Aspirin 81 mg PO DAILY 05/02/20 09/01/20 Ergocalciferol [Vitamin D2] 50,000 unit PO Q7D 06/23/20 09/01/20 Previous Rx's Medication Instructions Recorded Atorvastatin [Lipitor] 20 mg PO HS #90 tab 12/24/19 Furosemide [Lasix] 20 mg PO BID #180 tab 12/24/19 Losartan [Cozaar] 50 mg PO DAILY #90 tab 12/24/19 Pantoprazole [Protonix] 40 mg PO AC-BID #21 tablet. 05/04/20 Omeprazole [PriLOSEC] 40 mg PO DAILY #14 cap 06/23/20 Acetaminophen-Codeine 300-30mg 1 tab PO Q6H PRN #12 tablet 03/11/21 [Tylenol #3] Cyclobenzaprine [Flexeril] 10 mg PO TID #15 tab 03/11/21 Cyclobenzaprine [Flexeril] 10 mg PO HS PRN #7 tab 05/05/22 predniSONE 50 mg PO DAILY #5 tab 05/05/22 Allergies Allergy/AdvReac Type Severity Reaction Status Date / Time Iodinated Contrast Media Allergy Severe Rash/Hives Verified 05/05/22 17:42 [Iodinated Contrast Media - IV Dye] Penicillins Allergy Severe swelling,hi Verified 05/05/22 17:42 ves Sulfa (Sulfonamide Allergy Severe swelling,hi Verified 05/05/22 17:42 Antibiotics) ves adhesive Allergy Swelling Verified 05/05/22 17:42 ibuprofen [From Motrin] AdvReac "PROBLEM Verified 05/05/22 17:42 WITH KIDNEYS" Review of Systems ROS Statement: Those systems with pertinent positive or pertinent negative responses have been documented in the HPI. ROS Other: All systems not noted in ROS Statement are negative. 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 History of Any Multi-Drug Resistant Organisms: None Reported Past Surgical History: Breast Surgery, Section, Heart Catheterization, Hernia Repair, Hysterectomy, Orthopedic Surgery, Tubal Ligation, Uterine Abla tion Additional Past Surgical History / Comment(s): EGD, 3 C sections, breast reduction, cyst removed from left hand, D & C, Bilateral groin hernia repair, LAPAROSCOPY Past Anesthesia/Blood Transfusion Reactions: No Reported Reaction Additional Past Anesthesia/Blood Transfusion Reaction / Comment(s): CLAUSTERPHOBIA Past Psychological History: ADD/ADHD, Anxiety, Depression Smoking Status: Never smoker Past Alcohol Use History: None Reported Past Drug Use History: None Reported - Past Family History Mother Family Medical History: Coronary Artery Disease (CAD), Diabetes Mellitus, Renal Disease Additional Family Medical History / Comment(s): [employer] Father Family Medical History: Cancer, Diabetes Mellitus, Myocardial Infarction ([place]) Sister(s) Family Medical History: Cancer General Exam Limitations: no limitations General appearance: alert, in no apparent distress Head exam: Present: atraumatic, normocephalic, normal inspection Respiratory exam: Present: normal lung sounds bilaterally. Absent: respiratory distress, wheezes, rales, rhonchi, stridor Cardiovascular Exam: Present: regular rate, normal rhythm, normal heart sounds. Absent: systolic murmur, diastolic murmur, rubs, gallop, clicks GI/Abdominal exam: Present: soft, normal bowel sounds. Absent: distended, tenderness, guarding, rebound, rigid Back exam: Present: normal inspection, full ROM, CVA tenderness (R), paraspinal tenderness (right lumbar). Absent: vertebral tenderness Neurological exam: Present: alert, oriented X3, CN II-XII intact Psychiatric exam: Present: normal affect, normal mood Skin exam: Present: warm, dry, intact, normal color. Absent: rash Course Vital Signs 05/05/22 05/05/22 17:40 22:57 Temperature 97.9 F 98.5 F Pulse Rate 80 75 Respiratory 16 17 Rate Blood Pressure 179/82 193/97 O2 Sat by Pulse 99 95 Oximetry Medical Decision Making - Medical Decision Making This is 51-year-old presenting with back pain. Patient well-appearing and in no apparent distress. Afebrile. I suspect musculoskeletal pain versus kidney stone. Laboratory studies obtained. There is no leukocytosis. There is good kidney function. There are 44 wbc's and 6 rbc's in the urine along with little bacteria however patient denies all urinary symptoms. CT of the abdomen and pelvis without contrast was obtained and interpreted by me which shows no evidence of renal stone or obstruction. Normal appendix, no other change compared to old exam. Nonacute abdomen. Pain controlled. Results discussed with patient. With testing today I do feel that pain is musculoskeletal in nature. of Will send patient home with medication for MSK pain with mild radiculopathy. She is to follow-up with her primary care provider. Dr. Schaefer is my attending. - Lab Data Result diagrams: 05/05/22 21:20 05/05/22 21:20 Lab Results 05/05/22 05/05/22 05/05/22 Range/Units 17:44 21:20 21:20 WBC 6.3 (3.8-10.6) k/uL RBC 4.14 (3.80-5.40) m/uL Hgb 13.8 (11.4-16.0) gm/dL Hct 38.0 (34.0-46.0) % MCV 91.9 (80.0-100.0) fL MCH 33.2 (25.0-35.0) pg MCHC 36.2 (31.0-37.0) g/dL RDW 13.1 (11.5-15.5) % Plt Count 271 (150-450) k/uL MPV 7.2 Neutrophils % 36 % Lymphocytes % 53 % Monocytes % 4 % Eosinophils % 4 % Basophils % 1 % Neutrophils # 2.3 (1.3-7.7) k/uL Lymphocytes # 3.3 (1.0-4.8) k/uL Monocytes # 0.3 (0-1.0) k/uL Eosinophils # 0.3 (0-0.7) k/uL Basophils # 0.1 (0-0.2) k/uL Sodium 142 (137-145) mmol/L Potassium 4.0 (3.5-5.1) mmol/L Chloride 109 H (98-107) mmol/L Carbon Dioxide 22 (22-30) mmol/L Anion Gap 11 mmol/L BUN 12 (7-17) mg/dL Creatinine 0.78 (0.52-1.04) mg/dL Est GFR (CKD-EPI)AfAm >90 (>60 ml/min/1.73 sqM) Est GFR (CKD-EPI)NonAf 89 (>60 ml/min/1.73 sqM) Glucose 97 (74-99) mg/dL Calcium 8.8 (8.4-10.2) mg/dL Total Bilirubin 0.7 (0.2-1.3) mg/dL AST 31 (14-36) U/L ALT 32 (4-34) U/L Alkaline Phosphatase 116 (38-126) U/L Total Protein 6.9 (6.3-8.2) g/dL Albumin 3.9 (3.5-5.0) g/dL Lipase 59 (23-300) U/L Urine Color Light Yellow Urine Appearance Cloudy H (Clear) Urine pH 6.0 (5.0-8.0) Ur Specific [place] 1.016 (1.001-1.035) Urine Protein Negative (Negative) Urine Glucose (UA) Negative (Negative) Urine Ketones Negative (Negative) Urine Blood Negative (Negative) Urine Nitrite Negative (Negative) Urine Bilirubin Negative (Negative) Urine Urobilinogen <2.0 (<2.0) mg/dL Ur Leukocyte Esterase Large H (Negative) Urine RBC 6 H (0-5) /hpf Urine WBC 44 H (0-5) /hpf Ur Squamous Epith Cells 14 H (0-4) /hpf Urine Bacteria Rare H (None) /hpf Urine Mucus Rare H (None) /hpf Disposition Clinical Impression: Mechanical back pain Disposition: HOME SELF-CARE Condition: Good Instructions (If sedation given, give patient instructions): Acute Low Back Pain (ED) Additional Instructions: Take medication as directed. Do not drink alcohol or operate machinery while taking Flexeril as it can make you sleepy. Follow-up with primary care provider in one to 2 days. Return to the emergency department if you experience new, concerning, or worsening symptoms Prescriptions: Cyclobenzaprine [Flexeril] 10 mg PO HS PRN #7 tab PRN Reason: Muscle Spasm predniSONE 50 mg PO DAILY #5 tab Is patient prescribed a controlled substance at d/c from ED?: No Referrals: Apoorva Tuttle MD [Primary Care Provider] - 1-2 days Time of Disposition: 22:38
[2022-05-05 22:57] VITALS: BP 193/97; PULSE 75; RESP 17; TEMP 98.5
== END 2022-05-05 23:00 | disposition home or self-care (01) ==
LOC: EC 16:52
DX: M54.50 Low back pain, unspecified (principal); Z91.041 Radiographic dye allergy status; Z88.0 Allergy status to penicillin; Z88.2 Allergy status to sulfonamides; Z88.6 Allergy status to analgesic agent; Z79.82 Long term (current) use of aspirin; Z79.899 Other long term (current) drug therapy
CPT/HCPCS: 36415; 80053; 83690; 85025; 81001; 87086; 74176; 99284; 96374; 96375; 96372; 96361; J2270; J2360; J2930

== ENCOUNTER → 2022-06-05 | Outpatient (CLI) | payer BC ==
--- NOTE | 2022-06-05 13:34 | XR ---
EXAMINATION TYPE: XR chest 2V DATE OF EXAM: 06/05/2022 COMPARISON: 12/22/2019 INDICATION: Unspecified abnormalities of breathing TECHNIQUE: Frontal and lateral views of the chest are obtained. FINDINGS: The heart size is normal. The pulmonary vasculature is somewhat prominent. The lungs are clear. Increased lung markings are present diffusely IMPRESSION: 1. There may be some mild volume overload. Follow-up can be performed as clinically indicated.
[2022-06-06 00:45] LABS: Anion Gap 10.3 mmol/L (10.00-18.00); Blood Urea Nitrogen 8.4 mg/dL (9.0-27.0); Carbon Dioxide 23.2 mmol/L (20.0-27.5); Non-African American GFR(CKD) 74.2 (60.0-200.0)
[2022-06-06 01:35] LABS: Cyclic Citrull Pep IgG Unit <0.5 U/mL; Cyclic Citrullinated Pep IgG NEGATIVE (NEGATIVE)
== END | disposition home or self-care (01) ==
LOC: RADXRMAIN 13:04
PROVIDERS: ATTEND Internal Medicine
DX: R06.9 Unspecified abnormalities of breathing (principal); M79.18 Myalgia, other site; I10 Essential (primary) hypertension
CPT/HCPCS: 71046; 80051; 82565; 83036; 84520; 85652; 86200; 86431

== ENCOUNTER 2022-07-02 17:58 | Emergency (ER) | payer BC ==
[2022-07-02 18:19] VITALS: TEMP 98.3
--- NOTE | 2022-07-02 18:42 | ED ---
General Adult HPI - General Chief complaint: Upper Respiratory Infection Stated complaint: URI,SOB Time Seen by Provider: 07/02/22 18:31 Source: patient Mode of arrival: ambulatory Limitations: no limitations - History of Present Illness Initial comments: Patient presents to the ED complaining of having nasal congestion/discharge, cough, fever and hoarse voice for the past 4 days or so. Patient states that her grandchildren were recently diagnosed with upper respiratory infections. Patient admits to having mild dyspnea at times. Patient states that she has received her influenza vaccine this season, and she states that she is fully vaccinated against Covid. Patient denies having any pain. Patient states that she took a dose of Advil just prior to coming to the ED this evening. Patient denies headache, neck pain or stiffness, sore throat, chest pain, hemoptysis, palpitations, dizziness, abdominal pain, nausea/vomiting/diarrhea, dysuria or urinary symptoms, leg or calf swelling or pain, or any other symptoms or complaints. - Related Data Home Medications Medication Instructions Recorded Confirmed Fluticasone/Vilanterol [Breo 1 puff INHALATION RT-DAILY PRN 12/20/19 09/01/20 Ellipta 100-25 Mcg Inhaler] Montelukast [Singulair] 10 mg PO DAILY 05/01/20 09/01/20 Topiramate [Topamax] 50 mg PO BID 05/01/20 09/01/20 carvediloL [Coreg*] 25 mg PO AC-BID 05/01/20 09/01/20 Aspirin 81 mg PO DAILY 05/02/20 09/01/20 Ergocalciferol [Vitamin D2] 50,000 unit PO Q7D 06/23/20 09/01/20 Previous Rx's Medication Instructions Recorded Atorvastatin [Lipitor] 20 mg PO HS #90 tab 12/24/19 Furosemide [Lasix] 20 mg PO BID #180 tab 12/24/19 Losartan [Cozaar] 50 mg PO DAILY #90 tab 12/24/19 Pantoprazole [Protonix] 40 mg PO AC-BID #21 tablet. 05/04/20 Omeprazole [PriLOSEC] 40 mg PO DAILY #14 cap 06/23/20 Acetaminophen-Codeine 300-30mg 1 tab PO Q6H PRN #12 tablet 03/11/21 [Tylenol #3] Cyclobenzaprine [Flexeril] 10 mg PO TID #15 tab 03/11/21 Cyclobenzaprine [Flexeril] 10 mg PO HS PRN #7 tab 05/05/22 predniSONE 50 mg PO DAILY #5 tab 05/05/22 Allergies Allergy/AdvReac Type Severity Reaction Status Date / Time Iodinated Contrast Media Allergy Severe Rash/Hives Verified 07/02/22 18:19 [Iodinated Contrast Media - IV Dye] Penicillins Allergy Severe swelling,hi Verified 07/02/22 18:19 ves Sulfa (Sulfonamide Allergy Severe swelling,hi Verified 07/02/22 18:19 Antibiotics) ves adhesive Allergy Swelling Verified 07/02/22 18:19 ibuprofen [From Motrin] AdvReac "PROBLEM Verified 07/02/22 18:19 WITH KIDNEYS" Review of Systems ROS Statement: Those systems with pertinent positive or pertinent negative responses have been documented in the HPI. ROS Other: All systems not noted in ROS Statement are negative. 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 History of Any Multi-Drug Resistant Organisms: None Reported Past Surgical History: Breast Surgery, Section, Heart Catheterization, Hernia Repair, Hysterectomy, Orthopedic Surgery, Tubal Ligation, Uterine Ablation Additional Past Surgical History / Comment(s): EGD, 3 C sections, breast reduction, cyst removed from left hand, D & C, Bilateral groin hernia repair, LAPAROSCOPY Past Anesthesia/Blood Transfusion Reactions: No Reported Reaction Additional Past Anesthesia/Blood Transfusion Reaction / Comment(s): CLAUSTERPHOBIA Past Psychological History: ADD/ADHD, Anxiety, Depression Smoking Status: Never smoker Past Alcohol Use History: None Reported Past Drug Use History: None Reported - Past Family History Mother Family Medical History: Coronary Artery Disease (CAD), Diabetes Mellitus, Renal Disease Additional Family Medical History / Comment(s): [employer] Father Family Medical History: Cancer, Diabetes Mellitus, Myocardial Infarction ([place]) Sister(s) Family Medical History: Cancer General Exam Limitations: no limitations General appearance: alert, in no apparent distress Head exam: Present: atraumatic, normocephalic Eye exam: Present: normal appearance, EOMI ENT exam: Present: normal oropharynx, mucous membranes moist Neck exam: Present: other (Trachea is in midline). Absent: tenderness, meningismus Respiratory exam: Present: normal lung sounds bilaterally. Absent: respiratory distress, wheezes, rales, rhonchi, stridor Cardiovascular Exam: Present: normal rhythm, tachycardia, normal heart sounds, other (Normal radial pulses bilaterally) GI/Abdominal exam: Present: soft. Absent: tenderness, guarding Extremities exam: Absent: tenderness, pedal edema, calf tenderness Neurological exam: Present: alert, oriented X3. Absent: motor sensory deficit Psychiatric exam: Present: normal affect, normal mood Skin exam: Present: warm, dry, intact, normal color Course Vital Signs 07/02/22 07/02/22 07/02/22 18:16 18:19 19:33 Temperature 98.3 F Pulse Rate 120 H 118 H Respiratory 20 22 20 Rate Blood Pressure 200/81 173/95 O2 Sat by Pulse 98 100 Oximetry 07/02/22 20:39 Temperature Pulse Rate 120 H Respiratory 20 Rate Blood Pressure 170/100 O2 Sat by Pulse 100 Oximetry - Reevaluation(s) Reevaluation #1: 07/02/22 21:04 Patient denies development of any new symptoms while in the ED. Patient remains alert and breathing comfortably with a normal room air oxygen saturation. Patient is aware of her test results, and she feels comfortable being discharged home at this time. Patient was counseled about upper respiratory infections, and she was clearly explained return and follow-up instructions. Patient feels comfortable with this plan. Medical Decision Making - Medical Decision Making Patient has a normal room air oxygen saturation and clear breath sounds bilaterally. Patient's chest x-ray is unremarkable. Patient's viral studies are negative. Patient's symptoms are consistent with a viral upper respiratory infection. I do not suspect an emergent medical condition at this time. Will discharge patient home at this time. Patient feels comfortable with this plan. - Lab Data Lab Results 07/02/22 Range/Units 18:48 Influenza Type A (PCR) Not Detected (Not Detectd) Influenza Type B (PCR) Not Detected (Not Detectd) RSV (PCR) Not Detected (Not Detectd) SARS-CoV-2 (PCR) Not Detected (Not Detectd) - Radiology Data Chest x-ray: No active cardiopulmonary disease. No change. Disposition Clinical Impression: Upper respiratory tract infection Disposition: HOME SELF-CARE Condition: Stable Instructions (If sedation given, give patient instructions): Upper Respiratory Infection (ED) Additional Instructions: Return to the ER immediately should you develop increased shortness of breath, chest pain, feeling dizzy or faint, persistent vomiting, a high fever, or new or worsening symptoms. Follow up closely with your primary care provider. Is patient prescribed a controlled substance at d/c from ED?: No Referrals: Apoorva Tuttle MD [Primary Care Provider] - 1-2 days Time of Disposition: 21:06
--- NOTE | 2022-07-02 19:29 | XR ---
EXAMINATION TYPE: XR chest 2V DATE OF EXAM: 07/02/2022 COMPARISON: 06/05/2022 HISTORY: Cough TECHNIQUE: 2 views FINDINGS: Heart is normal. Lungs are clear of infiltrate. No heart failure. Bony thorax is intact. No pleural effusion. IMPRESSION: No active cardiopulmonary disease. No change.
[2022-07-02 19:40] VITALS: RESP 20
[2022-07-02] MEDS ORDERED: ONDANSETRON 4 MG ODT STARTER PACK 2 TAB BTL PO STA (21:06)
[2022-07-02 21:29] VITALS: BP 176/81; PULSE 116
== END 2022-07-02 21:35 | disposition home or self-care (01) ==
LOC: EC 17:58
DX: J06.9 Acute upper respiratory infection, unspecified (principal); I10 Essential (primary) hypertension; J45.909 Unspecified asthma, uncomplicated; G47.30 Sleep apnea, unspecified; F90.9 Attention-deficit hyperactivity disorder, unspecified type; F41.9 Anxiety disorder, unspecified; F32.A Depression, unspecified; Z79.82 Long term (current) use of aspirin; Z79.899 Other long term (current) drug therapy; Z91.041 Radiographic dye allergy status; Z88.0 Allergy status to penicillin; Z88.2 Allergy status to sulfonamides; Z88.6 Allergy status to analgesic agent; Z20.822 Contact with and (suspected) exposure to COVID-19
CPT/HCPCS: 87636; 71046; 99285; S0119

== ENCOUNTER 2023-04-27 15:12 | Emergency (ER) | payer BC ==
[2023-04-27 15:37] VITALS: RESP 18
[2023-04-27] MEDS ORDERED: ONDANSETRON 4 MG/2 ML VIAL IVP STA (16:12)
[2023-04-27] MEDS ORDERED: MORPHINE SULFATE 4 MG/ML SYRINGE IVP STA (16:13)
[2023-04-27 16:24] LABS: Appearance,Urine Clear (Clear); Bilirubin,Urine Negative (Negative); Blood,Urine Negative (Negative); Color,Urine Light Yellow; Glucose,Urine (UA) Negative (Negative); Ketones,Urine Negative (Negative); Leukocyte Esterase,Urine Moderate (Negative); Mucus,Urine Rare /hpf; Nitrite,Urine Negative (Negative); PH, Urine 6.5 (5.0-8.0); Protein,Urine Negative (Negative); RBC,Urine 1 /hpf (0-5); Specific Gravity,Urine 1.019 (1.001-1.035); Squamous Epithelial Cell,Urine 2 /hpf (0-4); Urobilinogen,Urine <2.0 mg/dL (<2.0); WBC,Urine 15 /hpf (0-5)
--- NOTE | 2023-04-27 16:53 | ED ---
General Adult HPI - General Chief complaint: Back Pain/Injury Stated complaint: back pain Time Seen by Provider: 04/27/23 16:00 Source: patient, RN notes reviewed, old records reviewed Mode of arrival: ambulatory Limitations: no limitations - History of Present Illness Initial comments: Patient has a 52-year-old female who presents with department concern for possible urinary tract infection. Has a history of UTIs. States it typically presents as lower back pain which she is having. Has been ongoing for the last 2 days. Is on some antibiotics for some skin irritation in her perineum from liquid diarrhea and her wearing depends. This was described by her primary care physician. Has a history of asthma, hypertension. Describes the pain as achy, located on both of the back but left worse than right. Worse with movement. No flank pain or anterior abdominal pain. Denies chest pain or shortness breath. Denies fevers. Endorses frequent urination but no dysuria or hematuria. Presents for further evaluation at this time.No saddle anesthesias. No urinary or bowel incontinence or retention. No lower extremity paralysis. No trauma. - Related Data Home Medications Medication Instructions Recorded Confirmed Fluticasone/Vilanterol [Breo 1 puff INHALATION RT-DAILY PRN 12/20/19 09/01/20 Ellipta 100-25 Mcg Inhaler] Montelukast [Singulair] 10 mg PO DAILY 05/01/20 09/01/20 Topiramate [Topamax] 50 mg PO BID 05/01/20 09/01/20 carvediloL [Coreg*] 25 mg PO AC-BID 05/01/20 09/01/20 Aspirin 81 mg PO DAILY 05/02/20 09/01/20 Ergocalciferol [Vitamin D2] 50,000 unit PO Q7D 06/23/20 09/01/20 Previous Rx's Medication Instructions Recorded Atorvastatin [Lipitor] 20 mg PO HS #90 tab 12/24/19 Furosemide [Lasix] 20 mg PO BID #180 tab 12/24/19 Losartan [Cozaar] 50 mg PO DAILY #90 tab 12/24/19 Pantoprazole [Protonix] 40 mg PO AC-BID #21 tablet. 05/04/20 Omeprazole [PriLOSEC] 40 mg PO DAILY #14 cap 06/23/20 Acetaminophen-Codeine 300-30mg 1 tab PO Q6H PRN #12 tablet 03/11/21 [Tylenol #3] Cyclobenzaprine [Flexeril] 10 mg PO TID #15 tab 03/11/21 Cyclobenzaprine [Flexeril] 10 mg PO HS PRN #7 tab 05/05/22 predniSONE 50 mg PO DAILY #5 tab 05/05/22 Nitrofurantoin Monohyd/M-Cryst 100 mg PO Q12HR 7 Days #14 cap 04/27/23 [Macrobid] Allergies Allergy/AdvReac Type Severity Reaction Status Date / Time Iodinated Contrast Media Allergy Severe Rash/Hives Verified 04/27/23 15:26 [Iodinated Contrast Media - IV Dye] Penicillins Allergy Severe swelling,hi Verified 04/27/23 15:26 ves Sulfa (Sulfonamide Allergy Severe swelling,hi Verified 04/27/23 15:26 Antibiotics) ves adhesive Allergy Swelling Verified 04/27/23 15:26 ibuprofen [From Motrin] AdvReac "PROBLEM Verified 04/27/23 15:26 WITH KIDNEYS" Review of Systems ROS Statement: Those systems with pertinent positive or pertinent negative responses have been documented in the HPI. Review of Systems: CONST: Denies fever EYES: Denies blurry vision ENT: Denies nasal congestion C/V: Denies Chest pain RESP: Denies shortness of breath GI: Denies abdominal pain : Denies dysuria SKIN: Denies rash. MSK: Endorses low back pain NEURO: Denies headache ROS Other: All systems not noted in ROS Statement are negative. 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 History of Any Multi-Drug Resistant Organisms: None Reported Past Surgical History: Breast Surgery, Section, Heart Catheterization, Hernia Repair, Hysterectomy, Orthopedic Surgery, Tubal Ligation, Uterine Ablation Additional Past Surgical History / Comment(s): EGD, 3 C sections, breast reduction, cyst removed from left hand, D & C, Bilateral groin hernia repair, LAPAROSCOPY Past Anesthesia/Blood Transfusion Reactions: No Reported Reaction Additional Past Anesthesia/Blood Transfusion Reaction / Comment(s): CLAUSTERPHOBIA Past Psychological History: ADD/ADHD, Anxiety, Depression Smoking Status: Never smoker Past Alcohol Use History: None Reported Past Drug Use History: None Reported - Past Family History Mother Family Medical History: Coronary Artery Disease (CAD), Diabetes Mellitus, Renal Disease Additional Family Medical History / Comment(s): [employer] Father Family Medical History: Cancer, Diabetes Mellitus, Myocardial Infarction ([place]) Sister(s) Family Medical History: Cancer General Exam - General Exam Comments Initial Comments: General: Appears in no acute distress. HEAD: Normal with no signs of head trauma. EYES: PERRLA, EOMI, conjunctiva normal, no discharge. ENT: Hearing grossly intact, normal oropharynx. RESPIRATORY: Clear breath sounds bilaterally. No wheezes, rales, or rhonchi. C/V: Regular rate and rhythm. S1 and S2 auscultated, no edema, peripheral pulses 2+ and intact throughout ABD: Abd is soft, nontender, nondistended. No flank pain. No guarding. No peritoneal signs. No rebound tenderness. EXT: Lumbar paraspinal muscle tightness to palpation bilaterally. No midline tenderness palpation of the spine. SKIN: No rashes or lesions observed on exposed skin. NEURO: Alert and oriented x 4. Cranial nerves II-XII intact. No focal sensory or strength deficits. Limitations: no limitations Course Vital Signs 04/27/23 04/27/23 04/27/23 15:23 17:19 18:45 Temperature 97.7 F 97.8 F Pulse Rate 90 83 80 Respiratory 18 18 18 Rate Blood Pressure 147/73 138/75 145/75 O2 Sat by Pulse 94 L 100 98 Oximetry Medical Decision Making - Medical Decision Making Was pt. sent in by a medical professional or institution (, PA, INVENTORY CONTROL PLANNER, urgent care, hospital, or fdc...) When possible be specific @ -No Did you speak to anyone other than the patient for history (EMS, parent, family, police, friend...)? What history was obtained from this source @ -No Did you review nursing and triage notes (agree or disagree)? Why? @ -I reviewed and agree with nursing and triage notes Were old charts reviewed (outside hosp., previous admission, EMS record, old EKG, old radiological studies, urgent care reports/EKG's, fdc records)? Report findings @ -No old charts were reviewed Differential Diagnosis (chest pain, altered mental status, abdominal pain women, abdominal pain men, vaginal bleeding, weakness, fever, dyspnea, syncope, headache, dizziness, GI bleed, back pain, seizure, CVA, palpatations, mental health, musculoskeletal)? @ -Differential Abdominal Pain Women: Appendicitis, Cholecystitis, diverticulosis, ischemic bowel, pancreatitis, hepatitis, UTI, gastroenteritis, AAA, incarcerated hernia, bowel obstruction, constipation, inflammatory bowel, hepatitis, peptic ulcer disease, splenic infarction, perforated viscus, vulvitis, ovarian torsion, PID, kidney stone, placenta abruption, this is not meant to be an all-inclusive list EKG interpreted by me (3pts min.). @ -None done X-rays interpreted by me (1pt min.). @ -None done CT interpreted by me (1pt min.). @ -CT abdomen and pelvis reveals no obvious etiology of her patient's current symptoms. No obvious acute intra-abdominal process. U/S interpreted by me (1pt. min.). @ -None done What testing was considered but not performed or refused? (CT, X-rays, U/S, labs)? Why? @ -None What meds were considered but not given or refused? Why? @ -None Did you discuss the management of the patient with other professionals (professionals i.e. , PA, INVENTORY CONTROL PLANNER, lab, RT, psych nurse, social secretary, adjunct instructor in economics, teacher, human resource officer, dependency case manager)? Give summary @ -No Was smoking cessation discussed for >3mins.? @ -No Was critical care preformed (if so, how long)? @ -No Were there social determinants of health that impacted care today? How? (Homelessness, low income, unemployed, alcoholism, drug addiction, transportation, low edu. Level, literacy, decrease access to med. care, custodial, rehab)? @ -No Was there de-escalation of care discussed even if they declined (Discuss DNR or withdrawal of care, Hospice)? DNR status @ -No What co-morbidities impacted this encounter? (DM, HTN, Smoking, COPD, CAD, Can cer, CVA, ARF, Chemo, Hep., AIDS, mental health diagnosis, sleep apnea, morbid obesity)? @ -None Was patient admitted / discharged? Hospital course, mention meds given and route, prescriptions, significant lab abnormalities, going to OR and other pertinent info. @ -Based on the patient's presentation and physical exam, I'm concerned for pos sible intra-abdominal process for the patient's symptoms. Likely urinary tract infection. Could also be musculoskeletal pain. No concern for cauda equina syndrome. Vital Signs are within acceptable limits. We'll obtain abdominal laboratory studies as well as a CT abdomen and pelvis without contrast. She'll be symptomatically treated with IV morphine and Zofran. Patient was in agreement this plan. CT imaging unremarkable. Patient's last remarkable for UTI. Remainder the labs unremarkable. Urine culture sent. After the patient. She discussed understanding. She'll be placed on Macrobid. Strict return precautions discussed. I will provide the patient with a prescription for Macrobid. I instructed the patient to follow up with their PCP in the next 1-3 days. I explained that the patient should return to the emergency department if they experience any w orsening symptoms. Strict return precautions were discussed with the patient. The patient expressed understanding of these instructions. I answered all questions that the patient had. The patient was discharged home in good condition with their prescriptions and follow up information. Undiagnosed new problem with uncertain prognosis? @ -No Drug Therapy requiring intensive monitoring for toxicity (Heparin, Nitro, Insulin, Cardizem)? @ -No Were any procedures done? @ -No Diagnosis/symptom? @ -UTI, muscle strain Acute, or Chronic, or Acute on Chronic? @ -Acute Uncomplicated (without systemic symptoms) or Complicated (systemic symptoms)? @ -complicated Side effects of treatment? @ -none Exacerbation, Progression, or Severe Exacerbation] @ -no Poses a threat to life or bodily function? @ -Unlikely - Lab Data Result diagrams: 04/27/23 17:12 04/27/23 17:12 Lab Results 04/27/23 04/27/23 04/27/23 Range/Units 15:43 17:12 17:12 WBC 6.6 (3.8-10.6) k/uL RBC 3.72 L (3.80-5.40) m/uL Hgb 12.4 (11.4-16.0) gm/dL Hct 35.3 (34.0-46.0) % MCV 95.0 (80.0-100.0) fL MCH 33.2 (25.0-35.0) pg MCHC 35.0 (31.0-37.0) g/dL RDW 13.4 (11.5-15.5) % Plt Count 263 (150-450) k/uL MPV 6.9 Neutrophils % 41 % Lymphocytes % 49 % Monocytes % 4 % Eosinophils % 4 % Basophils % 1 % Neutrophils # 2.7 (1.3-7.7) k/uL Lymphocytes # 3.2 (1.0-4.8) k/uL Monocytes # 0.3 (0-1.0) k/uL Eosinophils # 0.3 (0-0.7) k/uL Basophils # 0.0 (0-0.2) k/uL Sodium 143 (137-145) mmol/L Potassium 4.3 (3.5-5.1) mmol/L Chloride 110 H (98-107) mmol/L Carbon Dioxide 26 (22-30) mmol/L Anion Gap 7 mmol/L BUN 15 (7-17) mg/dL Creatinine 0.86 (0.52-1.04) mg/dL Est GFR (CKD-EPI)AfAm >90 (>60 ml/min/1.73 sqM) Est GFR (CKD-EPI)NonAf 79 (>60 ml/min/1.73 sqM) Glucose 87 (74-99) mg/dL Plasma Lactic Acid Ministerio (0.7-2.0) mmol/L Calcium 9.3 (8.4-10.2) mg/dL Total Bilirubin 0.6 (0.2-1.3) mg/dL AST 44 H (14-36) U/L ALT 49 H (4-34) U/L Alkaline Phosphatase 92 (38-126) U/L Total Protein 6.9 (6.3-8.2) g/dL Albumin 3.9 (3.5-5.0) g/dL Amylase 51 (30-110) U/L Lipase 158 (23-300) U/L Urine Color Light Yellow Urine Appearance Clear (Clear) Urine pH 6.5 (5.0-8.0) Ur Specific Dillon 1.019 (1.001-1.035) Urine Protein Negative (Negative) Urine Glucose (UA) Negative (Negative) Urine Ketones Negative (Negative) Urine Blood Negative (Negative) Urine Nitrite Negative (Negative) Urine Bilirubin Negative (Negative) Urine Urobilinogen <2.0 (<2.0) mg/dL Ur Leukocyte Esterase Moderate H (Negative) Urine RBC 1 (0-5) /hpf Urine WBC 15 H (0-5) /hpf Ur Squamous Epith Cells 2 (0-4) /hpf Urine Mucus Rare H (None) /hpf 04/27/23 Range/Units 17:12 WBC (3.8-10.6) k/uL RBC (3.80-5.40) m/uL Hgb (11.4-16.0) gm/dL Hct (34.0-46.0) % MCV (80.0-100.0) fL MCH (25.0-35.0) pg MCHC (31.0-37.0) g/dL RDW (11.5-15.5) % Plt Count (150-450) k/uL MPV Neutrophils % % Lymphocytes % % Monocytes % % Eosinophils % % Basophils % % Neutrophils # (1.3-7.7) k/uL Lymphocytes # (1.0-4.8) k/uL Monocytes # (0-1.0) k/uL Eosinophils # (0-0.7) k/uL Basophils # (0-0.2) k/uL Sodium (137-145) mmol/L Potassium (3.5-5.1) mmol/L Chloride (98-107) mmol/L Carbon Dioxide (22-30) mmol/L Anion Gap mmol/L BUN (7-17) mg/dL Creatinine (0.52-1.04) mg/dL Est GFR (CKD-EPI)AfAm (>60 ml/min/1.73 sqM) Est GFR (CKD-EPI)NonAf (>60 ml/min/1.73 sqM) Glucose (74-99) mg/dL Plasma Lactic Acid Ministerio 0.9 (0.7-2.0) mmol/L Calcium (8.4-10.2) mg/dL Total Bilirubin (0.2-1.3) mg/dL AST (14-36) U/L ALT (4-34) U/L Alkaline Phosphatase (38-126) U/L Total Protein (6.3-8.2) g/dL Albumin (3.5-5.0) g/dL Amylase (30-110) U/L Lipase (23-300) U/L Urine Color Urine Appearance (Clear) Urine pH (5.0-8.0) Ur Specific Dillon (1.001-1.035) Urine Protein (Negative) Urine Glucose (UA) (Negative) Urine Ketones (Negative) Urine Blood (Negative) Urine Nitrite (Negative) Urine Bilirubin (Negative) Urine Urobilinogen (<2.0) mg/dL Ur Leukocyte Esterase (Negative) Urine RBC (0-5) /hpf Urine WBC (0-5) /hpf Ur Squamous Epith Cells (0-4) /hpf Urine Mucus (None) /hpf Disposition Clinical Impression: UTI (urinary tract infection), Muscle strain Disposition: HOME SELF-CARE Condition: Good Instructions (If sedation given, give patient instructions): Urinary Tract Infection in Women (DC), Acute Low Back Pain (ED) Prescriptions: Nitrofurantoin Monohyd/M-Cryst [Macrobid] 100 mg PO Q12HR 7 Days #14 cap Is patient prescribed a controlled substance at d/c from ED?: No Referrals: Apoorva Tuttle MD [Primary Care Provider] - 1-2 days Time of Disposition: 17:51
[2023-04-27 17:21] LABS: Basophils % (A) 1 %; Eosinophils # (A) 0.3 k/uL (0-0.7); Eosinophils % (A) 4 %; HCT 35.3 % (34.0-46.0); HGB 12.4 gm/dL (11.4-16.0); Lymphocytes # (A) 3.2 k/uL (1.0-4.8); Lymphocytes % (A) 49 %; MCH 33.2 pg (25.0-35.0); Mean Platelet Volume 6.9; Monocytes # (A) 0.3 k/uL (0-1.0); Monocytes % (A) 4 %; Neutrophils # (A) 2.7 k/uL (1.3-7.7); Neutrophils % (A) 41 %; Platelet Count 263 k/uL (150-450); RBC 3.72 m/uL (3.80-5.40); RDW 13.4 % (11.5-15.5); WBC 6.6 k/uL (3.8-10.6)
--- NOTE | 2023-04-27 17:21 | CT ---
EXAMINATION TYPE: CT abdomen pelvis wo con CT DLP: 1443 mGycm, Automated exposure control for dose reduction was used. DATE OF EXAM: 04/27/2023 4:47 PM COMPARISON: CT abdomen pelvis most recent from 04/27/2022 CLINICAL INDICATION:Female, 52 years old with history of bilateral flank pain, history of kidney ston e; Bilateral flank pain, hx renal stones TECHNIQUE: Axial CT of the abdomen and pelvis. Sagittal and coronal reformats were created on a [employer] workstation. Contrast used:(none if empty) Oral contrast used: without Oral Contrast (none if empty) FINDINGS: LOWER CHEST: Unremarkable ABDOMEN LIVER: Unremarkable GALLBLADDER AND BILE DUCTS: The gallbladder appears surgically absent. PANCREAS: Unremarkable. SPLEEN: Indeterminate splenic lesion likely representing hemangioma cyst. This measures similarly at 20 mm in size. ADRENAL GLANDS: Unremarkable. KIDNEYS AND URETERS: No evidence of hydronephrosis or renal calculus. The ureters are unremarkable. PELVIS BLADDER: Unremarkable REPRODUCTIVE: Unremarkable. ABDOMEN & PELVIS STOMACH AND BOWEL: No evidence of bowel obstruction. The appendix is in the right upper quadrant near the gallbladder fossa. PERITONEUM/RETROPERITONEUM: No evidence of pneumoperitoneum or free fluid. VASCULATURE: Mild atherosclerotic calcifications are present throughout the abdominal aorta and its b ranches. No evidence of aortic aneurysm. MUSCULOSKELETAL: No acute osseous abnormalities. Moderate disc degeneration changes are present throu ghout the thoracolumbar spine. LYMPH NODES: No gross evidence for lymphadenopathy. SOFT TISSUE/ABDOMINAL WALL: Fat-containing umbilical hernia. IMPRESSION: 1. No evidence for obstructive uropathy or acute abdominal process. 2. The appendix is is in the right upper quadrant near the gallbladder fossa. The gallbladder appear s surgically absent.
[2023-04-27 17:36] LABS: ALT 49 U/L (4-34); AST 44 U/L (14-36); African American GFR (CKD) >90 (>60 ml/min/1.73 sqM); Albumin 3.9 g/dL (3.5-5.0); Alkaline Phosphatase 92 U/L (38-126); Amylase 51 U/L (30-110); Anion Gap 7 mmol/L; Blood Urea Nitrogen 15 mg/dL (7-17); Calcium 9.3 mg/dL (8.4-10.2); Carbon Dioxide 26 mmol/L (22-30); Chloride 110 mmol/L (98-107); Glucose 87 mg/dL (74-99); Lipase 158 U/L (23-300); Non-African American GFR(CKD) 79 (>60 ml/min/1.73 sqM); Potassium 4.3 mmol/L (3.5-5.1); Sodium 143 mmol/L (137-145); Total Bilirubin 0.6 mg/dL (0.2-1.3); Total Protein 6.9 g/dL (6.3-8.2)
[2023-04-27] MEDS ORDERED: NITROFURANTOIN MONOHYD/M-CRYST 100 MG CAP PO STA (18:09)
[2023-04-27 19:00] VITALS: BP 145/75; PULSE 80; TEMP 97.8
== END 2023-04-27 18:54 | disposition home or self-care (01) ==
LOC: EC 15:12
DX: S39.012A Strain of muscle, fascia and tendon of lower back, initial encounter (principal); N39.0 Urinary tract infection, site not specified; I10 Essential (primary) hypertension; J45.909 Unspecified asthma, uncomplicated; Z79.82 Long term (current) use of aspirin; Z79.51 Long term (current) use of inhaled steroids; Z79.899 Other long term (current) drug therapy; Z88.0 Allergy status to penicillin; Z88.2 Allergy status to sulfonamides; Z88.6 Allergy status to analgesic agent; Z91.09 Other allergy status, other than to drugs and biological substances; Z91.041 Radiographic dye allergy status; X58.XXXA Exposure to other specified factors, initial encounter
CPT/HCPCS: 99284; 96374; 96375; 36415; 80053; 82150; 83605; 83690; 85025; 81001; 74176; J2270; J2405; 87086

== ENCOUNTER 2023-05-29 06:36 | Emergency (ER) | payer BC ==
[2023-05-29 07:13] LABS: Basophils % (A) 1 %; Eosinophils # (A) 0.3 k/uL (0-0.7); Eosinophils % (A) 4 %; HCT 34.3 % (34.0-46.0); HGB 12.1 gm/dL (11.4-16.0); Lymphocytes # (A) 3.2 k/uL (1.0-4.8); Lymphocytes % (A) 41 %; MCH 33.6 pg (25.0-35.0); MCHC 35.4 g/dL (31.0-37.0); MCV 94.7 fL (80.0-100.0); Mean Platelet Volume 7.2; Monocytes # (A) 0.3 k/uL (0-1.0); Monocytes % (A) 4 %; Neutrophils # (A) 3.6 k/uL (1.3-7.7); Neutrophils % (A) 47 %; Platelet Count 224 k/uL (150-450); RBC 3.62 m/uL (3.80-5.40); RDW 13.3 % (11.5-15.5); WBC 7.6 k/uL (3.8-10.6)
--- NOTE | 2023-05-29 07:23 | ED ---
General Adult HPI - General Chief complaint: Shortness of Breath Stated complaint: CHF SOB UTI Time Seen by Provider: 05/29/23 06:44 Source: patient, RN notes reviewed Mode of arrival: wheelchair Limitations: no limitations - History of Present Illness Initial comments: 52-year-old female presents emergency Department with chief complaint of cough, shortness breath, concerns for possible CHF and right flank pain. Patient states that she's been having recurrent UTIs states that she has right flank discomfort no history kidney stone. Patient states that she's had worsening cough, shortness breath last 2 weeks she states that she has a history of CHF. Patient states she she does weigh herself was not gaining weight she states losing weight. Patient states that her first breath is worse when she lays down and she states she is to sleep pupils. Patient denies history of asthma states that she has noticed some wheezing. Denies any fever today but states that she's been having intermittent fevers. - Related Data Home Medications Medication Instructions Recorded Confirmed Fluticasone/Vilanterol [Breo 1 puff INHALATION RT-DAILY PRN 12/20/19 09/01/20 Ellipta 100-25 Mcg Inhaler] Montelukast [Singulair] 10 mg PO DAILY 05/01/20 09/01/20 Topiramate [Topamax] 50 mg PO BID 05/01/20 09/01/20 carvediloL [Coreg*] 25 mg PO AC-BID 05/01/20 09/01/20 Aspirin 81 mg PO DAILY 05/02/20 09/01/20 Ergocalciferol [Vitamin D2] 50,000 unit PO Q7D 06/23/20 09/01/20 Previous Rx's Medication Instructions Recorded Atorvastatin [Lipitor] 20 mg PO HS #90 tab 12/24/19 Furosemide [Lasix] 20 mg PO BID #180 tab 12/24/19 Losartan [Cozaar] 50 mg PO DAILY #90 tab 12/24/19 Pantoprazole [Protonix] 40 mg PO AC-BID #21 tablet. 05/04/20 Omeprazole [PriLOSEC] 40 mg PO DAILY #14 cap 06/23/20 Acetaminophen-Codeine 300-30mg 1 tab PO Q6H PRN #12 tablet 03/11/21 [Tylenol #3] Cyclobenzaprine [Flexeril] 10 mg PO TID #15 tab 03/11/21 Cyclobenzaprine [Flexeril] 10 mg PO HS PRN #7 tab 05/05/22 predniSONE 50 mg PO DAILY #5 tab 05/05/22 Nitrofurantoin Monohyd/M-Cryst 100 mg PO Q12HR 7 Days #14 cap 04/27/23 [Macrobid] Azithromycin [Zithromax Z Pack] 0 tab PO DIRECTED #6 tab 05/29/23 predniSONE 50 mg PO DAILY #5 tab 05/29/23 Allergies Allergy/AdvReac Type Severity Reaction Status Date / Time Iodinated Contrast Media Allergy Severe Rash/Hives Verified 04/27/23 15:26 [Iodinated Contrast Media - IV Dye] Penicillins Allergy Severe swelling,hi Verified 04/27/23 15:26 ves Sulfa (Sulfonamide Allergy Severe swelling,hi Verified 04/27/23 15:26 Antibiotics) ves adhesive Allergy Swelling Verified 04/27/23 15:26 ibuprofen [From Motrin] AdvReac "PROBLEM Verified 04/27/23 15:26 WITH KIDNEYS" Review of Systems ROS Statement: Those systems with pertinent positive or pertinent negative responses have been documented in the HPI. ROS Other: All systems not noted in ROS Statement are negative. 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 History of Any Multi-Drug Resistant Organisms: None Reported Past Surgical History: Breast Surgery, Section, Heart Catheterization, Hernia Repair, Hysterectomy, Orthopedic Surgery, Tubal Ligation, Uterine Ablation Additional Past Surgical History / Comment(s): EGD, 3 C sections, breast reduction, cyst removed from left hand, D & C, Bilateral groin hernia repair, LAPAROSCOPY Past Anesthesia/Blood Transfusion Reactions: No Reported Reaction Additional Past Anesthesia/Blood Transfusion Reaction / Comment(s): CLAUSTERPHOB [place] Past Psychological History: ADD/ADHD, Anxiety, Depression Smoking Status: Never smoker Past Alcohol Use History: None Reported Past Drug Use History: None Reported - Past Family History Mother Family Medical History: Coronary Artery Disease (CAD), Diabetes Mellitus, Renal Disease Additional Family Medical History / Comment(s): [employer] Father Family Medical History: Cancer, Diabetes Mellitus, Myocardial Infarction ([place]) Sister(s) Family Medical History: Cancer General Exam Limitations: no limitations General appearance: alert, in no apparent distress Head exam: Present: atraumatic, normocephalic, normal inspection Eye exam: Present: normal appearance, PERRL, EOMI. Absent: scleral icterus, conjunctival injection, periorbital swelling ENT exam: Present: normal exam, normal oropharynx, mucous membranes moist Neck exam: Present: normal inspection, full ROM. Absent: tenderness, meningismus, lymphadenopathy Respiratory exam: Present: normal lung sounds bilaterally. Absent: respiratory distress, wheezes, rales, rhonchi, stridor Cardiovascular Exam: Present: regular rate, normal rhythm, normal heart sounds. Absent: systolic murmur, diastolic murmur, rubs, gallop, clicks GI/Abdominal exam: Present: soft, normal bowel sounds. Absent: distended, tenderness, guarding, rebound, rigid Back exam: Present: CVA tenderness (R). Absent: CVA tenderness (L) Course Vital Signs 05/29/23 05/29/23 05/29/23 06:40 07:20 08:04 Temperature 98.3 F 98.3 F Pulse Rate 95 87 98 Respiratory 16 20 22 Rate Blood Pressure 177/97 118/67 109/61 O2 Sat by Pulse 96 97 97 Oximetry EKG Findings - EKG Comments: EKG Findings:: EKG performed at 17:28 sinus rhythm with left bundle rate of 84, MT 184 QRS 158 QT/QTC 419/460 - EKG Results: EKG: interpreted by [facility] Medical Decision Making - Medical Decision Making Was pt. sent in by a medical professional or institution (, PA, FIRE FIGHTING EQUIPMENT SPECIALIST, urgent care, hospital, or long-term...) When possible be specific @ -No Did you speak to anyone other than the patient for history (EMS, parent, family, police, friend...)? What history was obtained from this source @ -No Did you review nursing and triage notes (agree or disagree)? Why? @ -I reviewed and agree with nursing and triage notes Were old charts reviewed (outside hosp., previous admission, EMS record, old EKG, old radiological studies, urgent care reports/EKG's, long-term records)? Report findings @ -Reviewed prior laboratory studies Differential Diagnosis (chest pain, altered mental status, abdominal pain women, abdominal pain men, vaginal bleeding, weakness, fever, dyspnea, syncope, headache, dizziness, GI bleed, back pain, seizure, CVA, palpatations, mental health, musculoskeletal)? @ -Differential Dyspnea: Coronary syndrome, arrhythmia, tamponade, asthma, COPD, pulmonary embolism, pneumonia, pneumothorax, pulmonary effusion, anaphylaxis, diabetic ketoacidosis, flailed chest, pulmonary contusion, diaphragmatic rupture, anemia, neuromuscular, this is not meant to be an all-inclusive list. e EKG interpreted by me (3pts min.). @ -As above X-rays interpreted by me (1pt min.). @ -Chest x-ray shows no acute process CT interpreted by me (1pt min.). @ -None done U/S interpreted by me (1pt. min.). @ -None done What testing was considered but not performed or refused? (CT, X-rays, U/S, labs)? Why? @ -None What meds were considered but not given or refused? Why? @ -None Did you discuss the management of the patient with other professionals (professionals i.e. , PA, FIRE FIGHTING EQUIPMENT SPECIALIST, lab, RT, psych nurse, social media assistant, assembly cleaner, teacher, returning officer, manager occupational)? Give summary @ -No Was smoking cessation discussed for >3mins.? @ -No Was critical care preformed (if so, how long)? @ -No Were there social determinants of health that impacted care today? How? (Homelessness, low income, unemployed, alcoholism, drug addiction, transportation, low edu. Level, literacy, decrease access to med. care, [facility], rehab)? @ -No Was there de-escalation of care discussed even if they declined (Discuss DNR or withdrawal of care, Hospice)? DNR status @ -No What co-morbidities impacted this encounter? (DM, HTN, Smoking, COPD, CAD, Cancer, CVA, ARF, Chemo, Hep., AIDS, mental health diagnosis, sleep apnea, morbid obesity)? @ -Hypertension, CHF Was patient admitted / discharged? Hospital course, mention meds given and route, prescriptions, significant lab abnormalities, going to OR and other pertinent info. @ -Discharge patient large right-sided, viral swab, urinalysis and chest x-ray are unremarkable. Patient has had URI symptoms weeks. For tracheobronchitis that she has underlying asthma. Patient is discharged in stable condition return parameters discussed. Undiagnosed new problem with uncertain prognosis? @ -No Drug Therapy requiring intensive monitoring for toxicity (Heparin, Nitro, Insulin, Cardizem)? @ -No Were any procedures done? @ -No Diagnosis/symptom? @ -Tracheobronchitis, back pain Acute, or Chronic, or Acute on Chronic? @ -Acute Uncomplicated (without systemic symptoms) or Complicated (systemic symptoms)? @ - complicated Side effects of treatment? @ -No Exacerbation, Progression, or Severe Exacerbation? @ -No Poses a threat to life or bodily function? How? (Chest pain, [place], [place], pneumonia, PE, COPD, DKA, ARF, appy, cholecystitis, CVA, Diverticulitis, Homicidal, Suicidal, threat to staff... and all critical care pts) @ -No - Lab Data Result diagrams: 05/29/23 06:58 05/29/23 06:58 Lab Results 05/29/23 05/29/23 05/29/23 Range/Units 06:58 06:58 06:58 WBC 7.6 (3.8-10.6) k/uL RBC 3.62 L (3.80-5.40) m/uL Hgb 12.1 (11.4-16.0) gm/dL Hct 34.3 (34.0-46.0) % MCV 94.7 (80.0-100.0) fL MCH 33.6 (25.0-35.0) pg MCHC 35.4 (31.0-37.0) g/dL RDW 13.3 (11.5-15.5) % Plt Count 224 (150-450) k/uL MPV 7.2 Neutrophils % 47 % Lymphocytes % 41 % Monocytes % 4 % Eosinophils % 4 % Basophils % 1 % Neutrophils # 3.6 (1.3-7.7) k/uL Lymphocytes # 3.2 (1.0-4.8) k/uL Monocytes # 0.3 (0-1.0) k/uL Eosinophils # 0.3 (0-0.7) k/uL Basophils # 0.0 (0-0.2) k/uL PT 10.0 (10.0-12.5) sec INR 0.9 (<1.2) APTT 23.2 (22.0-30.0) sec Sodium (137-145) mmol/L Potassium (3.5-5.1) mmol/L Chloride (98-107) mmol/L Carbon Dioxide (22-30) mmol/L Anion Gap mmol/L BUN (7-17) mg/dL Creatinine (0.52-1.04) mg/dL Est GFR (CKD-EPI)AfAm (>60 ml/min/1.73 sqM) Est GFR (CKD-EPI)NonAf (>60 ml/min/1.73 sqM) Glucose (74-99) mg/dL Calcium (8.4-10.2) mg/dL Magnesium (1.6-2.3) mg/dL Total Bilirubin (0.2-1.3) mg/dL AST (14-36) U/L ALT (4-34) U/L Alkaline Phosphatase (38-126) U/L Troponin I (0.000-0.034) ng/mL NT-Pro-B Natriuret Pep pg/mL Total Protein (6.3-8.2) g/dL Albumin (3.5-5.0) g/dL Urine Color Colorless Urine Appearance Clear (Clear) Urine pH 5.5 (5.0-8.0) Ur Specific [place] 1.005 (1.001-1.035) Urine Protein Negative (Negative) Urine Glucose (UA) Negative (Negative) Urine Ketones Negative (Negative) Urine Blood Negative (Negative) Urine Nitrite Negative (Negative) Urine Bilirubin Negative (Negative) Urine Urobilinogen <2.0 (<2.0) mg/dL Ur Leukocyte Esterase Moderate H (Negative) Urine RBC 2 (0-5) /hpf Urine WBC 7 H (0-5) /hpf Ur Squamous Epith Cells 1 (0-4) /hpf Urine Bacteria Rare H (None) /hpf Influenza Type A (PCR) (Not Detectd) Influenza Type B (PCR) (Not Detectd) RSV (PCR) (Not Detectd) SARS-CoV-2 (PCR) (Not Detectd) 05/29/23 05/29/23 05/29/23 Range/Units 06:58 06:58 06:58 WBC (3.8-10.6) k/uL RBC (3.80-5.40) m/uL Hgb (11.4-16.0) gm/dL Hct (34.0-46.0) % MCV (80.0-100.0) fL MCH (25.0-35.0) pg MCHC (31.0-37.0) g/dL RDW (11.5-15.5) % Plt Count (150-450) k/uL MPV Neutrophils % % Lymphocytes % % Monocytes % % Eosinophils % % Basophils % % Neutrophils # (1.3-7.7) k/uL Lymphocytes # (1.0-4.8) k/uL Monocytes # (0-1.0) k/uL Eosinophils # (0-0.7) k/uL Basophils # (0-0.2) k/uL PT (10.0-12.5) sec INR (<1.2) APTT (22.0-30.0) sec Sodium 140 (137-145) mmol/L Potassium 3.6 (3.5-5.1) mmol/L Chloride 107 (98-107) mmol/L Carbon Dioxide 22 (22-30) mmol/L Anion Gap 11 mmol/L BUN 11 (7-17) mg/dL Creatinine 0.88 (0.52-1.04) mg/dL Est GFR (CKD-EPI)AfAm 88 (>60 ml/min/1.73 sqM) Est GFR (CKD-EPI)NonAf 76 (>60 ml/min/1.73 sqM) Glucose 101 H (74-99) mg/dL Calcium 8.9 (8.4-10.2) mg/dL Magnesium 1.9 (1.6-2.3) mg/dL Total Bilirubin 0.6 (0.2-1.3) mg/dL AST 28 (14-36) U/L ALT 34 (4-34) U/L Alkaline Phosphatase 79 (38-126) U/L Troponin I <0.012 (0.000-0.034) ng/mL NT-Pro-B Natriuret Pep 244 pg/mL Total Protein 6.6 (6.3-8.2) g/dL Albumin 3.6 (3.5-5.0) g/dL Urine Color Urine Appearance (Clear) Urine pH (5.0-8.0) Ur Specific [place] (1.001-1.035) Urine Protein (Negative) Urine Glucose (UA) (Negative) Urine Ketones (Negative) Urine Blood (Negative) Urine Nitrite (Negative) Urine Bilirubin (Negative) Urine Urobilinogen (<2.0) mg/dL Ur Leukocyte Esterase (Negative) Urine RBC (0-5) /hpf Urine WBC (0-5) /hpf Ur Squamous Epith Cells (0-4) /hpf Urine Bacteria (None) /hpf Influenza Type A (PCR) Not Detected (Not Detectd) Influenza Type B (PCR) Not Detected (Not Detectd) RSV (PCR) Not Detected (Not Detectd) SARS-CoV-2 (PCR) Not Detected (Not Detectd) Disposition Clinical Impression: Tracheobronchitis, Back pain Disposition: HOME SELF-CARE Condition: Stable Instructions (If sedation given, give patient instructions): Acute Bronchitis (ED) Additional Instructions: Please return to the Emergency Department if symptoms worsen or any other concerns. Prescriptions: predniSONE 50 mg PO DAILY #5 tab Azithromycin [Zithromax Z Pack] 0 tab PO DIRECTED #6 tab Is patient prescribed a controlled substance at d/c from ED?: No Referrals: Apoorva Tuttle MD [Primary Care Provider] - 1-2 days Time of Disposition: 08:10
[2023-05-29 07:24] LABS: ALT 34 U/L (4-34); AST 28 U/L (14-36); African American GFR (CKD) 88 (>60 ml/min/1.73 sqM); Albumin 3.6 g/dL (3.5-5.0); Alkaline Phosphatase 79 U/L (38-126); Anion Gap 11 mmol/L; Blood Urea Nitrogen 11 mg/dL (7-17); Calcium 8.9 mg/dL (8.4-10.2); Carbon Dioxide 22 mmol/L (22-30); Chloride 107 mmol/L (98-107); Glucose 101 mg/dL (74-99); Magnesium 1.9 mg/dL (1.6-2.3); Non-African American GFR(CKD) 76 (>60 ml/min/1.73 sqM); Potassium 3.6 mmol/L (3.5-5.1); Sodium 140 mmol/L (137-145); Total Bilirubin 0.6 mg/dL (0.2-1.3); Total Protein 6.6 g/dL (6.3-8.2)
[2023-05-29 07:33] LABS: NT-Pro-B-Type Natriuretic Pept 244 pg/mL
[2023-05-29 07:36] LABS: INR 0.9 (<1.2); Partial Thromboplastin Time 23.2 sec (22.0-30.0)
--- NOTE | 2023-05-29 07:52 | XR ---
EXAMINATION TYPE: XR chest 2V DATE OF EXAM: 05/29/2023 7:11 AM CLINICAL INDICATION:Female, 52 years old with history of difficulty breathing; [facility]LY [facility] COMPARISON: Chest radiographs from TECHNIQUE: XR chest 2V Frontal and lateral views of the chest. FINDINGS: Lungs/Pleura: There is no evidence of pleural effusion, focal consolidation, or pneumothorax. Pulmonary vascularity: Unremarkable. Heart/mediastinum: Cardiomediastinal silhouette is unremarkable. Musculoskeletal: No acute osseous pathology. IMPRESSION: No acute cardiopulmonary disease/process.
[2023-05-29 08:05] LABS: Appearance,Urine Clear (Clear); Bacteria,Urine Rare /hpf; Bilirubin,Urine Negative (Negative); Blood,Urine Negative (Negative); Color,Urine Colorless; Glucose,Urine (UA) Negative (Negative); Ketones,Urine Negative (Negative); Leukocyte Esterase,Urine Moderate (Negative); Nitrite,Urine Negative (Negative); PH, Urine 5.5 (5.0-8.0); Protein,Urine Negative (Negative); RBC,Urine 2 /hpf (0-5); Specific Gravity,Urine 1.005 (1.001-1.035); Squamous Epithelial Cell,Urine 1 /hpf (0-4); Urobilinogen,Urine <2.0 mg/dL (<2.0); WBC,Urine 7 /hpf (0-5)
[2023-05-29 08:26] VITALS: BP 109/61; PULSE 98; RESP 22; TEMP 98.1
== END 2023-05-29 08:24 | disposition home or self-care (01) ==
LOC: EC 06:36
DX: J40 Bronchitis, not specified as acute or chronic (principal); M54.9 Dorsalgia, unspecified; I44.7 Left bundle-branch block, unspecified; I10 Essential (primary) hypertension; G47.30 Sleep apnea, unspecified; Z86.59 Personal history of other mental and behavioral disorders; Z79.82 Long term (current) use of aspirin; Z79.51 Long term (current) use of inhaled steroids; Z79.899 Other long term (current) drug therapy; Z91.041 Radiographic dye allergy status; Z88.0 Allergy status to penicillin; Z91.09 Other allergy status, other than to drugs and biological substances; Z88.6 Allergy status to analgesic agent; Z20.822 Contact with and (suspected) exposure to COVID-19; Z88.1 Allergy status to other antibiotic agents; Z88.2 Allergy status to sulfonamides
CPT/HCPCS: 36415; 71046; 80053; 81001; 83735; 83880; 84484; 85025; 85610; 85730; 87636; 93005; 99285

== ENCOUNTER 2023-06-04 06:15 | Emergency (ER) | payer BC ==
--- NOTE | 2023-06-04 06:21 | ED ---
General Adult HPI - General Stated complaint: back pain Time Seen by Provider: 06/04/23 06:20 Source: patient, RN notes reviewed Mode of arrival: ambulatory Limitations: no limitations - History of Present Illness Initial comments: 52-year-old female presents emergency Department chief complaint of right low back pain. Patient states that does hurt with movement. Patient has had recent urinary tract infection. Patient denies abdominal pain. Patient has appears or chills no lower external weakness or paresthesias denies any bowel or bladder incontinence or retention. - Related Data Home Medications Medication Instructions Recorded Confirmed Fluticasone/Vilanterol [Breo 1 puff INHALATION RT-DAILY PRN 12/20/19 09/01/20 Ellipta 100-25 Mcg Inhaler] Montelukast [Singulair] 10 mg PO DAILY 05/01/20 09/01/20 Topiramate [Topamax] 50 mg PO BID 05/01/20 09/01/20 carvediloL [Coreg*] 25 mg PO AC-BID 05/01/20 09/01/20 Aspirin 81 mg PO DAILY 05/02/20 09/01/20 Ergocalciferol [Vitamin D2] 50,000 unit PO Q7D 06/23/20 09/01/20 Previous Rx's Medication Instructions Recorded Atorvastatin [Lipitor] 20 mg PO HS #90 tab 12/24/19 Furosemide [Lasix] 20 mg PO BID #180 tab 12/24/19 Losartan [Cozaar] 50 mg PO DAILY #90 tab 12/24/19 Pantoprazole [Protonix] 40 mg PO AC-BID #21 tablet. 05/04/20 Omeprazole [PriLOSEC] 40 mg PO DAILY #14 cap 06/23/20 Acetaminophen-Codeine 300-30mg 1 tab PO Q6H PRN #12 tablet 03/11/21 [Tylenol #3] Cyclobenzaprine [Flexeril] 10 mg PO TID #15 tab 03/11/21 Cyclobenzaprine [Flexeril] 10 mg PO HS PRN #7 tab 05/05/22 predniSONE 50 mg PO DAILY #5 tab 05/05/22 Nitrofurantoin Monohyd/M-Cryst 100 mg PO Q12HR 7 Days #14 cap 04/27/23 [Macrobid] Azithromycin [Zithromax Z Pack] 0 tab PO DIRECTED #6 tab 11/21/23 predniSONE 50 mg PO DAILY #5 tab 05/29/23 Cephalexin [Keflex] 500 mg PO Q8HR #21 cap 06/04/23 Cyclobenzaprine [Flexeril] 10 mg PO TID PRN #15 tab 06/04/23 Allergies Allergy/AdvReac Type Severity Reaction Status Date / Time Iodinated Contrast Media Allergy Severe Rash/Hives Verified 06/04/23 06:57 [Iodinated Contrast Media - IV Dye] Penicillins Allergy Severe swelling,hi Verified 06/04/23 06:57 ves Sulfa (Sulfonamide Allergy Severe swelling,hi Verified 06/04/23 06:57 Antibiotics) ves adhesive Allergy Swelling Verified 06/04/23 06:57 ibuprofen [From Motrin] AdvReac "PROBLEM Verified 06/04/23 06:57 WITH KIDNEYS" Review of Systems ROS Statement: Those systems with pertinent positive or pertinent negative responses have been documented in the HPI. ROS Other: All systems not noted in ROS Statement are negative. 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 History of Any Multi-Drug Resistant Organisms: None Reported Past Surgical History: Breast Surgery, Section, Heart Catheterization, Hernia Repair, Hysterectomy, Orthopedic Surgery, Tubal Ligation, Uterine Ablation Additional Past Surgical History / Comment(s): EGD, 3 C sections, breast reduction, cyst removed from left hand, D & C, Bilateral groin hernia repair, LAPAROSCOPY Past Anesthesia/Blood Transfusion Reactions: No Reported Reaction Additional Past Anesthesia/Blood Transfusion Reaction / Comment(s): CLAUSTERPHOBIA Past Psychological History: ADD/ADHD, Anxiety, Depression Smoking Status: Never smoker Past Alcohol Use History: None Reported Past Drug Use History: None Reported - Past Family History Mother Family Medical History: Coronary Artery Disease (CAD), Diabetes Mellitus, Renal Disease Additional Family Medical History / Comment(s): [employer] Father Family Medical History: Cancer, Diabetes Mellitus, Myocardial Infarction ([place]) Sister(s) Family Medical History: Cancer General Exam - General Exam Comments Initial Comments: Visual Physical Exam Vital signs reviewed General: Well-appearing, nontoxic, no acute distress. Head: Normocephalic, atraumatic Eyes: PERRLA, EOMI ENT: Airway patent Chest: Nonlabored breathing Skin: No visual rash, normal skin tone Neuro: Alert and oriented 3 Musculoskeletal: No gross abnormalities Limitations: no limitations General appearance: alert, in no apparent distress Head exam: Present: atraumatic, normocephalic, normal inspection Eye exam: Present: normal appearance, PERRL, EOMI. Absent: scleral icterus, conjunctival injection, periorbital swelling Respiratory exam: Present: normal lung sounds bilaterally. Absent: respiratory distress, wheezes, rales, rhonchi, stridor Cardiovascular Exam: Present: regular rate, normal rhythm, normal heart sounds. Absent: systolic murmur, diastolic murmur, rubs, gallop, clicks GI/Abdominal exam: Present: soft, normal bowel sounds. Absent: distended, tenderness, guarding, rebound, rigid Back exam: Present: CVA tenderness (L), paraspinal tenderness, vertebral tenderness. Absent: CVA tenderness (R) Neurological exam: Present: alert, oriented X3, CN II-XII intact Course Vital Signs 06/04/23 06:57 Temperature 97.5 F L Pulse Rate 79 Respiratory 18 Rate Blood Pressure 138/84 O2 Sat by Pulse 98 Oximetry Medical Decision Making - Medical Decision Making I completed the quick note portion of this chart signed Russ Valdez PA-C Was pt. sent in by a medical professional or institution ([facility] Gomez, [employer], urgent care, hospital, or usp...) When possible be specific @ -No Did you speak to anyone other than the patient for history (EMS, parent, family, police, friend...)? What history was obtained from this source @ -No Did you review nursing and triage notes (agree or disagree)? Why? @ -I reviewed and agree with nursing and triage notes Were old charts reviewed (outside hosp., previous admission, EMS record, old EKG, old radiological studies, urgent care reports/EKG's, usp records)? Report findings @ -Reviewed prior laboratory studies Differential Diagnosis (chest pain, altered mental status, abdominal pain women, abdominal pain men, vaginal bleeding, weakness, fever, dyspnea, syncope, headache, dizziness, GI bleed, back pain, seizure, CVA, palpatations, mental health, musculoskeletal)? @ -Differential Back Pain: Strain, zoster, cauda equina syndrome, epidural abscess, vertebral osteomyelitis, discitis, fracture, subluxation, disc herniation, DJD, spinal stenosis, dissection, AAA, pancreatitis, peptic ulcer disease, pyelonephritis, kidney stone, this is not meant to be an all-inclusive list.in EKG interpreted by me (3pts min.). @ -None X-rays interpreted by me (1pt min.). @ -None done CT interpreted by me (1pt min.). @ -None done U/S interpreted by me (1pt. min.). @ -None done What testing was considered but not performed or refused? (CT, X-rays, U/S, labs)? Why? @ -None What meds were considered but not given or refused? Why? @ -None Did you discuss the management of the patient with other professionals (professionals i.e. , PA, [employer], lab, RT, psych nurse, social service assistant, immigration lawyer, teacher, access control officer, case folder)? Give summary @ -No Was smoking cessation discussed for >3mins.? @ -No Was critical care preformed (if so, how long)? @ -No Were there social determinants of health that impacted care today? How? (Homelessness, low income, unemployed, alcoholism, drug addiction, transportation, low edu. Level, literacy, decrease access to med. care, [facility] [facility], rehab)? @ -No Was there de-escalation of care discussed even if they declined (Discuss DNR or withdrawal of care, Hospice)? DNR status @ -No What co-morbidities impacted this encounter? (DM, HTN, Smoking, COPD, CAD, Cancer, CVA, ARF, Chemo, Hep., AIDS, mental health diagnosis, sleep apnea, morbid obesity)? @ -None Was patient admitted / discharged? Hospital course, mention meds given and route, prescriptions, significant lab abnormalities, going to OR and other pertinent info. @ -Discharge patient has evidence UTI, patient went of back pain that is mechanical in nature. Patient was discharged in stable condition return parameters discussed. Undiagnosed new problem with uncertain prognosis? @ -No Drug Therapy requiring intensive monitoring for toxicity (Heparin, Nitro, Insulin, Cardizem)? @ -No Were any procedures done? @ -No Diagnosis/symptom? @ -Back pain, UTI Acute, or Chronic, or Acute on Chronic? @ -Acute Uncomplicated (without systemic symptoms) or Complicated (systemic symptoms)? @ -Uncomplicated Side effects of treatment? @ -No Exacerbation, Progression, or Severe Exacerbation? @ -No Poses a threat to life or bodily function? How? (Chest pain, USA, ME, pneumonia, PE, COPD, DKA, ARF, appy, cholecystitis, CVA, Diverticulitis, Homicidal, Suicidal, threat to staff... and all critical care pts) @ -No - Lab Data Lab Results 06/04/23 Range/Units 08:29 Urine Color Colorless Urine Appearance Clear (Clear) Urine pH 5.5 (5.0-8.0) Ur Specific [place] 1.010 (1.001-1.035) Urine Protein Negative (Negative) Urine Glucose (UA) Negative (Negative) Urine Ketones Negative (Negative) Urine Blood Negative (Negative) Urine Nitrite Negative (Negative) Urine Bilirubin Negative (Negative) Urine Urobilinogen <2.0 (<2.0) mg/dL Ur Leukocyte Esterase Large H (Negative) Urine RBC 9 H (0-5) /hpf Urine WBC 37 H (0-5) /hpf Ur Squamous Epith Cells 1 (0-4) /hpf Urine Mucus Rare H (None) /hpf Disposition Clinical Impression: Back pain, UTI (urinary tract infection) Disposition: HOME SELF-CARE Condition: Stable Instructions (If sedation given, give patient instructions): Acute Low Back Pain (ED) Additional Instructions: Please return to the Emergency Department if symptoms worsen or any other concerns. Prescriptions: Cyclobenzaprine [Flexeril] 10 mg PO TID PRN #15 tab PRN Reason: Muscle Spasm Cephalexin [Keflex] 500 mg PO Q8HR #21 cap Is patient prescribed a controlled substance at d/c from ED?: No Referrals: Apoorva Tuttle MD [Primary Care Provider] - 1-2 days Time of Disposition: 09:12
[2023-06-04 07:26] VITALS: RESP 18
[2023-06-04] MEDS ORDERED: HYDROcodone/APAP 5-325MG 1 EACH TAB PO STA (08:41)
[2023-06-04] MEDS ORDERED: ORPHENADRINE 30 MG/ML 2 ML VIAL IM STA (08:41)
[2023-06-04 08:49] LABS: Appearance,Urine Clear (Clear); Bilirubin,Urine Negative (Negative); Blood,Urine Negative (Negative); Color,Urine Colorless; Glucose,Urine (UA) Negative (Negative); Ketones,Urine Negative (Negative); Leukocyte Esterase,Urine Large (Negative); Mucus,Urine Rare /hpf; Nitrite,Urine Negative (Negative); PH, Urine 5.5 (5.0-8.0); Protein,Urine Negative (Negative); RBC,Urine 9 /hpf (0-5); Squamous Epithelial Cell,Urine 1 /hpf (0-4); Urobilinogen,Urine <2.0 mg/dL (<2.0); WBC,Urine 37 /hpf (0-5)
[2023-06-04] MEDS ORDERED: ACET/COD 300 MG/30 MG STARTER PACK 6 TAB BTL PO STA (09:11)
[2023-06-04 09:57] VITALS: BP 160/90; PULSE 80; TEMP 97.8
== END 2023-06-04 09:41 | disposition home or self-care (01) ==
LOC: EC 06:15
DX: M54.50 Low back pain, unspecified (principal); N39.0 Urinary tract infection, site not specified; I10 Essential (primary) hypertension; J45.909 Unspecified asthma, uncomplicated; G47.30 Sleep apnea, unspecified; Z86.59 Personal history of other mental and behavioral disorders; Z79.82 Long term (current) use of aspirin; Z79.51 Long term (current) use of inhaled steroids; Z88.0 Allergy status to penicillin; Z88.2 Allergy status to sulfonamides; Z88.6 Allergy status to analgesic agent; Z91.041 Radiographic dye allergy status
CPT/HCPCS: 81001; 87086; 99284; 96372; J2360

== ENCOUNTER 2023-07-29 13:48 | Inpatient (IN) | payer BC ==
[2023-07-29] MEDS ORDERED: SODIUM CHLORIDE 0.9% 1,000 ML IV STA ×3 (14:14→17:16)
[2023-07-29] MEDS ORDERED: MORPHINE SULFATE 4 MG/ML SYRINGE IVP STA (14:18)
[2023-07-29] MEDS ORDERED: ONDANSETRON 4 MG/2 ML VIAL IVP STA (14:18)
[2023-07-29] MEDS ORDERED: KETOROLAC 15 MG/ML 1 ML VIAL IVP STA (14:18)
--- NOTE | 2023-07-29 14:25 | ED ---
Abdominal Pain HPI - General Chief Complaint: Abdominal Pain Stated Complaint: abd pain light headed Time Seen by Provider: 07/29/23 14:04 Source: patient, RN notes reviewed Mode of arrival: ambulatory Limitations: no limitations - History of Present Illness Initial Comments: This is a 52-year-old female who presents to the emergency department for abdom inal pain. States that this started 2 days ago. This is primarily in the right upper quadrant with radiation into the back. She has associated nausea and vomiting. Believes that she had a fever at one point. Patient does note that she has a high riding appendix. Denies any history of kidney stones. Also denies any changes in bowel/bladder habits. She feels very fatigued and dizzy with her symptoms and states that she is sleeping a lot. Additionally, she has had intermittent episodes of centralized chest pain over the last couple of days. MD Complaint: abdominal pain - Related Data Home Medications Medication Instructions Recorded Confirmed Topiramate [Topamax] 25 mg PO BID 05/01/20 07/29/23 Aspirin 81 mg PO DAILY 05/02/20 07/29/23 Baclofen 10 mg PO TID PRN 07/29/23 07/29/23 Isosorbide Mononitrate ER [Imdur] 15 mg PO DAILY 07/29/23 07/29/23 Losartan Potassium [Cozaar] 100 mg PO DAILY 07/29/23 07/29/23 Pantoprazole [Protonix] 40 mg PO DAILY 07/29/23 07/29/23 Sacubitril/Valsartan [Entresto 49 1 tab PO BID 07/29/23 07/29/23 mg-51 mg Tablet] Tirzepatide [Mounjaro] 7.5 mg SQ TH 07/29/23 07/29/23 carvediloL [Coreg] 25 mg PO BID 07/29/23 07/29/23 Previous Rx's Medication Instructions Recorded Atorvastatin [Lipitor] 20 mg PO HS #90 tab 12/24/19 Furosemide [Lasix] 20 mg PO BID #180 tab 12/24/19 Allergies Allergy/AdvReac Type Severity Reaction Status Date / Time Iodinated Contrast Media Allergy Severe Rash/Hives Verified 07/29/23 17:38 [Iodinated Contrast Media - IV Dye] Penicillins Allergy Severe swelling,hi Verified 01/21/24 17:38 ves Sulfa (Sulfonamide Allergy Severe swelling,hi Verified 07/29/23 17:38 Antibiotics) ves adhesive Allergy Swelling Verified 07/29/23 17:38 ibuprofen [From Motrin] AdvReac "PROBLEM Verified 07/29/23 17:38 WITH KIDNEYS" Review of Systems ROS Statement: Those systems with pertinent positive or pertinent negative responses have been documented in the HPI. ROS Other: All systems not noted in ROS Statement are negative. 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 History of Any Multi-Drug Resistant Organisms: None Reported Past Surgical History: Breast Surgery, Section, Cholecystectomy, Heart Catheterization, Hernia Repair, Hysterectomy, Orthopedic Surgery, Tubal Ligation, Uterine Ablation Additional Past Surgical History / Comment(s): EGD, 3 C sections, breast reduc tion, cyst removed from left hand, D & C, Bilateral groin hernia repair, LAPAROSCOPY Past Anesthesia/Blood Transfusion Reactions: No Reported Reaction Additional Past Anesthesia/Blood Transfusion Reaction / Comment(s): CLAUSTERPHOBIA Past Psychological History: ADD/ADHD, Anxiety, Depression Smoking Status: Never smoker Past Alcohol Use History: None Reported Past Drug Use History: None Reported - Past Family History Mother Family Medical History: Coronary Artery Disease (CAD), Diabetes Mellitus, Renal Disease Additional Family Medical History / Comment(s): [employer] Father Family Medical History: Cancer, Diabetes Mellitus, Myocardial Infarction ([place]) Sister(s) Family Medical History: Cancer General Exam Limitations: no limitations General appearance: alert, in distress Head exam: Present: atraumatic, normocephalic, normal inspection Respiratory exam: Present: normal lung sounds bilaterally. Absent: respiratory distress, wheezes, rales, rhonchi, stridor Cardiovascular Exam: Present: regular rate, normal rhythm, normal heart sounds. Absent: systolic murmur, diastolic murmur, rubs, gallop, clicks GI/Abdominal exam: Present: soft, tenderness (RUQ), normal bowel sounds. Absent: distended Neurological exam: Present: alert, oriented X3, CN II-XII intact Psychiatric exam: Present: normal affect, normal mood Skin exam: Present: warm, dry, intact, normal color. Absent: rash Course Vital Signs 07/29/23 07/29/23 07/29/23 13:56 14:50 15:00 Temperature 97.6 F Pulse Rate 81 79 Respiratory 16 20 Rate Blood Pressure 95/59 98/64 98/64 O2 Sat by Pulse 98 95 96 Oximetry 07/29/23 07/29/23 07/29/23 15:30 16:00 16:54 Temperature Pulse Rate Respiratory Rate Blood Pressure 80/48 89/46 88/58 O2 Sat by Pulse 96 98 Oximetry 07/29/23 07/29/23 17:00 17:30 Temperature Pulse Rate Respiratory Rate Blood Pressure 88/54 95/49 O2 Sat by Pulse 99 100 Oximetry Medical Decision Making - Medical Decision Making This is a 52-year-old female who presents to the emergency department for abdominal pain. Was pt. sent in by a medical professional or institution? @ -No Did you speak to anyone other than the patient for history? @ -No Did you review nursing and triage notes? @ -Yes, and I agree, it is accurate with regards to the patient's symptoms. Were old charts reviewed? @ -No Differential Diagnosis? @ -Differential Abdominal Pain Women: Appendicitis, Cholecystitis, diverticulosis, ischemic bowel, pancreatitis, hepatitis, UTI, gastroenteritis, AAA, incarcerated hernia, bowel obstruction, constipation, inflammatory bowel, hepatitis, peptic ulcer disease, splenic infarction, perforated viscus, vulvitis, ovarian torsion, PID, kidney stone, placenta abruption, this is not meant to be an all-inclusive list EKG interpreted by me (3pts min.)? @ -EKG interpreted by me demonstrating the following: Sinus rhythm. Ventricular rate 69 BPM, AK interval 193 ms, QRS duration 166 ms, QTc 485 ms. X-rays interpreted by me (1pt min.)? @ -Not obtained CT interpreted by me (1pt min.)? @ -CT scan of the abdomen and pelvis obtained. My interpretation identifies no evidence of a ureteral calculus. U/S interpreted by me (1pt. min.)? @ -Not obtained What testing was considered but not performed? (CT, X-rays, U/S, labs)? Why? @ -None What meds were considered but not given? Why? @ -None Did you discuss the management of the patient with other professionals? @ -Yes, Dr. Santos, who accepts the patient for admission. Did you reconcile home meds? @ -Yes - Lasix held temporarily due to dehydration/MITA. Was smoking cessation discussed for >3mins.? @ -No Was critical care preformed (if so, how long)? @ -No Were there social determinants of health that impacted care today? How? (H omelessness, low income, unemployed, alcoholism, drug addiction, transportation, low edu. Level, literacy, decrease access to med. care, fdc, rehab)? @ -No Was there de-escalation of care discussed even if they declined? (Discuss DNR or withdrawal of care, Hospice)? @ -No What co-morbidities impacted this encounter? (DM, HTN, Smoking, COPD, CAD, Cancer, CVA, Hep., AIDS, mental health diagnosis, sleep apnea, morbid obesity)? @ -None Was patient admitted / discharged? @ -Admitted. Lab work obtained revealing a fairly significant acute kidney injury with a creatinine of 2.39 and GFR of 23. There is mild hypokalemia of 3.4 and the lab work is also suggestive of acidosis. CT scan of the abdomen and pelvis reveals no acute process. Patient remained hypotensive in the emergency department as well, with BPs ranging in the 80s-90s systolically. Patient admitted to medicine for further management of MITA and hypotension. Undiagnosed new problem with uncertain prognosis? @ -None Drug Therapy requiring intensive monitoring for toxicity (Heparin, Nitro, Insulin, Cardizem)? @ -None Were any procedures done? @ -None Diagnosis/symptom? @ -MITA, abdominal pain, hypotension Acute, or Chronic, or Acute on Chronic? @ -Acute Uncomplicated (without systemic symptoms) or Complicated (systemic symptoms)? @ -Complicated Side effects of treatment? @ -None Exacerbation, Progression, or Severe Exacerbation] @ -Not applicable Poses a threat to life or bodily function? @ -Yes This case was discussed in detail with the attending ED physician, Dr. Davidson. Presentation, findings, and treatment plan discussed in detail as well. - Lab Data Result diagrams: 07/29/23 14:27 07/29/23 14:27 Lab Results 07/29/23 07/29/23 07/29/23 Range/Units 14:27 14:27 14:27 WBC 7.1 (3.8-10.6) k/uL RBC 3.67 L (3.80-5.40) m/uL Hgb 12.1 (11.4-16.0) gm/dL Hct 33.6 L (34.0-46.0) % MCV 91.5 (80.0-100.0) fL MCH 32.9 (25.0-35.0) pg MCHC 35.9 (31.0-37.0) g/dL RDW 12.9 (11.5-15.5) % Plt Count 307 (150-450) k/uL MPV 7.4 Neutrophils % 44 % Lymphocytes % 47 % Monocytes % 4 % Eosinophils % 3 % Basophils % 1 % Neutrophils # 3.1 (1.3-7.7) k/uL Lymphocytes # 3.3 (1.0-4.8) k/uL Monocytes # 0.3 (0-1.0) k/uL Eosinophils # 0.2 (0-0.7) k/uL Basophils # 0.1 (0-0.2) k/uL PT (10.0-12.5) sec INR (<1.2) APTT (22.0-30.0) sec D-Dimer (<0.60) mg/L FEU Sodium 143 (137-145) mmol/L Potassium 3.4 L (3.5-5.1) mmol/L Chloride 112 H (98-107) mmol/L Carbon Dioxide 16 L (22-30) mmol/L Anion Gap 15 mmol/L BUN 23 H (7-17) mg/dL Creatinine 2.39 H (0.52-1.04) mg/dL Est GFR (CKD-EPI)AfAm 26 (>60 ml/min/1.73 sqM) Est GFR (CKD-EPI)NonAf 23 (>60 ml/min/1.73 sqM) Glucose 113 H (74-99) mg/dL Plasma Lactic Acid [place] (0.7-2.0) mmol/L Calcium 8.7 (8.4-10.2) mg/dL Total Bilirubin 0.9 (0.2-1.3) mg/dL AST 29 (14-36) U/L ALT 23 (4-34) U/L Alkaline Phosphatase 87 (38-126) U/L Troponin I (0.000-0.034) ng/mL Total Protein 6.9 (6.3-8.2) g/dL Albumin 3.9 (3.5-5.0) g/dL Amylase 44 (30-110) U/L Lipase 85 (23-300) U/L Urine Color Light Yellow Urine Appearance Cloudy H (Clear) Urine pH 5.0 (5.0-8.0) Ur Specific [place] 1.012 (1.001-1.035) Urine Protein Negative (Negative) Urine Glucose (UA) Negative (Negative) Urine Ketones Negative (Negative) Urine Blood Negative (Negative) Urine Nitrite Negative (Negative) Urine Bilirubin Negative (Negative) Urine Urobilinogen <2.0 (<2.0) mg/dL Ur Leukocyte Esterase Moderate H (Negative) Urine RBC 3 (0-5) /hpf Urine WBC 20 H (0-5) /hpf Ur Squamous Epith Cells 12 H (0-4) /hpf Urine Bacteria Occasional H (None) /hpf Hyaline Casts 14 H (0-2) /lpf Urine Mucus Rare H (None) /hpf 07/29/23 07/29/23 07/29/23 Range/Units 14:27 17:15 17:15 WBC (3.8-10.6) k/uL RBC (3.80-5.40) m/uL Hgb (11.4-16.0) gm/dL Hct (34.0-46.0) % MCV (80.0-100.0) fL MCH (25.0-35.0) pg MCHC (31.0-37.0) g/dL RDW (11.5-15.5) % Plt Count (150-450) k/uL MPV Neutrophils % % Lymphocytes % % Monocytes % % Eosinophils % % Basophils % % Neutrophils # (1.3-7.7) k/uL Lymphocytes # (1.0-4.8) k/uL Monocytes # (0-1.0) k/uL Eosinophils # (0-0.7) k/uL Basophils # (0-0.2) k/uL PT 10.9 (10.0-12.5) sec INR 1.0 (<1.2) APTT 23.7 (22.0-30.0) sec D-Dimer 0.56 (<0.60) mg/L FEU Sodium (137-145) mmol/L Potassium (3.5-5.1) mmol/L Chloride (98-107) mmol/L Carbon Dioxide (22-30) mmol/L Anion Gap mmol/L BUN (7-17) mg/dL Creatinine (0.52-1.04) mg/dL Est GFR (CKD-EPI)AfAm (>60 ml/min/1.73 sqM) Est GFR (CKD-EPI)NonAf (>60 ml/min/1.73 sqM) Glucose (74-99) mg/dL Plasma Lactic Acid [place] 1.8 (0.7-2.0) mmol/L Calcium (8.4-10.2) mg/dL Total Bilirubin (0.2-1.3) mg/dL AST (14-36) U/L ALT (4-34) U/L Alkaline Phosphatase (38-126) U/L Troponin I <0.012 (0.000-0.034) ng/mL Total Protein (6.3-8.2) g/dL Albumin (3.5-5.0) g/dL Amylase (30-110) U/L Lipase (23-300) U/L Urine Color Urine Appearance (Clear) Urine pH (5.0-8.0) Ur Specific [place] (1.001-1.035) Urine Protein (Negative) Urine Glucose (UA) (Negative) Urine Ketones (Negative) Urine Blood (Negative) Urine Nitrite (Negative) Urine Bilirubin (Negative) Urine Urobilinogen (<2.0) mg/dL Ur Leukocyte Esterase (Negative) Urine RBC (0-5) /hpf Urine WBC (0-5) /hpf Ur Squamous Epith Cells (0-4) /hpf Urine Bacteria (None) /hpf Hyaline Casts (0-2) /lpf Urine Mucus (None) /hpf - Radiology Data Radiology results: report reviewed, image reviewed Disposition Clinical Impression: MITA (acute kidney injury), Abdominal pain, Hypotension Disposition: ADMITTED IP TO [facility] Referrals: Rick Santos MD [Primary Care Provider] - 1-2 days Time of Disposition: 17:30
[2023-07-29 14:57] LABS: Basophils # (A) 0.1 k/uL (0-0.2); Basophils % (A) 1 %; Eosinophils # (A) 0.2 k/uL (0-0.7); Eosinophils % (A) 3 %; HCT 33.6 % (34.0-46.0); HGB 12.1 gm/dL (11.4-16.0); Lymphocytes # (A) 3.3 k/uL (1.0-4.8); Lymphocytes % (A) 47 %; MCH 32.9 pg (25.0-35.0); MCHC 35.9 g/dL (31.0-37.0); MCV 91.5 fL (80.0-100.0); Mean Platelet Volume 7.4; Monocytes # (A) 0.3 k/uL (0-1.0); Monocytes % (A) 4 %; Neutrophils # (A) 3.1 k/uL (1.3-7.7); Neutrophils % (A) 44 %; Platelet Count 307 k/uL (150-450); RBC 3.67 m/uL (3.80-5.40); RDW 12.9 % (11.5-15.5); WBC 7.1 k/uL (3.8-10.6)
[2023-07-29 15:00] LABS: Appearance,Urine Cloudy (Clear); Bacteria,Urine Occasional /hpf; Bilirubin,Urine Negative (Negative); Blood,Urine Negative (Negative); Color,Urine Light Yellow; Glucose,Urine (UA) Negative (Negative); Hyaline Casts,Urine 14 /lpf (0-2); Ketones,Urine Negative (Negative); Leukocyte Esterase,Urine Moderate (Negative); Mucus,Urine Rare /hpf; Nitrite,Urine Negative (Negative); Protein,Urine Negative (Negative); RBC,Urine 3 /hpf (0-5); Specific Gravity,Urine 1.012 (1.001-1.035); Squamous Epithelial Cell,Urine 12 /hpf (0-4); Urobilinogen,Urine <2.0 mg/dL (<2.0); WBC,Urine 20 /hpf (0-5)
[2023-07-29] MEDS ORDERED: FAMOTIDINE 20 MG/2 ML VIAL IV STA (15:03)
[2023-07-29] MEDS ORDERED: diphenhydrAMINE 50 MG/ML 1 ML VIAL IVP STA (15:03)
[2023-07-29] MEDS ORDERED: methylPREDNISolone SOD SUCCI 125 MG/2 ML VIAL IV STA (15:03)
[2023-07-29 15:07] LABS: ALT 23 U/L (4-34); AST 29 U/L (14-36); African American GFR (CKD) 26 (>60 ml/min/1.73 sqM); Albumin 3.9 g/dL (3.5-5.0); Alkaline Phosphatase 87 U/L (38-126); Amylase 44 U/L (30-110); Anion Gap 15 mmol/L; Blood Urea Nitrogen 23 mg/dL (7-17); Calcium 8.7 mg/dL (8.4-10.2); Carbon Dioxide 16 mmol/L (22-30); Chloride 112 mmol/L (98-107); Glucose 113 mg/dL (74-99); Lipase 85 U/L (23-300); Non-African American GFR(CKD) 23 (>60 ml/min/1.73 sqM); Potassium 3.4 mmol/L (3.5-5.1); Sodium 143 mmol/L (137-145); Total Bilirubin 0.9 mg/dL (0.2-1.3); Total Protein 6.9 g/dL (6.3-8.2)
--- NOTE | 2023-07-29 17:03 | CT ---
EXAMINATION TYPE: CT abdomen pelvis wo con CT DLP: 1102.5 mGycm, Automated exposure control for dose reduction was used. DATE OF EXAM: 07/29/2023 3:23 PM COMPARISON: None. CLINICAL INDICATION:Female, 52 years old with history of Right sided abdominal pain; Rt side abdomina l pain x2days. TECHNIQUE: Axial CT of the abdomen and pelvis. Sagittal and coronal reformats were created on a [employer] workstation. Contrast used: mL of , (none if empty) Oral contrast used: without Oral Contrast (none if empty) FINDINGS: Exam is limited without contrast. LOWER CHEST: Heart is mildly enlarged. Small pericardial effusion. Prominent pericardial fat noted wi th small nodular density on the right, likely lymph node. ABDOMEN LIVER: Enlarged, right lobe is 21.2 cm GALLBLADDER AND BILE DUCTS: Gallbladder not seen, likely absent. No biliary dilatation is seen. PANCREAS: Unremarkable. SPLEEN: A 1.3 cm hypoattenuating focus in the posterior spleen. Spleen is normal in size at 9.2 cm. ADRENAL GLANDS: Unremarkable. KIDNEYS AND URETERS: Transverse lie of the right kidney. No renal calculi or hydronephrosis. PELVIS BLADDER: Mostly empty, grossly unremarkable. REPRODUCTIVE: The uterus appears absent, correlate for hysterectomy. Left ovary not seen, presumed ri ght ovary is within normal limits. No adnexal mass is seen. ABDOMEN & PELVIS STOMACH AND BOWEL: Stomach and small bowel are nondistended, no evidence of obstruction. Fatty infi ltration of the ileocecal valve. There is a high riding cecum. The appendix is seen, courses superior ly nearly reaching the inferior tip of the liver. Appendix otherwise appears within normal limits. M ild stool throughout colon without clear evidence of an acute abnormality. There may be some scattere d tiny diverticula but no evidence of inflammatory change. PERITONEUM/RETROPERITONEUM: No evidence of pneumoperitoneum or free fluid. Mild mary alice mesentery kalani earance in the abdomen. VASCULATURE: Mild to moderate atherosclerotic calcifications are present throughout the abdominal aor ta and its branches. No evidence of aortic aneurysm. LYMPH NODES: No gross evidence for lymphadenopathy. SOFT TISSUE/ABDOMINAL WALL: Small fat-containing umbilical hernia. MUSCULOSKELETAL: No acute osseous abnormalities. Moderate degenerative changes of the hips and spine . IMPRESSION: 1. No evidence of urinary tract calculi or hydronephrosis. 2. Otherwise limited unenhanced study shows no acute inflammatory or obstructive process in the abdo men or pelvis. 3. Nonspecific small hypoattenuating splenic lesion, possibilities include hemangioma. 4. Hepatomegaly. 5. Mild cardiomegaly. Small pericardial effusion.
[2023-07-29 17:51] LABS: Partial Thromboplastin Time 23.7 sec (22.0-30.0); Prothrombin Time 10.9 sec (10.0-12.5)
[2023-07-29] MEDS ORDERED: NALOXONE 0.4 MG/ML 1 ML VIAL IV PRN (18:21)
[2023-07-29] MEDS ORDERED: ACETAMINOPHEN TAB 325 MG TAB PO PRN (18:21)
[2023-07-29] MEDS ORDERED: BACLOFEN 10 MG TAB PO PRN (18:23)
[2023-07-29] MEDS: MORPHINE SULFATE 4 MG/ML SYRINGE IV PRN (19:51)
[2023-07-29] MEDS: ATORVASTATIN 20 MG TAB PO SCH (20:46)
[2023-07-29] MEDS: carvediloL 12.5 MG TAB PO SCH (20:46)
[2023-07-29] MEDS: TOPIRAMATE 25 MG TAB PO SCH (20:46)
[2023-07-29] MEDS ORDERED: SACUBITRIL/VALSARTAN 49 MG-51 MG TABLET PO SCH (21:00)
[2023-07-29] MEDS: ONDANSETRON 4 MG/2 ML VIAL IVP PRN (21:09)
[2023-07-30] MEDS ORDERED: LOSARTAN 50 MG TAB PO SCH (09:00)
[2023-07-30 09:11] LABS: BUN/Creat Ratio 11.78 Ratio (12.00-20.00); Blood Urea Nitrogen 21.2 mg/dL (9.0-27.0); Carbon Dioxide 23.8 mmol/L (21.6-31.8); Chloride 112 mmol/L (96-109); Glucose 133 mg/dL (70-110); Potassium 3.7 mmol/L (3.5-5.5); Sodium 147 mmol/L (135-145)
[2023-07-30] MEDS: HYDROcodone/APAP 5-325MG 1 EACH TAB PO PRN (09:16)
[2023-07-30] MEDS: TOPIRAMATE 25 MG TAB PO SCH ×2 (09:16→21:13)
[2023-07-30] MEDS: carvediloL 12.5 MG TAB PO SCH ×2 (09:16→21:12)
[2023-07-30] MEDS: ASPIRIN 81 MG PO SCH (09:16)
[2023-07-30] MEDS: PANTOPRAZOLE 40 MG TABLET PO SCH (09:16)
[2023-07-30] MEDS: ISOSORBIDE MONONITRATE ER 15 MG TAB PO SCH (09:57)
[2023-07-30] MEDS: ONDANSETRON 4 MG/2 ML VIAL IVP PRN (21:05)
[2023-07-30] MEDS: MORPHINE SULFATE 4 MG/ML SYRINGE IV PRN (21:05)
[2023-07-30] MEDS: ATORVASTATIN 20 MG TAB PO SCH (21:13)
[2023-07-31] MEDS: TOPIRAMATE 25 MG TAB PO SCH ×2 (09:00→20:32)
[2023-07-31] MEDS: ISOSORBIDE MONONITRATE ER 15 MG TAB PO SCH (09:01)
[2023-07-31] MEDS: PANTOPRAZOLE 40 MG TABLET PO SCH (09:01)
[2023-07-31] MEDS: carvediloL 12.5 MG TAB PO SCH ×2 (09:01→20:32)
[2023-07-31] MEDS: ASPIRIN 81 MG PO SCH (09:01)
[2023-07-31] MEDS: HYDROcodone/APAP 5-325MG 1 EACH TAB PO PRN (09:01)
[2023-07-31] MEDS: ATORVASTATIN 20 MG TAB PO SCH (20:32)
[2023-07-31] MEDS: MORPHINE SULFATE 4 MG/ML SYRINGE IV PRN (20:40)
[2023-08-01] MEDS: MORPHINE SULFATE 4 MG/ML SYRINGE IV PRN ×2 (02:39→13:55)
[2023-08-01] MEDS: PANTOPRAZOLE 40 MG TABLET PO SCH (09:00)
[2023-08-01] MEDS: ISOSORBIDE MONONITRATE ER 15 MG TAB PO SCH (09:00)
[2023-08-01] MEDS: ASPIRIN 81 MG PO SCH (09:00)
[2023-08-01] MEDS: TOPIRAMATE 25 MG TAB PO SCH ×2 (09:00→21:28)
[2023-08-01 12:17] LABS: Glucose,Whole Blood 91 mg/dL (70-110)
[2023-08-01] MEDS: carvediloL 12.5 MG TAB PO SCH (13:35)
[2023-08-01 17:03] LABS: Basophils # (A) 0.1 k/uL (0-0.2); Basophils % (A) 1 %; Eosinophils # (A) 0.2 k/uL (0-0.7); Eosinophils % (A) 3 %; HCT 31.1 % (34.0-46.0); HGB 11.3 gm/dL (11.4-16.0); Lymphocytes # (A) 3.1 k/uL (1.0-4.8); Lymphocytes % (A) 54 %; MCH 34.2 pg (25.0-35.0); MCHC 36.2 g/dL (31.0-37.0); MCV 94.4 fL (80.0-100.0); Mean Platelet Volume 7.1; Monocytes # (A) 0.3 k/uL (0-1.0); Monocytes % (A) 5 %; Neutrophils # (A) 2.1 k/uL (1.3-7.7); Neutrophils % (A) 36 %; Platelet Count 251 k/uL (150-450); RDW 12.9 % (11.5-15.5); WBC 5.7 k/uL (3.8-10.6)
[2023-08-01 17:11] LABS: ALT 25 U/L (4-34); AST 31 U/L (14-36); African American GFR (CKD) 74 (>60 ml/min/1.73 sqM); Albumin 3.4 g/dL (3.5-5.0); Albumin/Globulin Ratio 1.3; Alkaline Phosphatase 84 U/L (38-126); Anion Gap 4 mmol/L; Blood Urea Nitrogen 11 mg/dL (7-17); Calcium 8.2 mg/dL (8.4-10.2); Carbon Dioxide 27 mmol/L (22-30); Chloride 113 mmol/L (98-107); Globulin 2.7 g/dL; Glucose 82 mg/dL (74-99); Non-African American GFR(CKD) 64 (>60 ml/min/1.73 sqM); Sodium 144 mmol/L (137-145); Total Bilirubin 0.6 mg/dL (0.2-1.3); Total Protein 6.1 g/dL (6.3-8.2)
[2023-08-01 17:35] LABS: Potassium 3.5 mmol/L (3.5-5.1)
[2023-08-01] MEDS: ATORVASTATIN 20 MG TAB PO SCH (21:28)
[2023-08-01] MEDS: HYDROcodone/APAP 5-325MG 1 EACH TAB PO PRN (21:28)
[2023-08-02] MEDS: carvediloL 12.5 MG TAB PO SCH ×3 (01:02→20:07)
--- NOTE | 2023-08-02 04:45 | HP ---
HISTORY AND PHYSICAL CHIEF COMPLAINT: Abdominal pain with nausea, vomiting, diarrhea. HISTORY OF PRESENT ILLNESS: This is the first known admission for this 52-year-old white female, who presented to the emergency room with abdominal pain. CAT scan in the emergency room is normal. She does have a history of renal insufficiency. REVIEW OF SYSTEMS: She denies fever, chills, hematemesis, melena, hematochezia, urinary complaints, etc. Past medical history, family history, personal and social histories are otherwise unremarkable and noncontributory. PHYSICAL EXAMINATION: VITAL SIGNS: Blood pressure is 95/59. GENERAL: She is awake and alert. HEAD, EARS, EYES, NOSE, MOUTH AND THROAT: Normal. CHEST: Clear. CARDIAC: Demonstrated sinus tachycardia. ABDOMEN: Slightly protuberant and soft. There is no tenderness or visceromegaly. There are no masses. Bowel sounds were heard. EXTREMITIES: Normal. NEUROLOGICAL: Intact. DIAGNOSES: She is admitted to the hospital with diagnoses of, 1. Right upper abdominal pain. 2. Nausea, vomiting, and diarrhea. 3. Hypotension. 4. Renal failure. PLAN: 1. Bed rest. 2. IV fluids. 3. Follow laboratory studies including white blood cell count and renal function while monitoring her abdominal pain. MMODL / IJN: [id number] /
--- NOTE | 2023-08-02 06:31 | PN ---
PROGRESS NOTE DATE OF SERVICE: 08/01/2023 CHIEF COMPLAINT: Right upper quadrant pain. HISTORY OF PRESENT ILLNESS: This lady is still complains of right upper quadrant pain. However, her CT scan was normal as are her vital signs and she is eating a regular diet. It is noticed that her GFR is extremely low. She states that the doctor in the [facility] area had mentioned this to her. GFR is 23. PHYSICAL EXAMINATION: GENERAL: She appears to be slightly edematous. CHEST: Clear. CARDIAC: Normal. ABDOMEN: Soft and slightly protuberant. She does not seem to be tender and there does not seem to be visceromegaly. IMPRESSION: 1. Right upper quadrant pain, etiology unknown. 2. Stage IV chronic kidney disease. PLAN: Nephrology consult. MMODL / IJN: [id number] /
--- NOTE | 2023-08-02 06:52 | PN ---
PROGRESS NOTE DATE OF SERVICE: 07/30/2023 CHIEF COMPLAINT: Abdominal pain with vomiting and diarrhea. HISTORY OF PRESENT ILLNESS: This lady is still complaining of right upper quadrant pain, but she seems to be eating just fine. CAT scan was normal. Her kidney function is going to be her biggest issue. PHYSICAL EXAMINATION: GENERAL: She is slightly pale. CHEST: Clear. CARDIAC: Normal. ABDOMEN: Soft and nontender. IMPRESSION: 1. Right upper quadrant pain with nausea, vomiting, diarrhea. 2. CKD. PLAN: Continue to monitor her abdominal findings as well as following her GFR. MMODL / IJN: [id number] /
--- NOTE | 2023-08-02 07:15 | PN ---
PROGRESS NOTE DATE OF SERVICE: 07/31/2023 CHIEF COMPLAINT: Right upper quadrant abdominal pain. HISTORY OF PRESENT ILLNESS: This lady is doing a bit better. She is not as nauseated and states she is not vomiting nearly as much, but has once or twice today. The diarrhea has ceased. PHYSICAL EXAMINATION: GENERAL: She is slightly pale. CHEST: Clear. CARDIAC: Normal. ABDOMEN: Does not seen to be particularly tender and there do not seem to be any masses or visceromegaly. Bowel sounds are heard. IMPRESSION: Right upper quadrant abdominal pain with nausea, vomiting, diarrhea, etiology unknown. PLAN: Continue to follow abdominal signs and symptoms and consider further evaluation. MMODL / IJN: [id number] /
[2023-08-02] MEDS: ASPIRIN 81 MG PO SCH (08:47)
[2023-08-02] MEDS: TOPIRAMATE 25 MG TAB PO SCH ×2 (08:48→20:08)
[2023-08-02] MEDS: MORPHINE SULFATE 4 MG/ML SYRINGE IV PRN (08:48)
[2023-08-02] MEDS: ISOSORBIDE MONONITRATE ER 15 MG TAB PO SCH (08:48)
[2023-08-02] MEDS: PANTOPRAZOLE 40 MG TABLET PO SCH (08:48)
--- NOTE | 2023-08-02 12:28 | P.NPCON ---
History of Present Illness - Reason for Consult acute renal failure - History of Present Illness Patient is a 52-year-old female with history of hypertension, CHF and sleep apnea. Patient is admitted to the hospital with complaints of abdominal pain. Patient complains of nausea and vomiting. She is also complaining of increased weakness and fatigue. She has had intermittent diarrhea on and off. Serum creatinine was 2.3 on admission decreased to 1.0 today. Previous creatinine 0.8 on 05/29/2023. Maintained on Entresto and Cozaar as outpatient. Blood pressure was low with systolic in the 80s on initial admission. Complaining of burning sensation when passing urine. UA on 07/29/2023 showed WBCs 20, no blood or protein. Review of Systems As per HPI Past Medical History Past Medical History: Asthma, Hypertension, Liver Disease, Neurologic Disorder, Sleep Apnea/CPAP/BIPAP Additional Past Medical History / Comment(s): back pain, Chronic Hepatitis , MIGRAINES, USES CPAP , BULGING DISCS IN BACK, had mono as a young child turning into chronic hepatitis, neuro disorder in terms of "blackouts" History of Any Multi-Drug Resistant Organisms: None Reported Past Surgical History: Breast Surgery, Section, Cholecystectomy, Heart Catheterization, Hernia Repair, Hysterectomy, Orthopedic Surgery, Tubal Ligation, Uterine Ablation Additional Past Surgical History / Comment(s): EGD, 3 C sections, breast reduction, cyst removed from left hand, D & C, Bilateral groin hernia repair, LAPAROSCOPY Past Anesthesia/Blood Transfusion Reactions: No Reported Reaction Additional Past Anesthesia/Blood Transfusion Reaction / Comment(s): CLAUSTERPHOBIA Past Psychological History: ADD/ADHD, Anxiety, Depression Additional Psychological History / Comment(s): CLAUSTERPHOBIA Smoking Status: Never smoker Past Alcohol Use History: None Reported Past Drug Use History: None Reported - Past Family History Mother Family Medical History: Coronary Artery Disease (CAD), Diabetes Mellitus, Renal Disease Additional Family Medical History / Comment(s): [employer] Father Family Medical History: Cancer, Diabetes Mellitus, Myocardial Infarction ([place]) Sister(s) Family Medical History: Cancer Medications and Allergies Home Medications Medication Instructions Recorded Confirmed Type Atorvastatin [Lipitor] 20 mg PO HS #90 tab 12/24/19 07/29/23 Rx Furosemide [Lasix] 20 mg PO BID #180 tab 12/24/19 07/29/23 Rx Topiramate [Topamax] 25 mg PO BID 05/01/20 07/29/23 History Aspirin 81 mg PO DAILY 05/02/20 07/29/23 History Baclofen 10 mg PO TID PRN 07/29/23 07/29/23 History Isosorbide Mononitrate ER [Imdur] 15 mg PO DAILY 07/29/23 07/29/23 History Losartan Potassium [Cozaar] 100 mg PO DAILY 07/29/23 07/29/23 History Pantoprazole [Protonix] 40 mg PO DAILY 07/29/23 07/29/23 History Sacubitril/Valsartan [Entresto 49 1 tab PO BID 07/29/23 07/29/23 History mg-51 mg Tablet] Tirzepatide [Mounjaro] 7.5 mg SQ TH 07/29/23 07/29/23 History carvediloL [Coreg] 25 mg PO BID 07/29/23 07/29/23 History Allergies Allergy/AdvReac Type Severity Reaction Status Date / Time Iodinated Contrast Media Allergy Severe Rash/Hives Verified 07/29/23 17:38 [Iodinated Contrast Media - IV Dye] Penicillins Allergy Severe swelling,hi Verified 07/29/23 17:38 ves Sulfa (Sulfonamide Allergy Severe swelling,hi Verified 07/29/23 17:38 Antibiotics) ves adhesive Allergy Swelling Verified 07/29/23 17:38 ibuprofen [From Motrin] AdvReac "PROBLEM Verified 07/29/23 17:38 WITH KIDNEYS" Physical Exam Vitals: Vital Signs Temp Pulse Resp BP Pulse Ox 08/02/23 07:00 97.8 F 96 17 128/69 98 08/02/23 01:45 97.9 F 88 16 127/62 98 08/01/23 21:28 73 08/01/23 20:18 97.7 F 73 17 108/68 98 08/01/23 13:53 98.0 F 74 14 108/62 100 Intake and Output 08/01/23 08/02/23 08/02/23 22:59 06:59 14:59 Intake Total 118 Balance 118 Intake: Oral 118 Other: Voiding Method Toilet # Voids 2 2 Patient is comfortable, awake alert oriented x 3 Face appears edematous Examination of the heart S1 and S2 Examination of the lungs shows decreased breath sounds at the bases Abdomen is soft nontender Examination of lower extremity shows edema 1+ bilaterally. 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 Acute kidney injury secondary to hypotension, currently improved. Patient was maintained on high-dose of angiotensin receptor blockers along with Entresto. 2. CHF with preserved ejection fraction on echocardiogram in 2019. 3. Pyuria rule out UTI 4. Abdominal pain with episodes of diarrhea 5. Hypertension with blood pressure currently low Plan: Add IV Lasix Continue to hold Cozaar May restart Entresto tomorrow. Decrease dose of angiotensin receptor blockers if restarted as outpatient. Repeat UA Thank you for the consultation. We will continue to follow the patient with you during her hospitalization.
[2023-08-02 18:19] LABS: Appearance,Urine Cloudy (Clear); Bacteria,Urine Rare /hpf; Bilirubin,Urine Negative (Negative); Blood,Urine Negative (Negative); Color,Urine Yellow; Glucose,Urine (UA) Negative (Negative); Hyaline Casts,Urine 18 /lpf (0-2); Ketones,Urine Negative (Negative); Leukocyte Esterase,Urine Small (Negative); Mucus,Urine Occasional /hpf; Nitrite,Urine Negative (Negative); PH, Urine 5.5 (5.0-8.0); Protein,Urine Trace (Negative); RBC,Urine 3 /hpf (0-5); Specific Gravity,Urine 1.025 (1.001-1.035); Squamous Epithelial Cell,Urine 31 /hpf (0-4); Urobilinogen,Urine <2.0 mg/dL (<2.0); WBC,Urine 23 /hpf (0-5)
[2023-08-02] MEDS ORDERED: NON FORMULARY DRUG (Tirzepatide [Mounjaro] 7.5 MG/0.5 ML Pen.Injctr) SQ SCH (18:23)
[2023-08-02] MEDS: ATORVASTATIN 20 MG TAB PO SCH (20:07)
[2023-08-02] MEDS: FUROSEMIDE 10 MG/ML 4 ML VIAL IV SCH (21:52)
[2023-08-03] MEDS: ISOSORBIDE MONONITRATE ER 15 MG TAB PO SCH (09:59)
[2023-08-03] MEDS: carvediloL 12.5 MG TAB PO SCH ×2 (09:59→20:13)
[2023-08-03] MEDS: ASPIRIN 81 MG PO SCH (09:59)
[2023-08-03] MEDS: HYDROcodone/APAP 5-325MG 1 EACH TAB PO PRN (09:59)
[2023-08-03] MEDS: FUROSEMIDE 10 MG/ML 4 ML VIAL IV SCH ×2 (09:59→20:13)
[2023-08-03] MEDS: TOPIRAMATE 25 MG TAB PO SCH ×2 (10:00→20:13)
[2023-08-03] MEDS: PANTOPRAZOLE 40 MG TABLET PO SCH (10:00)
[2023-08-03 11:06] LABS: African American GFR (CKD) 83 (>60 ml/min/1.73 sqM); Anion Gap 7 mmol/L; Blood Urea Nitrogen 10 mg/dL (7-17); Carbon Dioxide 25 mmol/L (22-30); Chloride 114 mmol/L (98-107); Glucose 103 mg/dL (74-99); Non-African American GFR(CKD) 72 (>60 ml/min/1.73 sqM); Potassium 3.6 mmol/L (3.5-5.1); Sodium 146 mmol/L (137-145)
--- NOTE | 2023-08-03 19:53 | P.PN ---
Subjective Patient is seen for f/u for Acute kidney injury. Started on diuretics. No significant complaints. Serum creatinine decreased to 0.9 mg/dL. Objective - Vital Signs Vital signs: Vital Signs Temp 98.2 F 08/03/23 14:43 Pulse 81 08/03/23 14:43 Resp 15 08/03/23 14:43 BP 126/71 08/03/23 14:43 Pulse Ox 98 08/03/23 14:43 FiO2 Intake & Output 08/03/23 08/03/23 08/04/23 06:59 18:59 06:59 Intake Total 338 Balance 338 Intake: Oral 338 Other: Voiding Method Toilet Toilet # Voids 2 3 - Exam Patient is comfortable, awake alert oriented x 3 Face appears edematous Examination of the heart S1 and S2 Examination of the lungs shows decreased breath sounds at the bases Abdomen is soft nontender Examination of lower extremity shows edema 1+ bilaterally. 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 Acute kidney injury secondary to hypotension, currently improved. Patient was maintained on high-dose of angiotensin receptor blockers along with Entresto. 2. CHF with preserved ejection fraction on echocardiogram in 2019. 3. Pyuria rule out UTI 4. Abdominal pain with episodes of diarrhea 5. Hypertension with low blood pressure initially but now improved. Plan: Continue IV Lasix Can resume Cozaar if systolic blood pressure remains above 120 mmHg May restart Entresto Recommend cardiology consult and new echocardiogram as previous report available is from 2020.
[2023-08-03] MEDS: SACUBITRIL/VALSARTAN 24 MG-26 MG TABLET PO SCH (20:13)
[2023-08-03] MEDS: ATORVASTATIN 20 MG TAB PO SCH (20:13)
[2023-08-03] MEDS: MORPHINE SULFATE 4 MG/ML SYRINGE IV PRN (20:23)
[2023-08-04] MEDS: FUROSEMIDE 10 MG/ML 4 ML VIAL IV SCH ×2 (08:20→21:00)
[2023-08-04] MEDS: ASPIRIN 81 MG PO SCH (08:21)
[2023-08-04] MEDS: carvediloL 12.5 MG TAB PO SCH ×2 (08:21→20:29)
[2023-08-04] MEDS: PANTOPRAZOLE 40 MG TABLET PO SCH (08:21)
[2023-08-04] MEDS: TOPIRAMATE 25 MG TAB PO SCH ×2 (08:22→20:29)
[2023-08-04] MEDS: SACUBITRIL/VALSARTAN 24 MG-26 MG TABLET PO SCH ×2 (08:22→20:29)
[2023-08-04] MEDS: HYDROcodone/APAP 5-325MG 1 EACH TAB PO PRN ×2 (08:23→18:20)
[2023-08-04] MEDS: ISOSORBIDE MONONITRATE ER 30 MG TAB.ER.24H PO SCH (09:22)
[2023-08-04 11:18] LABS: Anion Gap 8 mmol/L; Blood Urea Nitrogen 14 mg/dL (7-17); Calcium 8.8 mg/dL (8.4-10.2); Potassium 3.2 mmol/L (3.5-5.1); Sodium 143 mmol/L (137-145)
--- NOTE | 2023-08-04 11:48 | P.PN ---
Subjective Patient is seen for f/u for Acute kidney injury. Started on diuretics for volume overload.. No significant complaints. Serum creatinine decreased to 0.9 mg/dL. Objective - Vital Signs Vital signs: Vital Signs Temp 98.0 F 08/04/23 08:00 Pulse 91 08/04/23 08:00 Resp 16 08/04/23 08:00 BP 106/68 08/04/23 08:00 Pulse Ox 98 08/04/23 08:00 FiO2 Intake & Output 08/03/23 08/04/23 08/04/23 18:59 06:59 18:59 Intake Total 338 240 Balance 338 240 Intake: Oral 338 240 Other: Voiding Method Toilet Toilet # Voids 3 2 - Exam Patient is comfortable, awake alert oriented x 3 Face appears edematous Examination of the heart S1 and S2 Examination of the lungs shows decreased breath sounds at the bases Abdomen is soft nontender Examination of lower extremity shows edema 1+ bilaterally. CONCEPTOR exam grossly intact - Labs CBC & Chem 7: 08/01/23 16:37 08/03/23 10:33 Labs: Microbiology - Last 24 Hours (Table) 08/02/23 17:05 Urine Culture - Final Urine,Voided Assessment and Plan Assessment: 1. Acute kidney injury secondary to hypotension, currently improved. Patient was maintained on high-dose of angiotensin receptor blockers along with Entresto. 2. CHF with preserved ejection fraction on echocardiogram in 2019. 3. Pyuria rule out UTI 4. Abdominal pain with episodes of diarrhea 5. Hypertension with low blood pressure initially but now improved. Plan: Continue IV Lasix Can resume Cozaar if systolic blood pressure remains above 120 mmHg May restart Entresto Recommend cardiology consult and new echocardiogram as previous report available is from 2019.
[2023-08-04 12:01] LABS: African American GFR (CKD) 61 (>60 ml/min/1.73 sqM); Carbon Dioxide 28 mmol/L (22-30); Chloride 107 mmol/L (98-107); Glucose 103 mg/dL (74-99); Non-African American GFR(CKD) 53 (>60 ml/min/1.73 sqM)
[2023-08-04] MEDS: POTASSIUM CHLORIDE ER 20 MEQ TAB.ER PO SCH (18:21)
[2023-08-04] MEDS: ATORVASTATIN 20 MG TAB PO SCH (20:29)
[2023-08-04] MEDS: MORPHINE SULFATE 4 MG/ML SYRINGE IV PRN (21:00)
[2023-08-05] MEDS: POTASSIUM CHLORIDE ER 20 MEQ TAB.ER PO SCH (09:09)
[2023-08-05] MEDS: FUROSEMIDE 10 MG/ML 4 ML VIAL IV SCH ×2 (09:09→21:30)
[2023-08-05] MEDS: TOPIRAMATE 25 MG TAB PO SCH ×2 (09:10→21:30)
[2023-08-05] MEDS: carvediloL 12.5 MG TAB PO SCH ×2 (09:10→21:29)
[2023-08-05] MEDS: ISOSORBIDE MONONITRATE ER 30 MG TAB.ER.24H PO SCH ×2 (09:10→09:27)
[2023-08-05] MEDS: SACUBITRIL/VALSARTAN 24 MG-26 MG TABLET PO SCH ×2 (09:10→21:30)
[2023-08-05] MEDS: PANTOPRAZOLE 40 MG TABLET PO SCH (09:10)
[2023-08-05] MEDS: ASPIRIN 81 MG PO SCH (09:10)
[2023-08-05] MEDS: HYDROcodone/APAP 5-325MG 1 EACH TAB PO PRN ×2 (09:27→19:04)
--- NOTE | 2023-08-05 11:39 | P.PN ---
Subjective Patient is seen for f/u for Acute kidney injury. Started on diuretics for volume overload.. No significant complaints. Serum creatinine staying around 1 mg/dL. No major complaints. Objective - Vital Signs Vital signs: Vital Signs Temp 97.9 F 08/05/23 07:59 Pulse 87 08/05/23 07:59 Resp 16 08/05/23 07:59 BP 104/65 08/05/23 07:59 Pulse Ox 96 08/05/23 07:59 FiO2 Intake & Output 08/04/23 08/05/23 08/05/23 18:59 06:59 18:59 Intake Total 476 Balance 476 Intake: Oral 476 Other: Voiding Method Toilet # Voids 3 2 - Exam Patient is comfortable, awake alert oriented x 3 Face appears edematous Examination of the heart S1 and S2 Examination of the lungs shows decreased breath sounds at the bases Abdomen is soft nontender Examination of lower extremity shows edema 1+ bilaterally. 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 Acute kidney injury secondary to hypotension, currently improved. Patient was maintained on high-dose of angiotensin receptor blockers along with Entresto prior to admission. Restarted Entresto. 2. CHF with preserved ejection fraction on echocardiogram in 2019. 3. Pyuria rule out UTI 4. Abdominal pain with episodes of diarrhea 5. Hypertension with low blood pressure initially but now improved. Plan: Continue IV Lasix Can resume Cozaar if systolic blood pressure remains above 120 mmHg Continue Entresto Recommend cardiology consult and new echocardiogram as previous report available is from 2020.
--- NOTE | 2023-08-05 18:12 | PN ---
PROGRESS NOTE DATE OF SERVICE: 08/05/2023 CHIEF COMPLAINT: Abdominal pain and renal failure. HISTORY OF PRESENT ILLNESS: This lady is doing well. Her renal functions returned to normal. PHYSICAL EXAMINATION: CHEST: Clear. CARDIAC: Normal. ABDOMEN: Protuberant. Soft. IMPRESSION: 1. Abdominal pain - resolved. 2. Acute renal failure - resolved. PLAN: Probably home in the next day or 2. MMODL / IJN: [id number] /
--- NOTE | 2023-08-05 19:07 | PN ---
PROGRESS NOTE DATE OF SERVICE: 08/04/2023 CHIEF COMPLAINT: Abdominal pain and renal failure. HISTORY OF PRESENT ILLNESS: This lady is doing well. Her renal functions returned to normal and her blood pressure is up to normal. The right upper quadrant pain has gone. She is being followed by Nephrology. PHYSICAL EXAMINATION: CHEST: Clear. CARDIAC: Normal. ABDOMEN: Protuberant, soft and nontender. IMPRESSION: 1. Right upper quadrant pain. 2. Hypotension. 3. Dehydration. 4. Acute kidney injury. PLAN: She can probably go home anytime. She is cleared by Nephrology. MMODL / IJN: [id number] /
[2023-08-05] MEDS: ATORVASTATIN 20 MG TAB PO SCH (21:32)
[2023-08-05] MEDS: MORPHINE SULFATE 4 MG/ML SYRINGE IV PRN (21:32)
[2023-08-06 08:14] VITALS: BP 112/71
[2023-08-06] MEDS ORDERED: POTASSIUM CHLORIDE ER 20 MEQ TAB.ER PO STA (09:06)
--- NOTE | 2023-08-06 09:14 | P.PN ---
Subjective Patient is seen in follow-up for acute kidney injury. Creatinine 1.18 dated August 04, 2023. Admits to good urine output. Edema improved. On IV Lasix. No chest pain or shortness of breath. On room air. Vital signs are stable. General: No acute distress. HEENT: Head exam is unremarkable. LUNGS: No audible rhonchi or wheezes. HEART: Rate and Rhythm are regular. ABDOMEN: Nontender. EXTREMITITES: Trace edema. Objective - Vital Signs Vital signs: Vital Signs Temp 98.5 F 08/06/23 07:36 Pulse 83 08/06/23 07:36 Resp 16 08/06/23 07:36 BP 112/71 08/06/23 07:36 Pulse Ox 97 08/06/23 07:36 FiO2 Intake & Output 08/05/23 08/06/23 08/06/23 18:59 06:59 18:59 Intake Total 358 Balance 358 Intake: Oral 358 Other: Voiding Method Toilet # Voids 2 1 - Labs CBC & Chem 7: 08/01/23 16:37 08/04/23 10:37 Assessment and Plan Plan: Assessment: 1. Acute kidney injury secondary to vasomotor nephropathy from hypotension. Creatinine 2.39 on admission and was down to 0.91 dated August 03, 2023. Creatinine 1.18 dated August 04, 2023. UA fairly benign. No hydronephrosis noted on CT. 2. Mild hyponatremia from free water diuresis. Improved. 3. Volume overload. Improved with diuresis. 4. Acute on chronic diastolic CHF. Last echocardiogram April 2020. Plan: Change Lasix to oral. Follow-up morning labs. Avoid nephrotoxins. Advised patient to monitor her weight closely at home and to notify physician if develops worsening edema or gains more than 3 pounds in 1 week duration. Advised patient to maintain low-salt diet and fluid restriction of less than 50 ounces per day. Repeat BMP and magnesium level 2 to 3 days postdischarge. Follow-up outpatient in 1 week.
[2023-08-06] MEDS ORDERED: FUROSEMIDE 40 MG TAB PO SCH (09:15)
[2023-08-06] MEDS: PANTOPRAZOLE 40 MG TABLET PO SCH (10:16)
[2023-08-06] MEDS: ISOSORBIDE MONONITRATE ER 30 MG TAB.ER.24H PO SCH (10:16)
[2023-08-06] MEDS: TOPIRAMATE 25 MG TAB PO SCH (10:16)
[2023-08-06] MEDS: carvediloL 12.5 MG TAB PO SCH (10:16)
[2023-08-06] MEDS: ASPIRIN 81 MG PO SCH (10:17)
[2023-08-06] MEDS: SACUBITRIL/VALSARTAN 24 MG-26 MG TABLET PO SCH (10:17)
[2023-08-06 10:51] LABS: African American GFR (CKD) 63 (>60 ml/min/1.73 sqM); Anion Gap 9 mmol/L; Blood Urea Nitrogen 16 mg/dL (7-17); Calcium 8.7 mg/dL (8.4-10.2); Carbon Dioxide 29 mmol/L (22-30); Chloride 106 mmol/L (98-107); Glucose 109 mg/dL (74-99); Magnesium 1.4 mg/dL (1.6-2.3); Non-African American GFR(CKD) 55 (>60 ml/min/1.73 sqM); Potassium 3.3 mmol/L (3.5-5.1); Sodium 144 mmol/L (137-145)
[2023-08-06] MEDS: POTASSIUM CHLORIDE ER 20 MEQ TAB.ER PO SCH (10:51)
[2023-08-06] MEDS: FUROSEMIDE 10 MG/ML 4 ML VIAL IV SCH (11:13)
[2023-08-06] MEDS ORDERED: POTASSIUM CHLORIDE ER 20 MEQ TAB.ER PO SCH ×2 (14:52→16:00)
[2023-08-06 15:17] VITALS: BMI 42.7
[2023-08-06 15:45] VITALS: PULSE 92; RESP 18; TEMP 97.5
--- NOTE | 2023-08-06 20:18 | PN ---
PROGRESS NOTE CHIEF COMPLAINT: Abdominal pain and renal failure. HISTORY OF PRESENT ILLNESS: This lady is doing well. She was expected to go home, but her potassium is slightly low. Yesterday, an order was given to the nurse for 20 mEq KCl 3 times a day, which apparently was not entered into the record. PHYSICAL EXAMINATION: VITAL SIGNS: Normal. CHEST: Clear. CARDIAC: Normal. IMPRESSION: 1. Acute renal failure-resolved. 2. Right upper quadrant pain-resolved. 3. Hypokalemia. PLAN: Treat hypokalemia and probably discharge tomorrow. MMODL / IJN: [id number] /
[2023-08-07] MEDS ORDERED: POTASSIUM CHLORIDE ER 20 MEQ TAB.ER PO SCH (09:00)
--- NOTE | 2023-08-07 23:31 | PN ---
PROGRESS NOTE DATE OF SERVICE: 08/02/2023 CHIEF COMPLAINT: Right upper quadrant pain and renal failure. HISTORY OF PRESENT ILLNESS: This lady is doing a little bit better and she is not complaining as much about the abdominal pain. Renal function has improved. PHYSICAL EXAMINATION: ABDOMEN: Slightly protuberant, slightly tender in the right upper quadrant. There are no masses. CHEST: Clear. CARDIAC: Normal. IMPRESSION: 1. Right upper quadrant pain. 2. Dehydration. 3. Hypotension. 4. Acute kidney injury. PLAN: Continue to monitor her renal function and abdominal pain. She is improving. MMODL / IJN: [id number] /
--- NOTE | 2023-08-08 00:58 | PN ---
PROGRESS NOTE DATE OF SERVICE: 08/03/2023 CHIEF COMPLAINT: Renal failure and right upper quadrant pain. HISTORY OF PRESENT ILLNESS: This lady is doing fairly well. Her renal function is returning to normal. PHYSICAL EXAMINATION: ABDOMEN: Soft and nontender. CHEST: Clear. IMPRESSION: 1. Right upper quadrant pain-resolved. 2. Acute kidney injury-improving. 3. Dehydration. 4. Hypotension. PLAN: She is being evaluated further by Nephrology. MMODL / IJN: [id number] /
--- NOTE | 2023-08-09 21:10 | DS ---
DISCHARGE SUMMARY CHIEF COMPLAINT: Right upper quadrant abdominal pain, hypotension, and renal failure. HISTORY OF PRESENT ILLNESS AND PHYSICAL EXAMINATION: Details of this lady's history and physical can be found in the initial workup. LABORATORY STUDIES: While she was in the hospital, she had laboratory studies, details of which can be found in the laboratory section of her chart. COURSE IN THE HOSPITAL: After admission, she was placed on bedrest, started on intravenous fluids, and monitoring of her renal function and blood pressure. Her blood pressure came up. The right upper quadrant pain began to subside and disappear. CT was normal. The balance of her hospitalization was watching her renal function, which also returned to normal. She was followed by Nephrology. She is doing well and it was felt that she could be discharged on [id number] and she will follow up in the office in several days. FINAL DIAGNOSES: 1. Hypotension. 2. Dehydration. 3. Prerenal azotemia. 4. Right upper quadrant pain. OPERATIONS: None. CONSULTATIONS: Nephrology. She is improved. MMODLilian / MARYAMN: [id number] /
== END 2023-08-06 18:35 | disposition home health service (06) | DRG 682 ==
LOC: EC 13:48 → OBSVTOIN 18:27 → 6NMEDSUR 18:27 → OBSVTOIN 07-30 09:32 → INTOOBSV 07-30 09:32 → OBSVTOIN 08-06 18:35 → INTOOBSV 08-06 18:35 → UNDODISIN 08-06 18:35
PROVIDERS: ADMIT Family Medicine; ATTEND Family Medicine
DX: N17.0 Acute kidney failure with tubular necrosis (principal); I50.33 Acute on chronic diastolic (congestive) heart failure; I13.0 Hypertensive heart and chronic kidney disease with heart failure and stage 1 through stage 4 chronic kidney disease, or unspecified chronic kidney disease; E87.1 Hypo-osmolality and hyponatremia; K73.9 Chronic hepatitis, unspecified; J45.909 Unspecified asthma, uncomplicated; E87.6 Hypokalemia; E86.0 Dehydration; G47.30 Sleep apnea, unspecified; N18.4 Chronic kidney disease, stage 4 (severe); R10.11 Right upper quadrant pain; F90.9 Attention-deficit hyperactivity disorder, unspecified type; F41.9 Anxiety disorder, unspecified; R19.7 Diarrhea, unspecified; F32.A Depression, unspecified; Z88.0 Allergy status to penicillin; Z91.041 Radiographic dye allergy status; Z28.310 Unvaccinated for COVID-19; Z88.2 Allergy status to sulfonamides; Z88.6 Allergy status to analgesic agent; Z79.899 Other long term (current) drug therapy; Z79.82 Long term (current) use of aspirin
CPT/HCPCS: 36415; 74176; 80048; 80053; 81001; 82150; 83605; 83690; 83735; 84484; 85025; 85379; 85610; 85730; 87086; 93005; 96361; 96374; 96375; 96376; 99285

== ENCOUNTER 2023-10-11 11:24 | Observation (INO) | payer BC ==
[2023-10-11] MEDS: ASPIRIN 81 MG PO STA (12:16)
[2023-10-11] MEDS: NITROGLYCERIN SL TABS 0.4 MG TAB SUBLINGUAL STA (12:17)
[2023-10-11 12:27] LABS: Basophils # (A) 0.1 k/uL (0-0.2); Basophils % (A) 1 %; Eosinophils # (A) 0.2 k/uL (0-0.7); Eosinophils % (A) 2 %; HGB 13.4 gm/dL (11.4-16.0); Lymphocytes # (A) 3.3 k/uL (1.0-4.8); Lymphocytes % (A) 36 %; MCH 31.4 pg (25.0-35.0); MCHC 33.4 g/dL (31.0-37.0); MCV 93.9 fL (80.0-100.0); Mean Platelet Volume 7.1; Monocytes # (A) 0.4 k/uL (0-1.0); Monocytes % (A) 4 %; Neutrophils # (A) 5.2 k/uL (1.3-7.7); Neutrophils % (A) 56 %; Platelet Count 340 k/uL (150-450); RBC 4.26 m/uL (3.80-5.40); RDW 12.9 % (11.5-15.5); WBC 9.2 k/uL (3.8-10.6)
[2023-10-11 12:32] LABS: ALT 23 U/L (4-34); AST 23 U/L (14-36); African American GFR (CKD) 59 (>60 ml/min/1.73 sqM); Albumin 3.9 g/dL (3.5-5.0); Alkaline Phosphatase 88 U/L (38-126); Anion Gap 7 mmol/L; Blood Urea Nitrogen 20 mg/dL (7-17); Calcium 9.1 mg/dL (8.4-10.2); Carbon Dioxide 26 mmol/L (22-30); Chloride 110 mmol/L (98-107); Glucose 114 mg/dL (74-99); Lipase 72 U/L (23-300); Magnesium 1.8 mg/dL (1.6-2.3); Non-African American GFR(CKD) 51 (>60 ml/min/1.73 sqM); Partial Thromboplastin Time 23.9 sec (22.0-30.0); Potassium 3.9 mmol/L (3.5-5.1); Prothrombin Time 10.7 sec (10.0-12.5); Sodium 143 mmol/L (137-145); Total Bilirubin 0.8 mg/dL (0.2-1.3); Total Protein 6.9 g/dL (6.3-8.2)
--- NOTE | 2023-10-11 12:34 | ED ---
General Adult HPI - General Chief complaint: Chest Pain Stated complaint: Chest pain, Dizziness Time Seen by Provider: 10/11/23 11:32 Source: patient, RN notes reviewed, old records reviewed Mode of arrival: ambulatory Limitations: no limitations - History of Present Illness Initial comments: Patient is a 53-year-old female who presents emergency department complaining of acute on chronic chest pain as well as acute on chronic dizziness. States chest pain has been worse over the last day or so. Attempted to take nitro yesterday for pain relief which did not help. Endorses shortness of breath with it as well as feeling lightheaded when standing. Seems to resolve when she sits down. Chest pain is more or less constant and is located substernally and is a pressure sensation. States no radiation. States no diaphoresis, nausea, vom iting, abdominal pain. Denies any cough or congestion. Denies any sick contacts, fevers, chills. Presents for further evaluation at this time. Has a history of asthma, hypertension. - Related Data Home Medications Medication Instructions Recorded Confirmed Topiramate [Topamax] 25 mg PO BID 05/01/20 10/11/23 Aspirin 81 mg PO DAILY 05/02/20 10/11/23 Baclofen 10 mg PO TID 07/29/23 10/11/23 Isosorbide Mononitrate ER [Imdur] 15 mg PO DAILY 07/29/23 10/11/23 Pantoprazole [Protonix] 40 mg PO DAILY 07/29/23 10/11/23 Sacubitril/Valsartan [Entresto 49 1 tab PO BID 07/29/23 10/11/23 mg-51 mg Tablet] carvediloL [Coreg] 25 mg PO BID 07/29/23 10/11/23 Nitroglycerin Sl Tabs [Nitrostat] 0.4 mg SUBLINGUAL Q5M PRN 10/11/23 10/11/23 Previous Rx's Medication Instructions Recorded Atorvastatin [Lipitor] 20 mg PO HS #90 tab 12/24/19 Allergies Allergy/AdvReac Type Severity Reaction Status Date / Time Iodinated Contrast Media Allergy Severe Rash/Hives Verified 10/11/23 12:29 [Iodinated Contrast Media - IV Dye] Penicillins Allergy Severe swelling,hi Verified 10/11/23 12:29 ves Sulfa (Sulfonamide Allergy Severe swelling,hi Verified 10/11/23 12:29 Antibiotics) ves adhesive Allergy Swelling Verified 10/11/23 12:29 ibuprofen [From Motrin] AdvReac "PROBLEM Verified 10/11/23 12:29 WITH KIDNEYS" Review of Systems ROS Statement: Those systems with pertinent positive or pertinent negative responses have been documented in the HPI. Review of Systems: CONST: Denies fever EYES: Denies blurry vision ENT: Denies nasal congestion C/V: Endorses chest pain RESP: Denies shortness of breath GI: Denies abdominal pain : Denies dysuria SKIN: Denies rash. MSK: Denies joint pain. NEURO: Denies headache ROS Other: All systems not noted in ROS Statement are negative. Past Medical History Past Medical History: Asthma, Hypertension, Liver Disease, Neurologic Disorder, Sleep Apnea/CPAP/BIPAP Additional Past Medical History / Comment(s): back pain, Chronic Hepatitis , MIGRAINES, USES CPAP , BULGING DISCS IN BACK, had mono as a young child turning into chronic hepatitis, neuro disorder in terms of "blackouts" History of Any Multi-Drug Resistant Organisms: None Reported Past Surgical History: Breast Surgery, Section, Cholecystectomy, Heart Catheterization, Hernia Repair, Hysterectomy, Orthopedic Surgery, Tubal Li gation, Uterine Ablation Additional Past Surgical History / Comment(s): EGD, 3 C sections, breast reduction, cyst removed from left hand, D & C, Bilateral groin hernia repair, LAPAROSCOPY Past Anesthesia/Blood Transfusion Reactions: No Reported Reaction Additional Past Anesthesia/Blood Transfusion Reaction / Comment(s): CLA USTERPHOBIA Past Psychological History: ADD/ADHD, Anxiety, Depression Smoking Status: Never smoker Past Alcohol Use History: None Reported Past Drug Use History: None Reported - Past Family History Mother Family Medical History: Coronary Artery Disease (CAD), Diabetes Mellitus, Renal Disease Additional Family Medical History / Comment(s): [employer] Father Family Medical History: Cancer, Diabetes Mellitus, Myocardial Infarction ([place]) Sister(s) Family Medical History: Cancer General Exam - General Exam Comments Initial Comments: General: Appears in mild distress secondary to chest pain. HEAD: Normal with no signs of head trauma. EYES: PERRLA, EOMI, conjunctiva normal, no discharge. ENT: Hearing grossly intact, normal oropharynx. RESPIRATORY: Clear breath sounds bilaterally. No wheezes, rales, or rhonchi. C/V: Regular rate and rhythm. S1 and S2 auscultated, no edema, peripheral pulses 2+ and intact throughout. Chest pain not reproducible on palpation. ABD: Abd is soft, nontender, nondistended EXT: Normal range of motion, no obvious deformity SKIN: No rashes or lesions observed on exposed skin. NEURO: Alert and oriented x 4. Limitations: no limitations Course Vital Signs 10/11/23 10/11/23 10/11/23 11:26 12:09 13:00 Temperature 98.1 F 97.9 F Pulse Rate 71 65 71 Respiratory 20 20 18 Rate Blood Pressure 109/74 99/56 104/64 O2 Sat by Pulse 98 94 L 96 Oximetry 10/11/23 10/11/23 14:00 15:36 Temperature Pulse Rate 72 67 Respiratory 18 18 Rate Blood Pressure 108/61 111/63 O2 Sat by Pulse 98 97 Oximetry Medical Decision Making - Medical Decision Making Was pt. sent in by a medical professional or institution (, PA, SCI[employer]ENTER DIS[employer]ILDER, urgent care, hospital, or senior care...) When possible be specific @ -No Did you speak to anyone other than the patient for history (EMS, parent, family, police, friend...)? What history was obtained from this source @ -No Did you review nursing and triage notes (agree or disagree)? Why? @ -I reviewed and agree with nursing and triage notes Were old charts reviewed (outside hosp., previous admission, EMS record, old EKG, old radiological studies, urgent care reports/EKG's, senior care records)? Report findings @ -Old charts reviewed. Differential Diagnosis (chest pain, altered mental status, abdominal pain women, abdominal pain men, vaginal bleeding, weakness, fever, dyspnea, syncope, headache, dizziness, GI bleed, back pain, seizure, CVA, palpatations, mental health, musculoskeletal)? @ -Differential Chest Pain: Stable Angina, Unstable Angina, STEMI, NSTEMI Aortic Dissection, Pneumothorax, Musculoskeletal, Esophageal Spasm GERD, Cholecystitis, Pancreatitis, Zoster, this is not meant to be an all-inclusive list. EKG interpreted by me (3pts min.). @ -As above X-rays interpreted by me (1pt min.). @ -Chest x-ray reveals no obvious acute cardiopulmonary process. CT interpreted by me (1pt min.). @ -None done U/S interpreted by me (1pt. min.). @ -None done What testing was considered but not performed or refused? (CT, X-rays, U/S, labs)? Why? @ -None What meds were considered but not given or refused? Why? @ -None Did you discuss the management of the patient with other professionals (professionals i.e. , PA, [employer]DER, lab, RT, psych nurse, social services analyst, shoe repairer, teacher, senior major gifts officer, lining caser)? Give summary @ Multiple attempts made to contact Dr. Santos and eventually his office state d they will notify him of the admission. Was smoking cessation discussed for >3mins.? @ -No Was critical care preformed (if so, how long)? @ -No Were there social determinants of health that impacted care today? How? (Homelessness, low income, unemployed, alcoholism, drug addiction, transportation, low edu. Level, literacy, decrease access to med. care, usp, rehab)? @ -No Was there de-escalation of care discussed even if they declined (Discuss DNR or withdrawal of care, Hospice)? DNR status @ -No What co-morbidities impacted this encounter? (DM, HTN, Smoking, COPD, CAD, Cancer, CVA, ARF, Chemo, Hep., AIDS, mental health diagnosis, sleep apnea, morbid obesity)? @ -None Was patient admitted / discharged? Hospital course, mention meds given and route, prescriptions, significant lab abnormalities, going to OR and other pertinent info. @ -Patient presents with acute on chronic chest pain however it seems to be worse over the last day or so. Will obtain cardiopulmonary workup. Will attempt nitroglycerin tablets for pain relief. Patient was in agreement this plan. Vital signs otherwise within acceptable limits. Patient will be given 324 mg of aspirin. EKG shows no signs of acute ischemia.Chest x-ray unremarkable. Laboratory studies unremarkable as well including undetectable troponin. D-dimer within acceptable limits. On reevaluation, nitro did nothing for the patient's chest pain. I did recommend continued with admission at this time for her acute worsening of her chronic chest pain. She was in agreement this plan. It is atypical. Patient be started on morphine. Will continue to monitor the patient's symptoms. Cardiology consulted. She was in agreement this plan. Heart score is moderate at 4. Multiple attempts made to contact Dr. Santos and eventually his office stated they will notify him of the admission. Undiagnosed new problem with uncertain prognosis? @ -No Drug Therapy requiring intensive monitoring for toxicity (Heparin, Nitro, Insulin, Cardizem)? @ -No Were any procedures done? @ -No Diagnosis/symptom? @ -Chest pain Acute, or Chronic, or Acute on Chronic? @ -Acute on chronic Uncomplicated (without systemic symptoms) or Complicated (systemic symptoms)? @ -Complicated Side effects of treatment? @ -None Exacerbation, Progression, or Severe Exacerbation] @ -No Poses a threat to life or bodily function? @ -Potentially, yes - Lab Data Result diagrams: 10/12/23 05:41 10/12/23 05:41 Lab Results 10/11/23 10/11/23 10/11/23 Range/Units 12:01 12:01 12:01 WBC 9.2 (3.8-10.6) k/uL RBC 4.26 (3.80-5.40) m/uL Hgb 13.4 (11.4-16.0) gm/dL Hct 40.0 (34.0-46.0) % MCV 93.9 (80.0-100.0) fL MCH 31.4 (25.0-35.0) pg MCHC 33.4 (31.0-37.0) g/dL RDW 12.9 (11.5-15.5) % Plt Count 340 (150-450) k/uL MPV 7.1 Neutrophils % 56 % Lymphocytes % 36 % Monocytes % 4 % Eosinophils % 2 % Basophils % 1 % Neutrophils # 5.2 (1.3-7.7) k/uL Lymphocytes # 3.3 (1.0-4.8) k/uL Monocytes # 0.4 (0-1.0) k/uL Eosinophils # 0.2 (0-0.7) k/uL Basophils # 0.1 (0-0.2) k/uL PT 10.7 (10.0-12.5) sec INR 1.0 (<1.2) APTT 23.9 (22.0-30.0) sec D-Dimer 0.56 (<0.60) mg/L FEU Sodium 143 (137-145) mmol/L Potassium 3.9 (3.5-5.1) mmol/L Chloride 110 H (98-107) mmol/L Carbon Dioxide 26 (22-30) mmol/L Anion Gap 7 mmol/L BUN 20 H (7-17) mg/dL Creatinine 1.22 H (0.52-1.04) mg/dL Est GFR (CKD-EPI)AfAm 59 (>60 ml/min/1.73 sqM) Est GFR (CKD-EPI)NonAf 51 (>60 ml/min/1.73 sqM) Glucose 114 H (74-99) mg/dL Calcium 9.1 (8.4-10.2) mg/dL Magnesium 1.8 (1.6-2.3) mg/dL Total Bilirubin 0.8 (0.2-1.3) mg/dL AST 23 (14-36) U/L ALT 23 (4-34) U/L Alkaline Phosphatase 88 (38-126) U/L Troponin I (0.000-0.034) ng/mL NT-Pro-B Natriuret Pep 52 pg/mL Total Protein 6.9 (6.3-8.2) g/dL Albumin 3.9 (3.5-5.0) g/dL Lipase 72 (23-300) U/L 10/11/23 Range/Units 12:01 WBC (3.8-10.6) k/uL RBC (3.80-5.40) m/uL Hgb (11.4-16.0) gm/dL Hct (34.0-46.0) % MCV (80.0-100.0) fL MCH (25.0-35.0) pg MCHC (31.0-37.0) g/dL RDW (11.5-15.5) % Plt Count (150-450) k/uL MPV Neutrophils % % Lymphocytes % % Monocytes % % Eosinophils % % Basophils % % Neutrophils # (1.3-7.7) k/uL Lymphocytes # (1.0-4.8) k/uL Monocytes # (0-1.0) k/uL Eosinophils # (0-0.7) k/uL Basophils # (0-0.2) k/uL PT (10.0-12.5) sec INR (<1.2) APTT (22.0-30.0) sec D-Dimer (<0.60) mg/L FEU Sodium (137-145) mmol/L Potassium (3.5-5.1) mmol/L Chloride (98-107) mmol/L Carbon Dioxide (22-30) mmol/L Anion Gap mmol/L BUN (7-17) mg/dL Creatinine (0.52-1.04) mg/dL Est GFR (CKD-EPI)AfAm (>60 ml/min/1.73 sqM) Est GFR (CKD-EPI)NonAf (>60 ml/min/1.73 sqM) Glucose (74-99) mg/dL Calcium (8.4-10.2) mg/dL Magnesium (1.6-2.3) mg/dL Total Bilirubin (0.2-1.3) mg/dL AST (14-36) U/L ALT (4-34) U/L Alkaline Phosphatase (38-126) U/L Troponin I <0.012 (0.000-0.034) ng/mL NT-Pro-B Natriuret Pep pg/mL Total Protein (6.3-8.2) g/dL Albumin (3.5-5.0) g/dL Lipase (23-300) U/L - EKG Data -: EKG Interpreted by Me EKG Comments: 12-lead Electrocardiogram Interpretation Note EKG was reviewed and interpreted by myself. 12-lead ECG performed at 1132 is interpreted by me as revealing normal sinus rhythm at a rate of 67 beats per minute. Dumont is normal. MA interval is 181 ms, QRS duration is 91 ms, QTc is 385 ms.. There were no ST or T wave abnormalities to suggest myocardial ischemia or injury. R wave progression across the precordium was satisfactory. By my interpretation this EKG is non-diagnostic for acute ischemia. Disposition Clinical Impression: Chest pain Disposition: ADMITTED IP TO THIS HOSP Condition: Stable Time of Disposition: 13:13
[2023-10-11 12:56] LABS: NT-Pro-B-Type Natriuretic Pept 52 pg/mL
[2023-10-11] MEDS ORDERED: ONDANSETRON 4 MG/2 ML VIAL IVP PRN (13:13)
[2023-10-11] MEDS ORDERED: NALOXONE 0.4 MG/ML 1 ML VIAL IV PRN (13:13)
--- NOTE | 2023-10-11 13:18 | XR ---
EXAMINATION TYPE: XR chest 2V DATE OF EXAM: 10/11/2023 COMPARISON: 05/29/2023 INDICATION: chest pain TECHNIQUE: Frontal and lateral views of the chest are obtained. FINDINGS: The heart size is normal. The pulmonary vasculature is normal. The lungs are clear. IMPRESSION: 1. No acute pulmonary process.
[2023-10-11] MEDS: SODIUM CHLORIDE 0.9% 1,000 ML IV SCH (13:50)
[2023-10-11] MEDS: MORPHINE SULFATE 4 MG/ML SYRINGE IV PRN (13:50)
[2023-10-11] MEDS: MORPHINE SULFATE 2 MG/ML SYRINGE IVP STA (13:54)
[2023-10-11] MEDS: HEPARIN SODIUM,PORCINE 5,000 UNIT/ML 1 ML VIAL SQ SCH (17:17)
[2023-10-11] MEDS ORDERED: NITROGLYCERIN SL TABS 0.4 MG TAB SUBLINGUAL PRN (23:16)
[2023-10-11] MEDS: SACUBITRIL/VALSARTAN 49 MG-51 MG TABLET PO SCH (23:53)
[2023-10-11] MEDS: ATORVASTATIN 20 MG TAB PO SCH (23:53)
[2023-10-11] MEDS: BACLOFEN 10 MG TAB PO SCH (23:53)
[2023-10-11] MEDS: TOPIRAMATE 25 MG TAB PO SCH (23:56)
[2023-10-12] MEDS: PANTOPRAZOLE 40 MG TABLET PO SCH (06:22)
[2023-10-12 08:46] LABS: Basophils # (A) 0.05 X 10*3/uL (0.00-0.10); Basophils % (A) 0.6 %; Eosinophils # (A) 0.26 X 10*3/uL (0.04-0.35); Eosinophils % (A) 3.4 %; HCT 37.3 % (37.2-46.3); HGB 12.5 g/dL (12.0-15.0); Lymphocytes % (A) 48.1 %; MCH 31.3 pg (27.0-32.0); MCHC 33.5 g/dL (32.0-37.0); MCV 93.5 FL (80.0-97.0); Mean Platelet Volume 9.3 FL (9.5-12.2); Monocytes # (A) 0.51 X 10*3/uL (0.20-1.00); Monocytes % (A) 6.6 %; NRBC Per 100 WBC 0 X 10*3/uL (0.00-0.01); Neutrophils # (A) 3.16 X 10*3/uL (1.80-7.70); Platelet Count 258 X 10*3/uL (140-440); RBC 3.99 X 10*6/uL (4.10-5.20); RDW 13.1 % (11.5-14.5)
[2023-10-12] MEDS: ASPIRIN 81 MG PO SCH (08:46)
[2023-10-12 09:04] LABS: BUN/Creat Ratio 16.92 Ratio (12.00-20.00); Blood Urea Nitrogen 20.3 mg/dL (9.0-27.0); Carbon Dioxide 26.8 mmol/L (21.6-31.8); Chloride 107 mmol/L (96-109); Glucose 94 mg/dL (70-110); Potassium 3.8 mmol/L (3.5-5.5); Sodium 143 mmol/L (135-145)
[2023-10-12] MEDS: ISOSORBIDE MONONITRATE ER 15 MG TAB PO SCH (11:23)
[2023-10-12] MEDS: carvediloL 12.5 MG TAB PO SCH (11:23)
--- NOTE | 2023-10-12 12:47 | P.CRDCN ---
History of Present Illness Consult date: 10/12/23 Consult reason: chest pain History of present illness: History of present illness: This is a 53-year-old female with past medical history of cardiomyopathy with chronic systolic heart failure, dilated cardiomyopathy, morbid obesity, hypertension, dyslipidemia, family history of premature coronary artery disease. We have been asked to evaluate the patient for chest pain. Patient was previously seen in the office for preop clearance for bariatric surgery in August 2020. Patient follows with still tender Dr. Clarke in [place]. She states she recently had MUGA scan done and she was told she had an EF of 32% and plan was for defibrillator. Patient states that for the past 2 days she had heart pain. She took nitroglycerin x 3 which did not help. She ended up going to bed. She also complains of worsening shortness of breath. She also complains of lower extremity edema. She denies any cough. She states that she still has pain 7/10. She states it comes and goes and not really related to anything but Motrin and Tylenol seems to dull the pain. EKG sinus rhythm Chest x-ray: No acute process. WBC 7.7, hemoglobin 12.5, platelet count 258. INR 1. Electrolytes and renal function are normal. Troponin negative x 3. Liver function tests are normal. Magnesium 1.8. Home cardiac medications: Aspirin 81 mg daily, atorvastatin 20 mg at bedtime, Coreg 25 mg twice daily, Imdur 15 mg daily, Nitrostat as needed, Entresto 1 tab let twice daily. Echocardiogram performed 05/03/2020 revealed EF of 55 to 60%, moderate concentric left ventricular hypertrophy, mild mitral digitation, mild tricuspid regurgitation. Lexiscan stress test performed Cardiac catheterization performed 09/11/[address] Ortiz revealed normal coronary arteries. Moderate severe nonischemic cardiomyopathy. Lexiscan Cardiolite stress test performed in the office on 01/22/2020 was a negative stress test by EKG criteria. Normal myocardial perfusion function. Review Of Systems: At the time of my exam: CONSTITUTIONAL: Denies fever or chills. HEENT: Denies blurred vision, vision changes, or eye pain. Denies hemoptysis CARDIOVASCULAR: Reports chest pain. Denies orthopnea. Denies PND. Denies palpitations RESPIRATORY: Denies shortness of breath. GASTROINTESTINAL: Denies abdominal pain. Denies nausea or vomiting. HEMATOLOGIC: Denies bleeding disorders. GENITOURINARY: Denies any blood in urine. SKIN: Denies pruitis. Denies rash. Physical examination: Gen: This is a morbidly obese 53-year-old female in no acute distress VS: reviewed HEENT: Head is atraumatic, normocephalic. Pupils equal, round. Sclerae is anicteric. NECK: Supple. No JVD. LUNGS: Clear to auscultation. No wheezes or rhonchi. No intercostal retractions. HEART: Regular rate and rhythm. No murmur. Chest wall tenderness ABDOMEN: Soft No tenderness. EXTREMITIES: No pedal edema. No calf tenderness. NEUROLOGICAL: Patient is awake, alert and oriented x3. Assessment: Chest pain, acute coronary syndrome ruled out, pain most likely secondary to musculoskeletal etiology. History of dilated cardiomyopathy Hypertension Dyslipidemia Morbid obesity Plan: Resume patient's home cardiac medications Patient is cleared for discharge from cardiology and may follow-up with her primary still tender in 1 to 2 weeks. Thank you kindly for this consultation. Nurse practitioner note has been reviewed, I agree with documented findings and plan of care. Patient was seen and examined. Past Medical History Past Medical History: Asthma, Hypertension, Liver Disease, Neurologic Disorder, Sleep Apnea/CPAP/BIPAP Additional Past Medical History / Comment(s): back pain, Chronic Hepatitis , MIGRAINES, USES CPAP , BULGING DISCS IN BACK, had mono as a young child turning into chronic hepatitis, neuro disorder in terms of "blackouts" History of Any Multi-Drug Resistant Organisms: None Reported Past Surgical History: Breast Surgery, Section, Cholecystectomy, Heart Catheterization, Hernia Repair, Hysterectomy, Orthopedic Surgery, Tubal Ligation, Uterine Ablation Additional Past Surgical History / Comment(s): EGD, 3 C sections, breast re duction, cyst removed from left hand, D & C, Bilateral groin hernia repair, LAPAROSCOPY Past Anesthesia/Blood Transfusion Reactions: No Reported Reaction Additional Past Anesthesia/Blood Transfusion Reaction / Comment(s): CLAUSTERPHOBIA Past Psychological History: ADD/ADHD, Anxiety, Depression Additional Psychological History / Comment(s): CLAUSTERPHOBIA Smoking Status: Never smoker Past Alcohol Use History: None Reported Additional Past Alcohol Use History / Comment(s): PAtient does not smoke, however her and son both smoke with in the home. Past Drug Use History: None Reported - Past Family History Mother Family Medical History: Coronary Artery Disease (CAD), Diabetes Mellitus, Renal Disease Additional Family Medical History / Comment(s): [employer] Father Family Medical History: Cancer, Diabetes Mellitus, Myocardial Infarction ([place]) Sister(s) Family Medical History: Cancer Medications and Allergies Home Medications Medication Instructions Recorded Confirmed Type Atorvastatin [Lipitor] 20 mg PO HS #90 tab 12/24/19 10/11/23 Rx Topiramate [Topamax] 25 mg PO BID 05/01/20 10/11/23 History Aspirin 81 mg PO DAILY 05/02/20 10/11/23 History Baclofen 10 mg PO TID 07/29/23 10/11/23 History Isosorbide Mononitrate ER [Imdur] 15 mg PO DAILY 07/29/23 10/11/23 History Pantoprazole [Protonix] 40 mg PO DAILY 07/29/23 10/11/23 History Sacubitril/Valsartan [Entresto 49 1 tab PO BID 07/29/23 10/11/23 History mg-51 mg Tablet] carvediloL [Coreg] 25 mg PO BID 07/29/23 10/11/23 History Nitroglycerin Sl Tabs [Nitrostat] 0.4 mg SUBLINGUAL Q5M PRN 10/11/23 10/11/23 History Allergies Allergy/AdvReac Type Severity Reaction Status Date / Time Iodinated Contrast Media Allergy Severe Rash/Hives Verified 10/11/23 12:29 [Iodinated Contrast Media - IV Dye] Penicillins Allergy Severe swelling,hi Verified 10/11/23 12:29 ves Sulfa (Sulfonamide Allergy Severe swelling,hi Verified 10/11/23 12:29 Antibiotics) ves adhesive Allergy Swelling Verified 10/11/23 12:29 ibuprofen [From Motrin] AdvReac "PROBLEM Verified 10/11/23 12:29 WITH KIDNEYS" Physical Exam Vitals: Vital Signs Temp Pulse Pulse Resp BP BP Pulse Ox 10/12/23 07:00 98.1 F 71 16 101/65 98 10/12/23 02:00 97.6 F 86 16 105/64 97 10/11/23 20:00 97.9 F 75 16 107/70 98 10/11/23 16:12 98.1 F 68 18 101/67 97 10/11/23 15:36 67 18 111/63 97 10/11/23 14:00 72 18 108/61 98 10/11/23 13:00 71 18 104/64 96 10/11/23 12:09 97.9 F 65 20 99/56 94 L 10/11/23 11:26 98.1 F 71 20 109/74 98 Intake and Output 10/11/23 10/12/23 10/12/23 22:59 06:59 14:59 Other: # Voids 2 2 Weight 105.233 kg Results 10/12/23 05:41 10/12/23 05:41 Cardiac Enzymes 10/11/23 10/11/23 10/11/23 Range/Units 12:01 12:01 14:45 AST 23 (14-36) U/L Troponin I <0.012 <0.012 (0.000-0.034) ng/mL 10/11/23 Range/Units 17:43 AST (14-36) U/L Troponin I <0.012 (0.000-0.034) ng/mL Coagulation 10/11/23 Range/Units 12:01 PT 10.7 (10.0-12.5) sec APTT 23.9 (22.0-30.0) sec CBC 10/11/23 10/12/23 Range/Units 12:01 05:41 WBC 9.2 7.70 (3.8-10.6) k/uL RBC 4.26 3.99 L (3.80-5.40) m/uL Hgb 13.4 12.5 (11.4-16.0) gm/dL Hct 40.0 37.3 (34.0-46.0) % Plt Count 340 258 (150-450) k/uL Comprehensive Metabolic Panel 10/11/23 10/12/23 Range/Units 12:01 05:41 Sodium 143 143 (137-145) mmol/L Potassium 3.9 3.8 (3.5-5.1) mmol/L Chloride 110 H 107 (98-107) mmol/L Carbon Dioxide 26 26.8 (22-30) mmol/L BUN 20 H 20.3 (7-17) mg/dL Creatinine 1.22 H 1.2 (0.52-1.04) mg/dL Glucose 114 H 94 (74-99) mg/dL Calcium 9.1 9.0 (8.4-10.2) mg/dL AST 23 (14-36) U/L ALT 23 (4-34) U/L Alkaline Phosphatase 88 (38-126) U/L Total Protein 6.9 (6.3-8.2) g/dL Albumin 3.9 (3.5-5.0) g/dL Current Medications Generic Name Dose Route Start Last Admin Trade Name Freq PRN Reason Stop Dose Admin Aspirin 81 mg 10/12/23 09:00 10/12/23 08:46 Aspirin 81 Mg PO 81 mg DAILY MICHELLE Administration Atorvastatin Calcium 20 mg 10/11/23 23:30 10/11/23 23:53 Atorvastatin 20 Mg Tab PO 20 mg HS MICHELLE Administration Baclofen 10 mg 10/11/23 23:30 10/12/23 08:46 Baclofen 10 Mg Tab PO 10 mg TID MICHELLE Administration Carvedilol 25 mg 10/12/23 09:00 Carvedilol 12.5 Mg Tab PO BID [facility] Heparin Sodium (Porcine) 5,000 unit 10/11/23 16:00 10/12/23 08:46 Heparin Sodium,Porcine 5,000 Unit/Ml 1 Ml Vial SQ 5,000 unit Q8HR MICHELLE Administration Sodium Chloride 1,000 mls @ 75 mls/hr 10/11/23 13:15 10/12/23 06:21 Saline 0.9% IV Not Given .[id number] [facility] Isosorbide Mononitrate 15 mg 10/12/23 09:00 Isosorbide Mononitrate Er 15 Mg Tab PO DAILY [facility] Morphine Sulfate 4 mg 10/11/23 13:13 10/11/23 13:50 Morphine Sulfate 4 Mg/Ml Syringe IV 4 mg Q4HR PRN Administration Severe Pain (Scale 7 to 10) Naloxone HCl 0.2 mg 10/11/23 13:13 Naloxone 0.4 Mg/Ml 1 Ml Vial IV Q2M PRN Opioid Reversal Nitroglycerin 0.4 mg 10/11/23 23:16 Nitroglycerin Sl Tabs 0.4 Mg Tab SUBLINGUAL Q5M PRN Chest Pain Ondansetron HCl 4 mg 10/11/23 13:13 Ondansetron 4 Mg/2 Ml Vial IVP Q8HR PRN Nausea And Vomiting Pantoprazole Sodium 40 mg 10/12/23 07:30 10/12/23 06:22 Pantoprazole 40 Mg Tablet PO 40 mg [id number] MICHELLE Administration Sacubitril/Valsartan 1 each 10/11/23 23:30 10/11/23 23:53 Sacubitril/Valsartan 49 Mg-51 Mg Tablet PO 1 each BID MICHELLE Administration Topiramate 25 mg 10/11/23 23:30 10/12/23 08:46 Topiramate 25 Mg Tab PO 25 mg BID MICHELLE Administration Intake and Output 10/11/23 10/12/23 10/12/23 22:59 06:59 14:59 Other: # Voids 2 2 Weight 105.233 kg 10/12/23 05:41 10/12/23 05:41
[2023-10-12 13:33] VITALS: BP 96/62; PULSE 69; RESP 16; TEMP 97.7
--- NOTE | 2023-10-14 23:09 | HP ---
HISTORY AND PHYSICAL CHIEF COMPLAINT: Chest pain. HISTORY OF PRESENT ILLNESS: This is another admission for this 53-year-old white female who presented with chest pain which was atypical. There was no diaphoresis, shortness of breath, radiation of the pain, etc. Past medical history, family history, personal and social histories were all noncontributory. PHYSICAL EXAMINATION: VITAL SIGNS: Normal. HEENT: Head, ears, eyes, nose, mouth, and throat were normal. CHEST: Clear. CARDIAC: Normal. ABDOMEN: Soft and nontender. EXTREMITIES: Normal. NEUROLOGICAL: She is intact. DIAGNOSIS: She is admitted to the hospital with diagnoses, 1. Chest pain. PLAN: 1. Bedrest. 2. IV fluids. 3. Serial EKGs and enzymes. MMODL / IJN: [id number] /
--- NOTE | 2023-10-15 06:29 | DS ---
DISCHARGE SUMMARY CHIEF COMPLAINT: Chest pain. HISTORY OF PRESENT ILLNESS AND PHYSICAL EXAMINATION: Details of this lady's history and physical can be found in the initial workup. LABORATORY STUDIES: While she was in the hospital, she had laboratory studies, details of which can be found in the laboratory section of her chart. COURSE IN THE HOSPITAL: After admission, she was placed on bed rest, started in intravenous fluids and had serial EKGs and enzymes. All of her studies were normal and it was felt that she could be discharged on the . FINAL DIAGNOSIS: Chest pain, noncardiac. OPERATIONS: None. CONSULTATION: None. She is improved. MMODL / IJN: [id number] /
== END 2023-10-12 17:18 | disposition home or self-care (01) ==
LOC: EC 11:24 → 6NMEDSUR 13:14
PROVIDERS: ADMIT Family Medicine; ATTEND Family Medicine
DX: R07.89 Other chest pain (principal); I11.0 Hypertensive heart disease with heart failure; I50.22 Chronic systolic (congestive) heart failure; I42.0 Dilated cardiomyopathy; I08.1 Rheumatic disorders of both mitral and tricuspid valves; E78.5 Hyperlipidemia, unspecified; E66.01 Morbid (severe) obesity due to excess calories; Z68.41 Body mass index [BMI] 40.0-44.9, adult; J45.909 Unspecified asthma, uncomplicated; Z79.82 Long term (current) use of aspirin; Z79.899 Other long term (current) drug therapy; Z88.6 Allergy status to analgesic agent; Z91.041 Radiographic dye allergy status; Z88.0 Allergy status to penicillin; Z88.2 Allergy status to sulfonamides; Z91.048 Other nonmedicinal substance allergy status
CPT/HCPCS: 96361 ×3; 96372; 96374; 99285; 36415; 93005; 85379; 83880; 80053; 80048; 83690; 83735; 84484; 85025 ×2; 85610; 85730; 71046; G0378 ×2; J2270; J1644